=== PATIENT | female | born 1960 | race Caucasian/White ===

== ENCOUNTER → 2017-07-14 12:21 | Outpatient (CLI) | payer OTHER, SELFPAY ==
[2017-07-14 14:13] LABS: Hematocrit 39.2 % (37-47); Hemoglobin 12.7 g/dl (12.0-15.0); Mean Corp Hgb Conc 32.4 g/gl (32-36); Mean Corpuscular Hgb 32.1 pg (27.0-32.0); Platelet Count 202 K/mm3 (150-450); RBC Distribution Width CV 14.3 % (11.6-14.6); RBC Distribution Width SD 51.1 fl (35.1-43.9); Red Blood Count 3.96 M/mm3 (4.2-5.4); Scan Indicated on CBC? Y/N NO; White Blood Count 5.8 K/mm3 (4.4-11.0)
[2017-07-14 16:52] LABS: AST(SGOT) 7 U/L (15-37); Alanine Aminotransfer ALT/SGPT 15 U/L (13-56); Albumin, Serum 3.2 g/dL (3.2-5.0); Alkaline Phosphatase 36 U/L (45-117); Anion Gap 4 (5-15); BUN 20 mg/dL (7-18); BUN/Creat Ratio 19.8 RATIO (10-20); Calcium,Total 8.5 mg/dL (8.5-10.1); Chloride 104 mmol/L (98-107); Creatinine, Serum 1.01 mg/dL (0.55-1.02); EST Glomerular Filtration Rate 60 mL/min (>60); Est Glom Filt Rate - Afr Amer 73 mL/min (>60); Globulin 3.3 g/dL (2.2-4.2); Glucose 90 mg/dL (74-106); Potassium 3.9 mmol/L (3.5-5.1); Protein, Total 6.5 g/dL (6.4-8.2); Sodium Level 141 mmol/L (136-145)
[2017-07-14 16:59] LABS: Folates, (Folic Acid) > 100.00 ng/mL (3.1-55.4)
[2017-07-15 10:43] LABS: Vitamin B12 381 pg/mL (211-911)
== END ==
PROVIDERS: Family Provider Family Medicine; PCP Family Medicine
DX: Z79.899 Other long term (current) drug therapy (principal)
CPT/HCPCS: 36415; 80053; 82607; 82746; 85027

== ENCOUNTER → 2017-08-15 14:29 | Outpatient (CLI) | payer OTHER, SELFPAY ==
[2017-08-15 18:25] LABS: Absolute Lymphocyte Count 1.09 X10^3/ul (0.83-4.51); Absolute Neutrophil Count 5.9 X10^3/uL (2.0-7.7); Basophil# 0.01 X10^3/uL; Basophil% 0.1 % (0-1); Eosinophil# 0.03 X10^3/uL; Eosinophils% 0.4 % (0-5); Hematocrit 43.5 % (37-47); Hemoglobin 13.7 g/dl (12.0-15.0); Lymphocyte # 1.09 X10^3/ul (4.0); Mean Corp Hgb Conc 31.5 g/gl (32-36); Mean Corpuscular Hgb 30.7 pg (27.0-32.0); Mean Corpuscular Volume 97.5 fL (81-99); Mean Platelet Vol. 10.8 fl (6.2-12.0); Monocyte# 0.27 X10^3/uL; Monocyte% 3.7 % (0-10); Neutrophil # 5.85 X10^3/uL (2.7-7.7); Neutrophil % 80.7 % (47-70); Platelet Count 219 K/mm3 (150-450); RBC Distribution Width CV 14.1 % (11.6-14.6); RBC Distribution Width SD 50.7 fl (35.1-43.9); Red Blood Count 4.46 M/mm3 (4.2-5.4); White Blood Count 7.3 K/mm3 (4.4-11.0)
[2017-08-15 18:34] LABS: POSITIVE COUNT NO; POSITIVE DIFFERENTIAL NO; POSITIVE MORPHOLOGY NO
[2017-08-15 19:08] LABS: ALB/GLOB Ratio 1.1 RATIO (0.9-2.4); AST(SGOT) 8 U/L (15-37); Alanine Aminotransfer ALT/SGPT 17 U/L (13-56); Albumin, Serum 3.8 g/dL (3.2-5.0); Alkaline Phosphatase 37 U/L (45-117); Anion Gap 7 (5-15); BUN 26 mg/dL (7-18); BUN/Creat Ratio 21.3 RATIO (10-20); Calcium,Total 9.3 mg/dL (8.5-10.1); Chloride 105 mmol/L (98-107); Cholesterol 265 mg/dL (200); Creatinine, Serum 1.22 mg/dL (0.55-1.02); EST Glomerular Filtration Rate 48 mL/min (>60); Est Glom Filt Rate - Afr Amer 59 mL/min (>60); Free T3 3.1 pg/mL (2.18-3.98); Globulin 3.5 g/dL (2.2-4.2); Glucose 115 mg/dL (74-106); High Density Lipoprotein 70 mg/dL; Potassium 3.5 mmol/L (3.5-5.1); Protein, Total 7.3 g/dL (6.4-8.2); Sodium Level 140 mmol/L (136-145); T4 Free Direct 1.26 ng/dL (0.76-1.46); Thyroid Stim Hormone (TSH) 0.11 uIU/mL (0.358-3.74); Triglycerides 82 mg/dL; Very Low Density Lipoprotein 16 mg/dL (5-40)
[2017-08-15 19:54] LABS: Hemoglobin A1c 6.1 % (4.2-6.3)
== END ==
PROVIDERS: Family Provider Family Medicine; PCP Family Medicine; Visit Provider Internal Medicine Rheumatology
DX: M06.09 Rheumatoid arthritis without rheumatoid factor, multiple sites (principal); M79.7 Fibromyalgia; K76.0 Fatty (change of) liver, not elsewhere classified; I42.9 Cardiomyopathy, unspecified; M81.8 Other osteoporosis without current pathological fracture; E78.5 Hyperlipidemia, unspecified; E03.2 Hypothyroidism due to medicaments and other exogenous substances; N20.0 Calculus of kidney; E11.9 Type 2 diabetes mellitus without complications; Z79.899 Other long term (current) drug therapy
CPT/HCPCS: 36415; 80053; 80061; 83036; 84439; 84443; 84481; 85025

== ENCOUNTER → 2017-11-09 12:46 | Outpatient (CLI) | payer OTHER, SELFPAY ==
[2017-11-09 14:22] LABS: Absolute Lymphocyte Count 2.22 X10^3/ul (0.83-4.51); Absolute Neutrophil Count 2.6 X10^3/uL (2.0-7.7); Basophil# 0.03 X10^3/uL; Basophil% 0.6 % (0-1); Eosinophil# 0.12 X10^3/uL; Eosinophils% 2.3 % (0-5); Hematocrit 42.2 % (37-47); Hemoglobin 13.4 g/dl (12.0-15.0); Lymphocyte # 2.22 X10^3/ul (4.0); Lymphocyte % 41.7 % (19-41); Mean Corp Hgb Conc 31.8 g/gl (32-36); Mean Corpuscular Hgb 30.8 pg (27.0-32.0); Mean Platelet Vol. 9.9 fl (6.2-12.0); Monocyte# 0.38 X10^3/uL; Monocyte% 7.1 % (0-10); Neutrophil # 2.57 X10^3/uL (2.7-7.7); Neutrophil % 48.1 % (47-70); Platelet Count 216 K/mm3 (150-450); RBC Distribution Width CV 14.8 % (11.6-14.6); RBC Distribution Width SD 51.4 fl (35.1-43.9); Red Blood Count 4.35 M/mm3 (4.2-5.4); White Blood Count 5.3 K/mm3 (4.4-11.0)
[2017-11-09 14:30] LABS: POSITIVE COUNT NO; POSITIVE DIFFERENTIAL NO; POSITIVE MORPHOLOGY NO
[2017-11-09 14:35] LABS: ALB/GLOB Ratio 0.9 RATIO (0.9-2.4); AST(SGOT) 11 U/L (15-37); Alanine Aminotransfer ALT/SGPT 21 U/L (13-56); Albumin, Serum 3.3 g/dL (3.2-5.0); Alkaline Phosphatase 41 U/L (45-117); Anion Gap 7 (5-15); BUN 18 mg/dL (7-18); BUN/Creat Ratio 16.4 RATIO (10-20); Calcium,Total 9.1 mg/dL (8.5-10.1); Chloride 104 mmol/L (98-107); EST Glomerular Filtration Rate 55 mL/min (>60); Est Glom Filt Rate - Afr Amer 66 mL/min (>60); Globulin 3.5 g/dL (2.2-4.2); Glucose 167 mg/dL (74-106); Protein, Total 6.8 g/dL (6.4-8.2); Sodium Level 143 mmol/L (136-145)
== END ==
PROVIDERS: Family Provider Family Medicine; PCP Family Medicine; Visit Provider Internal Medicine Rheumatology
DX: M06.09 Rheumatoid arthritis without rheumatoid factor, multiple sites (principal); M79.7 Fibromyalgia; K76.0 Fatty (change of) liver, not elsewhere classified; I42.9 Cardiomyopathy, unspecified; M81.8 Other osteoporosis without current pathological fracture; E78.5 Hyperlipidemia, unspecified; E03.2 Hypothyroidism due to medicaments and other exogenous substances; N20.0 Calculus of kidney; Z79.899 Other long term (current) drug therapy
CPT/HCPCS: 36415; 80053; 85025

== ENCOUNTER 2018-02-09 05:06 | Observation (INO) | payer OTHER, SELFPAY ==
[2018-02-09] VITALS (10 sets, daily range): BP systolic 149–182; BP diastolic 94–111; PULSE 63–92; RESP 12–19; TEMP 36.6–37.1; O2SAT 94–98; BMI 29.5; BMI 28.5; BMI 28.6
--- NOTE | 2018-02-09 05:21 | EKG12_ITS ---
Test Reason : CP Blood Pressure : / mmHG Vent. Rate : 065 BPM Atrial Rate : 065 BPM P-R Int : 000 ms QRS Dur : 116 ms QT Int : 470 ms P-R-T Axes : 048 -66 058 degrees QTc Int : 488 ms Ventricular-paced rhythm Biventricular pacemaker detected Abnormal ECG Confirmed by BHUPINDER GAMBLE, ADDIE ([id number]), newspaper photo editor JEFF GUILLORY ([id number]) on 02/10/2018 1:33:32 PM Referred By: ANUJ Confirmed By:ADDIE ROE MD
--- NOTE | 2018-02-09 05:21 | RAD_ITS ---
STUDY: X-RAY CHEST REASON FOR EXAM: Female, 57 years old. Chest pain TECHNIQUE: Frontal view COMPARISON: 06/10/2015 FINDINGS: Pacemaker leads are in proper position. Lungs are expanded. There are fibrotic changes at the lung bases. There is NO acute infiltrate. There is no demonstrated pleural abnormality. Normal size heart. Normal mediastinum and francie. Normal visualized pulmonary arteries. Normal visualized aortic arch and descending thoracic aorta. Normal visualized thoracic spine. Normal visualized ribs, clavicles, and shoulders. There is no demonstrated abnormality of the visualized soft tissue structures of the upper abdomen. RAD/Chest 1 View (Portable) IMPRESSION: Pacemaker leads are in proper position. Lungs are expanded. There are fibrotic changes at the lung bases. There is NO acute infiltrate. There is no demonstrated pleural abnormality. Normal size heart. Electronically Signed: Tom Harley MD at 5:46 EDT , Service support ,
--- NOTE | 2018-02-09 05:27 | ED.VISSUMM ---
- ER Visit Summary Date of Service: 02/09/18 Chief Complaint: Chest pain History of Present Illness: The patient is a 57 F who complains of a gassy pressure sensation in her low chest upper abdomen all day yesterday. 2 hours prior to evaluation patient states she is getting pressure of the left side of her neck and down her left arm. She had some slight left arm numbness. She took 3 baby aspirin at home and one additional was given by squad. She is pain-free on arrival to the ED. Patient has noted increased shortness of breath with exertion over the past 3 months or so. She has recently seen pulmonology about this. Past history significant for CVA, NH x2, CHF, hypertension, reflux disease, hypothyroidism, rheumatoid arthritis, cardiomyopathy. She does have a pacemaker/ICD. She has seen Dr. Rosenberg in the past. Physical Examination: Blood pressure on arrival is 173/111, temperature 98.1, heart rate 70, respiratory rate 16, pulse ox 97% on room air. Patient sitting upright in bed no acute distress. Head neck examination is normal. Heart is regular rate and rhythm. Lung sounds are clear. There is no chest wall tenderness. Abdomen is soft and nontender. Active bowel sounds are noted throughout. Lower external examination was no calf tenderness or edema. She has strong distal pulses. Test Results: EKG is paced at 65 with no sign of acute ischemia. CBC and chemistry studies normal. Troponin is less than 0.015. Portable chest x-ray shows fibrotic changes of the lung bases. Pacer leads are in appropriate position. Emergency Department Course and Treatment: Patient received aspirin prior to arrival and was pain-free on arrival. She has remained pain-free throughout her ER stay. Patient does have history of 2 prior MIs, although cath in the past has showed no significant coronary disease. She has had decreased exercise tolerance and dyspnea on exertion over the past 1-3 months and now has pain into her neck and down her left arm. Patient will be admitted for cycling of cardiac enzymes and potential further stress test. Blood pressure at this time is remained elevated in the 170s systolic. She states her systolic blood pressures normally in the 120s and she is currently on low-dose Coreg twice a day for blood pressure control. She would be given 10 mg of labetalol. Patient states that she is very sensitive to blood pressure medications so we will give her a low dose at this time and can be redosed if needed. Treatment Plan: [] Disposition: Admit Impression: Chest pain This note was generated with [employer] dictation software. It may contain incorrect words, spelling, and punctuation that were not noted in review of the chart prior to signing ED Disposition - Plan for ED Patient: Chief Complaint: Chest Pain Referrals: Demond Hadley MD [Primary Care Provider] -
[2018-02-09 05:30] LABS: Absolute Lymphocyte Count 2.78 X10^3/ul (0.83-4.51); Absolute Neutrophil Count 4.2 X10^3/uL (2.0-7.7); Basophil# 0.02 X10^3/uL; Basophil% 0.3 % (0-1); Eosinophil# 0.12 X10^3/uL; Eosinophils% 1.5 % (0-5); Hematocrit 43.5 % (37-47); Hemoglobin 14.3 g/dl (12.0-15.0); Lymphocyte # 2.78 X10^3/ul (4.0); Lymphocyte % 35.1 % (19-41); Mean Corp Hgb Conc 32.9 g/gl (32-36); Mean Corpuscular Hgb 31.7 pg (27.0-32.0); Mean Corpuscular Volume 96.5 fL (81-99); Mean Platelet Vol. 9.6 fl (6.2-12.0); Monocyte# 0.75 X10^3/uL; Monocyte% 9.5 % (0-10); Neutrophil # 4.23 X10^3/uL (2.7-7.7); Neutrophil % 53.5 % (47-70); Platelet Count 201 K/mm3 (150-450); RBC Distribution Width CV 14.3 % (11.6-14.6); Red Blood Count 4.51 M/mm3 (4.2-5.4); White Blood Count 7.9 K/mm3 (4.4-11.0)
[2018-02-09] MEDS: 0.9% Normal Saline 1,000 ML 150 ML IV (05:30)
[2018-02-09 05:31] LABS: POSITIVE COUNT NO; POSITIVE DIFFERENTIAL NO; POSITIVE MORPHOLOGY NO
[2018-02-09 05:41] LABS: Anion Gap 7 (5-15); BUN 18 mg/dL (7-18); BUN/Creat Ratio 18.3 RATIO (10-20); Calcium,Total 8.6 mg/dL (8.5-10.1); Chloride 104 mmol/L (98-107); Creatinine, Serum 0.98 mg/dL (0.55-1.02); EST Glomerular Filtration Rate 62 mL/min (>60); Est Glom Filt Rate - Afr Amer 75 mL/min (>60); Estimated Creatinine Clearance 60.01 ml/min; Glucose 113 mg/dL (74-106); Potassium 3.8 mmol/L (3.5-5.1); Sodium Level 142 mmol/L (136-145)
--- NOTE | 2018-02-09 06:16 | PCM.HP.STD ---
History of Present Illness Date of Admission: 02/09/18 Chief Complaint: Chest Pain The patient is a 57 y/o F w/ PMHx: Cardiomyopathy, CAD s/p prior [place] x 2 without PCI, Systolic CHF, Hx CVA, Hypothyroidism, Hypertension, Hyperlipidemia, Rheumatoid arthritis, Transverse Myelitis, GERD, Anxiety, CKD stage II, MALU who presents to the [facility] ED on 02/09/18 with history of dyspnea, worse with exertion over the last month, mild upper abdominal discomfort/upset with increased gas during the day as well as mild nausea and now acute onset at ~ 12 pm L chest sharp pain underneath her breast rated 4-5/10, constant and ~ 3 am LUE, left shoulder and left neck discomfort described as similarly sharp, stabbing, rated 5/10. She called EMS and during transport was administered ASA 81 mg x 4. She noted resolution of her chest discomfort upon ED presentation. In the ED work-up included T 98.1, heart rate 70, BP initially 173/111, respiratory rate 16, 97% on room air, CBC with WBC 7.9, hemoglobin 14.3, platelet 201 without shift, BMP with glucose 113 otherwise unremarkable, trop < 0.015, EKG without acute evidence of ischemia, CXR with pacemaker leads in proper position, fibrotic changes lung bases with no acute cardiopulmonary findings otherwise. In the ED patient administered labetaolol 10 mg IV x 1. Past Medical History Past Medical History (Chronic Problems): Chronic Problems HTN (hypertension) (Chronic) GERD (gastroesophageal reflux disease) (Chronic) Hypothyroidism (Chronic) Depression (Chronic) CVA (cerebral infarction) (Chronic) Congestive heart failure (Chronic) Rheumatoid arthritis (Chronic) ICD (implantable cardioverter-defibrillator), biventricular, in situ (Chronic) ICD (implantable cardioverter-defibrillator) in place (Chronic) HLD (hyperlipidemia) (Chronic) Cardiomyopathy, noncoronary (Chronic) myocardial infarction (Chronic) Allergies ciprofloxacin [From Cipro] Allergy (Verified 02/09/18 05:12) Other ciprofloxacin HCl [From Cipro] Allergy (Verified 02/09/18 05:12) Other citric acid Allergy (Verified 02/09/18 05:12) Angioedema levofloxacin [From Levaquin] Allergy (Verified 02/09/18 05:12) Unknown lisinopril Allergy (Verified 02/09/18 05:12) Hives simvastatin [From Zocor] Allergy (Verified 02/09/18 05:12) MUSCLE WEAKNESS TILOX Allergy (Uncoded 06/12/15 12:57) HYPOTENSION Home Medications: Ambulatory Orders Medication Instructions Recorded ALPRAZolam [Xanax] 2 mg PO QHS 10/13/14 Aspirin [Aspirin, Baby] 81 mg PO DAILY@0800 10/13/14 Biotin 1 mg PO DAILY 10/13/14 Calcium Carbonate 600 mg PO BID 10/13/14 Esomeprazole Mag Trihydrate 40 mg PO DAILY 10/13/14 [Nexium] Levothyroxine Sodium [Levoxyl] 125 mcg PO DAILY 10/13/14 Potassium Chloride [Klor-Con 10] 20 meq PO DAILY 10/13/14 traMADol [Ultram] 50 mg PO 4X/DAY 10/13/14 Abatacept [Orencia] 125 mg SQ QWEEK 01/21/15 Cholecalciferol (VIT D3) [Vitamin 2,000 unit PO DAILY 05/23/15 D3] Carvedilol [Coreg (Beta Khris)] 6.25 mg PO BID 06/10/15 Estradiol [Estrace Vaginal Cream] 1 dose VAGINAL DAILY 06/12/15 Fluticasone 0.05% [Flonase Nasal 06/12/15 [place]] Docusate Sodium [Colace] 100 mg PO DAILY 02/09/18 Folic Acid 600 mg PO DAILY 02/09/18 L.acidoph,Paracasei, B.lactis 1 each PO DAILY 02/09/18 [Probiotic] Liothyronine Sodium [Cytomel] 5 mcg PO DAILY 02/09/18 Loratadine [Claritin] 10 mg PO DAILY 02/09/18 Ramelteon [Rozerem] 8 mg PO QHS 02/09/18 Tetrahydrozoline HCl/Zinc Sulf 1 dose EACH EYE DAILY 02/09/18 [[facility] Astringent Eye Drops] busPIRone [Buspar] 15 mg PO DAILY 02/09/18 predniSONE tablet 5 mg PO DAILY 02/09/18 Surgical History: - - 5 foot surgeries, 5 hand surgeries, hysterectomy, tubal ligation, ICD/pacer. Psychiatric History: Anxiety, Depression HATCH BOSS History: No pertinent HATCH BOSS history Lives: Spouse/ Significant Other Smoking Status: Never smoker Alcohol: None Drugs: None - *Family History Maternal History Items: Diabetes, Heart Disease, Hypertension Paternal History Items: Diabetes, Heart Disease, Hypertension, Stroke Review of Systems Constitutional: Reports: Fatigue. Denies: Chills, Fever, Weight Change HEENT: Denies: Head Aches, Sinus Congestion, Sinus Drainage Cardiovascular: Reports: Chest Pain. Denies: Light Headedness, Orthopnea, Palpitations, Syncope Respiratory: Reports: Shortness of breath upon exertion. Denies: Cough, Shortness of breath at rest, Sputum production Gastrointestinal: Reports: Abdominal Pain, Nausea. Denies: Vomiting Genitourinary: Denies: Dysuria Musculoskeletal: Reports: Back Pain, Joint Pain. Denies: Joint Tenderness Skin: Denies: Rash, Wounds Neurological: Denies: Numbness, Tingling, Focal weakness Psychiatric: Reports: Anxiety, Depression. Denies: Homicidal Ideations, Suicidal Ideations Hematologic/ Lymphatic: Denies: Easy Bruising, Easy Bleeding VTE Information - Inpt Only VTE Present on Admission: No VTE Mechan Device Prophylaxis: SCD's VTE Pharm Prophylaxis ordered?: Yes Subjective: Seated upright in the ED bed, notes chest pain improved, currently back hurting she notes. Objective: Physical Examination: General: awake, alert, oriented x 3 and cooperative, seated upright in the ED bed in no apparent distress, chest pain improved. Skin: normal color, turgor, no icterus, cyanosis. HEENT: AT/NC, EOMI, PERRLA, MMM, no carotid bruits or JVD noted. Lungs: CTA bilaterally, moderate effort, mild decrease BL bases, no rales, ronchi or wheezing. Heart: Regular rate and rhythm; no gallop, rub audible. Abdomen: soft, overweight, NTTP, ND, normal BS, no HSM. Extremities: no cyanosis, clubbing, or edema. Neurological: patient awake, alert, oriented x 3; cognitive function intact; pupils equally reactive to light and accomodation; cranial nerves II-XII grossly normal, moving all 4 extremities, no focal deficits, strength mildly globally decreased. Psychiatric: affect appears normal, no acute evidence of depressive or anxiety feelings. - Physical Exam Vital Signs Temp Pulse Resp BP Pulse Ox 98.1 F 72 16 173/111 H 96 02/09/18 05:08 02/09/18 05:12 02/09/18 05:12 02/09/18 05:12 02/09/18 05:12 Oxygen Flow Rate (L/min) 99 Oxygen Delivery Method Room Air Weight: 183 lb 3.266 oz Body Mass Index (BMI) 29.5 Finger Stick Blood Glucose 132 Laboratory Tests Past 24 Hrs 02/09/18 02/09/18 05:14 05:14 WBC 7.9 RBC 4.51 Hgb 14.3 Hct 43.5 MCV 96.5 MCH 31.7 MCHC 32.9 RDW 14.3 RDW Differential 49.0 H Plt Count 201 MPV 9.6 Immature Gran % (Auto) 0.100 Neut % (Auto) 53.5 Lymph % (Auto) 35.1 [place] % (Auto) 9.5 Eos % (Auto) 1.5 Baso % (Auto) 0.3 Absolute Neuts (auto) 4.2 Absolute Lymphs (auto) 2.78 Total Counted Not Reportable Sodium 142 Potassium 3.8 Chloride 104 Carbon Dioxide 31.0 Anion Gap 7 BUN 18 Creatinine 0.98 Estim Creat Clear Calc 60.01 Est GFR (MDRD) Af Amer 75 Est GFR (MDRD) Non-Af 62 BUN/Creatinine Ratio 18.3 Glucose 113 H Calcium 8.6 Troponin I < 0.015 Assessment/Plan All Active Problems Dehydration (Acute) Orthostatic hypotension (Acute) Near syncope (Acute) The patient is a 57 y/o F w/ PMHx: Cardiomyopathy, CAD s/p prior [place] x 2 without PCI, Systolic CHF, Hx CVA, Hypothyroidism, Hypertension, Hyperlipidemia, Rheumatoid arthritis, GERD, Anxiety, CKD stage II, MALU who presents to the [facility] ED on 02/09/18 with history of dyspnea, worse with exertion over the last month, mild upper abdominal discomfort/upset with increased gas the day prior to current presentation as well as now acute onset at ~ 3 am LUE, left shoulder and left neck discomfort. (1) Chest Pain: EKG in ED with no acute evidence of ischemia, CXR w/ no acute findings, initial trop normal x1. Will admit to PCU, place on a monitored bed to assure no acute myocardial infarction with serial cardiac enzymes and EKGs. Patient is unable to perform exercise thus will proceed with AM nuclear stress testing. ASA, NG, morphine. FLP in AM. Mag pending. (2) Systolic CHF/Cardiomyopathy Unclear Type: Continue home regimen asa, coreg, statin intolerance. Given current elevated blood pressures if appropriate may consider adding ACEI. 2014 ECHO w/ borderline to mildly enlarged LV, moderately segmental systolic dysfunction, EF 30%, mild diffuse MV thickening, trivial MVI, trivial TBI, trivial pulmonic valve insufficiency, ICD /Taser leads in place. Follows w/ CC. (3) Anxiety/Depression: Continued on home regimen xanax, buspar, rozerem q HS. (4) Hypothyroidism: Continue home synthroid regimen. (5) Rheumatoid arthritis: Continued on low dose prednisone. (6) Hx CVA: Continued on asa, noted statin allergy, not on BP regimen w/ appropriate BP. HgbA1c pending w/ noted DM diagnosis following last admission. (7) Diabetes mellitus type II: Not on regimen, noted in prior diagnoses, HgbA1c pending, NPO status currently, accu checks w/ ISS. (8) MALU: CPAP q HS (9) GERD: Famotidine. (10) DVT prophylaxis: SCDs, lovenox. Code Visit OBSV E&M: 80860 Initial observation care L3
[2018-02-09] MEDS: Labetalol 20 MG/4 ML Vial 10 MG IV (06:30)
--- NOTE | 2018-02-09 06:49 | EKG12_ITS ---
Test Reason : CP ADMISSION Blood Pressure : / mmHG Vent. Rate : 063 BPM Atrial Rate : 063 BPM P-R Int : 132 ms QRS Dur : 112 ms QT Int : 484 ms P-R-T Axes : 031 237 066 degrees QTc Int : 495 ms Atrial-sensed ventricular-paced rhythm Biventricular pacemaker detected Abnormal ECG When compared with ECG of 09-FEB-2018 05:12, MANUAL COMPARISON REQUIRED, DATA IS UNCONFIRMED Confirmed by KEVIN BECKER ([id number]), dictionary editor JEFF GUILLORY ([id number]) on 02/14/2018 11:23:14 AM Referred By: ASHLEIGH Confirmed By:KEVIN BECKER
[2018-02-09 07:08] LABS: Magnesium 2.1 mg/dL (1.6-2.6)
[2018-02-09 07:16] LABS: Bedside Glucose 78 mg/dL (70-110)
[2018-02-09 08:40] LABS: Hemoglobin A1c 6.2 % (4.2-6.3)
[2018-02-09] MEDS: predniSONE 10 MG Tablet 40 MG PO (09:14)
[2018-02-09] MEDS: Levothyroxine 125 MCG Tablet PO (09:15)
[2018-02-09] MEDS: busPIRone 15 MG TABLET PO (09:16)
[2018-02-09] MEDS: Aspirin 81 MG TAB.CHEW PO (09:16)
[2018-02-09] MEDS: traMADol 50 MG Tablet PO (09:16)
[2018-02-09] MEDS: Famotidine 20 MG Tablet PO (09:16)
[2018-02-09] MEDS: Carvedilol 6.25 MG Tablet PO (11:10)
--- NOTE | 2018-02-09 11:17 | PCM.DC ---
You will use the following diet at home:: Cardiac Discharge Activity: Return to Normal Activity Call your doctor if you observe: Shortness of breath, Dizziness, Fainting spells, Chest pain Allergies/Adverse Reactions: Allergies ciprofloxacin [From Cipro] Allergy (Verified 02/09/18 05:12) Other ciprofloxacin HCl [From Cipro] Allergy (Verified 02/09/18 05:12) Other citric acid Allergy (Verified 02/09/18 05:12) Angioedema ezetimibe [From Zetia] Allergy (Verified 02/09/18 08:01) Other levofloxacin [From Levaquin] Allergy (Verified 02/09/18 05:12) Unknown linagliptin [From Tradjenta] Allergy (Verified 02/09/18 08:01) Upset Stomach lisinopril Allergy (Verified 02/09/18 05:12) Hives oxcarbazepine [From Trileptal] Allergy (Verified 02/09/18 08:01) Other simvastatin [From Zocor] Allergy (Verified 02/09/18 05:12) MUSCLE WEAKNESS TILOX Allergy (Uncoded 06/12/15 12:57) HYPOTENSION Medications to take at Discharge ALPRAZolam [Xanax] 1 mg PO QHS 10/13/14 Aspirin [Aspirin, Baby] 81 mg PO DAILY@0800 10/13/14 Biotin 1,000 mg PO DAILY 10/13/14 Calcium Carbonate 600 mg PO BID 10/13/14 Esomeprazole Mag Trihydrate [Nexium] 40 mg PO DAILY 10/13/14 Levothyroxine Sodium [Levoxyl] 125 mcg PO DAILY 10/13/14 Potassium Chloride [Klor-Con 10] 20 meq PO DAILY 10/13/14 traMADol [Ultram] 50 mg PO TID 10/13/14 Abatacept [Orencia] 125 mg SQ QWEEK 01/21/15 Cholecalciferol (VIT D3) [Vitamin D3] 600 mg PO BID 05/23/15 Carvedilol [Coreg (Beta Khris)] 6.25 mg PO BID 06/10/15 Estradiol [Estrace Vaginal Cream] 0.1 mg VAGINAL DAILY 06/12/15 Fluticasone 0.05% [Flonase Nasal [place]] 1 spray NASAL DAILY 06/12/15 Colestipol Tablet [Colestid Tablet] 1 gm PO DAILY 02/09/18 Docusate Sodium [Colace] 100 mg PO DAILY 02/09/18 Duloxetine Hcl [Cymbalta] 30 mg PO BID 02/09/18 Folic Acid 600 mg PO DAILY 02/09/18 L.acidoph,Paracasei, B.lactis [Probiotic] 1 each PO DAILY 02/09/18 Liothyronine Sodium [Cytomel] 5 mcg PO DAILY 02/09/18 Loratadine [Claritin] 10 mg PO DAILY 02/09/18 Ramelteon [Rozerem] 8 mg PO QHS 02/09/18 Tetrahydrozoline HCl/Zinc Sulf [Cvs Astringent Eye Drops] 1 dose EACH EYE DAILY 02/09/18 busPIRone [Buspar] 15 mg PO TID 02/09/18 predniSONE tablet 5 mg PO DAILY 02/09/18 Primary Care Physician: Demond Hadley MD [Primary Care Provider] - Please follow up with your Primary Care Physician in: 1 Week Test Results: Test results from this visit will be discussed in further detail at your follow-up appointment, if applicable. Please Follow Up With: Primary Mat Cleaning Machine Operator When: 1 Week Proposed Discharge Date: 02/09/18
[2018-02-09 11:21] LABS: Bedside Glucose 153 mg/dL (70-110)
--- NOTE | 2018-02-09 12:21 | STRESSREP_ITS ---
Stress Test Report Date: 02/09/2018 Procedure: Pharmacologic stress nuclear imaging study Indications: Chest pain; CAD; cardiomyopathy; ICD Consent: Per the patient Procedure: The patient underwent pharmacologic (Regadenoson) evaluation with a peak heart rate of 117 beats per minute (71 predicted maximal heart rate) and a peak blood pressure of 160/96 mmHg. The baseline ECG demonstrated electronic ventricular paced rhythm. The peak pharmacologic ECG demonstrated an electronic ventricular paced rhythm. There was a rare PVC during recovery. There was no complaint of chest discomfort during pharmacologic infusion or recovery. The examination was discontinued secondary to completion of protocol. Impression: 1. Pharmacologic (Regadenoson) evaluation 2. Peak pharmacologic ECG with an electronic ventricular paced rhythm. 3. There was a rare PVC during recovery. 4. Nuclear images pending Myocardial perfusion imaging study: Technique: The patient was injected with 13.7 millicuries of technetium 99m Cardiolite and subsequently rest SPECT Cardiolite nuclear imaging was obtained in the horizontal long, vertical long, and short axis views. The patient underwent pharmacologic (Regadenoson) evaluation with a peak heart rate of 117 beats per minute (71 % percent predicted maximal heart rate) and a peak blood pressure of 160/96 mmHg. The patient was injected with 39.9 millicuries of technetium 99m Cardiolite and subsequently stress SPECT Cardiolite nuclear imaging was obtained in the horizontal long, vertical long, and short axis views. Interpretation: Rest and stress SPECT Cardiolite nuclear imaging status post realignment, normalization, and attenuation correction demonstrate relative uniform tracer uptake and myocardial perfusion appearing within normal limits. A gated Cardiolite study at peak stress was not obtained Impression: 1. Rest and stress SPECT Cardiolite nuclear imaging demonstrate relative uniform tracer uptake and myocardial perfusion appearing within normal limits. 2. The gated Cardiolite study at peak stress was not obtained. This note was generated with [employer] software. It may contain incorrect words, spelling, and punctuation that were not noted in checking the note before signing.
--- NOTE | 2018-02-09 12:41 | DS.PCM_ITS ---
<Danna Fishman - Last Filed: 02/09/18 12:49> Discharge Date and Diagnosis Date of Admission: 02/09/18 Date of Discharge: 02/09/18 - Primary Discharge Diagnosis 1. Atypical chest pain, ACS ruled out 2. Chronic systolic CHF/cardiomyopathy 3. Anxiety/depression 4. Hypothyroidism 5. Rheumatoid arthritis 6. History of CVA 7. Type 2 diabetes mellitus 8. MALU 9. GERD 10. CAD status post prior NV x2 without PCI 11. History of transverse myelitis 12. Hypertension 13. hyperlipidemia 14. Chronic kidney disease stage II - Secondary Discharge Diagnosis Chronic Problems HTN (hypertension) (Chronic) GERD (gastroesophageal reflux disease) (Chronic) Hypothyroidism (Chronic) Depression (Chronic) CVA (cerebral infarction) (Chronic) Congestive heart failure (Chronic) Rheumatoid arthritis (Chronic) ICD (implantable cardioverter-defibrillator), biventricular, in situ (Chronic) ICD (implantable cardioverter-defibrillator) in place (Chronic) HLD (hyperlipidemia) (Chronic) Cardiomyopathy, noncoronary (Chronic) myocardial infarction (Chronic) Hospital Course and Treatment Imaging Results: Diagnostic Data Chest X-Ray 02/09/18 05:21 IMPRESSION: Pacemaker leads are in proper position. Lungs are expanded. There are fibrotic changes at the lung bases. There is NO acute infiltrate. There is no demonstrated pleural abnormality. Normal size heart. Electronically Signed: Tom Harley MD at 5:46 EDT , Service support , Operations: None Procedures: Stress test Summary of Care Provided: The patient is a 57 year old F admitted 02/09/2018 due to chest pain. She has a past medical history of cardiomyopathy, CAD status post prior NV x2 without PCI, chronic systolic CHF, history of CVA, hypothyroidism, hypertension, hyperlipidemia, rheumatoid arthritis, transverse myelitis, GERD, anxiety, chronic kidney disease stage II, obstructive sleep apnea. EKG without ST-T changes. Troponin negative. Patient underwent nuclear stress test which was negative for ischemia. ACS ruled out. Suspect pain under the left breast musculoskeletal in nature. Patient on chronic pain medication regimen due to rheumatoid arthritis. Patient denies shortness of breath, dizziness, lightheadedness. Chest x-ray on admission without acute process. Other chronic medical conditions as noted above are stable at this time. Follow-up with primary care physician in 1 week. General: Awake, Alert, Oriented x 3 and cooperative, no apparent distress Skin: normal color, turgor, no icterus, cyanosis. HEENT: AT/NC, EOMI, PERRLA, MMM, no carotid bruits or JVD noted. Lungs: Clear to auscultation Heart: Regular rate and rhythm; no gallop, rub audible. Abdomen: soft, nontender, normal bowel sounds, nondistended Extremities: no cyanosis, clubbing, or edema. Neurological: cranial nerves II-XII grossly normal, neuro grossly intact. Psychiatric: Normal affect Patient seen exam prior to discharge. Physical assessment as noted above. Patient stable for discharge home with the follow-up recommendations as noted above. This patient was seen by SAMIR Calzada under the supervision of Dr. Ruelas. - Physical Exam Vital Signs Temp Pulse Resp BP Pulse Ox 98.4 F 83 16 149/97 H 97 02/09/18 11:10 02/09/18 11:10 02/09/18 11:10 02/09/18 11:10 02/09/18 11:10 Oxygen Flow Rate (L/min) 99 Oxygen Delivery Method Room Air Weight: 177 lb 4.026 oz Body Mass Index (BMI) 28.5 Finger Stick Blood Glucose 132 Intake and Output for Last 24 Hours 02/07/18 02/08/18 02/09/18 23:59 23:59 23:59 Intake Total 583 / 583 Balance 583 / 583 Laboratory Tests Past 24 Hrs 02/09/18 02/09/18 02/09/18 05:14 05:14 05:14 WBC 7.9 RBC 4.51 Hgb 14.3 Hct 43.5 MCV 96.5 MCH 31.7 MCHC 32.9 RDW 14.3 RDW Differential 49.0 H Plt Count 201 MPV 9.6 Immature Gran % (Auto) 0.100 Neut % (Auto) 53.5 Lymph % (Auto) 35.1 Pierce % (Auto) 9.5 Eos % (Auto) 1.5 Baso % (Auto) 0.3 Absolute Neuts (auto) 4.2 Absolute Lymphs (auto) 2.78 Total Counted Not Reportable Sodium 142 Potassium 3.8 Chloride 104 Carbon Dioxide 31.0 Anion Gap 7 BUN 18 Creatinine 0.98 Estim Creat Clear Calc 60.01 Est GFR (MDRD) Af Amer 75 Est GFR (MDRD) Non-Af 62 BUN/Creatinine Ratio 18.3 Glucose 113 H Hemoglobin A1c Calcium 8.6 Magnesium 2.1 Troponin I < 0.015 02/09/18 02/09/18 02/09/18 05:14 08:15 11:16 WBC RBC Hgb Hct MCV MCH MCHC RDW RDW Differential Plt Count MPV Immature Gran % (Auto) Neut % (Auto) Lymph % (Auto) Pierce % (Auto) Eos % (Auto) Baso % (Auto) Absolute Neuts (auto) Absolute Lymphs (auto) Total Counted Sodium Potassium Chloride Carbon Dioxide Anion Gap BUN Creatinine Estim Creat Clear Calc Est GFR (MDRD) Af Amer Est GFR (MDRD) Non-Af BUN/Creatinine Ratio Glucose Hemoglobin A1c 6.2 Calcium Magnesium Troponin I < 0.015 < 0.015 POC Glucose 02/09/18 02/09/18 11:12 06:58 POC Glucose 153 H 78 Discharge Diet: Low fat/ Low Cholesterol Discharge Activity: Return to Normal Activity Call your doctor if you observe: Shortness of breath, Dizziness, Fainting spells, Chest pain Home Medications: Medications to take at Discharge ALPRAZolam [Xanax] 1 mg PO QHS 10/13/14 Aspirin [Aspirin, Baby] 81 mg PO DAILY@0800 10/13/14 Biotin 1,000 mg PO DAILY 10/13/14 Calcium Carbonate 600 mg PO BID 10/13/14 Esomeprazole Mag Trihydrate [Nexium] 40 mg PO DAILY 10/13/14 Levothyroxine Sodium [Levoxyl] 125 mcg PO DAILY 10/13/14 Potassium Chloride [Klor-Con 10] 20 meq PO DAILY 10/13/14 traMADol [Ultram] 50 mg PO TID 10/13/14 Abatacept [Orencia] 125 mg SQ QWEEK 01/21/15 Cholecalciferol (VIT D3) [Vitamin D3] 600 mg PO BID 05/23/15 Carvedilol [Coreg (Beta Khris)] 6.25 mg PO BID 06/10/15 Estradiol [Estrace Vaginal Cream] 0.1 mg VAGINAL DAILY 06/12/15 Fluticasone 0.05% [Flonase Nasal [place]] 1 spray NASAL DAILY 06/12/15 Colestipol Tablet [Colestid Tablet] 1 gm PO DAILY 02/09/18 Docusate Sodium [Colace] 100 mg PO DAILY 02/09/18 Duloxetine Hcl [Cymbalta] 30 mg PO BID 02/09/18 Folic Acid 600 mg PO DAILY 02/09/18 L.acidoph,Paracasei, B.lactis [Probiotic] 1 each PO DAILY 02/09/18 Liothyronine Sodium [Cytomel] 5 mcg PO DAILY 02/09/18 Loratadine [Claritin] 10 mg PO DAILY 02/09/18 Ramelteon [Rozerem] 8 mg PO QHS 02/09/18 Tetrahydrozoline HCl/Zinc Sulf [Cvs Astringent Eye Drops] 1 dose EACH EYE DAILY 02/09/18 busPIRone [Buspar] 15 mg PO TID 02/09/18 predniSONE tablet 5 mg PO DAILY 02/09/18 Primary Care Physician: Demond Hadley MD [Primary Care Provider] - Please follow up with your Primary Care Physician in: 1 Week Please Follow Up With: Primary Washroom Cleaner When: 1 Week Disposition: Home Minutes spent on discharge:: 35 Patient Condition:: Stable Medical Necessity - Tobacco Use Smoking Status: Never smoker Meaningful Use Info Meaningful Use Diagnoses (Choose all that apply): None applicable <Cm Ruelas - Last Filed: 02/09/18 14:33> Discharge Date and Diagnosis - Secondary Discharge Diagnosis Chronic Problems HTN (hypertension) (Chronic) GERD (gastroesophageal reflux disease) (Chronic) Hypothyroidism (Chronic) Depression (Chronic) CVA (cerebral infarction) (Chronic) Congestive heart failure (Chronic) Rheumatoid arthritis (Chronic) ICD (implantable cardioverter-defibrillator), biventricular, in situ (Chronic) ICD (implantable cardioverter-defibrillator) in place (Chronic) HLD (hyperlipidemia) (Chronic) Cardiomyopathy, noncoronary (Chronic) myocardial infarction (Chronic) Hospital Course and Treatment Imaging Results: 02/09/18 05:55 Nuclear Stress Test - Chemical [NM] AM (NON MEDS) Summary of Care Provided: The patient is a 57 year old F [] - Physical Exam Vital Signs Temp Pulse Resp BP Pulse Ox 98.4 F 83 16 149/97 H 97 02/09/18 11:10 02/09/18 11:10 02/09/18 11:10 02/09/18 11:10 02/09/18 11:10 Oxygen Flow Rate (L/min) 99 Oxygen Delivery Method Room Air Weight: 177 lb 4.026 oz Body Mass Index (BMI) 28.5 Finger Stick Blood Glucose 132 Intake and Output for Last 24 Hours 02/07/18 02/08/18 02/09/18 23:59 23:59 23:59 Intake Total 583 / 583 Balance 583 / 583 Laboratory Tests Past 24 Hrs 02/09/18 02/09/18 02/09/18 05:14 05:14 05:14 WBC 7.9 RBC 4.51 Hgb 14.3 Hct 43.5 MCV 96.5 MCH 31.7 MCHC 32.9 RDW 14.3 RDW Differential 49.0 H Plt Count 201 MPV 9.6 Immature Gran % (Auto) 0.100 Neut % (Auto) 53.5 Lymph % (Auto) 35.1 Pierce % (Auto) 9.5 Eos % (Auto) 1.5 Baso % (Auto) 0.3 Absolute Neuts (auto) 4.2 Absolute Lymphs (auto) 2.78 Total Counted Not Reportable Sodium 142 Potassium 3.8 Chloride 104 Carbon Dioxide 31.0 Anion Gap 7 BUN 18 Creatinine 0.98 Estim Creat Clear Calc 60.01 Est GFR (MDRD) Af Amer 75 Est GFR (MDRD) Non-Af 62 BUN/Creatinine Ratio 18.3 Glucose 113 H Hemoglobin A1c Calcium 8.6 Magnesium 2.1 Troponin I < 0.015 02/09/18 02/09/18 02/09/18 05:14 08:15 11:16 WBC RBC Hgb Hct MCV MCH MCHC RDW RDW Differential Plt Count MPV Immature Gran % (Auto) Neut % (Auto) Lymph % (Auto) Pierce % (Auto) Eos % (Auto) Baso % (Auto) Absolute Neuts (auto) Absolute Lymphs (auto) Total Counted Sodium Potassium Chloride Carbon Dioxide Anion Gap BUN Creatinine Estim Creat Clear Calc Est GFR (MDRD) Af Amer Est GFR (MDRD) Non-Af BUN/Creatinine Ratio Glucose Hemoglobin A1c 6.2 Calcium Magnesium Troponin I < 0.015 < 0.015 POC Glucose 02/09/18 02/09/18 11:12 06:58 POC Glucose 153 H 78 Code Visit Addendum: Dr. Ruelas I personally examined the patient and reviewed the chart. I agree with the above. 57-year-old female with past medical history consistent with cardiomyopathy, coronary artery disease status post prior NV x2 without PCI, systolic CHF, history of CVA, hypothyroidism, hypertension, hyperlipidemia, rheumatoid arthritis, GERD, anxiety, CKD stage II, MALU who presents to the ER with dyspnea which is worse with exertion over the last month, will upper abdominal discomfort, as well as left upper extremity shoulder pain and neck discomfort. On exam she states that all symptoms have resolved. Her troponin is negative x2 her EKG was unremarkable and she had a cardiac stress this morning which was negative. She was discharged home with PCP and cardiology follow-up. OBSV E&M: [id number] Observ/hosp same date L3
== END 2018-02-09 11:18 | disposition home or self-care (01) ==
LOC: ED 05:50 → PCU 06:49
PROVIDERS: Admitting Provider Family Medicine; Emergency Provider Emergency Medicine; Family Provider Family Medicine; PCP Family Medicine; Visit Provider Family Medicine
DX: R07.89 Other chest pain (principal); R20.0 Anesthesia of skin; I25.2 Old myocardial infarction; K21.9 Gastro-esophageal reflux disease without esophagitis; M06.9 Rheumatoid arthritis, unspecified; R06.09 Other forms of dyspnea; Z79.899 Other long term (current) drug therapy; Z79.82 Long term (current) use of aspirin; Z79.52 Long term (current) use of systemic steroids; Z95.810 Presence of automatic (implantable) cardiac defibrillator; G37.3 Acute transverse myelitis in demyelinating disease of central nervous system; I13.0 Hypertensive heart and chronic kidney disease with heart failure and stage 1 through stage 4 chronic kidney disease, or unspecified chronic kidney disease; N18.2 Chronic kidney disease, stage 2 (mild); G47.33 Obstructive sleep apnea (adult) (pediatric); F41.9 Anxiety disorder, unspecified; I50.22 Chronic systolic (congestive) heart failure; E03.9 Hypothyroidism, unspecified; F32.9 Major depressive disorder, single episode, unspecified; Z86.73 Personal history of transient ischemic attack (TIA), and cerebral infarction without residual deficits
CPT/HCPCS: 36415; 71045; 78452; 80048; 82962; 83036; 83735; 84484; 85025; 93005; 93017; 96361; 96374; 99285; J7030; A4216; J2785

== ENCOUNTER → 2018-02-10 13:45 | Outpatient (CLI) | payer OTHER, SELFPAY ==
[2018-02-10 16:17] LABS: Absolute Lymphocyte Count 1.51 X10^3/ul (0.83-4.51); Absolute Neutrophil Count 5.1 X10^3/uL (2.0-7.7); Basophil# 0.02 X10^3/uL; Basophil% 0.3 % (0-1); Eosinophil# 0.07 X10^3/uL; Hematocrit 42.3 % (37-47); Hemoglobin 13.5 g/dl (12.0-15.0); Lymphocyte # 1.51 X10^3/ul (4.0); Lymphocyte % 21.2 % (19-41); Mean Corp Hgb Conc 31.9 g/gl (32-36); Mean Corpuscular Hgb 31.6 pg (27.0-32.0); Mean Corpuscular Volume 99.1 fL (81-99); Mean Platelet Vol. 10.2 fl (6.2-12.0); Monocyte# 0.45 X10^3/uL; Monocyte% 6.3 % (0-10); Neutrophil # 5.06 X10^3/uL (2.7-7.7); Neutrophil % 70.9 % (47-70); Platelet Count 224 K/mm3 (150-450); RBC Distribution Width CV 14.5 % (11.6-14.6); RBC Distribution Width SD 51.8 fl (35.1-43.9); Red Blood Count 4.27 M/mm3 (4.2-5.4); White Blood Count 7.1 K/mm3 (4.4-11.0)
[2018-02-10 16:20] LABS: POSITIVE COUNT NO; POSITIVE DIFFERENTIAL NO; POSITIVE MORPHOLOGY NO
[2018-02-10 16:47] LABS: Vitamin D,25 Hydroxy 68.9 ng/mL (29.95-100.01)
[2018-02-10 16:48] LABS: ALB/GLOB Ratio 0.8 RATIO (0.9-2.4); AST(SGOT) 7 U/L (15-37); Alanine Aminotransfer ALT/SGPT 16 U/L (13-56); Albumin, Serum 3.2 g/dL (3.2-5.0); Alkaline Phosphatase 51 U/L (45-117); Anion Gap 8 (5-15); BUN 18 mg/dL (7-18); BUN/Creat Ratio 17.8 RATIO (10-20); Calcium,Total 8.9 mg/dL (8.5-10.1); Chloride 103 mmol/L (98-107); Cholesterol 225 mg/dL (200); Creatinine, Serum 1.01 mg/dL (0.55-1.02); EST Glomerular Filtration Rate 60 mL/min (>60); Est Glom Filt Rate - Afr Amer 73 mL/min (>60); Globulin 3.8 g/dL (2.2-4.2); Glucose 132 mg/dL (74-106); High Density Lipoprotein 75 mg/dL; Potassium 3.8 mmol/L (3.5-5.1); Sodium Level 140 mmol/L (136-145); T4 Free Direct 1.22 ng/dL (0.76-1.46); Thyroid Stim Hormone (TSH) 0.36 uIU/mL (0.358-3.74); Triglycerides 62 mg/dL; Very Low Density Lipoprotein 12 mg/dL (5-40)
[2018-02-10 16:51] LABS: Hemoglobin A1c 6.2 % (4.2-6.3)
== END ==
PROVIDERS: Internal Medicine Endocrinology, Diabetes & Metabolism; Family Provider Family Medicine; PCP Family Medicine; Referring Provider Internal Medicine Rheumatology; Visit Provider Internal Medicine Rheumatology
DX: E55.9 Vitamin D deficiency, unspecified (principal); E78.00 Pure hypercholesterolemia, unspecified; E89.0 Postprocedural hypothyroidism; E11.9 Type 2 diabetes mellitus without complications; M06.09 Rheumatoid arthritis without rheumatoid factor, multiple sites; Z79.899 Other long term (current) drug therapy; M79.7 Fibromyalgia; K76.0 Fatty (change of) liver, not elsewhere classified; I42.9 Cardiomyopathy, unspecified; M81.8 Other osteoporosis without current pathological fracture; E78.5 Hyperlipidemia, unspecified; E03.2 Hypothyroidism due to medicaments and other exogenous substances; N20.0 Calculus of kidney
CPT/HCPCS: 36415; 80053; 80061; 82306; 83036; 84439; 84443; 84481; 85025

== ENCOUNTER → 2018-03-20 13:02 | Outpatient (CLI) | payer OTHER, SELFPAY ==
[2018-03-20 14:13] LABS: Erythrocyte Sedimentation Rate 8 mm/hr (0-30)
[2018-03-22 12:03] LABS: Angiotensin Convert Enzyme 32 U/L (14-82)
--- OUTSIDE RECORDS SUMMARY | 2018-05-13 20:36 | XMS RPT_ITS ---
:1960 Author Organization OHIP Support Name Relationship Address Phone WILLIAM MATOS Unavailable [phone] + [place] [address] UE Unavailable Unavailable Unavailable WILLIAM MATOS Unavailable [address] + [place] [address] UE Unavailable Unavailable Unavailable WILLIAM MATOS Unavailable [address] + [place] [address] UE Unavailable Unavailable Unavailable WILLIAM MATOS Unavailable [address] + [place] [address] UE Unavailable Unavailable Unavailable WILLIAM MATOS Unavailable [address] + [place] [address] UE Unavailable Unavailable Unavailable WILLIAM MATOS Unavailable [address] + [place] [address] UE Unavailable Unavailable Unavailable WILLIAM MATOS Unavailable [address] + [place] [address] UE Unavailable Unavailable Unavailable WILLIAM MATOS Unavailable [address] + [place] [address] UE Unavailable Unavailable Unavailable WILLIAM MATOS Unavailable [address] + [place] [address] UE Unavailable Unavailable Unavailable Care Team Providers Name Role Phone Jomar Rosenberg Attending Unavailable Cm Ruelas Referring Unavailable UYEN BUSH Attending Unavailable UYEN BUSH Referring Unavailable [facility] Primary [facility] Unavailable UYEN BUSH Attending Unavailable UYEN BUSH Referring Unavailable [facility] Unavailable Maki Jenkins Attending Unavailable Maki Jenkins Referring Unavailable [facility] Unavailable Margie Billings Consulting Unavailable Maki Jenkins Attending Unavailable Maki Jenkins Referring Unavailable [facility] Primary Care Unavailable Sidney, Demond Primary Care Unavailable White, Bernarda Admitting Unavailable Cm Ruelas Attending Unavailable White, Bernarda Admitting Unavailable White, Bernarda Attending Unavailable Sidney, Demond Primary Care Unavailable White, Bernarda Consulting Unavailable Maki Jenkins Attending Unavailable Maki Jenkins Referring Unavailable Rew, Demond Primary Care Unavailable Margie Billings Consulting Unavailable Nadine Thomas Attending Unavailable Kalyanilia Nadine Referring Unavailable Sidney, Demond Primary Care Unavailable AHMED, SHAMEEM MOHAMMED Admitting Unavailable AHMED, SHAMEEM MOHAMMED Attending Unavailable SIDNEY, DEMOND J Attending Unavailable SIDNEY, DEMOND J Referring Unavailable SIDNEY, DEMOND J Referring Unavailable SIDNEY, DEMOND J Referring Unavailable WINNIE MORENO Attending Unavailable SIDNEY, DEMOND J Referring Unavailable BURAK, WINNIE Referring Unavailable Leticia GARCIA (PA-C) Attending Unavailable Leticia GARCIA (PA-C) Referring Unavailable Leticia GARCIA (PA-C) Attending Unavailable Leticia GARCIA (PA-C) Referring Unavailable SIDNEY, DEMOND J Attending Unavailable SIDNEY, DEMOND J Referring Unavailable SIDNEY, DEMOND J Attending Unavailable ЕЛЕНА HAMILTON (POWER GENERATING PLANT OPERATOR) Attending Unavailable Leticia GARCIA (PA-C) Referring Unavailable DESTINEY TRIANA Referring Unavailable WINNIE MORENO Referring Unavailable DESTINEY TRIANA Attending Unavailable WINNIE MORENO Referring Unavailable AHMED, SHAMEEM MOHAMMED Attending Unavailable Leticia GARCIA (PA-C) Attending Unavailable Leticia GARCIA (PA-C) Referring Unavailable NADINE THOMAS Referring Unavailable JOMAR SANCHEZ Attending Unavailable JOMAR SANCHEZ Referring Unavailable DESTINY CORDOVA (POWER GENERATING PLANT OPERATOR) Attending Unavailable JOMAR SANCHEZ Referring Unavailable Leticia GARCIA (PA-C) Attending Unavailable AHMED, SHAMEEM M Admitting Unavailable AHMED, SHAMEEM M Attending Unavailable [facility] Unavailable PROBLEMS PROBLEMS DATE TYPE CONDITION / CODE ATTENDING STATUS SOURCE 04/03/2018 Active Unknown / NA Active [facility]K(Unknown[facility] Main [place] Repository 04/03/2018 Active Other specified Leticia GARCIA Active [facility] postprocedural states [facility] ([place]) Clinic Main / Z98.890(ICD-10) [place] Repository 04/03/2018 Active Other specified Leticia GARCIA Active [facility] personal risk [facility] (PA-C) Clinic Main factors, not [place] elsewhere classified Repository / Z91.89(ICD-10) 03/14/2018 Active Gastro-esophageal AHMED, SHAMEEM Active [facility] reflux disease [facility] Other without esophagitis / [place] K21.9(ICD-10) Repository 03/14/2018 Active Eructation / AHMED, SHAMEEM Active [facility] R14.2(ICD-10) [facility] Clinic Other [place] Repository 03/14/2018 Admitting Unknown / AHMED, SHAMEEM Active [facility] UNK(Unknown) [facility] Repository 07/28/2016 Active Chronic systolic NA Active [facility] (congestive) heart Clinic Main failure / [place] I50.22(ICD-10) Repository 11/27/2014 Active Other NA Active [facility] cardiomyopathies / Clinic Main I42.8(ICD-10) [place] Repository 12/13/2013 Active Left bundle-branch NA Active [facility] block, unspecified / Clinic Main I44.7(ICD-10) [place] Repository 08/20/2016 Active Essential (primary) NA Active [facility] hypertension / Clinic Main I10(ICD-10) [place] Repository 02/13/2018 Active Type 2 diabetes NA Active [facility] mellitus without Clinic Main complications / [place] E11.9(ICD-10) Repository 02/13/2018 Active Abdominal distension NA Active [facility] (gaseous) / Clinic Main R14.0(ICD-10) [place] Repository 02/10/2018 Unknown Z79.899 - Other long [place], Active [facility] term (current) drug [facility] therapy / Hospital Z79.899(ICD-10) Repository 02/10/2018 Unknown M06.09 - Rheumatoid [place], Active [facility] arthritis without [facility] rheumatoid factor, Hospital multiple sites / Repository M06.09(ICD-10) 02/10/2018 Unknown M79.7 - Fibromyalgia [place], Active [facility] / M79.7(ICD-10) [facility] Hospital Repository 02/10/2018 Unknown K76.0 - Fatty (change [place], Active [facility] of) liver, not [facility] elsewhere classified Hospital / K76.0(ICD-10) Repository 02/10/2018 Unknown I42.9 - [place], Active [facility] Cardiomyopathy, [facility] unspecified / Hospital I42.9(ICD-10) Repository 02/10/2018 Unknown M81.8 - Other [place], Active [facility] osteoporosis without [facility] current pathological Hospital fracture / Repository M81.8(ICD-10) 02/10/2018 Unknown E78.5 - [place], Active [facility] Hyperlipidemia, [facility] unspecified / Hospital E78.5(ICD-10) Repository 02/10/2018 Unknown E03.2 - [place], Active [facility] Hypothyroidism due to [facility] medicaments and other Hospital exogenous substances Repository / E03.2(ICD-10) 02/10/2018 Unknown E55.9 - Vitamin D [place], Active [facility] deficiency, [facility] unspecified / Hospital E55.9(ICD-10) Repository 02/10/2018 Unknown E78.00 - Pure [place], Active [facility] hypercholesterolemia, [facility] unspecified / Hospital E78.00(ICD-10) Repository 02/10/2018 Unknown E89.0 - [place], Active [facility] Postprocedural [facility] hypothyroidism / Hospital E89.0(ICD-10) Repository 04/10/2018 Unknown R07.9 - Chest pain, [place], Active [facility] unspecified / [facility] R07.9(ICD-10) Hospital Repository 09/30/2017 Active Pleurodynia / NA Active [facility] R07.81(ICD-10) Clinic Main [place] Repository 08/15/2017 Unknown N20.0 - Calculus of [place], Active [facility] kidney / [facility] N20.0(ICD-10) Hospital Repository 08/15/2017 Unknown E11.9 - Type 2 [place], Active [facility] diabetes mellitus [facility] without complications Hospital / E11.9(ICD-10) Repository 07/14/2017 Active Encounter for NA Active [facility] screening mammogram Clinic Main for malignant [place] neoplasm of breast / Repository Z12.31(ICD-10) 05/18/2017 Active Unspecified systolic NA Active [facility] (congestive) heart Clinic Main failure / [place] I50.20(ICD-10) Repository 09/01/2016 Active 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 Request/Comment: - Specimen received in preservative Culture Result - >=100,000 CFU/ml Escherichia coli --> ABNORMAL ALERT ORGANISM: Escherichia coli METHOD: Minimum inhibitory concentration(Vitek) Antibiotic Interp LETICIA Status Ampicillin RESISTANT >=32 F Gentamicin SUSCEPTIBLE <=1 F Trimeth sulfameth SUSCEPTIBLE <=20 F Cefazolin SUSCEPTIBLE 16 F CLSI breakpoints for therapy of uncomplicated UTI's due to E.coli, K.pneumoniae, and P.mirabilis were applied and may be used to predict the activity of oral agents(cefaclor, cefdinir, cefpodoxime, cefp rozil, cefuroxime, cephalexin, loracarbef). Ciprofloxacin SUSCEPTIBLE <=0.25 F Nitrofurantoin SUSCEPTIBLE <=16 F Cefepime SUSCEPTIBLE <=1 F Piperacillin/Tazobac SUSCEPTIBLE <=4 F Ampicillin Sulbact RESISTANT >=32 F Ceftriaxone SUSCEPTIBLE <=1 F Meropenem SUSCEPTIBLE <=0.25 F Ertapenem SUSCEPTIBLE <=0.5 F Performed By: #### URCUL #### [facility] [address] [place], [place] [address] PROGRESS Observed: 04/27/2018 Status: COMPLETED Source: [place] 3:55 PM [facility] HNO ID: [id number] Author: Leticia Mcghee ([place]) Jose Service: (none) Author Type: Physician Sales Representative Printing Paper Type: Progress Notes Filed: 04/27/2018 4:00 PM Note Text: 58 year old female with c/o low abdominal pressure, urinary urgency, urinary burning, frequency x 2-3 days. Had some diarrhea. No fever or vomiting. Hx prior UTI. No vaginal sx. Pushing fluids. 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 Disp: Rfl: pregabalin (LYRICA) 25 mg capsule Take 1 capsule by mouth three times daily for 90 days. Disp: 270 capsule Rfl: 0 carvedilol (COREG) 6.25 mg tablet TAKE 1 TABLET BY MOUTH TWICE DAILY WITH MEALS Disp: 180 tablet Rfl: [address] (PROTONIX) 40 mg tablet Take 1 tablet by mouth daily before breakfast. Take on empty stomach, 1/2 hr before meal. Disp: 90 tablet Rfl: 1 predniSONE (DELTASONE) 5 mg tablet Take 5 mg by mouth once daily. Disp: Rfl: VITAMIN D 50,000 unit capsule once each week. Disp: Rfl: DULoxetine (CYMBALTA) 30 mg capsule Disp: Rfl: potassium chloride ER (KLOR-CON M20) 20 mEq tablet Take 1 tablet by mouth once daily. Disp: 90 tablet Rfl: 3 liothyronine (CYTOMEL) 5 mcg tablet Take 5 mcg by mouth once daily. Disp: Rfl: COMPOUNDED PRESCRIPTION Probiotic Disp: Rfl: loratadine (CLARITIN) 10 mg tablet Take 1 tablet by mouth once daily. Disp: 90 tablet Rfl: 3 colestipol (COLESTID) 1 gram tablet Take 1 tablet by mouth twice daily. Disp: 60 tablet Rfl: 5 busPIRone (BUSPAR) 15 mg tablet Take 15 mg by mouth once daily. Disp: Rfl: FOLIC ACID ORAL Take 1,600 mg by mouth once daily. Disp: Rfl: fluticasone (FLONASE) 50 mcg/actuation nasal spray Use 1 [place] in each nostril twice daily. Disp: Rfl: levothyroxine (SYNTHROID) 125 mcg tablet Take 1 tablet by mouth once daily. Disp: Rfl: 0 ABATACEPT (ORENCIA SUBCUTANEOUS) Inject subcutaneously. Once a week Disp: Rfl: ALPRAZolam (XANAX) 1 mg tablet Take 1 mg by mouth daily at bedtime. Disp: Rfl: BIOTIN ORAL Take 1,000 mg by mouth once daily. Disp: Rfl: calcium carbonate/vitamin d3(CALCIUM 600 + D 600 MG-400 UNIT TAB) 2 daily Disp: Rfl: 0 ASPIRIN 81 MG TAB Take one(1) tablet daily. Disp: Rfl: 0 pregabalin (LYRICA) 25 mg capsule Take 1 capsule by mouth once daily as needed for up to 30 days. Disp: 30 capsule Rfl: 0 peg 3350-Electrolytes (GOLYTELY) 236-22.74-6.74 -5.86 gram suspension Refer to printed patient instructions that will be mailed to you. Disp: 2 Container Rfl: 0 polyethylene glycol 3350 (MIRALAX, GLYCOLAX) 17 gram/dose powder Take 17 g by mouth once daily. Disp: 1 Bottle Rfl: 1 esomeprazole (NEXIUM) 40 mg capsule TAKE 1 CAPSULE BY MOUTH ONCE DAILY Disp: 90 capsule Rfl: 3 TETRAHYDROZOLINE HCL/ZN SULF (EYE DROPS OPHTHALMIC) Use in eyes. [employer] 1 drop both eyes evening Disp: Rfl: No current facility-administered medications for this visit. EXAM: BP 122/78 Pulse 68 Temp 36.4 ?C (97.6 ?F) (Tympanic) Resp 18 LMP (LMP Unknown) Pleasant adult woman in no acute distress Chest CTA. HRRR without murmur or gallop. Abdomen: active bowel sounds throughout soft, nontender, no masses or organomegaly. Urine dip: large+ leuk, moderate+ blood, neg nitrite, neg protein Assessment: UTI Plan: macrobid, Pyridium per rx See orders and/or patient instructions. Patient ( or Guardian) expressed understanding of instructions on review. ROSCOE Ott Observed: 04/27/2018 Status: COMPLETED Source: [place] 3:20 PM [facility] DANA MATOS ([id number]) 1960 F Date Time Provider Department 04/27/18 3:20 PM Leticia GARCIA) [facility] During your visit today, we recorded the following information about you: Temperature Pulse Respiration Blood pressure 97.6 degrees 68/minute 18/minute 122/78 Jennifer Mclaughlin JACKIE 04/27/2018 3:39 PM Signed Urology: patient is concerned about urinary symptoms. Duration of symptoms: couple of days Dysuria: Yes. Urinary urgency: Yes. Urinary frequency: Yes. Suprapubic pain: Yes. Back pain: No. Fever: No. Nausea: No. Vomiting: No. Asking about taking Vitamin B6? Leticia Garcia PA-C 04/27/2018 4:00 PM Signed 58 year old female with c/o low abdominal pressure, urinary urgency, urinary burning, frequency x 2-3 days. Had some diarrhea. No fever or vomiting. Hx prior UTI. No vaginal sx. Pushing fluids. 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 Disp: Rfl: pregabalin (LYRICA) 25 mg capsule Take 1 capsule by mouth three times daily for 90 days. Disp: 270 capsule Rfl: 0 carvedilol (COREG) 6.25 mg tablet TAKE 1 TABLET BY MOUTH TWICE DAILY WITH MEALS Disp: 180 tablet Rfl: [address] (PROTONIX) 40 mg tablet Take 1 tablet by mouth daily before breakfast. Take on empty stomach, 1/2 hr before meal. Disp: 90 tablet Rfl: 1 predniSONE (DELTASONE) 5 mg tablet Take 5 mg by mouth once daily. Disp: Rfl: VITAMIN D 50,000 unit capsule once each week. Disp: Rfl: DULoxetine (CYMBALTA) 30 mg capsule Disp: Rfl: potassium chloride ER (KLOR-CON M20) 20 mEq tablet Take 1 tablet by mouth once daily. Disp: 90 tablet Rfl: 3 liothyronine (CYTOMEL) 5 mcg tablet Take 5 mcg by mouth once daily. Disp: Rfl: COMPOUNDED PRESCRIPTION Probiotic Disp: Rfl: loratadine (CLARITIN) 10 mg tablet Take 1 tablet by mouth once daily. Disp: 90 tablet Rfl: 3 colestipol (COLESTID) 1 gram tablet Take 1 tablet by mouth twice daily. Disp: 60 tablet Rfl: 5 busPIRone (BUSPAR) 15 mg tablet Take 15 mg by mouth once daily. Disp: Rfl: FOLIC ACID ORAL Take 1,600 mg by mouth once daily. Disp: Rfl: fluticasone (FLONASE) 50 mcg/actuation nasal spray Use 1 [place] in each nostril twice daily. Disp: Rfl: levothyroxine (SYNTHROID) 125 mcg tablet Take 1 tablet by mouth once daily. Disp: Rfl: 0 ABATACEPT (ORENCIA SUBCUTANEOUS) Inject subcutaneously. Once a week Disp: Rfl: ALPRAZolam (XANAX) 1 mg tablet Take 1 mg by mouth daily at bedtime. Disp: Rfl: BIOTIN ORAL Take 1,000 mg by mouth once daily. Disp: Rfl: calcium carbonate/vitamin d3(CALCIUM 600 + D 600 MG-400 UNIT TAB) 2 daily Disp: Rfl: 0 ASPIRIN 81 MG TAB Take one(1) tablet daily. Disp: Rfl: 0 pregabalin (LYRICA) 25 mg capsule Take 1 capsule by mouth once daily as needed for up to 30 days. Disp: 30 capsule Rfl: 0 peg 3350-Electrolytes (GOLYTELY) 236-22.74-6.74 -5.86 gram suspension Refer to printed patient instructions that will be mailed to you. Disp: 2 Container Rfl: 0 polyethylene glycol 3350 (MIRALAX, GLYCOLAX) 17 gram/dose powder Take 17 g by mouth once daily. Disp: 1 Bottle Rfl: 1 esomeprazole (NEXIUM) 40 mg capsule TAKE 1 CAPSULE BY MOUTH ONCE DAILY Disp: 90 capsule Rfl: 3 TETRAHYDROZOLINE HCL/ZN SULF (EYE DROPS OPHTHALMIC) Use in eyes. [employer] 1 drop both eyes evening Disp: Rfl: No current facility-administered medications for this visit. EXAM: BP 122/78 Pulse 68 Temp 36.4 ?C (97.6 ?F) (Tympanic) Resp 18 LMP (LMP Unknown) Pleasant adult woman in no acute distress Chest CTA. HRRR without murmur or gallop. Abdomen: active bowel sounds throughout soft, nontender, no masses or organomegaly. Urine dip: large+ leuk, moderate+ blood, neg nitrite, neg protein Assessment: UTI Plan: macrobid, Pyridium per rx See orders and/or patient instructions. Patient ( or Guardian) expressed understanding of instructions on review. ROSCOE Ott PA-C 04/27/2018 4:00 PM Signed Force fluids with water and juices (not caffeine) to 2000cc per day until symptoms improve. Any mechanical pressure in the area of the urethra (wear urine comes out) may cause bacteria to be pushed up inside the bladder. You should urinate to clear out bacterial contamination before and after sex, after tampon insertion, or after washing the vaginal area. It is important to wipe front to back after voiding. If you develop a fever, chills, unusual back pain, or vomiting, this may mean you have infection in the kidney which can be more serious. If this occurs, or you fail to improve on the antibiotics in 3 days, either call the office to be checked or go to the emergency department. Take macrobid as directed per prescription Pyridium is a urinary anesthetic which should decrease the discomfort over the next few days. It will turn the urine a bright orange or yellow color, and it will permanently stain clothing if you drip. If you should breakout in a rash, stop the medicine and call the office. Any antibiotic has the potential to cause diarrhea due to alteration in the normal bacterial jacqueline of the gut. This can be reduced by eating yogurt with active cultures daily while on the medication. If diarrhea becomes severe (watery, large volumes or more than 3-4/day) call the office. While on antibiotics women may experience yeast vaginitis due to alteration in the vaginal jacqueline. Symptoms include vaginal itching, irritation, and often a clumpy white discharge. If this occurs, there are several effective over the counter remedies available, including one-dose treatments. If these are unsuccessful, call the office. Antibiotics may interfere with control. If you are on oral contraceptives, use another form of protection (condoms, foams, jellies, diaphragm) throught the end of whatever pill pack you are on when you finish the antibiotic. Leticia Garcia PA-C 04/27/2018 4:02 PM Signed Addended by: Leticia GARCIA PA-C on: 04/27/2018 04:02 PM Modules accepted: Orders Referring Provider: SELF [[id number]] Allergies As of Date: 04/27/2018 Noted Allergy Reaction CIPROFLOXACIN 12/06/2013 14 - Other: See Comments Comments: Tendon Rupture. CITRIC ACID 03/18/2016 12 - Shortness of Breath Comments: Shortness of breath,swelling of throat LEVAQUIN (LEVOFLOXACIN) 07/02/2015 16 - Unknown LISINOPRIL 05/12/2006 4 - Hives TRADJENTA (LINAGLIPTIN) 07/26/2016 5 - Intolerance Comments: Nausea TRILEPTAL (OXCARBAZEPINE) 09/22/2016 1 - Mental Status Change TYLOX (OXYCODONE-ACETAMINOPHEN) 05/12/2006 Comments: low blood pressure ZETIA (EZETIMIBE) 02/04/2016 14 - Other: See Comments Comments: Muscle pain ZOCOR (SIMVASTATIN) 05/12/2006 7 - Swelling Comments: severe muscle cramping, liver enzyme abnormalities Date Reviewed: 04/27/2018 Reviewed by: Jennifer Mclaughlin LPN - Fully Assessed Reason for Visit: UTI [116] Primary Visit Diagnosis:Dysuria [R30.0] Order(s):UA DIP B/O [[id number]] Order #: [id number] UA DIP, URINE (POC) [[id number]] Order #: [id number] #:[id number] nitrofurantoin monohydrate and macrocrystal (MACROBID) 100 mg capsuleTake 1 capsule by mouth twice daily with meals for 7 days.Disp: 14 capsuleRfl: 0 URINE CULTURE [SQURCUL] Order #: [id number] phenazopyridine (PYRIDIUM, GERIDIUM) 200 mg tabletTake 1 tablet by mouth three times daily as needed for up to 2 days.Disp: 6 tabletRfl: 0 Prescriptions as of 04/27/2018 Sig: TRAZODONE 100 MG TABLET Take 100 mg by mouth daily at* PREGABALIN 25 MG CAPSULE Take 1 capsule by mouth three* CARVEDILOL 6.25 MG TABLET TAKE 1 TABLET BY MOUTH TWICE* PANTOPRAZOLE 40 MG TABLET,DEL* Take 1 tablet by mouth daily * PREDNISONE 5 MG TABLET Take 5 mg by mouth once daily. VITAMIN D2 50,000 UNIT CAPSULE once each week. DULOXETINE 30 MG CAPSULE,JERRY* POTASSIUM CHLORIDE ER 20 MEQ * Take 1 tablet by mouth once d* LIOTHYRONINE 5 MCG TABLET Take 5 mcg by mouth once andree* COMPOUNDED PRESCRIPTION Probiotic LORATADINE 10 MG TABLET Take 1 tablet by mouth once d* COLESTIPOL 1 GRAM TABLET Take 1 tablet by mouth twice * BUSPIRONE 15 MG TABLET Take 15 mg by mouth once andree* FOLIC ACID ORAL Take 1,600 mg by mouth once d* FLUTICASONE 50 MCG/ACTUATION * Use 1 Gridley in each nostril t* LEVOTHYROXINE 125 MCG TABLET Take 1 tablet by mouth once d* ORENCIA SUBCUTANEOUS Inject subcutaneously. Once * ALPRAZOLAM 1 MG TABLET Take 1 mg by mouth daily at b* * BIOTIN ORAL Take 1,000 mg by mouth once d* * CALCIUM 600 + D(3) 600 MG (1,* 2 daily * ASPIRIN 81 MG TABLET Take one(1) tablet daily. NITROFURANTOIN MONOHYDRATE AND * Take 1 capsule by mouth twice* PHENAZOPYRIDINE 200 MG TABLET Take 1 tablet by mouth three * PREGABALIN 25 MG CAPSULE Take 1 capsule by mouth once * PEG 3350-ELECTROLYTES 236 GRA* Refer to printed patient inst* POLYETHYLENE GLYCOL 3350 17 G* Take 17 g by mouth once daily. ESOMEPRAZOLE MAGNESIUM 40 MG * TAKE 1 CAPSULE BY MOUTH ONCE* EYE DROPS OPHTHALMIC Use in eyes. 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 LBBB (left bundle branch block) [I44.7] INVALID FOR* Biventricular ICD (implantable cardioverter-def*INVALID FOR* Postablative hypothyroidism [E89.0] INVALID FOR* More... 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 Hearing loss of both ears [H91.93] INVALID FOR* More... Nonischemic cardiomyopathy (HCC) [I42.8] INVALID FOR* Chronic systolic heart failure (HCC) [I50.22] INVALID FOR* More... Sensorineural hearing loss, bilateral [H90.3] INVALID FOR* Tinnitus [H93.19] INVALID FOR* Dizziness and giddiness [R42] INVALID FOR* More... More... 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 Diabetes mellitus, type II (HCC) [E11.9] Compression fracture of L1 lumbar vertebra (HCC*INVALID FOR* Wedge compression fracture of twelfth thoracic *INVALID FOR* Rheumatoid arthritis involving multiple sites (*INVALID FOR*09/01/2016 Heart attack (HCC) [I21.9] INVALID FOR*09/01/2016 More... Sjogren's syndrome (HCC) [M35.00] INVALID FOR* Obstructive sleep apnea syndrome [G47.33] INVALID FOR* More... Other and unspecified hyperlipidemia [E78.5] INVALID FOR* More... Lupus erythematosus [L93.0] INVALID FOR* More... CHF (congestive heart failure) (HCC) [I50.9] INVALID FOR* More... Essential hypertension [I10] Cervicalgia [M54.2] INVALID FOR* More... Type 2 diabetes mellitus without complication, *INVALID FOR* Transition of care performed with sharing of cl*INVALID FOR* More... Hx of colonoscopy [Z98.890] INVALID FOR* More... History of esophagogastroduodenoscopy (EGD) [Z9*INVALID FOR* More... Lung nodules [R91.8] INVALID FOR* More... Other instructions from your clinician: Force fluids with water and juices (not caffeine) to 2000cc per day until symptoms improve. Any mechanical pressure in the area of the urethra (wear urine comes out) may cause bacteria to be pushed up inside the bladder. You should urinate to clear out bacterial contamination before and after sex, after tampon insertion, or after washing the vaginal area. It is important to wipe front to back after voiding. If you develop a fever, chills, unusual back pain, or vomiting, this may mean you have infection in the kidney which can be more serious. If this occurs, or you fail to improve on the antibiotics in 3 days, either call the office to be checked or go to the emergency department. Take macrobid as directed per prescription Pyridium is a urinary anesthetic which should decrease the discomfort over the next few days. It will turn the urine a bright orange or yellow color, and it will permanently stain clothing if you drip. If you should breakout in a rash, stop the medicine and call the office. Any antibiotic has the potential to cause diarrhea due to alteration in the normal bacterial jacqueline of the gut. This can be reduced by eating yogurt with active cultures daily while on the medication. If diarrhea becomes severe (watery, large volumes or more than 3-4/day) call the office. While on antibiotics women may experience yeast vaginitis due to alteration in the vaginal jacqueline. Symptoms include vaginal itching, irritation, and often a clumpy white discharge. If this occurs, there are several effective over the counter remedies available, including one-dose treatments. If these are unsuccessful, call the office. Antibiotics may interfere with control. If you are on oral contraceptives, use another form of protection (condoms, foams, jellies, diaphragm) throught the end of whatever pill pack you are on when you finish the antibiotic. Visit Notes: >> Jennifer Mclaughlin LPN Ella Apr 27, 2018 3:31 PM Status: Signed Urology: patient is concerned about urinary symptoms. Duration of symptoms: couple of days Dysuria: Yes. Urinary urgency: Yes. Urinary frequency: Yes. Suprapubic pain: Yes. Back pain: No. Fever: No. Nausea: No. Vomiting: No. Asking about taking Vitamin B6? Prescriptions ordered this encounter Disp Refills Start End NITROFURANTOIN MONOHYDRATE AND MACROCR* 14 c* 0 04/27/2018 05/04/2018 Route: ORAL Sig: Take 1 capsule by mouth twice daily with meals for 7 days. PHENAZOPYRIDINE 200 MG TABLET 6 ta* 0 04/27/2018 04/29/2018 Route: ORAL Sig: Take 1 tablet by mouth three times daily as needed for up to 2 days. Encounter Status:Closed by Leticia GARCIA PA-C on 04/27/18 URINE DRUG SCREEN Collected: 04/26/2018 Status: F Source: KADY (ANI) 11:26 AM [facility] REPOSITORY Order Comment: RUN CONFIRMATION IF NEGATIVE FOR BENZO List of Drugs Taken or Suspected? BENZO TYPE CODE TESTS RESULT OUT OF RANGE REFERENCE UNITS LAB L505.0075 TO BE Normal CONFIRMED Result Comment: CONFIRMATORY TESTING FOR ALL POSITIVE URINE DRUG SCREEN RESULTS WILL ONLY BE SENT OUT UPON PHYSICIAN ORDER. VISTA Urine Drug Screen methods provide only preliminary analytical test results. A more specific alternate chemical method must be used in order to obtain a confirmed analytical result. Gas chromatography/mass spectrometery (GC/MS) is the preferred confirmatory method. Clinical consideration and professional judgement should be applied to any drug of abuse test result, particularly when preliminary positive results are used. URINE TCA TESTING MUST BE ORDERED SEPARATELY. USE TEST MNEMONIC: [facility] LAB L505.5005 VISTA UDS PH 5 Normal LAB L505.5015 <1000 ng/mL AMPHETAMINES Normal NEGATIVE LAB L505.5025 < 200 ng/mL BARBITIURATES Normal NEGATIVE LAB L505.5035 < 200 High ng/mL BENZODIAZIPINE POSITIVE LAB L505.5045 < 300 ng/mL COCAINE Normal NEGATIVE LAB L505.5055 < 500 High ng/mL ECSTACY POSITIVE LAB L505.5065 < 300 ng/mL METHADONE Normal NEGATIVE LAB L505.5075 < 300 ng/mL OPIATES Normal NEGATIVE LAB L505.5085 < 25 ng/mL PCP Normal NEGATIVE LAB L505.5095 < 50 ng/mL THC Normal NEGATIVE Performed By: #### L505.5000 #### [facility] [address] [place], [address] PROGRESS Observed: 04/25/2018 Status: COMPLETED Source: [place] 11:[address] [facility] REPOSITORY HNO ID: [id number] Author: Destiny Kelly (Perez Cordova Service: (none) Author Type: Nurse Practitioner Type: Progress Notes Filed: 04/25/2018 1:47 PM Note Text: SUBJECTIVE: Dana Matos [facility] for a followup appointment for back pain. Since the last visit, Dana Matos states the pain has been improved with medication. Current pain intensity is 0 on a scale of 0-10. Pain located in Back area and does not radiate. Pain described as aching The patient Denies back pain currently. Symptoms interfere with nothing at this time. Pain is exacerbated by nothing. Pain is mitigated by medications. The medications are effective. The patient states the last dose of Lyrica was taken last night. REVIEW OF SYSTEMS: Constitutional: (-) Fever (-) Night Sweats (-) Weight Gain (-) Weight Loss (-) Fatigue Cardiovascular: (-) Chest Pain (-) Palpitations (-) Lightheadedness (-) Swelling of Ankles (-) Hx Heart Surgery Respiratory: (-) Shortness of Breath (-) Cough (-) Wheezing (-) Snoring Gastrointestinal: (-) Incontinence (-) Abdominal Pain (-) Diarrhea (-) Constipation (-) Nausea/Vomiting (+) Heart Burn Endocrine: (+) Thyroid Disorder (+) Diabetes Hematologic: (-) Prolonged Bleeding (-) Easy Bruising Genitourinary: (-) Incontinence (-) Frequency (-) Urinary Urgency Skin: (-) Rashes (-) Itching (-) Other Lesions Neurologic: (-) Headache (-) Double Vision (-) Confusion (-) Paralysis Psychiatric: (+) Depression (+) Anxiety (-) Delusions (-) Hallucinations (-) Personal History of Alcohol or Substance Abuse (-) Family History of Alcohol or Substance Abuse OBJECTIVE: Pulse 78 Wt 185 lb (83.9kg) SpO2 95% PHYSICAL EXAMINATION: General appearance: Well appearing, in no acute distress, alert Skin: Skin color, texture, turgor normal, no rashes or lesions Neck: Tenderness to palpation over the cervical paraspinous muscles. neck flexion increases pain Cardiovascular: Regular rate Lungs: Normal respiratory rate and rhythm Abdomen: Abdomen soft and non-tender. Back: Intact range of motion with pain reproduction. Facet:positive facet loading Spine: Reports Tenderness on palpation: Lumbar/Pelvic paravertebrals Extremities: No deformities, edema, or skin discoloration. Good capillary refill. Musculoskeletal: Joint pain denies Neuro: No loss of sensation is noted. Station and Gait: Normal stance, normal gait. Motor: Exhibits full strength in all four extremities. Trigger points: none. ASSESSMENT: Assessment : Patient reports neck pain that does not radiate down the upper extremities Patient has lower back pain that radiates down the right posterior lower extremity to behind the knee She reports she has been on tramadol 50 mg for 14 years and she's been trying to wean herself off. She reports she is down to taking it twice a day and has been able to eliminate the bedtime dose Dr. Sanchez started Lyrica 25 mg at bedtime. She would like to further wean her tramadol. We discussed taking half of a tramadol 50 mg (25 mg) and introducing an additional dose of Lyrica 25 mg for her afternoon dose. And then she also takes 50 mg tramadol in the morning New plan will be tramadol 50 mg in the a.m., tramadol 25 mg and Lyrica 25 mg in the afternoon and Lyrica 25 mg at bedtime. Future plan would be to eliminate the afternoon dose of tramadol 25 mg, then reduce the morning dose of tramadol to 25 mg and adding a 25 mg of Lyrica Encounter Diagnosis ICD-10-CM 1. Degeneration of cervical intervertebral disc M50.30 pregabalin (LYRICA) 25 mg capsule pregabalin (LYRICA) 25 mg capsule 2. Closed wedge compression fracture of twelfth thoracic vertebra with delayed healing, subsequent encounter S22.080G pregabalin (LYRICA) 25 mg capsule pregabalin (LYRICA) 25 mg capsule PDMP website checked and validated. All prescriptions have been APPROPRIATELY filled. No suspicious activity was identified. 04/25/2018 by Karissa Travis MA Narcotic Agreement reviewed and signed?: N/A on April 25, 2018 The pain panel was N/A PLAN: Injection history was reviewed. Medication use and compliance were reviewed. 1. PCP is prescribing the tramadol 50 mg. Patient is in the process of weaning. Plan as discussed above 2. Increase Lyrica 25 mg 2 twice a day. Short prescription E prescription to 2 pharmacy and 90 day faxed to mail order Signed Prescriptions Disp Refills pregabalin (LYRICA) 25 mg capsule 270 capsule 0 Sig: Take 1 capsule by mouth three times daily for 90 days. PAM Class: C-V JC: No pregabalin (LYRICA) 25 mg capsule 30 capsule 0 Sig: Take 1 capsule by mouth once daily as needed for up to 30 days. PAM Class: C-V 3. Interventional procedure options discussed. none 4. Encouraged regular home exercise program. 5) F/U in 3 months This note was partially generated using [employer] voice recognition system. The above plan and management options were discussed at length with patient. Patient is in agreement with the above and verbalized understanding. Destiny Cordova APRN, CNP April 25, 2018 CNOV Observed: 04/25/2018 Status: COMPLETED Source: [place] 11:30 AM [facility] REPOSITORY Office Visit (PNMDNA) DANA MATOS ([id number]) 1960 F Date Time Provider Department 04/25/18 11:30 AM DESTINY CORDOVA (BARBARA) [facility] During your visit today, we recorded the following information about you: Pulse Weight 78/minute 83.9 kg Destiny Cordova APRN.BARBARA 04/25/2018 1:47 PM Signed SUBJECTIVE: Dana Matos presents to [facility] for a followup appointment for back pain. Since the last visit, Dana Matos states the pain has been improved with medication. Current pain intensity is 0 on a scale of 0-10. Pain located in Back area and does not radiate. Pain described as aching The patient Denies back pain currently. Symptoms interfere with nothing at this time. Pain is exacerbated by nothing. Pain is mitigated by medications. The medications are effective. The patient states the last dose of Lyrica was taken last night. REVIEW OF SYSTEMS: Constitutional: (-) Fever (-) Night Sweats (-) Weight Gain (-) Weight Loss (-) Fatigue Cardiovascular: (-) Chest Pain (-) Palpitations (-) Lightheadedness (-) Swelling of Ankles (-) Hx Heart Surgery Respiratory: (-) Shortness of Breath (-) Cough (-) Wheezing (-) Snoring Gastrointestinal: (-) Incontinence (-) Abdominal Pain (-) Diarrhea (-) Constipation (-) Nausea/Vomiting (+) Heart Burn Endocrine: (+) Thyroid Disorder (+) Diabetes Hematologic: (-) Prolonged Bleeding (-) Easy Bruising Genitourinary: (-) Incontinence (-) Frequency (-) Urinary Urgency Skin: (-) Rashes (-) Itching (-) Other Lesions Neurologic: (-) Headache (-) Double Vision (-) Confusion (-) Paralysis Psychiatric: (+) Depression (+) Anxiety (-) Delusions (-) Hallucinations (-) Personal History of Alcohol or Substance Abuse (-) Family History of Alcohol or Substance Abuse OBJECTIVE: Pulse 78 Wt 185 lb (83.9kg) SpO2 95% PHYSICAL EXAMINATION: General appearance: Well appearing, in no acute distress, alert Skin: Skin color, texture, turgor normal, no rashes or lesions Neck: Tenderness to palpation over the cervical paraspinous muscles. neck flexion increases pain Cardiovascular: Regular rate Lungs: Normal respiratory rate and rhythm Abdomen: Abdomen soft and non-tender. Back: Intact range of motion with pain reproduction. Facet:positive facet loading Spine: Reports Tenderness on palpation: Lumbar/Pelvic paravertebrals Extremities: No deformities, edema, or skin discoloration. Good capillary refill. Musculoskeletal: Joint pain denies Neuro: No loss of sensation is noted. Station and Gait: Normal stance, normal gait. Motor: Exhibits full strength in all four extremities. Trigger points: none. ASSESSMENT: Assessment : Patient reports neck pain that does not radiate down the upper extremities Patient has lower back pain that radiates down the right posterior lower extremity to behind the knee She reports she has been on tramadol 50 mg for 14 years and she's been trying to wean herself off. She reports she is down to taking it twice a day and has been able to eliminate the bedtime dose Dr. Sanchez started Lyrica 25 mg at bedtime. She would like to further wean her tramadol. We discussed taking half of a tramadol 50 mg (25 mg) and introducing an additional dose of Lyrica 25 mg for her afternoon dose. And then she also takes 50 mg tramadol in the morning New plan will be tramadol 50 mg in the a.m., tramadol 25 mg and Lyrica 25 mg in the afternoon and Lyrica 25 mg at bedtime. Future plan would be to eliminate the afternoon dose of tramadol 25 mg, then reduce the morning dose of tramadol to 25 mg and adding a 25 mg of Lyrica Encounter Diagnosis ICD-10-CM 1. Degeneration of cervical intervertebral disc M50.30 pregabalin (LYRICA) 25 mg capsule pregabalin (LYRICA) 25 mg capsule 2. Closed wedge compression fracture of twelfth thoracic vertebra with delayed healing, subsequent encounter S22.080G pregabalin (LYRICA) 25 mg capsule pregabalin (LYRICA) 25 mg capsule PDMP website checked and validated. All prescriptions have been APPROPRIATELY filled. No suspicious activity was identified. 04/25/2018 by Karissa Travis MA Narcotic Agreement reviewed and signed?: N/A on April 25, 2018 The pain panel was N/A PLAN: Injection history was reviewed. Medication use and compliance were reviewed. 1. PCP is prescribing the tramadol 50 mg. Patient is in the process of weaning. Plan as discussed above 2. Increase Lyrica 25 mg 2 twice a day. Short prescription E prescription to 2 pharmacy and 90 day faxed to mail order Signed Prescriptions Disp Refills pregabalin (LYRICA) 25 mg capsule 270 capsule 0 Sig: Take 1 capsule by mouth three times daily for 90 days. PAM Class: C-V JC: No pregabalin (LYRICA) 25 mg capsule 30 capsule 0 Sig: Take 1 capsule by mouth once daily as needed for up to 30 days. PAM Class: C-V 3. Interventional procedure options discussed. none 4. Encouraged regular home exercise program. 5) F/U in 3 months This note was partially generated using [employer] voice recognition system. The above plan and management options were discussed at length with patient. Patient is in agreement with the above and verbalized understanding. Destiny Cordova APRN, [employer] GENERATING [employer] OPERATOR April 25, 2018 Referring Provider: JOMAR SANCHEZ [[id number]] Allergies As of Date: 04/25/2018 Noted Allergy Reaction CIPROFLOXACIN 12/06/2013 14 - Other: See Comments Comments: Tendon Rupture. CITRIC ACID 03/18/2016 12 - Shortness of Breath Comments: Shortness of breath,swelling of throat LEVAQUIN (LEVOFLOXACIN) 07/02/2015 16 - Unknown LISINOPRIL 05/12/2006 4 - Hives TRADJENTA (LINAGLIPTIN) 07/26/2016 5 - Intolerance Comments: Nausea TRILEPTAL (OXCARBAZEPINE) 09/22/2016 1 - Mental Status Change TYLOX (OXYCODONE-ACETAMINOPHEN) 05/12/2006 Comments: low blood pressure ZETIA (EZETIMIBE) 02/04/2016 14 - Other: See Comments Comments: Muscle pain ZOCOR (SIMVASTATIN) 05/12/2006 7 - Swelling Comments: severe muscle cramping, liver enzyme abnormalities Date Reviewed: 04/25/2018 Reviewed by: Karissa Travis MA - Fully Assessed Reason for Visit: Established Patient [175] Back Pain [12] Visit Diagnoses:Degeneration of cervical intervertebral disc [M50.30] Closed wedge compression fracture of twelfth thoracic vertebra with delayed healing, subsequent encounter [S22.080G] Order(s):pregabalin (LYRICA) 25 mg capsuleTake 1 capsule by mouth three times daily for 90 days.Disp: 270 capsuleRfl: 0 pregabalin (LYRICA) 25 mg capsuleTake 1 capsule by mouth once daily as needed for up to 30 days.Disp: 30 capsuleRfl: 0 Prescriptions as of 04/25/2018 Sig: PREGABALIN 25 MG CAPSULE Take 1 capsule by mouth three* CARVEDILOL 6.25 MG TABLET TAKE 1 TABLET BY MOUTH TWICE* PANTOPRAZOLE 40 MG TABLET,DEL* Take 1 tablet by mouth daily * PREDNISONE 5 MG TABLET Take 5 mg by mouth once daily. PEG 3350-ELECTROLYTES 236 GRA* Refer to printed patient inst* VITAMIN D2 50,000 UNIT CAPSULE once each week. POLYETHYLENE GLYCOL 3350 17 G* Take 17 g by mouth once daily. DULOXETINE 30 MG CAPSULE,JERRY* POTASSIUM CHLORIDE ER 20 MEQ * Take 1 tablet by mouth once d* LIOTHYRONINE 5 MCG TABLET Take 5 mcg by mouth once andree* COMPOUNDED PRESCRIPTION Probiotic LORATADINE 10 MG TABLET Take 1 tablet by mouth once d* COLESTIPOL 1 GRAM TABLET Take 1 tablet by mouth twice * BUSPIRONE 15 MG TABLET Take 15 mg by mouth once andree* EYE DROPS OPHTHALMIC Use in eyes. [employer] * FOLIC ACID ORAL Take 1,600 mg by mouth once d* FLUTICASONE 50 MCG/ACTUATION * Use 1 [place] in each nostril t* LEVOTHYROXINE 125 MCG TABLET Take 1 tablet by mouth once d* ORENCIA SUBCUTANEOUS Inject subcutaneously. Once * ALPRAZOLAM 1 MG TABLET Take 1 mg by mouth daily at b* * BIOTIN ORAL Take 1,000 mg by mouth once d* * CALCIUM 600 + D(3) 600 MG (1,* 2 daily * ASPIRIN 81 MG TABLET Take one(1) tablet daily. PREGABALIN 25 MG CAPSULE Take 1 capsule by mouth once * ESOMEPRAZOLE MAGNESIUM 40 MG * TAKE 1 CAPSULE BY MOUTH ONCE* Medication notes this encounter ESOMEPRAZOLE MAGNESIUM 40 MG CAPSULE,DELAYED RELEASE >> Karissa Travis MA 04/25/2018 11:40 AM >> KARISSA TRAVIS MA Apr 25, 2018 11:40 AM Pt not taking TRAMADOL 50 MG TABLET >> Destiny Cordova, JAZZMINE.P[employer]ATING [employer] OPERATOR 04/25/2018 11:49 AM patient does not take 100mg at a time. 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 LBBB (left bundle branch block) [I44.7] INVALID FOR* Biventricular ICD (implantable cardioverter-def*INVALID FOR* Postablative hypothyroidism [E89.0] INVALID FOR* More... 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 Hearing loss of both ears [H91.93] INVALID FOR* More... Nonischemic cardiomyopathy (HCC) [I42.8] INVALID FOR* Chronic systolic heart failure (HCC) [I50.22] INVALID FOR* More... Sensorineural hearing loss, bilateral [H90.3] INVALID FOR* Tinnitus [H93.19] INVALID FOR* Dizziness and giddiness [R42] INVALID FOR* More... More... 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 Diabetes mellitus, type II (HCC) [E11.9] Compression fracture of L1 lumbar vertebra (HCC*INVALID FOR* Wedge compression fracture of twelfth thoracic *INVALID FOR* Rheumatoid arthritis involving multiple sites (*INVALID FOR*09/01/2016 Heart attack (HCC) [I21.9] INVALID FOR*09/01/2016 More... Sjogren's syndrome (HCC) [M35.00] INVALID FOR* Obstructive sleep apnea syndrome [G47.33] INVALID FOR* More... Other and unspecified hyperlipidemia [E78.5] INVALID FOR* More... Lupus erythematosus [L93.0] INVALID FOR* More... CHF (congestive heart failure) (HCC) [I50.9] INVALID FOR* More... Essential hypertension [I10] Cervicalgia [M54.2] INVALID FOR* More... Type 2 diabetes mellitus without complication, *INVALID FOR* Transition of care performed with sharing of cl*INVALID FOR* More... Hx of colonoscopy [Z98.890] INVALID FOR* More... History of esophagogastroduodenoscopy (EGD) [Z9*INVALID FOR* More... Prescriptions ordered this encounter Disp Refills Start End PREGABALIN 25 MG CAPSULE 270 * 0 04/25/2018 07/24/2018 Class: Print RX Route: ORAL Sig: Take 1 capsule by mouth three times daily for 90 days. PREGABALIN 25 MG CAPSULE 30 c* 0 04/25/2018 05/25/2018 Class: Print RX Cmt: Short rx of Lyrica while waiting for mail in order Route: ORAL Sig: Take 1 capsule by mouth once daily as needed for up to 30 days. Medications Discontinued During This Encounter traMADol (ULTRAM) 50 mg tablet 04/25/2018 Class: Historical Med Route: ORAL Sig: Take 100 mg by mouth once daily. Disc: Dosage adjustment pregabalin (LYRICA) 25 mg capsule 60 c* 0 04/07/2018 04/25/2018 Class: Print RX Route: ORAL Sig: Take 1 capsule by mouth twice daily for 30 days. Disc: Reason for discontinue is not on file. Encounter Status:Closed by DESTINY CORDOVA on 04/25/18 PROGRESS Observed: 04/07/2018 Status: COMPLETED Source: [place] 9:21 AM [facility] REPOSITORY HNO ID: [id number] Author: Jomar Sanchez Service: (none) Author Type: Physician Type: Progress Notes Filed: 04/07/2018 11:04 AM Note Text: [facility] NOTE DATE: April 07, 2018 Chief Complaint: chronic back pain SUBJECTIVE: Ms. Matos [facility] for a follow up appointment regarding chronic back pain. She states that since the last visit symptoms have been worsening. The pain is located in the Back and Left leg area and radiates down the posterior left leg. The pain is described as burning, radiating and sharp and is rated as 10 on a scale of 0-10. The patient Reports morning stiffness and leg pain. Symptoms interfere with reaching for shelves, lifting and activity involving neck bending. The pain is exacerbated by forward flexion and lifting. The pain is mitigated by sitting, medications, ice and heat. The patient is overall improved with the injections by 70%. She is not currently receiving medications through the [facility]. She n/a having difficulty with her [facility] medications. The medications are effective and partially effective. The patient states the last dose of Ultram/tramadol was taken at 04/07/18 in the morning. REVIEW OF SYSTEMS: Constitutional: (-) Fever (-) Night Sweats (-) Weight Gain (-) Weight Loss (-) Fatigue Cardiovascular: (-) Chest Pain (-) Palpitations (-) Lightheadedness (-) Swelling of Ankles (-) Hx Heart Surgery Respiratory: (-) Shortness of Breath (-) Cough (-) Wheezing (-) Snoring Gastrointestinal: (-) Incontinence (-) Abdominal Pain (-) Diarrhea (-) Constipation (-) Nausea/Vomiting (-) Heart Burn Endocrine: (-) Thyroid Disorder (-) Diabetes Hematologic: (-) Prolonged Bleeding (-) Easy Bruising Genitourinary: (-) Incontinence (-) Frequency (-) Urinary Urgency Skin: (-) Rashes (-) Itching (-) Other Lesions (+) Raynauds Neurologic: (-) Headache (-) Double Vision (+) Confusion (-) Paralysis Psychiatric: (+) Depression (+) Anxiety (-) Delusions (-) Hallucinations (-) Personal History of Alcohol or Substance Abuse (-) Family History of Alcohol or Substance Abuse PAST MEDICAL HISTORY Diagnosis Date - Adrenal insufficiency ([facility]) 1986 oral cortisone daily - Calculus of kidney - CHF (congestive heart failure) ([facility]) - Congenital anomalies of adrenal gland intermediate prednisone use - CVA (cerebral infarction) 1999 short term memory loss. - Diabetes mellitus, type II ([facility]) - Diabetes type 2, controlled ([facility]) chronic steroid therapy - Dual implantable cardioverter-defibrillator in situ 12/14/2013 Defibrillator Pacemaker Model [id number], serial # [id number] - Essential hypertension - H/O right heart catheterization 11/27/2013 coronaries clear - Heart attack (HCC) 09/28/2000 - Heart attack (HCC) 11/27/2013 first [place] 09/28/2000,second [place]. 20% EF, took 3L of fluid off - Hemiparesis affecting right side as late effect of stroke ([facility]) 02/06/2000 - Hyperthyroidism s/p radiation, currently on Synthroid, Seeing endo-Dr. Billings - Hypothyroidism (acquired) 1665 - Left bundle branch block - LUMBOSACRAL NEURITIS NOS 06/27/2007 - Lupus erythematosus 2005 Dr. Foreman - Other and unspecified hyperlipidemia - Other primary cardiomyopathies 09/28/2000 Cardiomyopathy-Seeing Dr. Rosenberg - Raynaud's syndrome 1999 - Rheumatoid arthritis(714.0) [address] Faulkner - Sjogren's syndrome (HCC) 1997 - Transverse myelitis (HCC) 05/31/2006 from flu shot.11/07/05 hospitalized with severe viral illness with diarrhea. Sudden pain in neck and paresthesia in LUE. PAST SURGICAL HISTORY Procedure Laterality Date - COLONOSCOPY 02/28/2008 - COLONOSCOPY 07/29/2016 - DEFIBRILLATOR SURGERY 2013 - EGD 11/25/2009 - EGD 04/01/2008 - EXCIS FINGER TENDON FLEXOR - HYSTERECTOMY HX 2011 - INCISION EXTEN FOOT/TOE TENDON - OTOPLASTY - PAST SURGICAL HISTORY OF five foot surgeries [id number], Jarred Donato - PAST SURGICAL HISTORY OF four hand surgeries [phone], Dr. Demond Tejeda - RHINOPLASTY 1989 nasal reconstruction after injury - TUBAL LIGATION HX 01/17/2010 removal of tumors, BTL ALLERGIES Allergen Reactions - Ciprofloxacin Other: See Comments Tendon Rupture. - Citric Acid Shortness of Breath Shortness of breath,swelling of throat - Levaquin [Levofloxa* Unknown - Lisinopril Hives - Tradjenta [Linaglip* Intolerance Nausea - Trileptal [Oxcarbaz* Mental Status Change - Tylox [Oxycodone-Ac* low blood pressure - Zetia [Ezetimibe] Other: See Comments Muscle pain - Zocor [Simvastatin] Swelling severe muscle cramping, liver enzyme abnormalities Current Outpatient Prescriptions: ABATACEPT (ORENCIA SUBCUTANEOUS) Inject subcutaneously. Once a week ALPRAZolam (XANAX) 1 mg tablet Take 1 mg by mouth daily at bedtime. amoxicillin-clavulanic acid (AUGMENTIN) 875-125 mg per tablet Take 1 tablet by mouth twice daily for 10 days. ASPIRIN 81 MG TAB Take one(1) tablet daily. BIOTIN ORAL Take 1,000 mg by mouth once daily. busPIRone (BUSPAR) 15 mg tablet Take 15 mg by mouth once daily. calcium carbonate/vitamin d3(CALCIUM 600 + D 600 MG-400 UNIT TAB) 2 daily carvedilol (COREG) 6.25 mg tablet TAKE 1 TABLET BY MOUTH TWICE DAILY WITH MEALS colestipol (COLESTID) 1 gram tablet Take 1 tablet by mouth twice daily. COMPOUNDED PRESCRIPTION Probiotic DULoxetine (CYMBALTA) 30 mg capsule esomeprazole (NEXIUM) 40 mg capsule TAKE 1 CAPSULE BY MOUTH ONCE DAILY fluticasone (FLONASE) 50 mcg/actuation nasal spray Use 1 Gridley in each nostril twice daily. FOLIC ACID ORAL Take 1,600 mg by mouth once daily. levothyroxine (SYNTHROID) 125 mcg tablet Take 1 tablet by mouth once daily. liothyronine (CYTOMEL) 5 mcg tablet Take 5 mcg by mouth once daily. loratadine (CLARITIN) 10 mg tablet Take 1 tablet by mouth once daily. pantoprazole DR (PROTONIX) 40 mg tablet Take 1 tablet by mouth daily before breakfast. Take on empty stomach, 1/2 hr before meal. peg 3350-Electrolytes (GOLYTELY) 236-22.74-6.74 -5.86 gram suspension Refer to printed patient instructions that will be mailed to you. polyethylene glycol 3350 (MIRALAX, GLYCOLAX) 17 gram/dose powder Take 17 g by mouth once daily. potassium chloride ER (KLOR-CON M20) 20 mEq tablet Take 1 tablet by mouth once daily. predniSONE (DELTASONE) 5 mg tablet Take 5 mg by mouth once daily. TETRAHYDROZOLINE HCL/ZN SULF (EYE DROPS OPHTHALMIC) Use in eyes. [employer] 1 drop both eyes evening traMADol (ULTRAM) 50 mg tablet Take 100 mg by mouth once daily. VITAMIN D 50,000 unit capsule once each week. pregabalin (LYRICA) 25 mg capsule Take 1 capsule by mouth twice daily for 30 days. No current facility-administered medications for this visit. I have reviewed the nurses notes and I am aware of the family/social history. Since the last evaluation the medical history has not changed. PHYSICAL EXAMINATION: Vitals: Pulse 69 Ht 5' 6 (1.68m) Wt 180 lb (81.6kg) SpO2 95% BMI 29.07 kg/(m2). Performed in conjunction with observation. The patient is alert and oriented x3. The patient is in no acute distress. Station and Gait: flexed posture and antalgic gait leaning forward Lungs: normal respiratory rate and rhythm. Cardiovascular: regular rate. Neck: Supple. The range of motion is intact. Back: Range of motion of the trunk was generally intact. Spine: L-S tenderness. Extremities: no reported edema or erythema. Motor: Exhibits full strength in all four extremities. ASSESSMENT: Encounter Diagnosis ICD-10-CM 1. Degeneration of cervical intervertebral disc M50.30 pregabalin (LYRICA) 25 mg capsule 2. Closed wedge compression fracture of twelfth thoracic vertebra with delayed healing, subsequent encounter S22.080G pregabalin (LYRICA) 25 mg capsule 3. Closed compression fracture of first lumbar vertebra, sequela S32.010S 4. Lupus erythematosus, unspecified form L93.0 [facility] and validated. All prescriptions have been APPROPRIATELY filled. No suspicious activity was identified. 04/07/2018 by Mary Sierra Narcotic Agreement reviewed and signed?: N/A on April 07, 2018 Urine Panel: No results found for: UQCANN, UQBNZL, NVK9YCU, UQAMPH, UQMAMP, UQBUPRE, UQNORBUP, UQMTHD, UQEDDP, UQTRAM, UQDTRM, UQFNTL, UQNFTL, UQCODE, UQMORP, UQDCDN, UQHCOD, UQOXYC, UQHMOR, UQOXYM, UQCREA, UQPH, UQSPGR, UQOXID, UQSPQ The pain panel was N/A PLAN: Prior available imaging studies were reviewed. Findings were discussed. Injection history was reviewed. Medication use and compliance were reviewed. 1. Overall stable but has had chronic diffuse pain symptoms. 2. Discussed weaning down on tramadol to BID. Add lyrica mainly once at evening. Signed Prescriptions Disp Refills pregabalin (LYRICA) 25 mg capsule 60 capsule 0 Sig: Take 1 capsule by mouth twice daily for 30 days. PAM Class: C-V 3. Interventional procedure options discussed. None at this time. 4. Encouraged regular home exercise program. 5) F/U in 3 months The treatment plan was discussed with the patient during the office visit and they verbalized an understanding of it. Jomar Sanchez MD cc: Dr. Leticia Garcia PA-C cc: Jomar Sanchez MD [address] [address]#[id number] [facility] [address] Results of consultation to be transmitted via electronic medical record for those providers who practice within [facility] or with access to [employer] via MD Ma, or via letter. RAFIQ Observed: 04/07/2018 Status: COMPLETED Source: [place] 9:00 AM [facility] REPOSITORY Office Visit (PNMDNA) DANA MATOS ([id number]) 1960 F Date Time Provider Department 04/07/18 9:00 AM JOMAR SANCHEZ During your visit today, we recorded the following information about you: Pulse Weight Height 69/minute 81.6 kg 1.676 m Jomar Sanchez MD 04/07/2018 11:04 AM Signed [facility] NOTE DATE: April 07, 2018 Chief Complaint: chronic back pain SUBJECTIVE: [facility]. [facility] for a follow up appointment regarding chronic back pain. She states that since the last visit symptoms have been worsening. The pain is located in the Back and Left leg area and radiates down the posterior left leg. The pain is described as burning, radiating and sharp and is rated as 10 on a scale of 0-10. The patient Reports morning stiffness and leg pain. Symptoms interfere with reaching for shelves, lifting and activity involving neck bending. The pain is exacerbated by forward flexion and lifting. The pain is mitigated by sitting, medications, ice and heat. The patient is overall improved with the injections by 70%. She is not currently receiving medications through the [facility]. She n/a having difficulty with her [facility] medications. The medications are effective and partially effective. The patient states the last dose of Ultram/tramadol was taken at 04/07/18 in the morning. REVIEW OF SYSTEMS: Constitutional: (-) Fever (-) Night Sweats (-) Weight Gain (-) Weight Loss (-) Fatigue Cardiovascular: (-) Chest Pain (-) Palpitations (-) Lightheadedness (-) Swelling of Ankles (-) Hx Heart Surgery Respiratory: (-) Shortness of Breath (-) Cough (-) Wheezing (-) Snoring Gastrointestinal: (-) Incontinence (-) Abdominal Pain (-) Diarrhea (-) Constipation (-) Nausea/Vomiting (-) Heart Burn Endocrine: (-) Thyroid Disorder (-) Diabetes Hematologic: (-) Prolonged Bleeding (-) Easy Bruising Genitourinary: (-) Incontinence (-) Frequency (-) Urinary Urgency Skin: (-) Rashes (-) Itching (-) Other Lesions (+) Raynauds Neurologic: (-) Headache (-) Double Vision (+) Confusion (-) Paralysis Psychiatric: (+) Depression (+) Anxiety (-) Delusions (-) Hallucinations (-) Personal History of Alcohol or Substance Abuse (-) Family History of Alcohol or Substance Abuse PAST MEDICAL HISTORY Diagnosis Date - Adrenal insufficiency (HCC) 1986 oral cortisone daily - Calculus of kidney - CHF (congestive heart failure) ([facility]) - Congenital anomalies of adrenal gland intermediate prednisone use - CVA (cerebral infarction) 1999 short term memory loss. - Diabetes mellitus, type II ([facility]) - Diabetes type 2, controlled ([facility]) chronic steroid therapy - Dual implantable cardioverter-defibrillator in situ 12/14/2013 Defibrillator Pacemaker Model [id number], serial # [id number] - Essential hypertension - H/O right heart catheterization 11/27/2013 coronaries clear - Heart attack (HCC) 09/28/2000 - Heart attack (HCC) 11/27/2013 first FL 09/28/2000,second [place]. 20% EF, took 3L of fluid off - Hemiparesis affecting right side as late effect of stroke ([facility]) 02/06/2000 - Hyperthyroidism s/p radiation, currently on Synthroid, Seeing endo-Dr. Billings - Hypothyroidism (acquired) 1665 - Left bundle branch block - LUMBOSACRAL NEURITIS NOS 06/27/2007 - Lupus erythematosus 2005 Dr. Foreman - Other and unspecified hyperlipidemia - Other primary cardiomyopathies 09/28/2000 Cardiomyopathy-Seeing Dr. Rosenberg - Raynaud's syndrome 1999 - Rheumatoid arthritis(714.0) [address] Faulkner - Sjogren's syndrome (HCC) 1997 - Transverse myelitis (HCC) 05/31/2006 from flu shot.11/07/05 hospitalized with severe viral illness with diarrhea. Sudden pain in neck and paresthesia in LUE. PAST SURGICAL HISTORY Procedure Laterality Date - COLONOSCOPY 02/28/2008 - COLONOSCOPY 07/29/2016 - DEFIBRILLATOR SURGERY 2013 - EGD 11/25/2009 - EGD 04/01/2008 - EXCIS FINGER TENDON FLEXOR - HYSTERECTOMY HX 2011 - INCISION EXTEN FOOT/TOE TENDON - OTOPLASTY - PAST SURGICAL HISTORY OF five foot surgeries [phone], Jarred Donato - PAST SURGICAL HISTORY OF four hand surgeries [phone], Dr. Demond Tejeda - RHINOPLASTY 1989 nasal reconstruction after injury - TUBAL LIGATION HX 01/17/2010 removal of tumors, BTL ALLERGIES Allergen Reactions - Ciprofloxacin Other: See Comments Tendon Rupture. - Citric Acid Shortness of Breath Shortness of breath,swelling of throat - Levaquin [Levofloxa* Unknown - Lisinopril Hives - Tradjenta [Linaglip* Intolerance Nausea - Trileptal [Oxcarbaz* Mental Status Change - Tylox [Oxycodone-Ac* low blood pressure - Zetia [Ezetimibe] Other: See Comments Muscle pain - Zocor [Simvastatin] Swelling severe muscle cramping, liver enzyme abnormalities Current Outpatient Prescriptions: ABATACEPT (ORENCIA SUBCUTANEOUS) Inject subcutaneously. Once a week ALPRAZolam (XANAX) 1 mg tablet Take 1 mg by mouth daily at bedtime. amoxicillin-clavulanic acid (AUGMENTIN) 875-125 mg per tablet Take 1 tablet by mouth twice daily for 10 days. ASPIRIN 81 MG TAB Take one(1) tablet daily. BIOTIN ORAL Take 1,000 mg by mouth once daily. busPIRone (BUSPAR) 15 mg tablet Take 15 mg by mouth once daily. calcium carbonate/vitamin d3(CALCIUM 600 + D 600 MG-400 UNIT TAB) 2 daily carvedilol (COREG) 6.25 mg tablet TAKE 1 TABLET BY MOUTH TWICE DAILY WITH MEALS colestipol (COLESTID) 1 gram tablet Take 1 tablet by mouth twice daily. COMPOUNDED PRESCRIPTION Probiotic DULoxetine (CYMBALTA) 30 mg capsule esomeprazole (NEXIUM) 40 mg capsule TAKE 1 CAPSULE BY MOUTH ONCE DAILY fluticasone (FLONASE) 50 mcg/actuation nasal spray Use 1 Gridley in each nostril twice daily. FOLIC ACID ORAL Take 1,600 mg by mouth once daily. levothyroxine (SYNTHROID) 125 mcg tablet Take 1 tablet by mouth once daily. liothyronine (CYTOMEL) 5 mcg tablet Take 5 mcg by mouth once daily. loratadine (CLARITIN) 10 mg tablet Take 1 tablet by mouth once daily. pantoprazole DR (PROTONIX) 40 mg tablet Take 1 tablet by mouth daily before breakfast. Take on empty stomach, 1/2 hr before meal. peg 3350-Electrolytes (GOLYTELY) 236-22.74-6.74 -5.86 gram suspension Refer to printed patient instructions that will be mailed to you. polyethylene glycol 3350 (MIRALAX, GLYCOLAX) 17 gram/dose powder Take 17 g by mouth once daily. potassium chloride ER (KLOR-CON M20) 20 mEq tablet Take 1 tablet by mouth once daily. predniSONE (DELTASONE) 5 mg tablet Take 5 mg by mouth once daily. TETRAHYDROZOLINE HCL/ZN SULF (EYE DROPS OPHTHALMIC) Use in eyes. Baush and Lomb 1 drop both eyes evening traMADol (ULTRAM) 50 mg tablet Take 100 mg by mouth once daily. VITAMIN D 50,000 unit capsule once each week. pregabalin (LYRICA) 25 mg capsule Take 1 capsule by mouth twice daily for 30 days. No current facility-administered medications for this visit. I have reviewed the nurses notes and I am aware of the family/social history. Since the last evaluation the medical history has not changed. PHYSICAL EXAMINATION: Vitals: Pulse 69 Ht 5' 6 (1.68m) Wt 180 lb (81.6kg) SpO2 95% BMI 29.07 kg/(m2). Performed in conjunction with observation. The patient is alert and oriented x3. The patient is in no acute distress. Station and Gait: flexed posture and antalgic gait leaning forward Lungs: normal respiratory rate and rhythm. Cardiovascular: regular rate. Neck: Supple. The range of motion is intact. Back: Range of motion of the trunk was generally intact. Spine: L-S tenderness. Extremities: no reported edema or erythema. Motor: Exhibits full strength in all four extremities. ASSESSMENT: Encounter Diagnosis ICD-10-CM 1. Degeneration of cervical intervertebral disc M50.30 pregabalin (LYRICA) 25 mg capsule 2. Closed wedge compression fracture of twelfth thoracic vertebra with delayed healing, subsequent encounter S22.080G pregabalin (LYRICA) 25 mg capsule 3. Closed compression fracture of first lumbar vertebra, sequela S32.010S 4. Lupus erythematosus, unspecified form L93.0 PDMP website checked and validated. All prescriptions have been APPROPRIATELY filled. No suspicious activity was identified. 04/07/2018 by Mary Sierra Narcotic Agreement reviewed and signed?: N/A on April 07, 2018 Urine Panel: No results found for: UQCANN, UQBNZL, IKV0GNU, UQAMPH, UQMAMP, UQBUPRE, UQNORBUP, UQMTHD, UQEDDP, UQTRAM, UQDTRM, UQFNTL, UQNFTL, UQCODE, UQMORP, UQDCDN, UQHCOD, UQOXYC, UQHMOR, UQOXYM, UQCREA, UQPH, UQSPGR, UQOXID, UQSPQ The pain panel was N/A PLAN: Prior available imaging studies were reviewed. Findings were discussed. Injection history was reviewed. Medication use and compliance were reviewed. 1. Overall stable but has had chronic diffuse pain symptoms. 2. Discussed weaning down on tramadol to BID. Add lyrica mainly once at evening. Signed Prescriptions Disp Refills pregabalin (LYRICA) 25 mg capsule 60 capsule 0 Sig: Take 1 capsule by mouth twice daily for 30 days. PAM Class: C-V 3. Interventional procedure options discussed. None at this time. 4. Encouraged regular home exercise program. 5) F/U in 3 months The treatment plan was discussed with the patient during the office visit and they verbalized an understanding of it. Jomar Sanchez MD cc: Dr. Leticia Garcia PAAniC cc: Jomar Sanchez MD [address] [place], [place] [id number] [facility] [address] Results of consultation to be transmitted via electronic medical record for those providers who practice within [facility] or with access to Beepl via MD Connect, or via letter. Referring Provider: JOMAR SANCHEZ [[id number]] Allergies As of Date: 04/07/2018 Noted Allergy Reaction CIPROFLOXACIN 12/06/2013 14 - Other: See Comments Comments: Tendon Rupture. CITRIC ACID 03/18/2016 12 - Shortness of Breath Comments: Shortness of breath,swelling of throat LEVAQUIN (LEVOFLOXACIN) 07/02/2015 16 - Unknown LISINOPRIL 05/12/2006 4 - Hives TRADJENTA (LINAGLIPTIN) 07/26/2016 5 - Intolerance Comments: Nausea TRILEPTAL (OXCARBAZEPINE) 09/22/2016 1 - Mental Status Change TYLOX (OXYCODONE-ACETAMINOPHEN) 05/12/2006 Comments: low blood pressure ZETIA (EZETIMIBE) 02/04/2016 14 - Other: See Comments Comments: Muscle pain ZOCOR (SIMVASTATIN) 05/12/2006 7 - Swelling Comments: severe muscle cramping, liver enzyme abnormalities Date Reviewed: 04/07/2018 Reviewed by: Mary Sierra - Fully Assessed Reason for Visit: Pain, Back [855] Primary Visit Diagnosis:Degeneration of cervical intervertebral disc [M50.30] Other Visit Diagnoses:Closed wedge compression fracture of twelfth thoracic vertebra with delayed healing, subsequent encounter [S22.080G] Closed compression fracture of first lumbar vertebra, sequela [S32.010S] Lupus erythematosus, unspecified form [L93.0] Order(s):pregabalin (LYRICA) 25 mg capsuleTake 1 capsule by mouth twice daily for 30 days.Disp: 60 capsuleRfl: 0 Prescriptions as of 04/07/2018 Sig: ORENCIA SUBCUTANEOUS Inject subcutaneously. Once * ALPRAZOLAM 1 MG TABLET Take 1 mg by mouth daily at b* AMOXICILLIN 875 MG-POTASSIUM * Take 1 tablet by mouth twice * * ASPIRIN 81 MG TABLET Take one(1) tablet daily. * BIOTIN ORAL Take 1,000 mg by mouth once d* BUSPIRONE 15 MG TABLET Take 15 mg by mouth once andree* * CALCIUM 600 + D(3) 600 MG (1,* 2 daily CARVEDILOL 6.25 MG TABLET TAKE 1 TABLET BY MOUTH TWICE* COLESTIPOL 1 GRAM TABLET Take 1 tablet by mouth twice * COMPOUNDED PRESCRIPTION Probiotic DULOXETINE 30 MG CAPSULE,JERRY* ESOMEPRAZOLE MAGNESIUM 40 MG * TAKE 1 CAPSULE BY MOUTH ONCE* FLUTICASONE 50 MCG/ACTUATION * Use 1 Gridley in each nostril t* FOLIC ACID ORAL Take 1,600 mg by mouth once d* LEVOTHYROXINE 125 MCG TABLET Take 1 tablet by mouth once d* LIOTHYRONINE 5 MCG TABLET Take 5 mcg by mouth once andree* LORATADINE 10 MG TABLET Take 1 tablet by mouth once d* PANTOPRAZOLE 40 MG TABLET,DEL* Take 1 tablet by mouth daily * PEG 3350-ELECTROLYTES 236 GRA* Refer to printed patient inst* POLYETHYLENE GLYCOL 3350 17 G* Take 17 g by mouth once daily. POTASSIUM CHLORIDE ER 20 MEQ * Take 1 tablet by mouth once d* PREDNISONE 5 MG TABLET Take 5 mg by mouth once daily. EYE DROPS OPHTHALMIC Use in eyes. Baush and Lomb * TRAMADOL 50 MG TABLET Take 100 mg by mouth once carlene* VITAMIN D2 50,000 UNIT CAPSULE once each week. 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 LBBB (left bundle branch block) [I44.7] INVALID FOR* Biventricular ICD (implantable cardioverter-def*INVALID FOR* Postablative hypothyroidism [E89.0] INVALID FOR* More... 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 Hearing loss of both ears [H91.93] INVALID FOR* More... Nonischemic cardiomyopathy (HCC) [I42.8] INVALID FOR* Chronic systolic heart failure (HCC) [I50.22] INVALID FOR* More... Sensorineural hearing loss, bilateral [H90.3] INVALID FOR* Tinnitus [H93.19] INVALID FOR* Dizziness and giddiness [R42] INVALID FOR* More... More... 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 Diabetes mellitus, type II (HCC) [E11.9] Compression fracture of L1 lumbar vertebra (HCC*INVALID FOR* Wedge compression fracture of twelfth thoracic *INVALID FOR* Rheumatoid arthritis involving multiple sites (*INVALID FOR*09/01/2016 Heart attack (HCC) [I21.9] INVALID FOR*09/01/2016 More... Sjogren's syndrome (HCC) [M35.00] INVALID FOR* Obstructive sleep apnea syndrome [G47.33] INVALID FOR* More... Other and unspecified hyperlipidemia [E78.5] INVALID FOR* More... Lupus erythematosus [L93.0] INVALID FOR* More... CHF (congestive heart failure) (HCC) [I50.9] INVALID FOR* More... Essential hypertension [I10] Cervicalgia [M54.2] INVALID FOR* More... Type 2 diabetes mellitus without complication, *INVALID FOR* Transition of care performed with sharing of cl*INVALID FOR* More... Hx of colonoscopy [Z98.890] INVALID FOR* More... History of esophagogastroduodenoscopy (EGD) [Z9*INVALID FOR* More... Prescriptions ordered this encounter Disp Refills Start End PREGABALIN 25 MG CAPSULE 60 c* 0 04/07/2018 05/07/2018 Class: Print RX Route: ORAL Sig: Take 1 capsule by mouth twice daily for 30 days. Encounter Status:Closed by JOMAR SANCHEZ MD on 04/07/18 PROGRESS Observed: 04/03/2018 Status: COMPLETED Source: [place] 4:12 PM [facility] REPOSITORY HNO ID: [id number] Author: Destiney Yanez Service: (none) Author Type: (none) Type: Progress Notes Filed: 04/03/2018 4:12 PM Note Text: Radiology Service Progress Note PATIENT NAME: Dana Matos DATE OF SERVICE: April 03, 2018 TIME: 4:12 PM PATIENT IDENTITY VERIFICATION COMPLETED USING TWO (2) METHODS: Patient confirmed name verbally and Date of . PATIENT GENDER DATA: Female. status: : No status: NO. PATIENT RELEVANT IMPLANT DATA REVIEWED: Not Applicable RADIOLOGY DEPARTMENT: CT; Exam(s) Completed: Chest PERIPHERAL IV DATA: Not applicable SIGNED BY: Destiney Yanez April 03, 2018 4:12 PM PROGRESS Observed: 04/03/2018 Status: COMPLETED Source: [place] 4:11 PM [facility] REPOSITORY HNO ID: [id number] Author: Destiney Reef Bhatti [address] Service: (none) Author Type: (none) Type: Progress Notes Filed: 04/03/2018 4:11 PM Note Text: Radiology Service Progress Note PATIENT NAME: Dana Matos DATE OF SERVICE: April 03, 2018 TIME: 4:11 PM PATIENT IDENTITY VERIFICATION COMPLETED USING TWO (2) METHODS: Patient confirmed name verbally and Date of . PATIENT GENDER DATA: Male PATIENT RELEVANT IMPLANT DATA REVIEWED: Not Applicable RADIOLOGY DEPARTMENT: CT; Exam(s) Completed: Brain PERIPHERAL IV DATA: Not applicable SIGNED BY: Destiney Gus Bhatti Ct April 03, 2018 4:[address] CHEST WO IVCON Observed: 04/03/2018 Status: F Source: [place] 4:02 PM [facility] REPOSITORY * * *Final Report* * * DATE OF EXAM: Apr 03 2018 4:02PM [facility] 0541 - CT CHEST WO IVCON / PROCEDURE REASON: dyspnea * * * * Physician Interpretation * * * * EXAMINATION: CHEST CT WITHOUT CONTRAST CLINICAL HISTORY: 57-year-old female with history of Sjogren's syndrome and shortness of breath, reportedly with decreased lung capacity per PFTs. Technique: Spiral CT acquisition of the chest from the thoracic inlet to the upper abdomen without contrast. Additional free breathing sequences performed. MQ: [id number]_4 CT Dose-Length Product: 325 mGy*cm CT Dose Reduction Employed: Automated exposure control(AEC) and iterative recon Comparison: No prior chest CT for comparison. Frontal and lateral chest radiographs of 09/01/2016. RESULT: Limitations: Mild respiratory motion through the lung bases. Streak artifact from patient's left-sided defibrillator limits evaluation through the thoracic inlet. Lines, tubes, and devices: Left anterior chest wall dual chamber AICD device is present with leads terminating in the right atrial appendage, right ventricular apex and a cardiac vein. Lung parenchyma and pleura: Trachea and central bronchi are patent, with no endobronchial lesion detected. Mild symmetric biapical pleural-parenchymal thickening/scarring. There is mild bibasilar subsegmental atelectasis. No convincing changes of fibrotic interstitial lung disease. There are a few scattered tiny indeterminate pulmonary nodules, for example a 3 mm nodule along the minor fissure (image 148) and a second 5 mm nodule along the anterior aspect of the minor fissure (image 174) most likely related to perifissural lymph nodes. Tiny calcified granuloma seen within the right upper lobe (image 68). Indeterminate 3 mm nodule seen within the superior segment of the left lower lobe (image 102). No pleural effusion or pneumothorax. Free breathing sequences are suboptimal, with minimal air trapping noted within the upper lobes; no significant air trapping or evidence of dynamic airway collapse. Thoracic inlet, heart, and mediastinum: The thyroid gland is not well visualized due to streak artifact from the patient's defibrillator; small calcification seen at the level of the left thyroid lobe (image 37) which is otherwise not visualized; the right lobe is without focal abnormality. No lymphadenopathy in the axillary regions. No obvious supraclavicular lymphadenopathy within the [id number]. No mediastinal or hilar lymphadenopathy. There is a common origin of the brachiocephalic trunk and left common carotid artery, normal variant. The ascending thoracic aorta is borderline ectatic, measuring 3.9 cm in the mid ascending segment. The remainder of the thoracic aorta is normal in course and caliber. The main pulmonary artery is normal in caliber. The cardiac chambers are normal in size. No distinct coronary artery atherosclerotic calcifications are noted, although the study is not optimized for coronary assessment. No pericardial effusion or thickening. Bones and soft tissues: No destructive bone lesion. The bones are diffusely osteopenic. Prior vertebroplasty changes seen within a vertebra at the thoracolumbar junction, probably L1. Mild compression deformity seen within the superior endplate of the adjacent T12 vertebral body. No acute rib fracture identified. Chest wall soft tissues are unremarkable. Upper abdomen: No acute abnormality in the imaged upper abdomen. Adrenal glands appear atrophic/smaller than expected in size. Scattered atherosclerotic calcification seen within the upper abdominal aorta and at the origins of the bilateral renal arteries. QB_Y IMPRESSION: 1. No convincing evidence of fibrotic interstitial lung disease in this patient with history of Sjogren's syndrome. 2. Scattered indeterminate pulmonary nodules, the largest measuring 5 mm along the minor fissure (most likely related to a perifissural lymph node). Incidental Finding: No follow-up imaging for this incidentally detected lung nodule is recommended. If there are risk factors for lung malignancy, a follow-up chest CT could be obtained in 12 months. 3. No thoracic lymphadenopathy. Gasateria Attendant: JUANI Transcribe Date/Time: Apr 03 2018 5:08P Dictated by : PAULA VARELA MD This examination was interpreted and the report reviewed and electronically signed by: PAULA VARELA MD on Apr 03 2018 5:47PM EST [id number] [id number] Observed: 04/03/2018 Status: COMPLETED Source: [place] 12:[address] [facility] [place] REPOSITORY HNO ID: [id number] Author: Leticia Mcghee ([place]) Jose Service: (none) Author Type: Physician Sales Representative Printing Paper Type: Progress Notes Filed: 04/03/2018 6:45 PM Note Text: 57 year old female with c/o 1. Chest pain 02/09/18 went to [facility] ED, admitted overnight. Stress negative. Treated with labetolol for HBP in ED. No sx since discharge. Also states thinks r/t drinking caffeinated pop. NO SOB, chest pain. Saw 2. Has had some GERD/heartburn after eating at [employer] with some diarrhea afterwards. Resolved in a few days and fine currently. Is scheduled for Colonoscopy in April. EGD 3. 02/10/18 hgba1c 6.2. Denies excess thirst, excessive urination. Balance is off. Blurry vision. Feeling light headed. Legs are weak. Took extra prednisone thinking it might be adrenal, recent diarrhea. Has been over last couple weeks. Started Trazedone 3 weeks ago. 4. Having SOB especially going up stairs. [employer] tested with lung capacity 60%. CT scheduled today. Worried about rib fractures because gets pain that pinched under right lateral ribs. Ongoing x 5 days. Hx fractured ribs in past from bending over. Worries about occult sinusitis. Has a cyst in sinus which collects fluid, often doesn't have drainage or fever but improves with ATB. No cough. No fever. No ST. HISTORIES FAMILY HISTORY Problem Relation Age of Onset - Arthritis Mother CREST syndrome - Diabetes Mother - Stroke Father - Heart Father - Emphysema Father - Stroke Paternal Grandmother - Stroke Paternal Grandfather - other (DM) Brother - other (CM) Brother possibly ETOH related. 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 - Diabetes mellitus, type II (HCC) - Diabetes type 2, controlled (HCC) chronic steroid therapy - Dual implantable cardioverter-defibrillator in situ 12/14/2013 Defibrillator Pacemaker Model [id number], serial # [id number] - Essential hypertension - H/O right heart catheterization 11/27/2013 coronaries clear - Heart attack (HCC) 09/28/2000 - Heart attack (HCC) 11/27/2013 first FL 09/28/2000,second [place]. 20% EF, took 3L of fluid off - Hemiparesis affecting right side as late effect of stroke (HCC) 02/06/2000 - Hyperthyroidism s/p radiation, currently on Synthroid, Seeing endo-Dr. Billings - Hypothyroidism (acquired) 1664 - Left bundle branch block - LUMBOSACRAL NEURITIS NOS 06/27/2007 - Lupus erythematosus 2005 Dr. Foreman - Other and unspecified hyperlipidemia - Other primary cardiomyopathies 09/28/2000 Cardiomyopathy-Seeing Dr. Rosenberg - Raynaud's syndrome 1999 - Rheumatoid arthritis(714.0) [address] Faulkner - Sjogren's syndrome (HCC) 1997 - Transverse myelitis (HCC) 05/31/2006 from flu shot PAST SURGICAL HISTORY Procedure Laterality Date - COLONOSCOPY 02/28/2008 - COLONOSCOPY 07/29/2016 - DEFIBRILLATOR SURGERY 2013 - EGD 11/25/2009 - EGD 04/01/2008 - EXCIS FINGER TENDON FLEXOR - HYSTERECTOMY HX 2011 - INCISION EXTEN FOOT/TOE TENDON - OTOPLASTY - PAST SURGICAL HISTORY OF five foot surgeries [id number], Jarred Donato - PAST SURGICAL HISTORY OF four hand surgeries [id number], Dr. Demond Tejeda - RHINOPLASTY 1989 nasal reconstruction after injury - TUBAL LIGATION HX 01/17/2010 removal of tumors, BTL Social History Marital status: Spouse name: Years of education: Number of children: Social History Main Topics Smoking status: Never Smoker Smokeless tobacco: Never Used Alcohol use: No Drug use: No Sexual activity: Yes Partners with: Male ACTIVE PROBLEM LIST Degeneration of Cervical Intervertebral Disc Rheumatoid Arthritis (Hcc) Cad (Coronary Artery Disease) Lbbb (Left Bundle Branch Block) Biventricular Icd (Implantable Cardioverter-Defibrillator) in Place Postablative Hypothyroidism Secondary Adrenal Insufficiency (Hcc) Hearing Loss of Both Ears Nonischemic Cardiomyopathy (Hcc) Chronic Systolic Heart Failure (Hcc) Sensorineural Hearing Loss, Bilateral Tinnitus Dizziness and Giddiness Transverse Myelitis (Hcc) Diabetes Mellitus, Type II (Hcc) Compression Fracture of L1 Lumbar Vertebra (Hcc) Wedge Compression Fracture of Twelfth Thoracic Vertebra With Delayed Healing Sjogren's Syndrome (Hcc) Obstructive Sleep Apnea Syndrome Other and Unspecified Hyperlipidemia Lupus Erythematosus Chf (Congestive Heart Failure) (Hcc) Essential Hypertension Cervicalgia Type 2 Diabetes Mellitus Without Complication, With Long-Term Current Use of Insulin (Hcc) Transition of Care Performed With Sharing of Clinical Summary Hx of Colonoscopy History of Esophagogastroduodenoscopy (Egd) Current Outpatient Prescriptions: ABATACEPT (ORENCIA SUBCUTANEOUS) Inject subcutaneously. Once a week Disp: Rfl: ALPRAZolam (XANAX) 1 mg tablet Take 1 mg by mouth daily at bedtime. Disp: Rfl: ASPIRIN 81 MG TAB Take one(1) tablet daily. Disp: Rfl: 0 BIOTIN ORAL Take 1,000 mg by mouth once daily. Disp: Rfl: busPIRone (BUSPAR) 15 mg tablet Take 15 mg by mouth once daily. Disp: Rfl: calcium carbonate/vitamin d3(CALCIUM 600 + D 600 MG-400 UNIT TAB) 2 daily Disp: Rfl: 0 carvedilol (COREG) 6.25 mg tablet TAKE 1 TABLET BY MOUTH TWICE DAILY WITH MEALS Disp: 180 tablet Rfl: 3 COL-RITE 100 MG CAP daily Disp: Rfl: 0 colestipol (COLESTID) 1 gram tablet Take 1 tablet by mouth twice daily. Disp: 60 tablet Rfl: 5 DULoxetine (CYMBALTA) 30 mg capsule Disp: Rfl: esomeprazole (NEXIUM) 40 mg capsule TAKE 1 CAPSULE BY MOUTH ONCE DAILY Disp: 90 capsule Rfl: 3 fluticasone (FLONASE) 50 mcg/actuation nasal spray Use 1 [place] in each nostril twice daily. Disp: Rfl: FOLIC ACID ORAL Take 1,600 mg by mouth once daily. Disp: Rfl: levothyroxine (SYNTHROID) 125 mcg tablet Take 1 tablet by mouth once daily. Disp: Rfl: 0 liothyronine (CYTOMEL) 5 mcg tablet Take 5 mcg by mouth once daily. Disp: Rfl: loratadine (CLARITIN) 10 mg tablet Take 1 tablet by mouth once daily. Disp: 90 tablet Rfl: [address] (PROTONIX) 40 mg tablet Take 1 tablet by mouth daily before breakfast. Take on empty stomach, 1/2 hr before meal. Disp: 90 tablet Rfl: 1 potassium chloride ER (KLOR-CON M20) 20 mEq tablet Take 1 tablet by mouth once daily. Disp: 90 tablet Rfl: 3 predniSONE (DELTASONE) 5 mg tablet Take 5 mg by mouth once daily. Disp: Rfl: TETRAHYDROZOLINE HCL/ZN SULF (EYE DROPS OPHTHALMIC) Use in eyes. [employer] 1 drop both eyes evening Disp: Rfl: traMADol (ULTRAM) 50 mg tablet Take 100 mg by mouth once daily. Disp: Rfl: VITAMIN D 50,000 unit capsule once each week. Disp: Rfl: COMPOUNDED PRESCRIPTION Probiotic Disp: Rfl: peg 3350-Electrolytes (GOLYTELY) 236-22.74-6.74 -5.86 gram suspension Refer to printed patient instructions that will be mailed to you. Disp: 2 Container Rfl: 0 polyethylene glycol 3350 (MIRALAX, GLYCOLAX) 17 gram/dose powder Take 17 g by mouth once daily. (Patient not taking: Reported on 02/17/2018 ) Disp: 1 Bottle Rfl: 1 No current facility-administered medications for this visit. DIABETIC FOOT EXAM due on 1971 ONE PNEUMOVAX PRIOR TO AGE 66 due on 1977 BP CONTROLLED (<130/80) due on 1979 DTAP,TDAP,TD(1 - Tdap) due on 1980 COLORECTAL CANCER SCREENING,SEE MODIFIER due on 11/16/2016 DILATED RETINAL EXAM due on 10/04/2017 URINE ALBUMIN:CREATININE RATIO due on 03/29/2018 EXAM: BP 116/74 Pulse 76 Temp 36.4 ?C (97.6 ?F) (Tympanic) Resp 16 Wt 82.6 kg (182 lb) LMP (LMP Unknown) BMI 29.39 kg/m? Pleasant overweight adult woman in no acute distress. Alert and oriented all spheres. Normal affect and cognition. Speech normal. No deficits to learning or comprehension. Skin warm, dry, pink to lips and nailbeds. Normal turgor. Respirations regular and unlabored. HEENT WNL. TM's clear. Nose and oropharynx free from injection or lesion. No cervical lymph nodes. No maxillary or frontal tenderness. Thyroid non-tender, no masses Chest CTA. HRRR without murmur or gallop.Abdomen: active bowel sounds throughout, soft, nontender, no masses or organomegaly. No CVAT. Extrem: no clubbing, cyanosis, edema. Extremities are warm and pink with prompt capillary refill. ASSESSMENT/PLAN: 1. Bacterial sinusitis - ICD9: 473.9, 041.9, ICD10: J32.9, B96.89 (primary diagnosis) - Supportive care with plenty of fluids, rest, and analgesia prn. - give 5-7 days: if worse start ATB. - AMOXICILLIN 875 MG-POTASSIUM CLAVULANATE 125 MG TABLET - Double prednisone to 10mg x 1 week. 2. Transition of care performed with sharing of clinical summary - ICD9: V15.89, ICD10: Z91.89 Chest pain with cardiac ruled out. Resolved. 3. Hx of colonoscopy - ICD9: V45.89, ICD10: Z98.890 Has f/u scheduled in April 4. History of esophagogastroduodenoscopy (EGD) - ICD9: V15.29, ICD10: Z98.890 Mild antral gastritis. Continue Nexium. F/u 3 months. Leticia Garcia PA-C CNOV Observed: 04/03/2018 Status: COMPLETED Source: [place] 11:40 AM [facility] REPOSITORY Office Visit (FAMPWS) DANA MATOS ([id number]) 1960 F Date Time Provider Department 04/03/18 11:40 AM Leticia GARCIA) FAMPWS During your visit today, we recorded the following information about you: Temperature Pulse Respiration Blood pressure 97.6 degrees 76/minute 16/minute 116/74 Weight 82.6 kg Leticia Garcia PA-C 04/03/2018 6:45 PM Signed 57 year old female with c/o 1. Chest pain 02/09/18 went to [facility] ED, admitted overnight. Stress negative. Treated with labetolol for HBP in ED. No sx since discharge. Also states thinks r/t drinking caffeinated pop. NO SOB, chest pain. Saw 2. Has had some GERD/heartburn after eating at [employer] with some diarrhea afterwards. Resolved in a few days and fine currently. Is scheduled for Colonoscopy in April. EGD 3. 02/10/18 hgba1c 6.2. Denies excess thirst, excessive urination. Balance is off. Blurry vision. Feeling light headed. Legs are weak. Took extra prednisone thinking it might be adrenal, recent diarrhea. Has been over last couple weeks. Started Trazedone 3 weeks ago. 4. Having SOB especially going up stairs. [employer] tested with lung capacity 60%. CT scheduled today. Worried about rib fractures because gets pain that pinched under right lateral ribs. Ongoing x 5 days. Hx fractured ribs in past from bending over. Worries about occult sinusitis. Has a cyst in sinus which collects fluid, often doesn't have drainage or fever but improves with ATB. No cough. No fever. No ST. HISTORIES FAMILY HISTORY Problem Relation Age of Onset - Arthritis Mother CREST syndrome - Diabetes Mother - Stroke Father - Heart Father - Emphysema Father - Stroke Paternal Grandmother - Stroke Paternal Grandfather - other (DM) Brother - other (CM) Brother possibly ETOH related. 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 - Diabetes mellitus, type II ([facility]) - Diabetes type 2, controlled ([facility]) chronic steroid therapy - Dual implantable cardioverter-defibrillator in situ 12/14/2013 Defibrillator Pacemaker Model [id number], serial # [id number] - Essential hypertension - H/O right heart catheterization 11/27/2013 coronaries clear - Heart attack (HCC) 09/28/2000 - Heart attack (HCC) 11/27/2013 first FL 09/28/2000,second [place]. 20% EF, took 3L of fluid off - Hemiparesis affecting right side as late effect of stroke (HCC) 02/06/2000 - Hyperthyroidism s/p radiation, currently on Synthroid, Seeing endo-Dr. Billings - Hypothyroidism (acquired) 1665 - Left bundle branch block - LUMBOSACRAL NEURITIS NOS 06/27/2007 - Lupus erythematosus 2006 Dr. Foreman - Other and unspecified hyperlipidemia - Other primary cardiomyopathies 09/28/2000 Cardiomyopathy-Seeing Dr. Rosenberg - Raynaud's syndrome 1999 - Rheumatoid arthritis(714.0) [address] Faulkner - Sjogren's syndrome (HCC) 1997 - Transverse myelitis (HCC) 05/31/2006 from flu shot PAST SURGICAL HISTORY Procedure Laterality Date - COLONOSCOPY 02/28/2008 - COLONOSCOPY 07/29/2016 - DEFIBRILLATOR SURGERY 2013 - EGD 11/25/2009 - EGD 04/01/2008 - EXCIS FINGER TENDON FLEXOR - HYSTERECTOMY HX 2011 - INCISION EXTEN FOOT/TOE TENDON - OTOPLASTY - PAST SURGICAL HISTORY OF five foot surgeries [id number], Jarred Donato - PAST SURGICAL HISTORY OF four hand surgeries [phone], Dr. Demond Tejeda - RHINOPLASTY 1989 nasal reconstruction after injury - TUBAL LIGATION HX 01/17/2010 removal of tumors, BTL Social History Marital status: Spouse name: Years of education: Number of children: Social History Main Topics Smoking status: Never Smoker Smokeless tobacco: Never Used Alcohol use: No Drug use: No Sexual activity: Yes Partners with: Male ACTIVE PROBLEM LIST Degeneration of Cervical Intervertebral Disc Rheumatoid Arthritis (Hcc) Cad (Coronary Artery Disease) Lbbb (Left Bundle Branch Block) Biventricular Icd (Implantable Cardioverter-Defibrillator) in Place Postablative Hypothyroidism Secondary Adrenal Insufficiency (Hcc) Hearing Loss of Both Ears Nonischemic Cardiomyopathy (Hcc) Chronic Systolic Heart Failure (Hcc) Sensorineural Hearing Loss, Bilateral Tinnitus Dizziness and Giddiness Transverse Myelitis (Hcc) Diabetes Mellitus, Type II (Hcc) Compression Fracture of L1 Lumbar Vertebra (Hcc) Wedge Compression Fracture of Twelfth Thoracic Vertebra With Delayed Healing Sjogren's Syndrome (Hcc) Obstructive Sleep Apnea Syndrome Other and Unspecified Hyperlipidemia Lupus Erythematosus Chf (Congestive Heart Failure) (Hcc) Essential Hypertension Cervicalgia Type 2 Diabetes Mellitus Without Complication, With Long-Term Current Use of Insulin (Hcc) Transition of Care Performed With Sharing of Clinical Summary Hx of Colonoscopy History of Esophagogastroduodenoscopy (Egd) Current Outpatient Prescriptions: ABATACEPT (ORENCIA SUBCUTANEOUS) Inject subcutaneously. Once a week Disp: Rfl: ALPRAZolam (XANAX) 1 mg tablet Take 1 mg by mouth daily at bedtime. Disp: Rfl: ASPIRIN 81 MG TAB Take one(1) tablet daily. Disp: Rfl: 0 BIOTIN ORAL Take 1,000 mg by mouth once daily. Disp: Rfl: busPIRone (BUSPAR) 15 mg tablet Take 15 mg by mouth once daily. Disp: Rfl: calcium carbonate/vitamin d3(CALCIUM 600 + D 600 MG-400 UNIT TAB) 2 daily Disp: Rfl: 0 carvedilol (COREG) 6.25 mg tablet TAKE 1 TABLET BY MOUTH TWICE DAILY WITH MEALS Disp: 180 tablet Rfl: 3 COL-RITE 100 MG CAP daily Disp: Rfl: 0 colestipol (COLESTID) 1 gram tablet Take 1 tablet by mouth twice daily. Disp: 60 tablet Rfl: 5 DULoxetine (CYMBALTA) 30 mg capsule Disp: Rfl: esomeprazole (NEXIUM) 40 mg capsule TAKE 1 CAPSULE BY MOUTH ONCE DAILY Disp: 90 capsule Rfl: 3 fluticasone (FLONASE) 50 mcg/actuation nasal spray Use 1 [place] in each nostril twice daily. Disp: Rfl: FOLIC ACID ORAL Take 1,600 mg by mouth once daily. Disp: Rfl: levothyroxine (SYNTHROID) 125 mcg tablet Take 1 tablet by mouth once daily. Disp: Rfl: 0 liothyronine (CYTOMEL) 5 mcg tablet Take 5 mcg by mouth once daily. Disp: Rfl: loratadine (CLARITIN) 10 mg tablet Take 1 tablet by mouth once daily. Disp: 90 tablet Rfl: [address] (PROTONIX) 40 mg tablet Take 1 tablet by mouth daily before breakfast. Take on empty stomach, 1/2 hr before meal. Disp: 90 tablet Rfl: 1 potassium chloride ER (KLOR-CON M20) 20 mEq tablet Take 1 tablet by mouth once daily. Disp: 90 tablet Rfl: 3 predniSONE (DELTASONE) 5 mg tablet Take 5 mg by mouth once daily. Disp: Rfl: TETRAHYDROZOLINE HCL/ZN SULF (EYE DROPS OPHTHALMIC) Use in eyes. [employer] 1 drop both eyes evening Disp: Rfl: traMADol (ULTRAM) 50 mg tablet Take 100 mg by mouth once daily. Disp: Rfl: VITAMIN D 50,000 unit capsule once each week. Disp: Rfl: COMPOUNDED PRESCRIPTION Probiotic Disp: Rfl: peg 3350-Electrolytes (GOLYTELY) 236-22.74-6.74 -5.86 gram suspension Refer to printed patient instructions that will be mailed to you. Disp: 2 Container Rfl: 0 polyethylene glycol 3350 (MIRALAX, GLYCOLAX) 17 gram/dose powder Take 17 g by mouth once daily. (Patient not taking: Reported on 02/17/2018 ) Disp: 1 Bottle Rfl: 1 No current facility-administered medications for this visit. DIABETIC FOOT EXAM due on 1971 ONE PNEUMOVAX PRIOR TO AGE 66 due on 1977 BP CONTROLLED (<130/80) due on 1979 DTAP,TDAP,TD(1 - Tdap) due on 1980 COLORECTAL CANCER SCREENING,SEE MODIFIER due on 11/16/2016 DILATED RETINAL EXAM due on 10/04/2017 URINE ALBUMIN:CREATININE RATIO due on 03/29/2018 EXAM: BP 116/74 Pulse 76 Temp 36.4 ?C (97.6 ?F) (Tympanic) Resp 16 Wt 82.6 kg (182 lb) LMP (LMP Unknown) BMI 29.39 kg/m? Pleasant overweight adult woman in no acute distress. Alert and oriented all spheres. Normal affect and cognition. Speech normal. No deficits to learning or comprehension. Skin warm, dry, pink to lips and nailbeds. Normal turgor. Respirations regular and unlabored. HEENT WNL. TM's clear. Nose and oropharynx free from injection or lesion. No cervical lymph nodes. No maxillary or frontal tenderness. Thyroid non-tender, no masses Chest CTA. HRRR without murmur or gallop.Abdomen: active bowel sounds throughout, soft, nontender, no masses or organomegaly. No CVAT. Extrem: no clubbing, cyanosis, edema. Extremities are warm and pink with prompt capillary refill. ASSESSMENT/PLAN: 1. Bacterial sinusitis - ICD9: 473.9, 041.9, ICD10: J32.9, B96.89 (primary diagnosis) - Supportive care with plenty of fluids, rest, and analgesia prn. - give 5-7 days: if worse start ATB. - AMOXICILLIN 875 MG-POTASSIUM CLAVULANATE 125 MG TABLET - Double prednisone to 10mg x 1 week. 2. Transition of care performed with sharing of clinical summary - ICD9: V15.89, ICD10: Z91.89 Chest pain with cardiac ruled out. Resolved. 3. Hx of colonoscopy - ICD9: V45.89, ICD10: Z98.890 Has f/u scheduled in April 4. History of esophagogastroduodenoscopy (EGD) - ICD9: V15.29, ICD10: Z98.890 Mild antral gastritis. Continue Nexium. F/u 3 months. ROSCOE Acosta LPN 04/03/2018 3:07 PM Signed Augmentin called to [place]. Pharmacy called looking for order for patient. Referring Provider: Leticia GARCIA (ROSCOE) [[id number]] Allergies As of Date: 04/03/2018 Noted Allergy Reaction CIPROFLOXACIN 12/06/2013 14 - Other: See Comments Comments: Tendon Rupture. CITRIC ACID 03/18/2016 12 - Shortness of Breath Comments: Shortness of breath,swelling of throat LEVAQUIN (LEVOFLOXACIN) 07/02/2015 16 - Unknown LISINOPRIL 05/12/2006 4 - Hives TRADJENTA (LINAGLIPTIN) 07/26/2016 5 - Intolerance Comments: Nausea TRILEPTAL (OXCARBAZEPINE) 09/22/2016 1 - Mental Status Change TYLOX (OXYCODONE-ACETAMINOPHEN) 05/12/2006 Comments: low blood pressure ZETIA (EZETIMIBE) 02/04/2016 14 - Other: See Comments Comments: Muscle pain ZOCOR (SIMVASTATIN) 05/12/2006 7 - Swelling Comments: severe muscle cramping, liver enzyme abnormalities Date Reviewed: 04/03/2018 Reviewed by: Corine Rae LPN - Fully Assessed Reason for Visit: F/U 6 Month [444] Dizziness [36] Cmt: off and on x 2 weeks Noticed it when standing up Blurry Vision Both Eyes [2822] Trauma [112] Cmt: to right ribs. States was bending over while sitting in a chair and felt her abdomen push against her ribs. Then noted the pain Reason For Visit History Recorded Primary Visit Diagnosis:Bacterial sinusitis [J32.9, B96.89] Other Visit Diagnoses:Transition of care performed with sharing of clinical summary [Z91.89] Hx of colonoscopy [Z98.890] History of esophagogastroduodenoscopy (EGD) [Z98.890] 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] Order(s):amoxicillin-clavulanic acid (AUGMENTIN) 875-125 mg per tabletTake 1 tablet by mouth twice daily for 10 days.Disp: 20 tabletRfl: 0 Prescriptions as of 04/03/2018 Sig: ORENCIA SUBCUTANEOUS Inject subcutaneously. Once * ALPRAZOLAM 1 MG TABLET Take 1 mg by mouth daily at b* * ASPIRIN 81 MG TABLET Take one(1) tablet daily. * BIOTIN ORAL Take 1,000 mg by mouth once d* BUSPIRONE 15 MG TABLET Take 15 mg by mouth once andree* * CALCIUM 600 + D(3) 600 MG (1,* 2 daily CARVEDILOL 6.25 MG TABLET TAKE 1 TABLET BY MOUTH TWICE* COLESTIPOL 1 GRAM TABLET Take 1 tablet by mouth twice * DULOXETINE 30 MG CAPSULE,JERRY* ESOMEPRAZOLE MAGNESIUM 40 MG * TAKE 1 CAPSULE BY MOUTH ONCE* FLUTICASONE 50 MCG/ACTUATION * Use 1 Gridley in each nostril t* FOLIC ACID ORAL Take 1,600 mg by mouth once d* LEVOTHYROXINE 125 MCG TABLET Take 1 tablet by mouth once d* LIOTHYRONINE 5 MCG TABLET Take 5 mcg by mouth once andree* LORATADINE 10 MG TABLET Take 1 tablet by mouth once d* PANTOPRAZOLE 40 MG TABLET,DEL* Take 1 tablet by mouth daily * POTASSIUM CHLORIDE ER 20 MEQ * Take 1 tablet by mouth once d* PREDNISONE 5 MG TABLET Take 5 mg by mouth once daily. EYE DROPS OPHTHALMIC Use in eyes. [employer] * TRAMADOL 50 MG TABLET Take 100 mg by mouth once carlene* VITAMIN D2 50,000 UNIT CAPSULE once each week. AMOXICILLIN 875 MG-POTASSIUM * Take 1 tablet by mouth twice * COMPOUNDED PRESCRIPTION Probiotic PEG 3350-ELECTROLYTES 236 GRA* Refer to printed patient inst* POLYETHYLENE GLYCOL 3350 17 G* Take 17 g by mouth once daily. 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 LBBB (left bundle branch block) [I44.7] INVALID FOR* Biventricular ICD (implantable cardioverter-def*INVALID FOR* Postablative hypothyroidism [E89.0] INVALID FOR* More... 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 Hearing loss of both ears [H91.93] INVALID FOR* More... Nonischemic cardiomyopathy (HCC) [I42.8] INVALID FOR* Chronic systolic heart failure (HCC) [I50.22] INVALID FOR* More... Sensorineural hearing loss, bilateral [H90.3] INVALID FOR* Tinnitus [H93.19] INVALID FOR* Dizziness and giddiness [R42] INVALID FOR* More... More... 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 Diabetes mellitus, type II (HCC) [E11.9] Compression fracture of L1 lumbar vertebra (HCC*INVALID FOR* Wedge compression fracture of twelfth thoracic *INVALID FOR* Rheumatoid arthritis involving multiple sites (*INVALID FOR*09/01/2016 Heart attack (HCC) [I21.9] INVALID FOR*09/01/2016 More... Sjogren's syndrome (HCC) [M35.00] INVALID FOR* Obstructive sleep apnea syndrome [G47.33] INVALID FOR* More... Other and unspecified hyperlipidemia [E78.5] INVALID FOR* More... Lupus erythematosus [L93.0] INVALID FOR* More... CHF (congestive heart failure) (HCC) [I50.9] INVALID FOR* More... Essential hypertension [I10] Cervicalgia [M54.2] INVALID FOR* More... Type 2 diabetes mellitus without complication, *INVALID FOR* Transition of care performed with sharing of cl*INVALID FOR* More... Hx of colonoscopy [Z98.890] INVALID FOR* More... History of esophagogastroduodenoscopy (EGD) [Z9*INVALID FOR* More... Visit Notes: >> Jennifer Mclaughlin LPN Mon Apr 03, 2018 3:07 PM Status: Signed Augmentin called to [facility]. Pharmacy called looking for order for patient. Prescriptions ordered this encounter Disp Refills Start End AMOXICILLIN 875 MG-POTASSIUM CLAVULA* 20 t* 0 04/03/2018 2018 Class: Med Update Route: ORAL Sig: Take 1 tablet by mouth twice daily for 10 days. Medications Discontinued During This Encounter estradiol (ESTRACE) 0.01 % (0.1 mg/g* 04/03/2018 Class: Historical Med Route: VAGINAL Sig: Use 0.1 g vaginally once each week. Disc: Reason for discontinue is not on file. ondansetron (ZOFRAN) 4 mg tablet 12 t* 1 02/17/2018 04/03/2018 Route: ORAL Sig: Take 1 tablet by mouth every 8 hours as needed for Nausea/Vomiting. Patient not taking: Reported on 03/14/2018 Disc: Reason for discontinue is not on file. ramelteon (ROZEREM) 8 mg tablet 04/03/2018 Class: Historical Med Route: ORAL Sig: Take 8 mg by mouth daily at bedtime. Disc: Reason for discontinue is not on file. COL-RITE 100 MG CAP 0 05/12/2006 04/03/2018 Class: Med Update Route: ORAL Sig: daily Disc: Reason for discontinue is not on file. Disposition: Return in about 3 months (around 07/02/2018). Follow-up and Disposition History Recorded Encounter Status:Closed by Leticia GARCIA PA-C on 04/03/18 CNCO Observed: 03/22/2018 Status: COMPLETED Source: [place] 12:[address] [facility] REPOSITORY Letter Text COLONOSCOPY-GOLYTELY NO SOLID FOOD THE DAY BEFORE THIS EXAM Appointment Date: at 10:00 aM Facility: [place] [address] Arrive At: 8:30 AM Special Instructions: You must have a responsible adult to drive you home and assist you at home while you finish recovering from your sedation. Please bring only one person with you. 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 Arrive 1 1/2 Hours before your procedure time. Purchase at the Pharmacy: Fill prescription for Golytely and 4 Dulcolax tablets. THE DAY BEFORE YOUR EXAM: 1. FOLLOW A CLEAR LIQUID DIET ALL DAY. 2. At 1:00PM, take 4 Dulcolax tablets. 3. At 5:00PM, start drinking solution. Drink a total of eight 8 oz glasses, one every 15-20 minutes. Please put the rest of the solution in the refrigerator for tomorrow morning. THE DAY OF YOUR EXAM 1. At 6:00 AM (four hours before your procedure) : drink one 8 oz glass every 15-20 minutes. Drink a total of four 8 oz glasses. Discard the remainder of the solution. 2. DO NOT DRINK ANYTHING ELSE AFTER THIS STEP IS COMPLETED. Nothing by mouth including clear liquids, food, gum and hard candy. 5 DAYS BEFORE EXAM STOP TAKING ASPIRIN OR ASPIRIN CONTAINING PRODUCTS, VITAMIN E AND IRON, BLOOD THINNERS SUCH COUMADIN, PLAVIX, AGGRENOX. DIABETICS ONLY Take only 1/2 of your daily dose of insulin or tablets the day before your exam. Do not take any more of your diabetic medications until the procedure is over and you have resumed eating again. Drink regular liquids, not diabetic and monitor your sugar throughout the day you are on clear liquids. If your sugar gets too low, drink some apple juice. It is very important that you drink all of the solution that we tell you to drink, if you do not complete the prep, your procedure may be cancelled. Any questions, please call our office at [phone] Ext [phone] or [phone]. CNPTOUTREACH Observed: 03/21/2018 Status: COMPLETED Source: [place] 12:00 AM [facility] REPOSITORY Patient Outreach ([facility]) DANA MATOS ([id number]) 1960 F Date Time Provider Department 03/21/18 Leticia GARCIA) [facility] During your visit today, we recorded the following information about you: Allergies As of Date: 03/21/2018 Noted Allergy Reaction CIPROFLOXACIN 12/06/2013 14 - Other: See Comments Comments: Tendon Rupture. CITRIC ACID 03/18/2016 12 - Shortness of Breath Comments: Shortness of breath,swelling of throat LEVAQUIN (LEVOFLOXACIN) 07/02/2015 16 - Unknown LISINOPRIL 05/12/2006 4 - Hives TRADJENTA (LINAGLIPTIN) 07/26/2016 5 - Intolerance Comments: Nausea TRILEPTAL (OXCARBAZEPINE) 09/22/2016 1 - Mental Status Change TYLOX (OXYCODONE-ACETAMINOPHEN) 05/12/2006 Comments: low blood pressure ZETIA (EZETIMIBE) 02/04/2016 14 - Other: See Comments Comments: Muscle pain ZOCOR (SIMVASTATIN) 05/12/2006 7 - Swelling Comments: severe muscle cramping, liver enzyme abnormalities Date Reviewed: 03/14/2018 Reviewed by: Vasu (Rn) STEVE Fink - Fully Assessed Visit Diagnosis:Medication management [Z79.899] Order(s):ALBUMIN/CREAT RATIO RND UR [SQUACR] Order #: [id number] FUTURE Prescriptions as of 03/21/2018 Sig: ORENCIA SUBCUTANEOUS Inject subcutaneously. Once * ALPRAZOLAM 1 MG TABLET Take 1 mg by mouth daily at b* * ASPIRIN 81 MG TABLET Take one(1) tablet daily. * BIOTIN ORAL Take 1,000 mg by mouth once d* BUSPIRONE 15 MG TABLET Take 15 mg by mouth once andree* * CALCIUM 600 + D(3) 600 MG (1,* 2 daily COLESTIPOL 1 GRAM TABLET Take 1 tablet by mouth twice * COMPOUNDED PRESCRIPTION Probiotic DULOXETINE 30 MG CAPSULE,JERRY* ESOMEPRAZOLE MAGNESIUM 40 MG * TAKE 1 CAPSULE BY MOUTH ONCE* FLUTICASONE 50 MCG/ACTUATION * Use 1 Gridley in each nostril t* FOLIC ACID ORAL Take 1,600 mg by mouth once d* LEVOTHYROXINE 125 MCG TABLET Take 1 tablet by mouth once d* LIOTHYRONINE 5 MCG TABLET Take 5 mcg by mouth once andree* LORATADINE 10 MG TABLET Take 1 tablet by mouth once d* PANTOPRAZOLE 40 MG TABLET,DEL* Take 1 tablet by mouth daily * PEG 3350-ELECTROLYTES 236 GRA* Refer to printed patient inst* POLYETHYLENE GLYCOL 3350 17 G* Take 17 g by mouth once daily. POTASSIUM CHLORIDE ER 20 MEQ * Take 1 tablet by mouth once d* PREDNISONE 5 MG TABLET Take 5 mg by mouth once daily. EYE DROPS OPHTHALMIC Use in eyes. [employer] * TRAMADOL 50 MG TABLET Take 100 mg by mouth once carlene* VITAMIN D2 50,000 UNIT CAPSULE once each week. 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 LBBB (left bundle branch block) [I44.7] INVALID FOR* Biventricular ICD (implantable cardioverter-def*INVALID FOR* Postablative hypothyroidism [E89.0] INVALID FOR* More... 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 Hearing loss of both ears [H91.93] INVALID FOR* More... Nonischemic cardiomyopathy (HCC) [I42.8] INVALID FOR* Chronic systolic heart failure (HCC) [I50.22] INVALID FOR* More... Sensorineural hearing loss, bilateral [H90.3] INVALID FOR* Tinnitus [H93.19] INVALID FOR* Dizziness and giddiness [R42] INVALID FOR* More... More... 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 Diabetes mellitus, type II (HCC) [E11.9] Compression fracture of L1 lumbar vertebra (HCC*INVALID FOR* Wedge compression fracture of twelfth thoracic *INVALID FOR* Rheumatoid arthritis involving multiple sites (*INVALID FOR*09/01/2016 Heart attack (HCC) [I21.9] INVALID FOR*09/01/2016 More... Sjogren's syndrome (HCC) [M35.00] INVALID FOR* Obstructive sleep apnea syndrome [G47.33] INVALID FOR* More... Other and unspecified hyperlipidemia [E78.5] INVALID FOR* More... Lupus erythematosus [L93.0] INVALID FOR* More... CHF (congestive heart failure) (HCC) [I50.9] INVALID FOR* More... Essential hypertension [I10] Cervicalgia [M54.2] INVALID FOR* More... Type 2 diabetes mellitus without complication, *INVALID FOR* Transition of care performed with sharing of cl*INVALID FOR* More... Encounter Status:Closed by EPIC, PRODUSER on 04/13/18 ERYTHROCYTE SED RATE Collected: 03/20/2018 Status: F Source: [place] 1:05 PM [facility] REPOSITORY TYPE CODE TESTS RESULT OUT OF RANGE REFERENCE UNITS LAB L102.0000 0-30 mm/hr Normal SED RATE 8 Performed By: #### L101.9900 #### [facility] [address] [place], [place], [address] ANGIOTENSIN CONVERT Collected: 03/20/2018 Status: F Source: [place] ENZYME 1:05 PM [facility] REPOSITORY TYPE CODE TESTS RESULT OUT OF RANGE REFERENCE UNITS LAB L3100.6900 14-82 U/L Normal [place] [id number] 32 Result Comment: Performed at: [facility] [place] [address] Housekeeping Laundry Worker: Collins Oconnor PhD, Phone: [phone] Performed By: #### L3100.6900 #### [facility] (refer to report for specific site) refer to report for address and phone number ANES POST Observed: 03/14/2018 Status: COMPLETED Source: [place] 11:29 AM [facility] REPOSITORY O ID: [id number] Author: Manny Guillory Service: Anesthesiology Author Type: Physician Type: Anesthesia PostOp Filed: 03/14/2018 11:29 AM Note Text: POST ANESTHESIA EVALUATION NOTE SERVICE DATE: 03/14/2018 SERVICE TIME: 11:29 AM : 1960 Vitals: 03/14/18 0858 Temp: 36.6 ?C (97.8 ?F) 03/14/18 0858 03/14/18 0911 03/14/18 1055 03/14/18 1114 BP: 131/79 127/83 137/92 133/92 03/14/18 0858 03/14/18 0911 03/14/18 1055 03/14/18 1114 Pulse: 64 65 70 64 03/14/18 0858 03/14/18 0911 03/14/18 1055 03/14/18 1114 Resp: 20 20 18 18 03/14/18 0858 03/14/18 0911 03/14/18 1055 03/14/18 1114 SpO2: 95% 94% 95% 94% Validated Vital Signs: Yes POST ANES STATUS: No apparent anesthetic complications. The patient is appropriately hydrated with stable respiratory and cardiovascular status. Patient has safe and adequate airway control. The patient has appropriate pain relief and no significant post operative nausea or vomiting. The patient has achieved baseline mental status. Intra-Operative Events: No Significant Anesthesia Events Further assessment by Anesthesia Service: None Other Remarks: SIGNATURE: Manny Guillory DO PATIENT NAME: Dana Matos DATE: March 14, 2018 TIME: 11:29 AM PAGER/CONTACT #: [phone] PT ED Observed: 03/14/2018 Status: COMPLETED Source: [place] 11:15 AM [facility] REPOSITORY HNO ID: [id number] Author: Aida DanielsRnPhan Anne RN Service: Nursing Author Type: Registered Nurse Type: Patient Education Filed: 03/14/2018 11:16 AM Note Text: POST OP LEARNING RESPONSE INSTRUCTION PROVIDED TO: Patient and Family member METHOD OF INSTRUCTION: Individual instruction Verbal instruction PATIENT / FAMILY RESPONSE: Verbalizes understanding of: POST-PROCEDURE INSTRUCTIONS-Correct actions to take to reduce post procedure complications FOLLOW-UP PLAN: Recommend - Recommend continued instruction and follow up as directed SUPPLEMENTAL MATERIAL: None REFERRAL (RECOMMENDATION): None Electronically Signed By: Aida Anne RN In Department: [facility] ENDO OPERATIVE NO Observed: 03/14/2018 Status: COMPLETED Source: [place] 10:36 AM [facility] REPOSITORY HNO ID: [id number] Author: Octavio Brannon Service: Gastroenterology Author Type: Physician Type: Operative Report Filed: 03/14/2018 11:00 AM Note Text: OPERATIVE/PROCEDURE REPORT LOG ID: [id number] Surgery/Procedure Date: 03/14/2018 Incision/Procedure Start Time: 10:43 AM Incision Close/Procedure End Time: 10:50 AM Surgeon(s)/Proceduralist(s) and Sales Representative Printing Paper(s): Surgeon(s) and Role: * Octavio Brannon - Primary No Additional Staff Procedure(s): Esophagogastroduodenoscopy (EGD) with biopsy Anesthesia: Monitored Anesthesia Care Brief History: poorly controlled GERD and eructations Procedure Details: The patient was placed in the left lateral decubitus position. A bite block was placed and medications administered as above. The Olympus gastroscope was used to intubate the oropharynx and esophagus with ease. We proceeded down to the second part of the duodenum. The duodenal mucosa and bulb appeared normal. We then withdrew into the stomach and visualized antrum mild broad streaks of erythema. Biopsies were taken to rule out H. Pylori. Body of the stomach shown few benign fundic gland polyps. Retroflexion was performed and this showed a normal fundus andmpatulous GE junction with small hiatal hernia. At GE junction the squamocolumnar junction was patulous withsmall hiatal hernia, irregular Z line and non obstructive Schatzki's ring.. The rest of esophagus appeared normal. The scope was then withdrawn and the patient tolerated the procedure well. Pre-Op/Pre-Procedure Diagnosis: GERD and eructations Post-Op/Post-Procedure Diagnosis: Small hiatal hernia Patulous GE junction Irregular Z line Schatzki's ring Mild gastritis Biopsies taken to rule out H. Pylori and celiac disease. Specimens: See above EBL: None Complications: None Recommendations:continue PPI, may benefit from prokinetic agent I performed the entire procedure. Octavio Brannon MD SIGNATURE: Octavio Brannon MD PATIENT NAME: Dana Matos DATE: March 14, 2018 TIME: 10:52 AM PAGER/CONTACT #: [phone] ANES PREOP Observed: 03/14/2018 Status: COMPLETED Source: [place] 10:[address] [facility] REPOSITORY O ID: [id number] Author: Manny Guillory Service: Anesthesiology Author Type: Physician Type: Anesthesia PreOp Filed: 03/14/2018 10:08 AM Note Text: ANESTHESIOLOGY DAY OF SURGERY NOTE SERVICE DATE: 03/14/2018 SERVICE TIME: 10:05 AM : 1960 Procedure(s) (LRB): EGD (Left) Surgeon(s): Octavio Brannon Estimated body mass index is 29.39 kg/m? as calculated from the following: Height as of this encounter: 167.6 cm (5' 5.98). Weight as of this encounter: 82.6 kg (182 lb). Most recent hematocrit and potassium results: Hematocrit 40.5 02/13/2018 Potassium 3.8 02/13/2018 ANES DOS/PREOP NOTE: Vitals: 03/14/18 0858 03/14/18 0911 BP: 131/79 127/83 Pulse: 64 65 Resp: 20 20 Temp: 36.6 ?C (97.8 ?F) SpO2: 95% 94% Weight: 82.6 kg (182 lb) Height: 167.6 cm (5' 5.98) ACTIVE PROBLEM LIST Degeneration of Cervical Intervertebral Disc Rheumatoid Arthritis ([facility]) Cad (Coronary Artery Disease) Lbbb (Left Bundle Branch Block) Biventricular Icd (Implantable Cardioverter-Defibrillator) in Place Postablative Hypothyroidism Secondary Adrenal Insufficiency ([facility]) Hearing Loss of Both Ears Nonischemic Cardiomyopathy ([facility]) Chronic Systolic Heart Failure ([facility]) Sensorineural Hearing Loss, Bilateral Tinnitus Dizziness and Giddiness Transverse Myelitis ([facility]) Diabetes Mellitus, Type II ([facility]) Compression Fracture of L1 Lumbar Vertebra ([facility]) Wedge Compression Fracture of Twelfth Thoracic Vertebra With Delayed Healing Sjogren's Syndrome ([facility]) Obstructive Sleep Apnea Syndrome Other and Unspecified Hyperlipidemia Lupus Erythematosus Chf (Congestive Heart Failure) ([facility]) Essential Hypertension Cervicalgia Type 2 Diabetes Mellitus Without Complication, With Long-Term Current Use of Insulin ([facility]) Transition of Care Performed With Sharing of Clinical Summary PAST MEDICAL HISTORY Diagnosis Date - Adrenal insufficiency ([facility]) 1986 oral cortisone daily - Calculus of kidney - CHF (congestive heart failure) ([facility]) - 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 - Diabetes mellitus, type II ([facility]) - Diabetes type 2, controlled ([facility]) chronic steroid therapy - Dual implantable cardioverter-defibrillator in situ 12/14/2013 Defibrillator Pacemaker Model [id number], serial # [id number] - Essential hypertension - H/O right heart catheterization 11/27/2013 coronaries clear - Heart attack (HCC) 09/28/2000 - Heart attack ([facility]) 11/27/2013 first FL 09/28/2000,second [place]. 20% EF, took 3L of fluid off - Hemiparesis affecting right side as late effect of stroke ([facility]) 02/06/2000 - Hyperthyroidism s/p radiation, currently on Synthroid, Seeing endo-Dr. Billings - Hypothyroidism (acquired) 1664 - Left bundle branch block - LUMBOSACRAL NEURITIS NOS 06/27/2007 - Lupus erythematosus 2005 Dr. Foreman - Other and unspecified hyperlipidemia - Other primary cardiomyopathies 09/28/2000 Cardiomyopathy-Seeing Dr. Rosenberg - Raynaud's syndrome 1999 - Rheumatoid arthritis(714.0) [address] 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 Demond Tejeda - RHINOPLASTY 1989 nasal reconstruction after injury - TUBAL LIGATION HX 01/17/2010 removal of tumors, BTL FAMILY HISTORY Problem Relation Age of Onset - Arthritis Mother CREST syndrome - Diabetes Mother - Stroke Father - Heart Father - Emphysema Father - Stroke Paternal Grandmother - Stroke Paternal Grandfather - other (DM) Brother - other (CM) Brother possibly ETOH related. Social History: Social History Substance Use Topics - Smoking status: Never Smoker - Smokeless tobacco: Never Used - Alcohol use No No current facility-administered medications on file prior to encounter. Current Outpatient Prescriptions on File Prior to Encounter: predniSONE (DELTASONE) 5 mg tablet Take 5 mg by mouth once daily. esomeprazole (NEXIUM) 40 mg capsule TAKE 1 CAPSULE BY MOUTH ONCE DAILY DULoxetine (CYMBALTA) 30 mg capsule carvedilol (COREG) 6.25 mg tablet Take 1 tablet by mouth twice daily with meals. potassium chloride ER (KLOR-CON M20) 20 mEq tablet Take 1 tablet by mouth once daily. liothyronine (CYTOMEL) 5 mcg tablet Take 5 mcg by mouth once daily. COMPOUNDED PRESCRIPTION Probiotic ramelteon (ROZEREM) 8 mg tablet Take 8 mg by mouth daily at bedtime. loratadine (CLARITIN) 10 mg tablet Take 1 tablet by mouth once daily. colestipol (COLESTID) 1 gram tablet Take 1 tablet by mouth twice daily. busPIRone (BUSPAR) 15 mg tablet Take 15 mg by mouth once daily. TETRAHYDROZOLINE HCL/ZN SULF (EYE DROPS OPHTHALMIC) Use in eyes. [employer] 1 drop both eyes evening traMADol (ULTRAM) 50 mg tablet Take 50 mg by mouth every 8 hours as needed. FOLIC ACID ORAL Take 1,600 mg by mouth once daily. estradiol (ESTRACE) 0.01 % (0.1 mg/gram) vaginal cream Use 0.1 g vaginally once each week. fluticasone (FLONASE) 50 mcg/actuation nasal spray Use 1 Gridley in each nostril twice daily. levothyroxine (SYNTHROID) 125 mcg tablet Take 1 tablet by mouth once daily. ALPRAZolam (XANAX) 1 mg tablet Take 1 mg by mouth daily at bedtime. BIOTIN ORAL Take 1,000 mg by mouth once daily. calcium carbonate/vitamin d3(CALCIUM 600 + D 600 MG-400 UNIT TAB) 2 daily ASPIRIN 81 MG TAB Take one(1) tablet daily. COL-RITE 100 MG CAP daily peg 3350-Electrolytes (GOLYTELY) 236-22.74-6.74 -5.86 gram suspension Refer to printed patient instructions that will be mailed to you. ondansetron (ZOFRAN) 4 mg tablet Take 1 tablet by mouth every 8 hours as needed for Nausea/Vomiting. (Patient not taking: Reported on 03/14/2018 ) VITAMIN D 50,000 unit capsule once each week. polyethylene glycol 3350 (MIRALAX, GLYCOLAX) 17 gram/dose powder Take 17 g by mouth once daily. (Patient not taking: Reported on 02/17/2018 ) ABATACEPT (ORENCIA SUBCUTANEOUS) Inject subcutaneously. Once a week Current Facility-Administered Medications: lactated ringers infusion 30 mL/hr INTRAVENOUS CONTINUOUS Liss E (Hat Checker) Bucur Last Rate: 30 mL/hr at 03/14/18926 30 mL/hr at 03/14/18926 Allergies: ALLERGIES Allergen Reactions - Ciprofloxacin Other: See Comments Tendon Rupture. - Citric Acid Shortness of Breath Shortness of breath,swelling of throat - Levaquin [Levofloxa* Unknown - Lisinopril Hives - Tradjenta [Linaglip* Intolerance Nausea - Trileptal [Oxcarbaz* Mental Status Change - Tylox [Oxycodone-Ac* low blood pressure - Zetia [Ezetimibe] Other: See Comments Muscle pain - Zocor [Simvastatin] Swelling severe muscle cramping, liver enzyme abnormalities DOS EXAM: Adequate NPO status: Yes Anesthetic risks, benefits, alternatives, personnel and consent discussed: Yes Patient agrees to proceed: Yes Previous Anesthesia: No history of adverse event. Airway Assessment: MP 2; Neck ROM: Limited Extension; Airway Evaluation: Short Neck, Thick neck and Small Mouth Opening Symptoms of Sleep Apnea: + MALU Dentition: Teeth intact Additional Physical Exam: Lungs: Patient health status unchanged since recent history and physical. See history and physical for exam findings. Cardiac: Patient health status unchanged since recent history and physical. See history and physical for exam findings. Additional Pertinent Findings: N/A Blood Products: Not anticipated for this procedure. Anesthetic Plan: MAC with Sedation and Standard ASA Monitors Pain Management Plan: Parenteral or Oral ASA Class: 4 Other Medical Problems: Bi-V paced (does have underlying sinus rhythm per recent interrogation). ICD for non-ischemic CMP. EF recovered to 50%s. Chronic Beta Khris medication administered within 24 hours: Yes I have interviewed and examined the patient. I have reviewed the medical record and/or the pre-anesthesia evaluation, pertinent labs, and test results. Significant changes in the patient's condition since the History and Physical, not otherwise documented in primary service progress notes: No This contains updated information obtained within 48 hours of Surgery/Procedure. SIGNATURE: Manny Guillory DO PATIENT NAME: Dana Matos DATE: March 14, 2018 TIME: 10:05 AM CSN: [id number] PT ED Observed: 03/14/2018 Status: COMPLETED Source: [place] 9:07 AM CLINIC OTHER CAMPUS REPOSITORY O ID: [id number] Author: Crys (Steve) STEVE Guevara Service: Nursing Author Type: Registered Nurse Type: Patient Education Filed: 03/14/2018 9:08 AM Note Text: PRE OP LEARNING ASSESSMENT PROCEDURE/SURGERY: GI PROCEDURES: EGD READINESS TO LEARN COGNITIVE ABILITY: Alert and oriented MOTIVATION TO LEARN: Interested FAMILY SUPPORT: High - Very involved in pt care PATIENT LEARNS BEST BY: Individual Instruction FACTORS AFFECTING LEARNING: None PHYSICAL LIMITATIONS AFFECTING LEARNING: None Electronically Signed By: Crys Ismael, RN In Department: [place] END[facility] PROGRESS Observed: 03/14/2018 Status: COMPLETED Source: [place] 7:[address] [facility] OTHER [place] REPOSITORY HNO ID: [id number] Author: Liss Rahman Service: General Surgery Author Type: Nurse Practitioner Type: Progress Notes Filed: 03/14/2018 7:01 AM Note Text: HANDP completed By Dr. Brannon on 02/17/2018. Orders for fluid and IV in EPIC. SURGICAL TISSUE EXAM Observed: 03/14/2018 Status: F Source: [facility] 12:00 AM HEALTH SYSTEM REPOSITORY Test performed at [place] [address] NAME: DANA MATOS REQUESTING: OCTAVIO BRANNON M.D. FINAL DIAGNOSIS: STOMACH, ANTRUM, BIOPSY - MINIMAL CHRONIC GASTRITIS. OPERATIVE PROCEDURE: EGD CLINICAL INFORMATION: GERD W/O esophagus ulceration, small hiatal hernia, Schatzki's ring at 36 cm GROSS DESCRIPTION: Antral bx Received in formalin labeled antral biopsy are multiple segments of barahona-brown soft tissue aggregating to 1.5 x 0.2 x 0.1 cm. The specimen is totally submitted in one cassette. Levels x 2. ARH:corby SAMPSON M.D., PATHOLOGIST (Electronic signature on file) Signed out: 03/15/2018 13:24 PRINTED: 03/15/2018 Page 1 of 1 Performed By: #### SURG #### [place] [address] HOSP Observed: 02/20/2018 Status: COMPLETED Source: [place] 12:[address] [facility] OTHER CAMPUS REPOSITORY Patient:Dana Matos MRN: <[id number]> Height:5' 5.984(1.676 m) Weight:182 lb (82.555 kg) Outpatient Medications as of 03/14/18: predniSONE (DELTASONE) 5 mg tablet peg 3350-Electrolytes (GOLYTELY) 236-22.74-6.74 -5.86 gram suspension ondansetron (ZOFRAN) 4 mg tablet VITAMIN D 50,000 unit capsule polyethylene glycol 3350 (MIRALAX, GLYCOLAX) 17 gram/dose powder esomeprazole (NEXIUM) 40 mg capsule DULoxetine (CYMBALTA) 30 mg capsule carvedilol (COREG) 6.25 mg tablet potassium chloride ER (KLOR-CON M20) 20 mEq tablet liothyronine (CYTOMEL) 5 mcg tablet COMPOUNDED PRESCRIPTION ramelteon (ROZEREM) 8 mg tablet loratadine (CLARITIN) 10 mg tablet colestipol (COLESTID) 1 gram tablet busPIRone (BUSPAR) 15 mg tablet TETRAHYDROZOLINE HCL/ZN SULF (EYE DROPS OPHTHALMIC) traMADol (ULTRAM) 50 mg tablet FOLIC ACID ORAL estradiol (ESTRACE) 0.01 % (0.1 mg/gram) vaginal cream fluticasone (FLONASE) 50 mcg/actuation nasal spray levothyroxine (SYNTHROID) 125 mcg tablet ABATACEPT (ORENCIA SUBCUTANEOUS) ALPRAZolam (XANAX) 1 mg tablet BIOTIN ORAL calcium carbonate/vitamin d3(CALCIUM 600 + D 600 MG-400 UNIT TAB) ASPIRIN 81 MG TAB COL-RITE 100 MG CAP Admission/Clinic Administered Medications as of 03/14/18: lactated ringers infusion Problem List: Degeneration of cervical intervertebral disc [M50.30] Rheumatoid arthritis (HCC) [M06.9] CAD (coronary artery disease) [I25.10] LBBB (left bundle branch block) [I44.7] Biventricular ICD (implantable cardioverter-defibrillator) in place [Z95.810] Postablative hypothyroidism [E89.0] Secondary adrenal insufficiency (HCC) [E27.49] Hearing loss of both ears [H91.93] Nonischemic cardiomyopathy (HCC) [I42.8] Chronic systolic heart failure (HCC) [I50.22] Sensorineural hearing loss, bilateral [H90.3] Tinnitus [H93.19] Dizziness and giddiness [R42] 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] Diabetes mellitus, type II ([facility]) [E11.9] Compression fracture of L1 lumbar vertebra ([facility]) [S32.010A] Wedge compression fracture of twelfth thoracic vertebra with delayed healing [S22.080G] Sjogren's syndrome ([facility]) [M35.00] Obstructive sleep apnea syndrome [G47.33] Other and unspecified hyperlipidemia [E78.5] Lupus erythematosus [L93.0] CHF (congestive heart failure) (HCC) [I50.9] Essential hypertension [I10] Cervicalgia [M54.2] Type 2 diabetes mellitus without complication, with long-term current use of insulin (HCC) [E11.9, Z79.4] Transition of care performed with sharing of clinical summary [Z91.89] Allergies: Ciprofloxacin Citric Acid Levaquin [Levofloxacin] Lisinopril Tradjenta [Linagliptin] Trileptal [Oxcarbazepine] Tylox [Oxycodone-Acetaminophen] Zetia [Ezetimibe] Zocor [Simvastatin] Date Verified: 03/14/18 Lab Values Lab Value Units Date High Low POTA* 3.8 mmol/L 02/13/2018 5.1 3.7 RONI* 40.5 % 02/13/2018 46.0 36.0 Progress Notes (): Liss Rahman APRN.[employer]ATOR 03/14/2018 7:01 AM Signed HANDP completed By Dr. Brannon on 02/17/2018. Orders for fluid and IV in EPIC. Crys Guevara RN, RN 03/14/2018 9:08 AM Signed PRE OP LEARNING ASSESSMENT PROCEDURE/SURGERY: GI PROCEDURES: EGD READINESS TO LEARN COGNITIVE ABILITY: Alert and oriented MOTIVATION TO LEARN: Interested FAMILY SUPPORT: High - Very involved in pt care PATIENT LEARNS BEST BY: Individual Instruction FACTORS AFFECTING LEARNING: None PHYSICAL LIMITATIONS AFFECTING LEARNING: None Electronically Signed By: Crys Guevara RN In Department: ISRAEL Guillory DO 03/14/2018 10:08 AM Signed ANESTHESIOLOGY DAY OF SURGERY NOTE SERVICE DATE: 03/14/2018 SERVICE TIME: 10:05 AM : 1960 Procedure(s) (LRB): EGD (Left) Surgeon(s): Octavio Brannon Estimated body mass index is 29.39 kg/m? as calculated from the following: Height as of this encounter: 167.6 cm (5' 5.98). Weight as of this encounter: 82.6 kg (182 lb). Most recent hematocrit and potassium results: Hematocrit 40.5 02/13/2018 Potassium 3.8 02/13/2018 ANES DOS/PREOP NOTE: Vitals: 03/14/18 0858 03/14/18 0911 BP: 131/79 127/83 Pulse: 64 65 Resp: 20 20 Temp: 36.6 ?C (97.8 ?F) SpO2: 95% 94% Weight: 82.6 kg (182 lb) Height: 167.6 cm (5' 5.98) ACTIVE PROBLEM LIST Degeneration of Cervical Intervertebral Disc Rheumatoid Arthritis ([facility]) Cad (Coronary Artery Disease) Lbbb (Left Bundle Branch Block) Biventricular Icd (Implantable Cardioverter-Defibrillator) in Place Postablative Hypothyroidism Secondary Adrenal Insufficiency ([facility]) Hearing Loss of Both Ears Nonischemic Cardiomyopathy ([facility]) Chronic Systolic Heart Failure ([facility]) Sensorineural Hearing Loss, Bilateral Tinnitus Dizziness and Giddiness Transverse Myelitis ([facility]) Diabetes Mellitus, Type II ([facility]) Compression Fracture of L1 Lumbar Vertebra ([facility]) Wedge Compression Fracture of Twelfth Thoracic Vertebra With Delayed Healing Sjogren's Syndrome ([facility]) Obstructive Sleep Apnea Syndrome Other and Unspecified Hyperlipidemia Lupus Erythematosus Chf (Congestive Heart Failure) ([facility]) Essential Hypertension Cervicalgia Type 2 Diabetes Mellitus Without Complication, With Long-Term Current Use of Insulin ([facility]) Transition of Care Performed With Sharing of Clinical Summary PAST MEDICAL HISTORY Diagnosis Date - Adrenal insufficiency ([facility]) 1986 oral cortisone daily - Calculus of kidney - CHF (congestive heart failure) ([facility]) - 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 - Diabetes mellitus, type II ([facility]) - Diabetes type 2, controlled ([facility]) chronic steroid therapy - Dual implantable cardioverter-defibrillator in situ 12/14/2013 Defibrillator Pacemaker Model [id number], serial # [id number] - Essential hypertension - H/O right heart catheterization 11/27/2013 coronaries clear - Heart attack ([facility]) 09/28/2000 - Heart attack ([facility]) 11/27/2013 first [place] 09/28/2000,second [place]. 20% EF, took 3L of fluid off - Hemiparesis affecting right side as late effect of stroke ([facility]) 02/06/2000 - Hyperthyroidism s/p radiation, currently on Synthroid, Seeing endo-Dr. Billings - Hypothyroidism (acquired) 1665 - Left bundle branch block - LUMBOSACRAL NEURITIS NOS 06/27/2007 - Lupus erythematosus 2005 Dr. Foreman - Other and unspecified hyperlipidemia - Other primary cardiomyopathies 09/28/2000 Cardiomyopathy-Seeing Dr. Rosenberg - Raynaud's syndrome 1999 - Rheumatoid arthritis(714.0) [address] Faulkner - Sjogren's syndrome (HCC) 1997 - Transverse myelitis (HCC) 05/31/2006 from flu shot PAST SURGICAL HISTORY Procedure Laterality Date - COLONOSCOPY 02/28/2008 - COLONOSCOPY 07/29/2016 - DEFIBRILLATOR SURGERY 2013 - EGD 11/25/2009 - EGD 04/01/2008 - EXCIS FINGER TENDON FLEXOR - HYSTERECTOMY HX 2011 - INCISION EXTEN FOOT/TOE TENDON - OTOPLASTY - PAST SURGICAL HISTORY OF five foot surgeries [id number], Jarred Donato - PAST SURGICAL HISTORY OF four hand surgeries [id number], Dr. Demond Tejeda - RHINOPLASTY 1989 nasal reconstruction after injury - TUBAL LIGATION HX 01/17/2010 removal of tumors, BTL FAMILY HISTORY Problem Relation Age of Onset - Arthritis Mother CREST syndrome - Diabetes Mother - Stroke Father - Heart Father - Emphysema Father - Stroke Paternal Grandmother - Stroke Paternal Grandfather - other (DM) Brother - other (CM) Brother possibly ETOH related. Social History: Social History Substance Use Topics - Smoking status: Never Smoker - Smokeless tobacco: Never Used - Alcohol use No No current facility-administered medications on file prior to encounter. Current Outpatient Prescriptions on File Prior to Encounter: predniSONE (DELTASONE) 5 mg tablet Take 5 mg by mouth once daily. esomeprazole (NEXIUM) 40 mg capsule TAKE 1 CAPSULE BY MOUTH ONCE DAILY DULoxetine (CYMBALTA) 30 mg capsule carvedilol (COREG) 6.25 mg tablet Take 1 tablet by mouth twice daily with meals. potassium chloride ER (KLOR-CON M20) 20 mEq tablet Take 1 tablet by mouth once daily. liothyronine (CYTOMEL) 5 mcg tablet Take 5 mcg by mouth once daily. COMPOUNDED PRESCRIPTION Probiotic ramelteon (ROZEREM) 8 mg tablet Take 8 mg by mouth daily at bedtime. loratadine (CLARITIN) 10 mg tablet Take 1 tablet by mouth once daily. colestipol (COLESTID) 1 gram tablet Take 1 tablet by mouth twice daily. busPIRone (BUSPAR) 15 mg tablet Take 15 mg by mouth once daily. TETRAHYDROZOLINE HCL/ZN SULF (EYE DROPS OPHTHALMIC) Use in eyes. [employer] 1 drop both eyes evening traMADol (ULTRAM) 50 mg tablet Take 50 mg by mouth every 8 hours as needed. FOLIC ACID ORAL Take 1,600 mg by mouth once daily. estradiol (ESTRACE) 0.01 % (0.1 mg/gram) vaginal cream Use 0.1 g vaginally once each week. fluticasone (FLONASE) 50 mcg/actuation nasal spray Use 1 [place] in each nostril twice daily. levothyroxine (SYNTHROID) 125 mcg tablet Take 1 tablet by mouth once daily. ALPRAZolam (XANAX) 1 mg tablet Take 1 mg by mouth daily at bedtime. BIOTIN ORAL Take 1,000 mg by mouth once daily. calcium carbonate/vitamin d3(CALCIUM 600 + D 600 MG-400 UNIT TAB) 2 daily ASPIRIN 81 MG TAB Take one(1) tablet daily. COL-RITE 100 MG CAP daily peg 3350-Electrolytes (GOLYTELY) 236-22.74-6.74 -5.86 gram suspension Refer to printed patient instructions that will be mailed to you. ondansetron (ZOFRAN) 4 mg tablet Take 1 tablet by mouth every 8 hours as needed for Nausea/Vomiting. (Patient not taking: Reported on 03/14/2018 ) VITAMIN D 50,000 unit capsule once each week. polyethylene glycol 3350 (MIRALAX, GLYCOLAX) 17 gram/dose powder Take 17 g by mouth once daily. (Patient not taking: Reported on 02/17/2018 ) ABATACEPT (ORENCIA SUBCUTANEOUS) Inject subcutaneously. Once a week Current Facility-Administered Medications: lactated ringers infusion 30 mL/hr INTRAVENOUS CONTINUOUS Liss E (Hat Checker) Bucur Last Rate: 30 mL/hr at 03/14/18926 30 mL/hr at 03/14/18926 Allergies: ALLERGIES Allergen Reactions - Ciprofloxacin Other: See Comments Tendon Rupture. - Citric Acid Shortness of Breath Shortness of breath,swelling of throat - Levaquin [Levofloxa* Unknown - Lisinopril Hives - Tradjenta [Linaglip* Intolerance Nausea - Trileptal [Oxcarbaz* Mental Status Change - Tylox [Oxycodone-Ac* low blood pressure - Zetia [Ezetimibe] Other: See Comments Muscle pain - Zocor [Simvastatin] Swelling severe muscle cramping, liver enzyme abnormalities DOS EXAM: Adequate NPO status: Yes Anesthetic risks, benefits, alternatives, personnel and consent discussed: Yes Patient agrees to proceed: Yes Previous Anesthesia: No history of adverse event. Airway Assessment: MP 2; Neck ROM: Limited Extension; Airway Evaluation: Short Neck, Thick neck and Small Mouth Opening Symptoms of Sleep Apnea: + MALU Dentition: Teeth intact Additional Physical Exam: Lungs: Patient health status unchanged since recent history and physical. See history and physical for exam findings. Cardiac: Patient health status unchanged since recent history and physical. See history and physical for exam findings. Additional Pertinent Findings: N/A Blood Products: Not anticipated for this procedure. Anesthetic Plan: MAC with Sedation and Standard ASA Monitors Pain Management Plan: Parenteral or Oral ASA Class: 4 Other Medical Problems: Bi-V paced (does have underlying sinus rhythm per recent interrogation). ICD for non-ischemic CMP. EF recovered to 50%s. Chronic Beta Khris medication administered within 24 hours: Yes I have interviewed and examined the patient. I have reviewed the medical record and/or the pre-anesthesia evaluation, pertinent labs, and test results. Significant changes in the patient's condition since the History and Physical, not otherwise documented in primary service progress notes: No This contains updated information obtained within 48 hours of Surgery/Procedure. SIGNATURE: Manny Guillory DO PATIENT NAME: Dana Matos DATE: March 14, 2018 TIME: 10:05 AM CSN: [id number] Progress Notes ([facility]): Octavio Brannon MD 02/17/2018 12:16 PM Signed HPI Dana Matos is a 57 year old female here today for Abdominal Distension. Patient was seen in ER for LUQ pain, constant lasting about 4 hours, resolved on its own, nausea at the time of pain, no vomiting, now a days increased burping, reclining reflux, constipation was given miralax prescription by PMD, patient has constipation with excessive flaulence. Previous screening colonoscopy was incomplete secondary to poor prep Record Review: [facility] records reviewed Current Outpatient Prescriptions: predniSONE (DELTASONE) 5 mg tablet Take 5 mg by mouth once daily. VITAMIN D 50,000 unit capsule once each week. esomeprazole (NEXIUM) 40 mg capsule TAKE 1 CAPSULE BY MOUTH ONCE DAILY DULoxetine (CYMBALTA) 30 mg capsule carvedilol (COREG) 6.25 mg tablet Take 1 tablet by mouth twice daily with meals. potassium chloride ER (KLOR-CON M20) 20 mEq tablet Take 1 tablet by mouth once daily. liothyronine (CYTOMEL) 5 mcg tablet Take 5 mcg by mouth once daily. COMPOUNDED PRESCRIPTION Probiotic ramelteon (ROZEREM) 8 mg tablet Take 8 mg by mouth daily at bedtime. loratadine (CLARITIN) 10 mg tablet Take 1 tablet by mouth once daily. colestipol (COLESTID) 1 gram tablet Take 1 tablet by mouth twice daily. busPIRone (BUSPAR) 15 mg tablet Take 15 mg by mouth once daily. TETRAHYDROZOLINE HCL/ZN SULF (EYE DROPS OPHTHALMIC) Use in eyes. [employer] 1 drop both eyes evening traMADol (ULTRAM) 50 mg tablet Take 50 mg by mouth every 8 hours as needed. FOLIC ACID ORAL Take 1,600 mg by mouth once daily. estradiol (ESTRACE) 0.01 % (0.1 mg/gram) vaginal cream Use 0.1 g vaginally once each week. fluticasone (FLONASE) 50 mcg/actuation nasal spray Use 1 [place] in each nostril twice daily. levothyroxine (SYNTHROID) 125 mcg tablet Take 1 tablet by mouth once daily. ABATACEPT (ORENCIA SUBCUTANEOUS) Inject subcutaneously. Once a week ALPRAZolam (XANAX) 1 mg tablet Take 1 mg by mouth daily at bedtime. BIOTIN ORAL Take 1,000 mg by mouth once daily. calcium carbonate/vitamin d3(CALCIUM 600 + D 600 MG-400 UNIT TAB) 2 daily ASPIRIN 81 MG TAB Take one(1) tablet daily. COL-RITE 100 MG CAP daily peg 3350-Electrolytes (GOLYTELY) 236-22.74-6.74 -5.86 gram suspension Refer to printed patient instructions that will be mailed to you. polyethylene glycol 3350 (MIRALAX, GLYCOLAX) 17 gram/dose powder Take 17 g by mouth once daily. (Patient not taking: Reported on 02/17/2018 ) No current facility-administered medications for this visit. ALLERGIES Allergen Reactions - Ciprofloxacin Other: See Comments Tendon Rupture. - Citric Acid Shortness of Breath Shortness of breath,swelling of throat - Levaquin [Levofloxa* Unknown - Lisinopril Hives - Tradjenta [Linaglip* Intolerance Nausea - Trileptal [Oxcarbaz* Mental Status Change - Tylox [Oxycodone-Ac* low blood pressure - Zetia [Ezetimibe] Other: See Comments Muscle pain - Zocor [Simvastatin] Swelling severe muscle cramping, liver enzyme abnormalities Social History Substance Use Topics - Smoking status: Never Smoker - Smokeless tobacco: Never Used - Alcohol use No PAST MEDICAL HISTORY Diagnosis Date - Adrenal insufficiency (HCC) 1986 oral cortisone daily - Calculus of kidney - CHF (congestive heart failure) ([facility]) - 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 - Diabetes mellitus, type II ([facility]) - Diabetes type 2, controlled ([facility]) chronic steroid therapy - Dual implantable cardioverter-defibrillator in situ 12/14/2013 Defibrillator Pacemaker Model [id number], serial # [id number] - Essential hypertension - H/O right heart catheterization 11/27/2013 coronaries clear - Heart attack (HCC) 09/28/2000 - Heart attack ([facility]) 11/27/2013 first [place] 09/28/[place],second [place]. 20% EF, took 3L of fluid off - Hemiparesis affecting right side as late effect of stroke ([facility]) 02/06/2000 - Hyperthyroidism s/p radiation, currently on Synthroid, Seeing endo-Dr. Billings - Hypothyroidism (acquired) 1664 - Left bundle branch block - LUMBOSACRAL NEURITIS NOS 06/27/2007 - Lupus erythematosus 2005 Dr. Foreman - Other and unspecified hyperlipidemia - Other primary cardiomyopathies 09/28/2000 Cardiomyopathy-Seeing Dr. Rosenberg - Raynaud's syndrome 1999 - Rheumatoid arthritis(714.0) [address] Faulkner - Sjogren's syndrome (HCC) 1997 - Transverse myelitis (HCC) 05/31/2006 from flu shot PAST SURGICAL HISTORY Procedure Laterality Date - COLONOSCOPY 02/28/2008 - COLONOSCOPY 07/29/2016 - DEFIBRILLATOR SURGERY 2013 - EGD 11/25/2009 - EGD 04/01/2008 - EXCIS FINGER TENDON FLEXOR - HYSTERECTOMY HX 2011 - INCISION EXTEN FOOT/TOE TENDON - OTOPLASTY - PAST SURGICAL HISTORY OF five foot surgeries [id number], Jarred Donato - PAST SURGICAL HISTORY OF four hand surgeries [id number], Dr. Demond Tejeda - RHINOPLASTY 1989 nasal reconstruction after injury - TUBAL LIGATION HX 01/17/2010 removal of tumors, BTL FAMILY HISTORY Problem Relation Age of Onset - Arthritis Mother CREST syndrome - Diabetes Mother - Stroke Father - Heart Father - Emphysema Father - Stroke Paternal Grandmother - Stroke Paternal Grandfather - other (DM) Brother - other (CM) Brother possibly ETOH related. REVIEW OF SYSTEMS Review of Systems HENT: Positive for hearing loss. Gastrointestinal: Positive for abdominal distention. Gas All other systems reviewed and are negative. PHYSICAL EXAM BP 157/85 Pulse 60 Ht 167.6 cm (5' 6) Wt 82.6 kg (182 lb) LMP (LMP Unknown) SpO2 97% BMI 29.38 kg/m? BMI 29.38 kg/(m2) Physical Exam Constitutional: She is oriented to person, place, and time and well-developed, well-nourished, and in no distress. HENT: Head: Normocephalic and atraumatic. Eyes: Conjunctivae are normal. No scleral icterus. Neck: Neck supple. Cardiovascular: Normal rate, regular rhythm and normal heart sounds. Pulmonary/Chest: Effort normal and breath sounds normal. Abdominal: Soft. Bowel sounds are normal. Musculoskeletal: She exhibits no edema. Neurological: She is alert and oriented to person, place, and time. Gait normal. Skin: Skin is warm and dry. Psychiatric: Mood, memory, affect and judgment normal. Assessment/Plan: Dana was seen today for abdominal distention. Diagnoses and all orders for this visit: Sjogren's syndrome, with unspecified organ involvement (HCC) Status post implantation of automatic cardioverter/defibrillator (AICD) Gastroesophageal reflux disease, esophagitis presence not specified - EGD GEN ANES; Future Eructation - EGD GEN ANES; Future Other constipation Flatulence At average risk for colon cancer - COLONOSCOPY SCRN NOT HIGH RISK; Future, last colonoscopy poor prep secondary poor prep will order two day prep Other orders - peg 3350-Electrolytes (GOLYTELY) 236-22.74-6.74 -5.86 gram suspension; Refer to printed patient instructions that will be mailed to you. I have confirmed and edited as necessary, the PFSH and ROS obtained by others. Octavio Brannon MD DATE: 02/17/18 TIME: 11:32 AM Previous Version PROGRESS Observed: 02/17/2018 Status: COMPLETED Source: [place] 11:32 [facility] REPOSITORY HNO ID: [id number] Author: Octavio Brannon Service: (none) Author Type: Physician Type: Progress Notes Filed: 02/17/2018 12:16 PM Note Text: ASA Dana Matos is a 57 year old female here today for Abdominal Distension. Patient was seen in ER for LUQ pain, constant lasting about 4 hours, resolved on its own, nausea at the time of pain, no vomiting, now a days increased burping, reclining reflux, constipation was given miralax prescription by PMD, patient has constipation with excessive flaulence. Previous screening colonoscopy was incomplete secondary to poor prep Record Review: [facility] records reviewed Current Outpatient Prescriptions: predniSONE (DELTASONE) 5 mg tablet Take 5 mg by mouth once daily. VITAMIN D 50,000 unit capsule once each week. esomeprazole (NEXIUM) 40 mg capsule TAKE 1 CAPSULE BY MOUTH ONCE DAILY DULoxetine (CYMBALTA) 30 mg capsule carvedilol (COREG) 6.25 mg tablet Take 1 tablet by mouth twice daily with meals. potassium chloride ER (KLOR-CON M20) 20 mEq tablet Take 1 tablet by mouth once daily. liothyronine (CYTOMEL) 5 mcg tablet Take 5 mcg by mouth once daily. COMPOUNDED PRESCRIPTION Probiotic ramelteon (ROZEREM) 8 mg tablet Take 8 mg by mouth daily at bedtime. loratadine (CLARITIN) 10 mg tablet Take 1 tablet by mouth once daily. colestipol (COLESTID) 1 gram tablet Take 1 tablet by mouth twice daily. busPIRone (BUSPAR) 15 mg tablet Take 15 mg by mouth once daily. TETRAHYDROZOLINE HCL/ZN SULF (EYE DROPS OPHTHALMIC) Use in eyes. [employer] 1 drop both eyes evening traMADol (ULTRAM) 50 mg tablet Take 50 mg by mouth every 8 hours as needed. FOLIC ACID ORAL Take 1,600 mg by mouth once daily. estradiol (ESTRACE) 0.01 % (0.1 mg/gram) vaginal cream Use 0.1 g vaginally once each week. fluticasone (FLONASE) 50 mcg/actuation nasal spray Use 1 [place] in each nostril twice daily. levothyroxine (SYNTHROID) 125 mcg tablet Take 1 tablet by mouth once daily. ABATACEPT (ORENCIA SUBCUTANEOUS) Inject subcutaneously. Once a week ALPRAZolam (XANAX) 1 mg tablet Take 1 mg by mouth daily at bedtime. BIOTIN ORAL Take 1,000 mg by mouth once daily. calcium carbonate/vitamin d3(CALCIUM 600 + D 600 MG-400 UNIT TAB) 2 daily ASPIRIN 81 MG TAB Take one(1) tablet daily. COL-RITE 100 MG CAP daily peg 3350-Electrolytes (GOLYTELY) 236-22.74-6.74 -5.86 gram suspension Refer to printed patient instructions that will be mailed to you. polyethylene glycol 3350 (MIRALAX, GLYCOLAX) 17 gram/dose powder Take 17 g by mouth once daily. (Patient not taking: Reported on 02/17/2018 ) No current facility-administered medications for this visit. ALLERGIES Allergen Reactions - Ciprofloxacin Other: See Comments Tendon Rupture. - Citric Acid Shortness of Breath Shortness of breath,swelling of throat - Levaquin [Levofloxa* Unknown - Lisinopril Hives - Tradjenta [Linaglip* Intolerance Nausea - Trileptal [Oxcarbaz* Mental Status Change - Tylox [Oxycodone-Ac* low blood pressure - Zetia [Ezetimibe] Other: See Comments Muscle pain - Zocor [Simvastatin] Swelling severe muscle cramping, liver enzyme abnormalities Social History Substance Use Topics - Smoking status: Never Smoker - Smokeless tobacco: Never Used - Alcohol use No PAST MEDICAL HISTORY Diagnosis Date - Adrenal insufficiency (HCC) 1986 oral cortisone daily - Calculus of kidney - CHF (congestive heart failure) ([facility]) - Congenital anomalies of adrenal gland intermediate prednisone use - CVA (cerebral infarction) 1999 short term memory loss. - Diabetes mellitus, type II ([facility]) - Diabetes type 2, controlled ([facility]) chronic steroid therapy - Dual implantable cardioverter-defibrillator in situ 12/14/2013 Defibrillator Pacemaker Model [id number], serial # [id number] - Essential hypertension - H/O right heart catheterization 11/27/2013 coronaries clear - Heart attack (HCC) 09/28/2000 - Heart attack (HCC) 11/27/2013 first [place] 09/28/2000,second [place]. 20% EF, took 3L of fluid off - Hemiparesis affecting right side as late effect of stroke ([facility]) 02/06/2000 - Hyperthyroidism s/p radiation, currently on Synthroid, Seeing endo-Dr. Billings - Hypothyroidism (acquired) 1664 - Left bundle branch block - LUMBOSACRAL NEURITIS NOS 06/27/2007 - Lupus erythematosus 2005 Dr. Foreman - Other and unspecified hyperlipidemia - Other primary cardiomyopathies 09/28/2000 Cardiomyopathy-Seeing Dr. Rosenberg - Raynaud's syndrome 1999 - Rheumatoid arthritis(714.0) [address] Fualkner - Sjogren's syndrome (HCC) 1997 - Transverse myelitis (HCC) 05/31/2006 from flu shot PAST SURGICAL HISTORY Procedure Laterality Date - COLONOSCOPY 02/28/2008 - COLONOSCOPY 07/29/2016 - DEFIBRILLATOR SURGERY 2013 - EGD 11/25/2009 - EGD 04/01/2008 - EXCIS FINGER TENDON FLEXOR - HYSTERECTOMY HX 2011 - INCISION EXTEN FOOT/TOE TENDON - OTOPLASTY - PAST SURGICAL HISTORY OF five foot surgeries [id number], Jarred Donato - PAST SURGICAL HISTORY OF four hand surgeries [id number], Dr. Demond Tejeda - RHINOPLASTY 1989 nasal reconstruction after injury - TUBAL LIGATION HX 01/17/2010 removal of tumors, BTL FAMILY HISTORY Problem Relation Age of Onset - Arthritis Mother CREST syndrome - Diabetes Mother - Stroke Father - Heart Father - Emphysema Father - Stroke Paternal Grandmother - Stroke Paternal Grandfather - other (DM) Brother - other (CM) Brother possibly ETOH related. REVIEW OF SYSTEMS Review of Systems HENT: Positive for hearing loss. Gastrointestinal: Positive for abdominal distention. Gas All other systems reviewed and are negative. PHYSICAL EXAM BP 157/85 Pulse 60 Ht 167.6 cm (5' 6) Wt 82.6 kg (182 lb) LMP (LMP Unknown) SpO2 97% BMI 29.38 kg/m? BMI 29.38 kg/(m2) Physical Exam Constitutional: She is oriented to person, place, and time and well-developed, well-nourished, and in no distress. HENT: Head: Normocephalic and atraumatic. Eyes: Conjunctivae are normal. No scleral icterus. Neck: Neck supple. Cardiovascular: Normal rate, regular rhythm and normal heart sounds. Pulmonary/Chest: Effort normal and breath sounds normal. Abdominal: Soft. Bowel sounds are normal. Musculoskeletal: She exhibits no edema. Neurological: She is alert and oriented to person, place, and time. Gait normal. Skin: Skin is warm and dry. Psychiatric: Mood, memory, affect and judgment normal. Assessment/Plan: Dana was seen today for abdominal distention. Diagnoses and all orders for this visit: Sjogren's syndrome, with unspecified organ involvement (HCC) Status post implantation of automatic cardioverter/defibrillator (AICD) Gastroesophageal reflux disease, esophagitis presence not specified - EGD GEN ANES; Future Eructation - EGD GEN ANES; Future Other constipation Flatulence At average risk for colon cancer - COLONOSCOPY SCRN NOT HIGH RISK; Future, last colonoscopy poor prep secondary poor prep will order two day prep Other orders - peg 3350-Electrolytes (GOLYTELY) 236-22.74-6.74 -5.86 gram suspension; Refer to printed patient instructions that will be mailed to you. I have confirmed and edited as necessary, the PFSH and ROS obtained by others. Octavio Brannon MD DATE: 02/17/18 TIME: 11:32 AM CNOV Observed: 02/17/2018 Status: COMPLETED Source: [place] 10:45 AM [facility] REPOSITORY Office Visit ([facility]) DANA MATOS ([id number]) 1960 F Date Time Provider Department 02/17/18 10:45 AM [facility] During your visit today, we recorded the following information about you: Pulse Blood pressure Weight Height 60/minute 157/85 82.6 kg 1.676 m Octavio Brannon MD 02/17/2018 12:16 PM Signed HPI Dana Damari Matos is a 57 year old female here today for Abdominal Distension. Patient was seen in ER for LUQ pain, constant lasting about 4 hours, resolved on its own, nausea at the time of pain, no vomiting, now a days increased burping, reclining reflux, constipation was given miralax prescription by PMD, patient has constipation with excessive flaulence. Previous screening colonoscopy was incomplete secondary to poor prep Record Review: [facility] records reviewed Current Outpatient Prescriptions: predniSONE (DELTASONE) 5 mg tablet Take 5 mg by mouth once daily. VITAMIN D 50,000 unit capsule once each week. esomeprazole (NEXIUM) 40 mg capsule TAKE 1 CAPSULE BY MOUTH ONCE DAILY DULoxetine (CYMBALTA) 30 mg capsule carvedilol (COREG) 6.25 mg tablet Take 1 tablet by mouth twice daily with meals. potassium chloride ER (KLOR-CON M20) 20 mEq tablet Take 1 tablet by mouth once daily. liothyronine (CYTOMEL) 5 mcg tablet Take 5 mcg by mouth once daily. COMPOUNDED PRESCRIPTION Probiotic ramelteon (ROZEREM) 8 mg tablet Take 8 mg by mouth daily at bedtime. loratadine (CLARITIN) 10 mg tablet Take 1 tablet by mouth once daily. colestipol (COLESTID) 1 gram tablet Take 1 tablet by mouth twice daily. busPIRone (BUSPAR) 15 mg tablet Take 15 mg by mouth once daily. TETRAHYDROZOLINE HCL/ZN SULF (EYE DROPS OPHTHALMIC) Use in eyes. [employer] 1 drop both eyes evening traMADol (ULTRAM) 50 mg tablet Take 50 mg by mouth every 8 hours as needed. FOLIC ACID ORAL Take 1,600 mg by mouth once daily. estradiol (ESTRACE) 0.01 % (0.1 mg/gram) vaginal cream Use 0.1 g vaginally once each week. fluticasone (FLONASE) 50 mcg/actuation nasal spray Use 1 [place] in each nostril twice daily. levothyroxine (SYNTHROID) 125 mcg tablet Take 1 tablet by mouth once daily. ABATACEPT (ORENCIA SUBCUTANEOUS) Inject subcutaneously. Once a week ALPRAZolam (XANAX) 1 mg tablet Take 1 mg by mouth daily at bedtime. BIOTIN ORAL Take 1,000 mg by mouth once daily. calcium carbonate/vitamin d3(CALCIUM 600 + D 600 MG-400 UNIT TAB) 2 daily ASPIRIN 81 MG TAB Take one(1) tablet daily. COL-RITE 100 MG CAP daily peg 3350-Electrolytes (GOLYTELY) 236-22.74-6.74 -5.86 gram suspension Refer to printed patient instructions that will be mailed to you. polyethylene glycol 3350 (MIRALAX, GLYCOLAX) 17 gram/dose powder Take 17 g by mouth once daily. (Patient not taking: Reported on 02/17/2018 ) No current facility-administered medications for this visit. ALLERGIES Allergen Reactions - Ciprofloxacin Other: See Comments Tendon Rupture. - Citric Acid Shortness of Breath Shortness of breath,swelling of throat - Levaquin [Levofloxa* Unknown - Lisinopril Hives - Tradjenta [Linaglip* Intolerance Nausea - Trileptal [Oxcarbaz* Mental Status Change - Tylox [Oxycodone-Ac* low blood pressure - Zetia [Ezetimibe] Other: See Comments Muscle pain - Zocor [Simvastatin] Swelling severe muscle cramping, liver enzyme abnormalities Social History Substance Use Topics - Smoking status: Never Smoker - Smokeless tobacco: Never Used - Alcohol use No PAST MEDICAL HISTORY Diagnosis Date - Adrenal insufficiency ([facility]) 1986 oral cortisone daily - Calculus of kidney - CHF (congestive heart failure) ([facility]) - 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 - Diabetes mellitus, type II ([facility]) - Diabetes type 2, controlled ([facility]) chronic steroid therapy - Dual implantable cardioverter-defibrillator in situ 12/14/2013 Defibrillator Pacemaker Model [id number], serial # [id number] - Essential hypertension - H/O right heart catheterization 11/27/2013 coronaries clear - Heart attack (HCC) 09/28/2000 - Heart attack (HCC) 11/27/2013 first [place] 09/[place],second [place]. 20% EF, took 3L of fluid off - Hemiparesis affecting right side as late effect of stroke ([facility]) 02/06/2000 - Hyperthyroidism s/p radiation, currently on Synthroid, Seeing endo-Dr. Billings - Hypothyroidism (acquired) 1664 - Left bundle branch block - LUMBOSACRAL NEURITIS NOS 06/27/2007 - Lupus erythematosus 2005 Dr. Foreman - Other and unspecified hyperlipidemia - Other primary cardiomyopathies 09/28/2000 Cardiomyopathy-Seeing Dr. Rosenberg - Raynaud's syndrome 1999 - Rheumatoid arthritis(714.0) [address] Faulkner - Sjogren's syndrome (HCC) 1997 - Transverse myelitis (HCC) 05/31/2006 from flu shot PAST SURGICAL HISTORY Procedure Laterality Date - COLONOSCOPY 02/28/2008 - COLONOSCOPY 07/29/2016 - DEFIBRILLATOR SURGERY 2013 - EGD 11/25/2009 - EGD 04/01/2008 - EXCIS FINGER TENDON FLEXOR - HYSTERECTOMY HX 2012 - INCISION EXTEN FOOT/TOE TENDON - OTOPLASTY - PAST SURGICAL HISTORY OF five foot surgeries [id number], Jarred Donato - PAST SURGICAL HISTORY OF four hand surgeries [phone], Dr. Demond Tejeda - RHINOPLASTY 1989 nasal reconstruction after injury - TUBAL LIGATION HX 01/17/2010 removal of tumors, BTL FAMILY HISTORY Problem Relation Age of Onset - Arthritis Mother CREST syndrome - Diabetes Mother - Stroke Father - Heart Father - Emphysema Father - Stroke Paternal Grandmother - Stroke Paternal Grandfather - other (DM) Brother - other (CM) Brother possibly ETOH related. REVIEW OF SYSTEMS Review of Systems HENT: Positive for hearing loss. Gastrointestinal: Positive for abdominal distention. Gas All other systems reviewed and are negative. PHYSICAL EXAM BP 157/85 Pulse 60 Ht 167.6 cm (5' 6) Wt 82.6 kg (182 lb) LMP (LMP Unknown) SpO2 97% BMI 29.38 kg/m? BMI 29.38 kg/(m2) Physical Exam Constitutional: She is oriented to person, place, and time and well-developed, well-nourished, and in no distress. HENT: Head: Normocephalic and atraumatic. Eyes: Conjunctivae are normal. No scleral icterus. Neck: Neck supple. Cardiovascular: Normal rate, regular rhythm and normal heart sounds. Pulmonary/Chest: Effort normal and breath sounds normal. Abdominal: Soft. Bowel sounds are normal. Musculoskeletal: She exhibits no edema. Neurological: She is alert and oriented to person, place, and time. Gait normal. Skin: Skin is warm and dry. Psychiatric: Mood, memory, affect and judgment normal. Assessment/Plan: Dana was seen today for abdominal distention. Diagnoses and all orders for this visit: Sjogren's syndrome, with unspecified organ involvement (HCC) Status post implantation of automatic cardioverter/defibrillator (AICD) Gastroesophageal reflux disease, esophagitis presence not specified - EGD GEN ANES; Future Eructation - EGD GEN ANES; Future Other constipation Flatulence At average risk for colon cancer - COLONOSCOPY SCRN NOT HIGH RISK; Future, last colonoscopy poor prep secondary poor prep will order two day prep Other orders - peg 3350-Electrolytes (GOLYTELY) 236-22.74-6.74 -5.86 gram suspension; Refer to printed patient instructions that will be mailed to you. I have confirmed and edited as necessary, the PFSH and ROS obtained by others. Octavio Brannon MD DATE: 02/17/18 TIME: 11:32 AM Referring Provider: SELF [[id number]] Allergies As of Date: 02/17/2018 Noted Allergy Reaction CIPROFLOXACIN 12/06/2013 14 - Other: See Comments Comments: Tendon Rupture. CITRIC ACID 03/18/2016 12 - Shortness of Breath Comments: Shortness of breath,swelling of throat LEVAQUIN (LEVOFLOXACIN) 07/02/2015 16 - Unknown LISINOPRIL 05/12/2006 4 - Hives TRADJENTA (LINAGLIPTIN) 07/26/2016 5 - Intolerance Comments: Nausea TRILEPTAL (OXCARBAZEPINE) 09/22/2016 1 - Mental Status Change TYLOX (OXYCODONE-ACETAMINOPHEN) 05/12/2006 Comments: low blood pressure ZETIA (EZETIMIBE) 02/04/2016 14 - Other: See Comments Comments: Muscle pain ZOCOR (SIMVASTATIN) 05/12/2006 7 - Swelling Comments: severe muscle cramping, liver enzyme abnormalities Date Reviewed: 02/17/2018 Reviewed by: Octavio Brannon - Fully Assessed Reason for Visit: Abdominal Distention [Other] Reason For Visit History Recorded Primary Visit Diagnosis:Sjogren's syndrome, with unspecified organ involvement (HCC) [M35.00] Other Visit Diagnoses:Status post implantation of automatic cardioverter/defibrillator (AICD) [Z95.810] Gastroesophageal reflux disease, esophagitis presence not specified [K21.9] Eructation [R14.2] Other constipation [K59.09] Flatulence [R14.3] At average risk for colon cancer [Z78.9] Order(s):EGD GEN ANES [[id number]] Order #: [id number] FUTURE COLONOSCOPY SCRN NOT HIGH RISK [[id number]] Order #: [id number] FUTURE peg 3350-Electrolytes (GOLYTELY) 236-22.74-6.74 - 5.86 gram suspensionRefer to printed patient instructions that will be mailed to you.Disp: 2 ContainerRfl: 0 ondansetron (ZOFRAN) 4 mg tabletTake 1 tablet by mouth every 8 hours as needed for Nausea/Vomiting.Disp: 12 tabletRfl: 1 Prescriptions as of 02/17/2018 Sig: PREDNISONE 5 MG TABLET Take 5 mg by mouth once daily. VITAMIN D2 50,000 UNIT CAPSULE once each week. ESOMEPRAZOLE MAGNESIUM 40 MG * TAKE 1 CAPSULE BY MOUTH ONCE* DULOXETINE 30 MG CAPSULE,JERRY* CARVEDILOL 6.25 MG TABLET Take 1 tablet by mouth twice * POTASSIUM CHLORIDE ER 20 MEQ * Take 1 tablet by mouth once d* LIOTHYRONINE 5 MCG TABLET Take 5 mcg by mouth once andree* COMPOUNDED PRESCRIPTION Probiotic RAMELTEON 8 MG TABLET Take 8 mg by mouth daily at b* LORATADINE 10 MG TABLET Take 1 tablet by mouth once d* COLESTIPOL 1 GRAM TABLET Take 1 tablet by mouth twice * BUSPIRONE 15 MG TABLET Take 15 mg by mouth once andree* EYE DROPS OPHTHALMIC Use in eyes. [employer] * TRAMADOL 50 MG TABLET Take 50 mg by mouth every 8 h* FOLIC ACID ORAL Take 1,600 mg by mouth once d* ESTRADIOL 0.01% (0.1 MG/GRAM)* Use 0.1 g vaginally once each* FLUTICASONE 50 MCG/ACTUATION * Use 1 [place]ley in each nostril t* LEVOTHYROXINE 125 MCG TABLET Take 1 tablet by mouth once d* ORENCIA SUBCUTANEOUS Inject subcutaneously. Once * ALPRAZOLAM 1 MG TABLET Take 1 mg by mouth daily at b* * BIOTIN ORAL Take 1,000 mg by mouth once d* * CALCIUM 600 + D(3) 600 MG (1,* 2 daily * ASPIRIN 81 MG TABLET Take one(1) tablet daily. * COL-RITE 100 MG CAPSULE daily PEG 3350-ELECTROLYTES 236 GRA* Refer to printed patient inst* ONDANSETRON HCL 4 MG TABLET Take 1 tablet by mouth every * POLYETHYLENE GLYCOL 3350 17 G* Take 17 g by mouth once daily. Patient not taking: Reported on 02/17/2018 Problem List As Of Date 02/17/2018 Noted Resolved BRACHIAL NEURITIS NOS [M54.12] INVALID FOR*11/06/2014 CERVICAL DISC DEGEN [M50.30] INVALID FOR* Rheumatoid arthritis (HCC) [M06.9] INVALID FOR* CAD (coronary artery disease) [I25.10] INVALID FOR* More... LBBB (left bundle branch block) [I44.7] INVALID FOR* Biventricular ICD (implantable cardioverter-def*INVALID FOR* Postablative hypothyroidism [E89.0] INVALID FOR* More... 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 Hearing loss of both ears [H91.93] INVALID FOR* More... Nonischemic cardiomyopathy (HCC) [I42.8] INVALID FOR* Chronic systolic heart failure (HCC) [I50.22] INVALID FOR* More... Sensorineural hearing loss, bilateral [H90.3] INVALID FOR* Tinnitus [H93.19] INVALID FOR* Dizziness and giddiness [R42] INVALID FOR* More... More... 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] Diabetes mellitus, type II (HCC) [E11.9] Compression fracture of L1 lumbar vertebra (HCC*INVALID FOR* Wedge compression fracture of twelfth thoracic *INVALID FOR* Rheumatoid arthritis involving multiple sites (*INVALID FOR*09/01/2016 Heart attack (HCC) [I21.9] INVALID FOR*09/01/2016 More... Sjogren's syndrome (HCC) [M35.00] INVALID FOR* Obstructive sleep apnea syndrome [G47.33] INVALID FOR* More... Other and unspecified hyperlipidemia [E78.5] INVALID FOR* More... Lupus erythematosus [L93.0] INVALID FOR* More... CHF (congestive heart failure) (HCC) [I50.9] INVALID FOR* More... Essential hypertension [I10] Cervicalgia [M54.2] INVALID FOR* More... Type 2 diabetes mellitus without complication, *INVALID FOR* Transition of care performed with sharing of cl*INVALID FOR* More... Prescriptions ordered this encounter Disp Refills Start End PEG 3350-ELECTROLYTES 236 GRAM-22.74* 2 Co* 0 02/17/2018 Sig: Refer to printed patient instructions that will be mailed to you. ONDANSETRON HCL 4 MG TABLET 12 t* 1 02/17/2018 Route: ORAL Sig: Take 1 tablet by mouth every 8 hours as needed for Nausea/Vomiting. Encounter Status:Closed by OCTAVIO BRANNON MD on 02/17/18 PROGRESS Observed: 02/15/2018 Status: COMPLETED Source: [place] 3:21 PM [facility] HNO ID: [id number] Author: Destiney Ramirez Service: (none) Author Type: Physician Type: Progress Notes Filed: 02/15/2018 4:28 PM Note Text: [facility] [place] [facility] SECTION OF HEART FAILURE and CARDIAC TRANSPLANT MEDICINE OUTPATIENT VISIT DATE February 15, 2018 OUTPATIENT VISIT TYPE Established Patient PRIMARY CARE PHYSICIAN: Leticia Garcia PA-C [address] [place] [address] CHIEF COMPLAINT: Follow-up, echo and device check. NURSING INTAKE (Patient?s concerns and/or recent hospitalizations/ER visits): Ms. Matos was last seen on 05/18/2017 HPI: Interim Hospitalizations and/or ER visits:Yes - 02/09/18 with chest pain. Cardiac workup was negative including a SPECT which showed: Rest and stress SPECT Cardiolite nuclear imaging demonstrate relative uniform tracer uptake and myocardial perfusion appearing within normal limits. She was referred for a GI evaluation. Chest Pain: No except for the above. Skipping or irregular heartbeats: No Shortness of breath at rest: no Shortness of breath with activity: yes - stairs or walking up hills, saw a [employer] rep who told her she was 64%. Plans to follow- up with them. Cough: No Waking up in the middle of the night gasping for air: No Lightheadedness or dizziness: Yes Feeling like you are going to pass out: no Actually passing out: no Poor energy level: no Unintentional weight gain: no Unintentional weight loss: no Swelling in your legs,feet, abdomen: no Filling up quickly when you eat: no PAST MEDICAL HISTORY Diagnosis Date - Adrenal insufficiency (HCC) 1986 oral cortisone daily - Calculus of kidney - CHF (congestive heart failure) ([facility]) - Congenital anomalies of adrenal gland intermediate prednisone use - CVA (cerebral infarction) 1999 short term memory loss. - Diabetes mellitus, type II ([facility]) - Diabetes type 2, controlled ([facility]) chronic steroid therapy - Dual implantable cardioverter-defibrillator in situ 12/14/2013 Defibrillator Pacemaker Model [id number], serial # [id number] - Essential hypertension - H/O right heart catheterization 11/27/2013 coronaries clear - Heart attack (HCC) 09/28/2000 - Heart attack (HCC) 11/27/2013 first [place] 09/28/2000,second [place]. 20% EF, took 3L of fluid off - Hemiparesis affecting right side as late effect of stroke (HCC) 02/06/2000 - Hyperthyroidism s/p radiation, currently on Synthroid, Seeing endo-Dr. Billings - Hypothyroidism (acquired) 1665 - Left bundle branch block - LUMBOSACRAL NEURITIS NOS 06/27/2007 - Lupus erythematosus 2005 Dr. Foreman - Other and unspecified hyperlipidemia - Other primary cardiomyopathies 09/28/2000 Cardiomyopathy-Seeing Dr. Rosenberg - Raynaud's syndrome 1999 - Rheumatoid arthritis(714.0) [address] Faulkner - Sjogren's syndrome (HCC) 1997 - Transverse myelitis (HCC) 05/31/2006 from flu shot PAST SURGICAL HISTORY Procedure Laterality Date - DEFIBRILLATOR SURGERY 2013 - EXCIS FINGER TENDON FLEXOR - HYSTERECTOMY HX 2011 - INCISION EXTEN FOOT/TOE TENDON - OTOPLASTY - PAST SURGICAL HISTORY OF five foot surgeries [id number], Jarred Donato - PAST SURGICAL HISTORY OF four hand surgeries [id number], Dr. Demond Tejeda - RHINOPLASTY 1989 nasal reconstruction after injury - TUBAL LIGATION HX 01/17/2010 removal of tumors, BTL SOCIAL HISTORY Social History Substance Use Topics - Smoking status: Never Smoker - Smokeless tobacco: Never Used - Alcohol use No FAMILY HISTORY Problem Relation Age of Onset - Arthritis Mother CREST syndrome - Diabetes Mother - Stroke Father - Heart Father - Emphysema Father - Stroke Paternal Grandmother - Stroke Paternal Grandfather - other (DM) Brother - other (CM) Brother possibly ETOH related. ALLERGIES: ALLERGIES Allergen Reactions - Ciprofloxacin Other: See Comments Tendon Rupture. - Citric Acid Shortness of Breath Shortness of breath,swelling of throat - Levaquin [Levofloxa* Unknown - Lisinopril Hives - Tradjenta [Linaglip* Intolerance Nausea - Trileptal [Oxcarbaz* Mental Status Change - Tylox [Oxycodone-Ac* low blood pressure - Zetia [Ezetimibe] Other: See Comments Muscle pain - Zocor [Simvastatin] Swelling severe muscle cramping, liver enzyme abnormalities CURRENT MEDICATIONS: VITAMIN D 50,000 unit capsule once each week. polyethylene glycol 3350 (MIRALAX, GLYCOLAX) 17 gram/dose powder Take 17 g by mouth once daily. esomeprazole (NEXIUM) 40 mg capsule TAKE 1 CAPSULE BY MOUTH ONCE DAILY DULoxetine (CYMBALTA) 30 mg capsule carvedilol (COREG) 6.25 mg tablet Take 1 tablet by mouth twice daily with meals. potassium chloride ER (KLOR-CON M20) 20 mEq tablet Take 1 tablet by mouth once daily. liothyronine (CYTOMEL) 5 mcg tablet Take 5 mcg by mouth once daily. COMPOUNDED PRESCRIPTION Probiotic ramelteon (ROZEREM) 8 mg tablet Take 8 mg by mouth daily at bedtime. loratadine (CLARITIN) 10 mg tablet Take 1 tablet by mouth once daily. colestipol (COLESTID) 1 gram tablet Take 1 tablet by mouth twice daily. busPIRone (BUSPAR) 10 mg tablet Take 1 tablet by mouth once daily. TETRAHYDROZOLINE HCL/ZN SULF (EYE DROPS OPHTHALMIC) Use in eyes. [employer] 1 drop both eyes evening traMADol (ULTRAM) 50 mg tablet Take 50 mg by mouth every 8 hours as needed. FOLIC ACID ORAL Take 1,600 mg by mouth once daily. estradiol (ESTRACE) 0.01 % (0.1 mg/gram) vaginal cream Use 0.1 g vaginally once each week. fluticasone (FLONASE) 50 mcg/actuation nasal spray Use 1 [place] in each nostril twice daily. levothyroxine (SYNTHROID) 125 mcg tablet Take 1 tablet by mouth once daily. ABATACEPT (ORENCIA SUBCUTANEOUS) Inject subcutaneously. Once a week ALPRAZolam (XANAX) 1 mg tablet Take 1 mg by mouth daily at bedtime. BIOTIN ORAL Take 1,000 mg by mouth once daily. calcium carbonate/vitamin d3(CALCIUM 600 + D 600 MG-400 UNIT TAB) 2 daily ASPIRIN 81 MG TAB Take one(1) tablet daily. COL-RITE 100 MG CAP daily REVIEW OF SYSTEMS: See HPI. PHYSICAL EXAMINATION: BP 116/75 Pulse 72 Ht 167.6 cm (5' 6) Wt 83.3 kg (183 lb 9.6 oz) LMP (LMP Unknown) SpO2 95% BMI 29.63 kg/m? General appearance: no acute distress, conversant Psych: Appropriate affect and insight; alert and oriented to person, place and time HENT: Normal appearing ears and nose; normal hearing Neck: No JVD at sitting;no carotid bruits;Trachea midline; FROM Lungs: Normal respiratory effort; CTAB CV: RRR, no MRGs Abdomen: Soft, non-tender; no HSM Extremities: No lower extremity edema; Normal pulses, no clubbing or cyanosis Skin: No rash or ulcers; Normal temperature, turgor and texture Musculoskeletal: Normal gait CARDIOVASCULAR MEDICINE TESTING: I have personally reviewed the Echocardiogram and Device Check. ECHO: CONCLUSIONS: - Exam indication: Routine surveillance (>1yr) of known cardiomyopathy without a change in clinical status ? - The abnormal regional wall motion pattern in conjunction with the regional wall thickness is consistent with a LBBB abnormal conduction delay. - The left ventricle is small. Left ventricular systolic function is normal. EF = 56 ? 5% (2D biplane) Grade I left ventricular diastolic dysfunction. - The right ventricle is normal in size. Right ventricular systolic function is normal. - There are no significant valvular abnormalities. - Exam was compared with the prior echocardiographic exam performed on 05/18/2017 There is no significant change. DEVICE CHECK: ICD Interpretation BIV ICD EVALUATION ? ? PRESENTS FOR: Patient was at [facility] 02-08-18 with c/o chest pain radiating to neck, had stress test, sent for GI testing. ? Presenting: /BIV PACED. ? UNDERLYING RHYTHM: Sinus Rhythm 65 bpm ? BATTERY STATUS: Normal and shows no significant depletion, EL 3.3 years. ? COUNTERS SINCE 11-22-2017: ? ATRIAL ARRHYTHMIAS: There have been no triggered episodes of atrial high rates. Total time 0%. Anticoagulants listed: ASA 81mg, ? VENTRICULAR ARRHYTHMIAS: There have been no ventricular detections since the last evaluation. ? LEAD MEASUREMENTS: Capture and sensing are appropriate. The pacing outputs maintain safety margin. Review of the lead impedance trends are normal. ? IMPLANT SITE/ SYMPTOMS: The incision and pocket are pain-free (0/10), well healed and without signs of erosion or infection. No arm swelling, syncope, pre-syncope or device related pocket stimulation. ? OTHER DIAGNOSTICS: BIV pacing 98%. RA pacing <1%. ? PROGRAMMING CHANGES MADE TODAY: None. ? FOLLOW UP: : [place] remotes every 3 months and yearly in clinic visits. IMPRESSION: NICM - undertermined etiology (note RA + SS background, history of heart attacks, ? some inflammatory DCM or arteritis related injury from the connective tissue disease) Chronic systolic and diastolic HF HFrecoveredEF - EF 43%/LVIDd 5.6cm 11/2014 ->?50%/LVIDd 4.5cm 01/2016 -> EF 61%/LVIDd 4.6cm 09/2016 S/p ANIMAL BEHAVIORIST-D (underlying LBBB) CVA 1999 Hypothyroidism Sjogrens syndrome, RA GERD Dyslipiedemia ?? NYHA Functional Class: I-II Stage: B/C heart failure Euvolemic on exam with good BP ECHO findings stable with EF 56%, stage 1 diastolic dysfunction 98% BivP on device check today No VA therapies No AF Anxiety/bipolar disorder much better since started on currnet multi-drug regimen above PLAN AND RECOMMENDATIONS: 1. She was instructed to continue the current medical program. 2. May need 2 days of Go-Lytely prep for c-scope. If so, agree with her PCP to admit to [facility] for close monitoring of electrolytes, volume status. 3. RTC in 6 months for a follow-up visit. I personally interviewed, confirmed and edited the above information as obtained by others The majority of the visit was spent counseling and/or coordinating care for the patient. Ywlj-pr-kvql time was 30 minutes. We discussed natural history of disease, current treatment options, and future potential treatment options. We discussed diet, exercise, other non-medical management as above. Destiney Ramirez MD [facility] Section Of Heart Failure and Cardiac Transplant Medicine Heart [facility] Desk J3-[address] [place] [address] CNOV Observed: 02/15/2018 Status: COMPLETED Source: [place] 3:15 PM [facility] REPOSITORY Office Visit (PILI CHF CORTES) DANA MATOS ([id number]) 1960 F Date Time Provider Department 02/15/18 3:15 PM DESTINEY RAMIREZ CHF CORTES During your visit today, we recorded the following information about you: Pulse Blood pressure Weight Height 72/minute 116/75 83.3 kg 1.676 m Destiney Ramirez MD 02/15/2018 4:28 PM Signed [facility] SECTION OF HEART FAILURE and CARDIAC TRANSPLANT MEDICINE OUTPATIENT VISIT DATE February 15, 2018 OUTPATIENT VISIT TYPE Established Patient PRIMARY CARE PHYSICIAN: Leticia Garcia PA-C [address] [place] [address] CHIEF COMPLAINT: Follow-up, echo and device check. NURSING INTAKE (Patient?s concerns and/or recent hospitalizations/ER visits): Ms. Matos was last seen on 05/18/2017 HPI: Interim Hospitalizations and/or ER visits:Yes - 02/09/18 with chest pain. Cardiac workup was negative including a SPECT which showed: Rest and stress SPECT Cardiolite nuclear imaging demonstrate relative uniform tracer uptake and myocardial perfusion appearing within normal limits. She was referred for a GI evaluation. Chest Pain: No except for the above. Skipping or irregular heartbeats: No Shortness of breath at rest: no Shortness of breath with activity: yes - stairs or walking up hills, saw a new a r collections rep who told her she was 64%. Plans to follow- up with them. Cough: No Waking up in the middle of the night gasping for air: No Lightheadedness or dizziness: Yes Feeling like you are going to pass out: no Actually passing out: no Poor energy level: no Unintentional weight gain: no Unintentional weight loss: no Swelling in your legs,feet, abdomen: no Filling up quickly when you eat: no PAST MEDICAL HISTORY Diagnosis Date - Adrenal insufficiency (HCC) 1986 oral cortisone daily - Calculus of kidney - CHF (congestive heart failure) ([facility]) - Congenital anomalies of adrenal gland intermediate prednisone use - CVA (cerebral infarction) 1999 short term memory loss. - Diabetes mellitus, type II ([facility]) - Diabetes type 2, controlled ([facility]) chronic steroid therapy - Dual implantable cardioverter-defibrillator in situ 12/14/2013 Defibrillator Pacemaker Model [id number], serial # [id number] - Essential hypertension - H/O right heart catheterization 11/27/2013 coronaries clear - Heart attack (HCC) 09/28/2000 - Heart attack (HCC) 11/27/2013 first [place] 09/28/2000,second [place]. 20% EF, took 3L of fluid off - Hemiparesis affecting right side as late effect of stroke ([facility]) 02/06/2000 - Hyperthyroidism s/p radiation, currently on Synthroid, Seeing endo-Dr. Billings - Hypothyroidism (acquired) 1665 - Left bundle branch block - LUMBOSACRAL NEURITIS NOS 06/27/2007 - Lupus erythematosus 2005 Dr. Foreman - Other and unspecified hyperlipidemia - Other primary cardiomyopathies 09/28/2000 Cardiomyopathy-Seeing Dr. Rosenberg - Raynaud's syndrome 1999 - Rheumatoid arthritis(714.0) [address] Faulkner - Sjogren's syndrome ([facility]) 1997 - Transverse myelitis ([facility]) 05/31/2006 from flu shot PAST SURGICAL HISTORY Procedure Laterality Date - DEFIBRILLATOR SURGERY 2013 - EXCIS FINGER TENDON FLEXOR - HYSTERECTOMY HX 2011 - INCISION EXTEN FOOT/TOE TENDON - OTOPLASTY - PAST SURGICAL HISTORY OF five foot surgeries [id number], Jarred Donato - PAST SURGICAL HISTORY OF four hand surgeries [id number], Dr. Demond Tejeda - RHINOPLASTY 1989 nasal reconstruction after injury - TUBAL LIGATION HX 01/17/2010 removal of tumors, BTL SOCIAL HISTORY Social History Substance Use Topics - Smoking status: Never Smoker - Smokeless tobacco: Never Used - Alcohol use No FAMILY HISTORY Problem Relation Age of Onset - Arthritis Mother CREST syndrome - Diabetes Mother - Stroke Father - Heart Father - Emphysema Father - Stroke Paternal Grandmother - Stroke Paternal Grandfather - other (DM) Brother - other (CM) Brother possibly ETOH related. ALLERGIES: ALLERGIES Allergen Reactions - Ciprofloxacin Other: See Comments Tendon Rupture. - Citric Acid Shortness of Breath Shortness of breath,swelling of throat - Levaquin [Levofloxa* Unknown - Lisinopril Hives - Tradjenta [Linaglip* Intolerance Nausea - Trileptal [Oxcarbaz* Mental Status Change - Tylox [Oxycodone-Ac* low blood pressure - Zetia [Ezetimibe] Other: See Comments Muscle pain - Zocor [Simvastatin] Swelling severe muscle cramping, liver enzyme abnormalities CURRENT MEDICATIONS: VITAMIN D 50,000 unit capsule once each week. polyethylene glycol 3350 (MIRALAX, GLYCOLAX) 17 gram/dose powder Take 17 g by mouth once daily. esomeprazole (NEXIUM) 40 mg capsule TAKE 1 CAPSULE BY MOUTH ONCE DAILY DULoxetine (CYMBALTA) 30 mg capsule carvedilol (COREG) 6.25 mg tablet Take 1 tablet by mouth twice daily with meals. potassium chloride ER (KLOR-CON M20) 20 mEq tablet Take 1 tablet by mouth once daily. liothyronine (CYTOMEL) 5 mcg tablet Take 5 mcg by mouth once daily. COMPOUNDED PRESCRIPTION Probiotic ramelteon (ROZEREM) 8 mg tablet Take 8 mg by mouth daily at bedtime. loratadine (CLARITIN) 10 mg tablet Take 1 tablet by mouth once daily. colestipol (COLESTID) 1 gram tablet Take 1 tablet by mouth twice daily. busPIRone (BUSPAR) 10 mg tablet Take 1 tablet by mouth once daily. TETRAHYDROZOLINE HCL/ZN SULF (EYE DROPS OPHTHALMIC) Use in eyes. Baush and Lomb 1 drop both eyes evening traMADol (ULTRAM) 50 mg tablet Take 50 mg by mouth every 8 hours as needed. FOLIC ACID ORAL Take 1,600 mg by mouth once daily. estradiol (ESTRACE) 0.01 % (0.1 mg/gram) vaginal cream Use 0.1 g vaginally once each week. fluticasone (FLONASE) 50 mcg/actuation nasal spray Use 1 [place] in each nostril twice daily. levothyroxine (SYNTHROID) 125 mcg tablet Take 1 tablet by mouth once daily. ABATACEPT (ORENCIA SUBCUTANEOUS) Inject subcutaneously. Once a week ALPRAZolam (XANAX) 1 mg tablet Take 1 mg by mouth daily at bedtime. BIOTIN ORAL Take 1,000 mg by mouth once daily. calcium carbonate/vitamin d3(CALCIUM 600 + D 600 MG-400 UNIT TAB) 2 daily ASPIRIN 81 MG TAB Take one(1) tablet daily. COL-RITE 100 MG CAP daily REVIEW OF SYSTEMS: See HPI. PHYSICAL EXAMINATION: BP 116/75 Pulse 72 Ht 167.6 cm (5' 6) Wt 83.3 kg (183 lb 9.6 oz) LMP (LMP Unknown) SpO2 95% BMI 29.63 kg/m? General appearance: no acute distress, conversant Psych: Appropriate affect and insight; alert and oriented to person, place and time HENT: Normal appearing ears and nose; normal hearing Neck: No JVD at sitting;no carotid bruits;Trachea midline; FROM Lungs: Normal respiratory effort; CTAB CV: RRR, no MRGs Abdomen: Soft, non-tender; no HSM Extremities: No lower extremity edema; Normal pulses, no clubbing or cyanosis Skin: No rash or ulcers; Normal temperature, turgor and texture Musculoskeletal: Normal gait CARDIOVASCULAR MEDICINE TESTING: I have personally reviewed the Echocardiogram and Device Check. ECHO: CONCLUSIONS: - Exam indication: Routine surveillance (>1yr) of known cardiomyopathy without a change in clinical status ? - The abnormal regional wall motion pattern in conjunction with the regional wall thickness is consistent with a LBBB abnormal conduction delay. - The left ventricle is small. Left ventricular systolic function is normal. EF = 56 ? 5% (2D biplane) Grade I left ventricular diastolic dysfunction. - The right ventricle is normal in size. Right ventricular systolic function is normal. - There are no significant valvular abnormalities. - Exam was compared with the prior echocardiographic exam performed on 05/18/2017 There is no significant change. DEVICE CHECK: ICD Interpretation BIV ICD EVALUATION ? ? PRESENTS FOR: Patient was at [facility] 02-08-18 with c/o chest pain radiating to neck, had stress test, sent for GI testing. ? Presenting: /BIV PACED. ? UNDERLYING RHYTHM: Sinus Rhythm 65 bpm ? BATTERY STATUS: Normal and shows no significant depletion, EL 3.3 years. ? COUNTERS SINCE 11-22-2017: ? ATRIAL ARRHYTHMIAS: There have been no triggered episodes of atrial high rates. Total time 0%. Anticoagulants listed: ASA 81mg, ? VENTRICULAR ARRHYTHMIAS: There have been no ventricular detections since the last evaluation. ? LEAD MEASUREMENTS: Capture and sensing are appropriate. The pacing outputs maintain safety margin. Review of the lead impedance trends are normal. ? IMPLANT SITE/ SYMPTOMS: The incision and pocket are pain-free (0/10), well healed and without signs of erosion or infection. No arm swelling, syncope, pre-syncope or device related pocket stimulation. ? OTHER DIAGNOSTICS: BIV pacing 98%. RA pacing <1%. ? PROGRAMMING CHANGES MADE TODAY: None. ? FOLLOW UP: : [place] remotes every 3 months and yearly in clinic visits. IMPRESSION: NICM - undertermined etiology (note RA + SS background, history of heart attacks, ? some inflammatory DCM or arteritis related injury from the connective tissue disease) Chronic systolic and diastolic HF HFrecoveredEF - EF 43%/LVIDd 5.6cm 11/2014 ->?50%/LVIDd 4.5cm 01/2016 -> EF 61%/LVIDd 4.6cm 09/2016 S/p ANIMAL BEHAVIORIST-D (underlying LBBB) CVA 1999 Hypothyroidism Sjogrens syndrome, RA GERD Dyslipiedemia ?? NYHA Functional Class: I-II Stage: B/C heart failure Euvolemic on exam with good BP ECHO findings stable with EF 56%, stage 1 diastolic dysfunction 98% BivP on device check today No VA therapies No AF Anxiety/bipolar disorder much better since started on currnet multi-drug regimen above PLAN AND RECOMMENDATIONS: 1. She was instructed to continue the current medical program. 2. May need 2 days of Go-Lytely prep for c-scope. If so, agree with her PCP to admit to [facility] for close monitoring of electrolytes, volume status. 3. RTC in 6 months for a follow-up visit. I personally interviewed, confirmed and edited the above information as obtained by others The majority of the visit was spent counseling and/or coordinating care for the patient. Uahy-bh-qgoy time was 30 minutes. We discussed natural history of disease, current treatment options, and future potential treatment options. We discussed diet, exercise, other non-medical management as above. Destiney Ramirez MD [facility] Section Of Heart Failure and Cardiac Transplant Medicine Heart and [facility] Desk J3-[address] [place] [address] Referring Provider: WINNIE MORENO [[id number]] Allergies As of Date: 02/15/2018 Noted Allergy Reaction CIPROFLOXACIN 12/06/2013 14 - Other: See Comments Comments: Tendon Rupture. CITRIC ACID 03/18/2016 12 - Shortness of Breath Comments: Shortness of breath,swelling of throat LEVAQUIN (LEVOFLOXACIN) 07/02/2015 16 - Unknown LISINOPRIL 05/12/2006 4 - Hives TRADJENTA (LINAGLIPTIN) 07/26/2016 5 - Intolerance Comments: Nausea TRILEPTAL (OXCARBAZEPINE) 09/22/2016 1 - Mental Status Change TYLOX (OXYCODONE-ACETAMINOPHEN) 05/12/2006 Comments: low blood pressure ZETIA (EZETIMIBE) 02/04/2016 14 - Other: See Comments Comments: Muscle pain ZOCOR (SIMVASTATIN) 05/12/2006 7 - Swelling Comments: severe muscle cramping, liver enzyme abnormalities Date Reviewed: 02/15/2018 Reviewed by: Micaela Titus - Fully Assessed Reason for Visit: Follow Up [171] Primary Visit Diagnosis:Biventricular ICD (implantable cardioverter-defibrillator) in place [Z95.810] Other Visit Diagnoses:Chronic combined systolic (congestive) and diastolic (congestive) heart failure (HCC) [I50.42] Nonischemic cardiomyopathy (HCC) [I42.8] Prescriptions as of 02/15/2018 Sig: VITAMIN D2 50,000 UNIT CAPSULE once each week. POLYETHYLENE GLYCOL 3350 17 G* Take 17 g by mouth once daily. ESOMEPRAZOLE MAGNESIUM 40 MG * TAKE 1 CAPSULE BY MOUTH ONCE* DULOXETINE 30 MG CAPSULE,JERRY* CARVEDILOL 6.25 MG TABLET Take 1 tablet by mouth twice * POTASSIUM CHLORIDE ER 20 MEQ * Take 1 tablet by mouth once d* LIOTHYRONINE 5 MCG TABLET Take 5 mcg by mouth once andree* COMPOUNDED PRESCRIPTION Probiotic RAMELTEON 8 MG TABLET Take 8 mg by mouth daily at b* LORATADINE 10 MG TABLET Take 1 tablet by mouth once d* COLESTIPOL 1 GRAM TABLET Take 1 tablet by mouth twice * BUSPIRONE 10 MG TABLET Take 1 tablet by mouth once d* EYE DROPS OPHTHALMIC Use in eyes. Baush and Lomb * TRAMADOL 50 MG TABLET Take 50 mg by mouth every 8 h* FOLIC ACID ORAL Take 1,600 mg by mouth once d* ESTRADIOL 0.01% (0.1 MG/GRAM)* Use 0.1 g vaginally once each* FLUTICASONE 50 MCG/ACTUATION * Use 1 Gridley in each nostril t* LEVOTHYROXINE 125 MCG TABLET Take 1 tablet by mouth once d* ORENCIA SUBCUTANEOUS Inject subcutaneously. Once * ALPRAZOLAM 1 MG TABLET Take 1 mg by mouth daily at b* * BIOTIN ORAL Take 1,000 mg by mouth once d* * CALCIUM 600 + D(3) 600 MG (1,* 2 daily * ASPIRIN 81 MG TABLET Take one(1) tablet daily. 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 LBBB (left bundle branch block) [I44.7] INVALID FOR* Biventricular ICD (implantable cardioverter-def*INVALID FOR* Postablative hypothyroidism [E89.0] INVALID FOR* More... 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 Hearing loss of both ears [H91.93] INVALID FOR* More... Nonischemic cardiomyopathy (HCC) [I42.8] INVALID FOR* Chronic systolic heart failure (HCC) [I50.22] INVALID FOR* More... Sensorineural hearing loss, bilateral [H90.3] INVALID FOR* Tinnitus [H93.19] INVALID FOR* Dizziness and giddiness [R42] INVALID FOR* More... More... 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] Diabetes mellitus, type II (HCC) [E11.9] Compression fracture of L1 lumbar vertebra (HCC*INVALID FOR* Wedge compression fracture of twelfth thoracic *INVALID FOR* Rheumatoid arthritis involving multiple sites (*INVALID FOR*09/01/2016 Heart attack (HCC) [I21.9] INVALID FOR*09/01/2016 More... Sjogren's syndrome (HCC) [M35.00] INVALID FOR* Obstructive sleep apnea syndrome [G47.33] INVALID FOR* More... Other and unspecified hyperlipidemia [E78.5] INVALID FOR* More... Lupus erythematosus [L93.0] INVALID FOR* More... CHF (congestive heart failure) (HCC) [I50.9] INVALID FOR* More... Essential hypertension [I10] Cervicalgia [M54.2] INVALID FOR* More... Type 2 diabetes mellitus without complication, *INVALID FOR* Transition of care performed with sharing of cl*INVALID FOR* More... Medications Discontinued During This Encounter VITAMIN D 50,000 unit capsule 02/07/2018 02/15/2018 Class: Historical Med Si Units once each week. Disc: Adjust Sig - Block E-Cancel Cholecalciferol, Vitamin D3, 2,000 u* 02/15/2018 Class: Historical Med Route: ORAL Sig: Take by mouth. Disc: Discontinued by Patient citalopram hydrobromide (CELEXA) 10 * 0 12/14/2016 02/15/2018 Class: Med Update Route: ORAL Sig: Take 1 tablet by mouth once daily. Disc: Discontinued by another Health Care Provider Cosign accepted by Leticia GARCIA PA-C[[id number]] on 12/14/2016 5:58 PM Disposition: Return in 6 months (on 08/15/2018) for est with [facility]. Follow-up and Disposition History Recorded Encounter Status:Closed by DESTINEY TRIANA MD on 02/15/18 12 LEAD ELECTROCARDIOGRAM Observed: 02/14/2018 Status: F Source: [place] 11:23 AM [facility] REPOSITORY [facility] Cardiovascular Services [address] [place], [place] [address] [address] 12 Lead EKG 02/09/18 0734 MR#: [id number] Acct: [id number] Name: DANA MATOS Rep #: [id number] : 1960 57 From: Santana Becker MD Attending Dr: Cm Ruelas MD Status: DIS ZI Ordering Dr: Bernarda Anutnez Date: 02/09/18 Location: [facility] Sex: F C Admitted: 02/09/18 Test Reason : CP ADMISSION Blood Pressure : / mmHG Vent. Rate : 063 BPM Atrial Rate : 063 BPM P-R Int : 132 ms QRS Dur : 112 ms QT Int : 484 ms P-R-T Axes : 031 237 066 degrees QTc Int : 495 ms Atrial-sensed ventricular-paced rhythm Biventricular pacemaker detected Abnormal ECG When compared with ECG of 09-FEB-2018 05:12, MANUAL COMPARISON REQUIRED, DATA IS UNCONFIRMED Confirmed by SANTANA BECKER ([id number]), food expeditor JEFF GUILLORY ([id number]) on 02/14/2018 11:23:14 AM Referred By: ASHLEIGH Confirmed By:SANTANA EBCKER 02/14/18 1123 Date Santana Becker MD CC: Bernarda Antunez; Cm Ruelas MD; Demond Little MD Signed COMP METABOLIC PANEL Collected: 02/13/2018 Status: F Source: [place] 9:55 AM [facility] TYPE CODE TESTS RESULT OUT OF REFERENCE UNITS RANGE LAB TP 6.3-8.0 g/dL Protein, Total 6.5 LAB ALB 3.9-4.9 g/dL Low Albumin 3.8 LAB CA 8.5-10.2 mg/dL Calcium, Total 9.1 LAB TBIL 0.2-1.3 mg/dL Bilirubin, Total 0.2 LAB ALKP 34-123 U/L Alkaline Phosphatase 43 LAB AST 13-35 U/L AST 13 LAB GLU 74-99 mg/dL Glucose High 190 Result Comment: The [place] Diabetes Association (ADA) provides guidance for cutoff values for fasting glucose and random glucose. The ADA defines fasting as no caloric intake for at least 8 hours. Fas ting plasma glucose results between 100 to 125 mg/dL indicate increased risk for diabetes (prediabetes). Fasting plasma glucose results greater than or equal to 126 mg/dL meet the criteria for diagnosis of diabetes. In the absence of unequivocal hyperglycemia, results should be confirmed by repeat testing. In a patient with classic symptoms of hyperglycemia or hyperglycemic crisis, random plasma glucose results greater than or equal to 200 mg/dL meet the criteria for diagnosis of diabetes. Reference: Standards of Medical Care in Diabetes 2016, [place] [employer] Association. Diabetes Care. 2016.39(Suppl 1). LAB BUN 7-21 mg/dL BUN 17 LAB CRET 0.58-0.96 mg/dL Creatinine High 1.06 LAB NA 136-144 mmol/L Sodium 141 LAB K 3.7-5.1 mmol/L Potassium 3.8 LAB CL 97-105 mmol/L Chloride 100 LAB CO2 22-30 mmol/L CO2 28 LAB AGAP 9-18 mmol/L Anion Gap 13 LAB ALT 7-38 U/L ALT 11 LAB GFRAA eGFR- Amer. >60 LAB GFRNAA . eGFR-All Other Races 54 Result Comment: eGFR (Estimated GFR) Units of measure: mL/min/1.73 meters squared eGFR is derived from the reexpressed MDRD Study equation using the following parameters: serum creatinine, age, gender and race. The creatinine assay has been calibrated to be traceable to IDMS. An eGFR <60 mL/min/1.73m2 for >3 months is consistent with chronic kidney disease. Refer to KDOQI guidelines for clinical interpretation. In patients with unstable renal function, e.g. those with acute kidney injury, the eGFR may not accurately reflect actual GFR. Performed By: #### CMP, CBCDIF, HPYLRI #### [facility] [address], [place] [address] CBC AND DIFFERENTIAL Collected: 02/13/2018 Status: F Source: [place] 9:[address] [facility] [place] REPOSITORY TYPE CODE TESTS RESULT OUT OF REFERENCE UNITS RANGE LAB WBC 3.70-11.00 k/uL WBC 6.68 LAB RBC 3.90-5.20 m/uL RBC 4.01 LAB HGB 11.5-15.5 g/dL Hemoglobin 12.8 LAB HCT 36.0-46.0 % Hematocrit 40.5 LAB MCV 80.0-100.0 fL MCV High 101.0 LAB MCH 26.0-34.0 pG MCH 31.9 LAB MCHC 30.5-36.0 g/dL MCHC 31.6 LAB RDWCV 11.5-15.0 % RDW-CV 13.9 LAB PLTCT 150-400 k/uL Platelet Count 229 LAB MPV 9.0-12.7 fL MPV 10.0 LAB ANEUT % Neut% 56.8 LAB AANEUT 1.45-7.50 k/uL Abs Neut 3.79 LAB ALYMP % Lymph% 33.7 LAB AALYMP 1.00-4.00 k/uL Abs Lymph 2.25 LAB AMONO % Hale% 7.6 LAB AAMONO <0.87 k/uL Abs Hale 0.51 LAB AEOS % Eosin% 1.3 LAB AAEOS <0.46 k/uL Abs Eosin 0.09 LAB ABASO % Baso% 0.6 LAB AABASO <0.11 k/uL Abs Baso 0.04 LAB AUNRBC 0 /100 WBC NRBCs 0.0 LAB ABNRBC <0.01 k/uL Absolute nRBC <0.01 LAB DTYP DTYPE Auto Diff Performed By: #### CMP, CBCDIF, HPYLRI #### [facility] [address] [place], [place] [address] HELICO PYLORI AB Collected: 02/13/2018 Status: F Source: [place] 9:55 AM [facility] REPOSITORY TYPE CODE TESTS RESULT OUT OF REFERENCE UNITS RANGE LAB HPYLRL Negative H. pylori Negative IgG, Qual Result Comment: H. pylori IgG antibodies were not detected in the sample. Negative results by this test do not preclude recent primary infection. LAB HPYLR U/mL H pylori Ab, IgG <0.4 Result Comment: U/mL are interpreted as follows: Negative specimens <0.9 Indeterminate specimens >=0.9 to <1.1 Positive specimens >=1.1 Results were obtained with the IMMULITE 2000 H.pylori IgG EIA. Results obtained from other manufacturers' assay methods may not be used interchangeably. Performed By: #### CMP, CBCDIF, HPYLRI #### [facility] [address] [place], [place] [address] PROGRESS Observed: 02/13/2018 Status: COMPLETED Source: [place] 9:12 AM [facility] REPOSITORY HNO ID: [id number] Author: Елена (Barbara) Joy Service: (none) Author Type: Nurse Practitioner Type: Progress Notes Filed: 02/13/2018 12:21 PM Note Text: 02/13/2018 Patient presents with: Hospital F/U: chest pain left breast neck pain SUBJECTIVE: This is a 57 year old that is here today for ER follow up. She was seen 02/09 for CP on the left side that radiated up her neck and down the left arm. She states that the pain was starting in the RUQ just below the rib cage. She described it as a gassy pressure. BP was elevated upon arrival at 173/111. EKG was paced at 65 with no signs of acute ischemia. Normal labs, negative troponin. CXR showed fibrotic changes in the lungs, normal heart size and pacer leads appropriately placed. She had taken tylenol before calling the squad because she was worried about having another FL. She was treated with labetalol for her elevated BP. No concerns found during stress test except a rare PVC. She states that since leaving the ER, the pain is gone, but she continues with a bloating sensation and increased flatulence. She has been taking her stool softener and probiotic. She denies any reflux. She is taking nexium. She denies blood in her stools. She has a BM about every other day and it is soft and formed. This is her baseline. She is worried about never having a complete colonoscopy because of inadequate prep. She states that she is due to have one. She is worried about taking the prep because of her heart concerns and the way that it makes her feel. She is at her baseline for breathing. She denies lightheadedness, dizziness, headaches. She feels that she is eating at baseline. Denies NVD. No urinary concerns. No RUQ pain. 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 - Diabetes mellitus, type II ([facility]) - Diabetes type 2, controlled ([facility]) chronic steroid therapy - Dual implantable cardioverter-defibrillator in situ 12/14/2013 Defibrillator Pacemaker Model [id number], serial # [id number] - Essential hypertension - H/O right heart catheterization 11/27/2013 coronaries clear - Heart attack ([facility]) 09/28/2000 - Heart attack ([facility]) 11/27/2013 first FL 09/28/2000,second FL. 20% EF, took 3L of fluid off - Hemiparesis affecting right side as late effect of stroke ([facility]) 02/06/2000 - Hyperthyroidism s/p radiation, currently on Synthroid, Seeing endo-Dr. Billings - Hypothyroidism (acquired) 1665 - Left bundle branch block - LUMBOSACRAL NEURITIS NOS 06/27/2007 - Lupus erythematosus 2005 Dr. Foreman - Other and unspecified hyperlipidemia - Other primary cardiomyopathies 09/28/2000 Cardiomyopathy-Seeing Dr. Rosenberg - Raynaud's syndrome 1999 - Rheumatoid arthritis(714.0) [address] Faulkner - Sjogren's syndrome ([facility]) 1997 - Transverse myelitis ([facility]) 05/31/2006 from flu shot ALLERGIES Ciprofloxacin; Citric Acid; Levaquin [Levofloxacin]; Lisinopril; Tradjenta [Linagliptin]; Trileptal [Oxcarbazepine]; Tylox [Oxycodone-Acetaminophen]; Zetia [Ezetimibe]; Zocor [Simvastatin] MEDICATIONS Current Outpatient Prescriptions: esomeprazole (NEXIUM) 40 mg capsule TAKE 1 CAPSULE BY MOUTH ONCE DAILY DULoxetine (CYMBALTA) 30 mg capsule nitrofurantoin (MACRODANTIN) 100 mg capsule Take 1 capsule by mouth four times daily. carvedilol (COREG) 6.25 mg tablet Take 1 tablet by mouth twice daily with meals. potassium chloride ER (KLOR-CON M20) 20 mEq tablet Take 1 tablet by mouth once daily. liothyronine (CYTOMEL) 5 mcg tablet Take 5 mcg by mouth once daily. Cholecalciferol, Vitamin D3, 2,000 unit cap Take by mouth. COMPOUNDED PRESCRIPTION Probiotic ramelteon (ROZEREM) 8 mg tablet Take 8 mg by mouth daily at bedtime. loratadine (CLARITIN) 10 mg tablet Take 1 tablet by mouth once daily. colestipol (COLESTID) 1 gram tablet Take 1 tablet by mouth twice daily. citalopram hydrobromide (CELEXA) 10 mg tablet Take 1 tablet by mouth once daily. busPIRone (BUSPAR) 10 mg tablet Take 1 tablet by mouth once daily. TETRAHYDROZOLINE HCL/ZN SULF (EYE DROPS OPHTHALMIC) Use in eyes. Baush and Lomb 1 drop both eyes evening traMADol (ULTRAM) 50 mg tablet Take 50 mg by mouth every 8 hours as needed. FOLIC ACID ORAL Take 1,600 mg by mouth once daily. estradiol (ESTRACE) 0.01 % (0.1 mg/gram) vaginal cream Use 0.1 g vaginally once each week. fluticasone (FLONASE) 50 mcg/actuation nasal spray Use 1 [place] in each nostril twice daily. levothyroxine (SYNTHROID) 125 mcg tablet Take 1 tablet by mouth once daily. ABATACEPT (ORENCIA SUBCUTANEOUS) Inject subcutaneously. Once a week ALPRAZolam (XANAX) 1 mg tablet Take 1 mg by mouth daily at bedtime. BIOTIN ORAL Take 1,000 mg by mouth once daily. calcium carbonate/vitamin d3(CALCIUM 600 + D 600 MG-400 UNIT TAB) 2 daily ASPIRIN 81 MG TAB Take one(1) tablet daily. COL-RITE 100 MG CAP daily No current facility-administered medications for this visit. Medications and allergies reviewed by this provider. SOCIAL HISTORY Social History Marital status: Spouse name: Years of education: Number of children: Social History Main Topics Smoking status: Never Smoker Smokeless tobacco: Never Used Alcohol use: No Drug use: No Sexual activity: Yes Partners with: Male REVIEW OF SYSTEMS see HPI OBJECTIVE: BP 118/74 Pulse 69 Resp 20 Wt 82.6 kg (182 lb) LMP (LMP Unknown) SpO2 96% BMI 29.38 kg/m? . Vital signs reviewed by this provider. PHYSICAL EXAMINATION: General appearance: Well appearing, alert, in no acute distress, well-hydrated, well nourished. Skin: Skin color, texture, turgor normal, no suspicious rashes or lesions Lungs: Lungs clear to auscultation. No wheezing, rhonchi, rales Heart: RRR without murmur, gallop, or rubs. No ectopy Abdomen: Normal abdominal exam, Abdomen soft, non-tender. Bowel sounds normal. No masses, organomegaly Extremities: No deformities, edema, skin discoloration, clubbing or cyanosis. Good capillary refill. , Pulses: 2+ ASSESSMENT/PLAN: 1. Bloating - ICD9: 787.3, ICD10: R14.0 (primary diagnosis) - will test for h. Pylori and encouraged daily miralax to see if there is any improvement. Encouraged to watch for food triggers and avoid if able. May need to trial a no dairy diet to see if that is the cause. - POLYETHYLENE GLYCOL 3350 17 GRAM/DOSE ORAL POWDER - H PYLORI IGG AB - CONSULT TO GENERAL SURGERY 2. Flatulence/gas pain/belching - ICD9: 787.3, ICD10: R14.0 - see above - POLYETHYLENE GLYCOL 3350 17 GRAM/DOSE ORAL POWDER - H PYLORI IGG AB - CONSULT TO GENERAL SURGERY 3. Follow up - ICD9: V67.9, ICD10: Z09 - stable 4. Chest pain, unspecified type - ICD9: 786.50, ICD10: R07.9 - resolved - discussed red flags and when to return to the ER 5. Essential hypertension - ICD9: 401.9, ICD10: I10 - good control - Continue current medication(s) - Encouraged dietary sodium restriction/DASH diet - Recommended regular aerobic exercise. - Recommend home blood pressure monitoring, to bring results in on next visit - Reviewed risks of HTN and principles of treatment - Goal of BP <130/80 - Recommended no refined sugar, low refined starch, healthy oil intake (olive oil), healthy protein (fish) along the lines of the Mediterranean diet. 6. Screening for colon cancer - ICD9: V76.51, ICD10: Z12.11 - CONSULT TO GENERAL SURGERY 7. Gastroesophageal reflux disease, esophagitis presence not specified - ICD9: 530.81, ICD10: K21.9 - controlled - CONSULT TO GENERAL SURGERY Елена Hamilton APRN.CNP CNOV Observed: 02/13/2018 Status: COMPLETED Source: [place] 9:00 AM [facility] REPOSITORY Office Visit (FAMPWS) DANA MATOS ([id number]) 1960 F Date Time Provider Department 02/13/18 9:00 AM ЕЛЕНА HAMIL[facility] During your visit today, we recorded the following information about you: Pulse Respiration Blood pressure Weight 69/minute 20/minute 118/74 82.6 kg Елена Hamilton APRN.CNP 02/13/2018 12:21 PM Signed 02/13/2018 Patient presents with: Hospital F/U: chest pain left breast neck pain SUBJECTIVE: This is a 57 year old that is here today for ER follow up. She was seen 02/09 for CP on the left side that radiated up her neck and down the left arm. She states that the pain was starting in the RUQ just below the rib cage. She described it as a gassy pressure. BP was elevated upon arrival at 173/111. EKG was paced at 65 with no signs of acute ischemia. Normal labs, negative troponin. CXR showed fibrotic changes in the lungs, normal heart size and pacer leads appropriately placed. She had taken tylenol before calling the squad because she was worried about having another FL. She was treated with labetalol for her elevated BP. No concerns found during stress test except a rare PVC. She states that since leaving the ER, the pain is gone, but she continues with a bloating sensation and increased flatulence. She has been taking her stool softener and probiotic. She denies any reflux. She is taking nexium. She denies blood in her stools. She has a BM about every other day and it is soft and formed. This is her baseline. She is worried about never having a complete colonoscopy because of inadequate prep. She states that she is due to have one. She is worried about taking the prep because of her heart concerns and the way that it makes her feel. She is at her baseline for breathing. She denies lightheadedness, dizziness, headaches. She feels that she is eating at baseline. Denies NVD. No urinary concerns. No RUQ pain. 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 - Diabetes mellitus, type II ([facility]) - Diabetes type 2, controlled ([facility]) chronic steroid therapy - Dual implantable cardioverter-defibrillator in situ 12/14/2013 Defibrillator Pacemaker Model [id number], serial # [id number] - Essential hypertension - H/O right heart catheterization 11/27/2013 coronaries clear - Heart attack ([facility]) 09/28/2000 - Heart attack ([facility]) 11/27/2013 first FL 09/28/2000,second FL. 20% EF, took 3L of fluid off - Hemiparesis affecting right side as late effect of stroke ([facility]) 02/06/2000 - Hyperthyroidism s/p radiation, currently on Synthroid, Seeing endo-Dr. Billings - Hypothyroidism (acquired) 1665 - Left bundle branch block - LUMBOSACRAL NEURITIS NOS 06/27/2007 - Lupus erythematosus 2005 Dr. Foreman - Other and unspecified hyperlipidemia - Other primary cardiomyopathies 09/28/2000 Cardiomyopathy-Seeing Dr. Rosenberg - Raynaud's syndrome 1999 - Rheumatoid arthritis(714.0) [address] Faulkner - Sjogren's syndrome ([facility]) 1997 - Transverse myelitis ([facility]) 05/31/2006 from flu shot ALLERGIES Ciprofloxacin; Citric Acid; Levaquin [Levofloxacin]; Lisinopril; Tradjenta [Linagliptin]; Trileptal [Oxcarbazepine]; Tylox [Oxycodone-Acetaminophen]; Zetia [Ezetimibe]; Zocor [Simvastatin] MEDICATIONS Current Outpatient Prescriptions: esomeprazole (NEXIUM) 40 mg capsule TAKE 1 CAPSULE BY MOUTH ONCE DAILY DULoxetine (CYMBALTA) 30 mg capsule nitrofurantoin (MACRODANTIN) 100 mg capsule Take 1 capsule by mouth four times daily. carvedilol (COREG) 6.25 mg tablet Take 1 tablet by mouth twice daily with meals. potassium chloride ER (KLOR-CON M20) 20 mEq tablet Take 1 tablet by mouth once daily. liothyronine (CYTOMEL) 5 mcg tablet Take 5 mcg by mouth once daily. Cholecalciferol, Vitamin D3, 2,000 unit cap Take by mouth. COMPOUNDED PRESCRIPTION Probiotic ramelteon (ROZEREM) 8 mg tablet Take 8 mg by mouth daily at bedtime. loratadine (CLARITIN) 10 mg tablet Take 1 tablet by mouth once daily. colestipol (COLESTID) 1 gram tablet Take 1 tablet by mouth twice daily. citalopram hydrobromide (CELEXA) 10 mg tablet Take 1 tablet by mouth once daily. busPIRone (BUSPAR) 10 mg tablet Take 1 tablet by mouth once daily. TETRAHYDROZOLINE HCL/ZN SULF (EYE DROPS OPHTHALMIC) Use in eyes. Baush and Lomb 1 drop both eyes evening traMADol (ULTRAM) 50 mg tablet Take 50 mg by mouth every 8 hours as needed. FOLIC ACID ORAL Take 1,600 mg by mouth once daily. estradiol (ESTRACE) 0.01 % (0.1 mg/gram) vaginal cream Use 0.1 g vaginally once each week. fluticasone (FLONASE) 50 mcg/actuation nasal spray Use 1 [place] in each nostril twice daily. levothyroxine (SYNTHROID) 125 mcg tablet Take 1 tablet by mouth once daily. ABATACEPT (ORENCIA SUBCUTANEOUS) Inject subcutaneously. Once a week ALPRAZolam (XANAX) 1 mg tablet Take 1 mg by mouth daily at bedtime. BIOTIN ORAL Take 1,000 mg by mouth once daily. calcium carbonate/vitamin d3(CALCIUM 600 + D 600 MG-400 UNIT TAB) 2 daily ASPIRIN 81 MG TAB Take one(1) tablet daily. COL-RITE 100 MG CAP daily No current facility-administered medications for this visit. Medications and allergies reviewed by this provider. SOCIAL HISTORY Social History Marital status: Spouse name: Years of education: Number of children: Social History Main Topics Smoking status: Never Smoker Smokeless tobacco: Never Used Alcohol use: No Drug use: No Sexual activity: Yes Partners with: Male REVIEW OF SYSTEMS see HPI OBJECTIVE: BP 118/74 Pulse 69 Resp 20 Wt 82.6 kg (182 lb) LMP (LMP Unknown) SpO2 96% BMI 29.38 kg/m? . Vital signs reviewed by this provider. PHYSICAL EXAMINATION: General appearance: Well appearing, alert, in no acute distress, well-hydrated, well nourished. Skin: Skin color, texture, turgor normal, no suspicious rashes or lesions Lungs: Lungs clear to auscultation. No wheezing, rhonchi, rales Heart: RRR without murmur, gallop, or rubs. No ectopy Abdomen: Normal abdominal exam, Abdomen soft, non-tender. Bowel sounds normal. No masses, organomegaly Extremities: No deformities, edema, skin discoloration, clubbing or cyanosis. Good capillary refill. , Pulses: 2+ ASSESSMENT/PLAN: 1. Bloating - ICD9: 787.3, ICD10: R14.0 (primary diagnosis) - will test for h. Pylori and encouraged daily miralax to see if there is any improvement. Encouraged to watch for food triggers and avoid if able. May need to trial a no dairy diet to see if that is the cause. - POLYETHYLENE GLYCOL 3350 17 GRAM/DOSE ORAL POWDER - H PYLORI IGG AB - CONSULT TO GENERAL SURGERY 2. Flatulence/gas pain/belching - ICD9: 787.3, ICD10: R14.0 - see above - POLYETHYLENE GLYCOL 3350 17 GRAM/DOSE ORAL POWDER - H PYLORI IGG AB - CONSULT TO GENERAL SURGERY 3. Follow up - ICD9: V67.9, ICD10: Z09 - stable 4. Chest pain, unspecified type - ICD9: 786.50, ICD10: R07.9 - resolved - discussed red flags and when to return to the ER 5. Essential hypertension - ICD9: 401.9, ICD10: I10 - good control - Continue current medication(s) - Encouraged dietary sodium restriction/DASH diet - Recommended regular aerobic exercise. - Recommend home blood pressure monitoring, to bring results in on next visit - Reviewed risks of HTN and principles of treatment - Goal of BP <130/80 - Recommended no refined sugar, low refined starch, healthy oil intake (olive oil), healthy protein (fish) along the lines of the Mediterranean diet. 6. Screening for colon cancer - ICD9: V76.51, ICD10: Z12.11 - CONSULT TO GENERAL SURGERY 7. Gastroesophageal reflux disease, esophagitis presence not specified - ICD9: 530.81, ICD10: K21.9 - controlled - CONSULT TO GENERAL SURGERY Елена Hamilton APRN.[employer]ATOR Referring Provider: SELF [[id number]] Allergies As of Date: 02/13/2018 Noted Allergy Reaction CIPROFLOXACIN 12/06/2013 14 - Other: See Comments Comments: Tendon Rupture. CITRIC ACID 03/18/2016 12 - Shortness of Breath Comments: Shortness of breath,swelling of throat LEVAQUIN (LEVOFLOXACIN) 07/02/2015 16 - Unknown LISINOPRIL 05/12/2006 4 - Hives TRADJENTA (LINAGLIPTIN) 07/26/2016 5 - Intolerance Comments: Nausea TRILEPTAL (OXCARBAZEPINE) 09/22/2016 1 - Mental Status Change TYLOX (OXYCODONE-ACETAMINOPHEN) 05/12/2006 Comments: low blood pressure ZETIA (EZETIMIBE) 02/04/2016 14 - Other: See Comments Comments: Muscle pain ZOCOR (SIMVASTATIN) 05/12/2006 7 - Swelling Comments: severe muscle cramping, liver enzyme abnormalities Date Reviewed: 02/13/2018 Reviewed by: Angella Deluna MA - Fully Assessed Reason for Visit: Hospital F/U [57] Cmt: chest pain left breast neck pain Primary Visit Diagnosis:Bloating [R14.0] Other Visit Diagnoses:Flatulence/gas pain/belching [R14.0] Follow up [Z09] Chest pain, unspecified type [R07.9] Essential hypertension [I10] Screening for colon cancer [Z12.11] Gastroesophageal reflux disease, esophagitis presence not specified [K21.9] Order(s):polyethylene glycol 3350 (MIRALAX, GLYCOLAX) 17 gram/dose powderTake 17 g by mouth once daily.Disp: 1 BottleRfl: 1 H PYLORI IGG AB [SQHPYLRI] Order #: [id number] FUTURE CONSULT TO GENERAL SURGERY [9011] Order #: [id number]: 1 Prescriptions as of 02/13/2018 Sig: ESOMEPRAZOLE MAGNESIUM 40 MG * TAKE 1 CAPSULE BY MOUTH ONCE* DULOXETINE 30 MG CAPSULE,JERRY* CARVEDILOL 6.25 MG TABLET Take 1 tablet by mouth twice * POTASSIUM CHLORIDE ER 20 MEQ * Take 1 tablet by mouth once d* LIOTHYRONINE 5 MCG TABLET Take 5 mcg by mouth once andree* CHOLECALCIFEROL (VITAMIN D3) * Take by mouth. COMPOUNDED PRESCRIPTION Probiotic RAMELTEON 8 MG TABLET Take 8 mg by mouth daily at b* LORATADINE 10 MG TABLET Take 1 tablet by mouth once d* COLESTIPOL 1 GRAM TABLET Take 1 tablet by mouth twice * CITALOPRAM 10 MG TABLET Take 1 tablet by mouth once d* BUSPIRONE 10 MG TABLET Take 1 tablet by mouth once d* EYE DROPS OPHTHALMIC Use in eyes. Baush and Lomb * TRAMADOL 50 MG TABLET Take 50 mg by mouth every 8 h* FOLIC ACID ORAL Take 1,600 mg by mouth once d* ESTRADIOL 0.01% (0.1 MG/GRAM)* Use 0.1 g vaginally once each* FLUTICASONE 50 MCG/ACTUATION * Use 1 Gridley in each nostril t* LEVOTHYROXINE 125 MCG TABLET Take 1 tablet by mouth once d* ORENCIA SUBCUTANEOUS Inject subcutaneously. Once * ALPRAZOLAM 1 MG TABLET Take 1 mg by mouth daily at b* * BIOTIN ORAL Take 1,000 mg by mouth once d* * CALCIUM 600 + D(3) 600 MG (1,* 2 daily * ASPIRIN 81 MG TABLET Take one(1) tablet daily. * COL-RITE 100 MG CAPSULE daily POLYETHYLENE GLYCOL 3350 17 G* Take 17 g by mouth once daily. Problem List As Of Date 02/13/2018 Noted Resolved BRACHIAL NEURITIS NOS [M54.12] INVALID FOR*11/06/2014 CERVICAL DISC DEGEN [M50.30] INVALID FOR* Rheumatoid arthritis (HCC) [M06.9] INVALID FOR* CAD (coronary artery disease) [I25.10] INVALID FOR* More... LBBB (left bundle branch block) [I44.7] INVALID FOR* Biventricular ICD (implantable cardioverter-def*INVALID FOR* Postablative hypothyroidism [E89.0] INVALID FOR* More... 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 Hearing loss of both ears [H91.93] INVALID FOR* More... Nonischemic cardiomyopathy (HCC) [I42.8] INVALID FOR* Chronic systolic heart failure (HCC) [I50.22] INVALID FOR* More... Sensorineural hearing loss, bilateral [H90.3] INVALID FOR* Tinnitus [H93.19] INVALID FOR* Dizziness and giddiness [R42] INVALID FOR* More... More... 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] Diabetes mellitus, type II (HCC) [E11.9] Compression fracture of L1 lumbar vertebra (HCC*INVALID FOR* Wedge compression fracture of twelfth thoracic *INVALID FOR* Rheumatoid arthritis involving multiple sites (*INVALID FOR*09/01/2016 Heart attack (HCC) [I21.9] INVALID FOR*09/01/2016 More... Sjogren's syndrome (HCC) [M35.00] INVALID FOR* Obstructive sleep apnea syndrome [G47.33] INVALID FOR* More... Other and unspecified hyperlipidemia [E78.5] INVALID FOR* More... Lupus erythematosus [L93.0] INVALID FOR* More... CHF (congestive heart failure) (HCC) [I50.9] INVALID FOR* More... Essential hypertension [I10] Cervicalgia [M54.2] INVALID FOR* More... Type 2 diabetes mellitus without complication, *INVALID FOR* Transition of care performed with sharing of cl*INVALID FOR* More... Prescriptions ordered this encounter Disp Refills Start End POLYETHYLENE GLYCOL 3350 17 GRAM/DOS* 1 Javier* 1 02/13/2018 Route: ORAL Sig: Take 17 g by mouth once daily. Medications Discontinued During This Encounter nitrofurantoin (MACRODANTIN) 100 mg * 14 c* 0 12/16/2017 02/13/2018 Route: ORAL Sig: Take 1 capsule by mouth four times daily. Disc: Reason for discontinue is not on file. Disposition: Return if symptoms worsen or fail to improve. Follow-up and Disposition History Recorded Encounter Status:Closed by ЕЛЕНА HAMILTON on 02/13/18 CBC W/DIFF, AUTOMATED Collected: 02/10/2018 Status: F Source: [place] 1:52 PM [facility] REPOSITORY Order Comment: DR. JENKINS ORDERED CMP CBCD TYPE CODE TESTS RESULT OUT OF RANGE REFERENCE UNITS LAB L100.1000 4.4-11.0 K/mm3 Normal WBC 7.1 LAB L100.1200 4.2-5.4 M/mm3 Normal RBC 4.27 LAB L100.1300 12.0-15.0 g/dl Normal HGB 13.5 LAB L100.1400 37-47 % Normal HCT 42.3 LAB L100.1500 81-99 fL High MCV 99.1 LAB L100.1600 27.0-32.0 pg Normal MCH 31.6 LAB L100.1700 32-36 g/gl Low MCHC 31.9 LAB L100.1810 11.6-14.6 % Normal RDW CV 14.5 LAB L100.1820 35.1-43.9 fl High RDW SD 51.8 LAB L100.1900 150-450 K/mm3 Normal PLT 224 LAB L100.2000 6.2-12.0 fl Normal MPV 10.2 LAB L100.2100 47-70 % High NEUT% 70.9 LAB L100.2200 19-41 % Normal LY% 21.2 LAB L100.2300 0-10 % Normal MONO% 6.3 LAB L100.2400 0-5 % Normal EO% 1.0 LAB L100.2500 0-1 % Normal BASO% 0.3 LAB L100.2550 0.0-0.9 % Normal IM GRAN % 0.300 Result Comment: IG% - Immature Granulocytes (promyelocytes, myelocytes and metamyelocytes) > 1% indicates that a LEFT SHIFT is Present. LAB L100.2620 2.0-7.7 X10 3/uL Normal Absolute Neut 5.1 LAB L100.2720 0.83-4.51 X10 3/ul Normal Absolute Lymph 1.51 Performed By: #### L100.0100 #### [facility] [address] [place], [place], [address] VITAMIN D,25 HYDROXY Collected: 02/10/2018 Status: F Source: [place] 1:50 PM [facility] REPOSITORY Order Comment: DR. JENKINS ORDERED CMP CBCD TYPE CODE TESTS RESULT OUT OF RANGE REFERENCE UNITS LAB L506.1000 29.95-100.01 ng/mL Normal Vitamin D 68.9 25-OH Result Comment: Vitamin D 25(OH) Status Range Deficiency <20 ng/mL (50nmol/L) Insuffciency 20 - 30 ng/mL (50 - 75 nmol/L) Sufficiency 30 - 100 ng/mL (75 - 250 nmol/L) Toxicity >100 ng/mL (>250 nmol/L) Performed By: #### L506.1000 #### [facility] [address] [place], [address] COMPREHENSIVE METABOLIC Collected: 02/10/2018 Status: F Source: [place] [facility] 1:50 PM [facility] REPOSITORY Order Comment: DR. JENKINS ORDERED CMP CBCD TYPE CODE TESTS RESULT OUT OF RANGE REFERENCE UNITS LAB L501.0100 74-106 mg/dL High GLU 132 Result Comment: Fasting Glucose result greater than or equal to 126 mg/dL suggests DIABETES MELLITUS per A.D.A. criteria. Please note revised GLUCOSE reference range effective 2017. LAB L501.1000 7-18 mg/dL Normal BUN 18 LAB L501.1100 0.55-1.02 mg/dL Normal CREAT,SERUM 1.01 Result Comment: The validity of the calculated GFR AND GFRAA in patients over 70 years has not been determined. Clinical correlation is essential. LAB L501.1110 >60 mL/min Normal EST GFR 60 Result Comment: Non- GFR Calc LAB L501.1115 >60 mL/min Normal EST GFR - AA 73 Result Comment: GFR Calc LAB L501.1300 10-20 RATIO Normal BUN/CRE 17.8 LAB L501.1500 6.4-8.2 g/dL T Normal PROT 7.0 LAB L501.1800 3.2-5.0 g/dL Normal ALB 3.2 LAB L501.1950 2.2-4.2 g/dL Normal GLOB 3.8 LAB L501.2000 0.9-2.4 RATIO Low A/G 0.8 LAB L501.2200 8.5-10.1 mg/dL CA Normal 8.9 LAB L501.4100 15-37 U/L Low AST 7 LAB L501.4305 45-117 U/L Normal ALK P 51 LAB L501.4405 13-56 U/L Normal ALT 16 LAB L501.4600 0.20-1.00 mg/dL T Normal BILI 0.50 LAB L501.5300 136-145 mmol/L NA Normal 140 LAB L501.5600 3.5-5.1 mmol/L K Normal 3.8 LAB L501.5900 98-107 mmol/L CL Normal 103 LAB L501.6100 21.0-32.0 mmol/L Normal CO2 29.0 LAB L501.6200 5-15 Normal GAP 8 Performed By: #### L500.4050, L500.4100, L501.01631, L501.9520, L506.0400 #### [facility] [address] [place], [place], [id number] LIPID PROFILE Collected: 02/10/2018 Status: F Source: [place] 1:50 PM [facility] REPOSITORY Order Comment: DR. JENKINS ORDERED CMP CBCD TYPE CODE TESTS RESULT OUT OF RANGE REFERENCE UNITS LAB L501.4900 200 mg/dL High CHOL 225 Result Comment: <200 mg/dL Desirable 200-240 mg/dL Borderline >240 mg/dL High Risk LAB L501.5000 mg/dL Normal TRIG 62 Result Comment: The drugs N-Acetylcysteine and Metamizole may falsely depress this assay. Serum Triglycerides Reference Interval Normal <150 mg/dL Borderline high 150 - 199 mg/dL High 200 - 499 mg/dL Very High > or = 500 mg/dL LAB L501.6400 mg/dL Normal HDL 75 Result Comment: The drugs N-Acetylcysteine and Metamizole may falsely depress this assay. Reference Range HDL <40 mg/dL Low HDL Cholesterol HDL >or= 60 mg/dL High HDL Cholesterol LAB L501.6500 0-130 mg/dL High LDL 138 LAB L501.6600 5-40 mg/dL Normal VLDL 12 Performed By: #### L500.4050, L500.4100, L501.54471, L501.9520, L506.0400 #### [facility] [address] [place], [place], [address] FREE T3 Collected: 02/10/2018 Status: F Source: [place] 1:50 PM [facility] REPOSITORY Order Comment: DR. JENKINS ORDERED CMP CBCD TYPE CODE TESTS RESULT OUT OF RANGE REFERENCE UNITS LAB L501.30910 2.18-3.98 pg/mL Normal FREE T3 3.0 Performed By: #### L500.4050, L500.4100, L501.21386, L501.9520, L506.0400 #### [facility] [address] [place], [address] THYROID STIM HORMONE Collected: 02/10/2018 Status: F Source: [place] ([place]) 1:50 PM [facility] REPOSITORY Order Comment: DR. JENKINS ORDERED [facility] CBCD TYPE CODE TESTS RESULT OUT OF RANGE REFERENCE UNITS LAB L501.9520 0.358-3.74 uIU/mL Normal TSH 0.36 Performed By: #### L500.4050, L500.4100, L501.27821, L501.9520, L506.0400 #### [facility] [address] [place], [address] T4 FREE DIRECT Collected: 02/10/2018 Status: F Source: [place] 1:50 PM [facility] REPOSITORY Order Comment: DR. JENKINS ORDERED [facility] CBCD TYPE CODE TESTS RESULT OUT OF RANGE REFERENCE UNITS LAB L506.0400 0.76-1.46 ng/dL Normal T4 FREE 1.22 DIRECT Performed By: #### L500.4050, L500.4100, L501.28625, L501.9520, L506.0400 #### [facility] [address] [place], [address] HEMOGLOBIN A1C Collected: 02/10/2018 Status: F Source: [place] 1:50 PM [facility] REPOSITORY TYPE CODE TESTS RESULT OUT OF RANGE REFERENCE UNITS LAB L501.9985 4.2-6.3 % Normal HGB A1C 6.2 Performed By: #### L501.9985 #### [facility] Laboratory [address] [place], [address] 12 LEAD ELECTROCARDIOGRAM Observed: 02/10/2018 Status: F Source: [place] 1:34 PM [facility] Cardiovascular Services [address] [place] [address] 12 Lead EKG 02/09/18 0512 MR#: [id number] Acct: [id number] Name: DANA MATOS Rep #: [id number] : 1960 57 From: Jomar Rosenberg MD Attending Dr: Cm Ruelas MD Status: DIS ZI Ordering Dr: Myriam Moreira MD Date: 02/09/18 Location: [facility] Sex: F C Admitted: 02/09/18 Test Reason : CP Blood Pressure : / mmHG Vent. Rate : 065 BPM Atrial Rate : 065 BPM P-R Int : 000 ms QRS Dur : 116 ms QT Int : 470 ms P-R-T Axes : 048 -66 058 degrees QTc Int : 488 ms Ventricular-paced rhythm Biventricular pacemaker detected Abnormal ECG Confirmed by BHUPINDER GAMBLE, JOMAR ([id number]), food expeditor JEFF GUILLORY ([id number]) on 02/10/2018 1:33:32 PM Referred By: ANUJ Confirmed By:JOMAR ROSENBERG MD 02/10/18 1333 Date Jomar Rosenberg MD CC: Myriam Moreira MD; Cm Ruelas MD; Demond Little MD Signed DISCHARGE SUMMARY Observed: 02/09/2018 Status: F Source: [place] 2:34 PM [facility] REPOSITORY [facility] Medical Records Department [address] [place] [address] Discharge Summary 02/09/18 1237 MR#: [id number] Acct: [id number] Name: DANA MATOS Rep #: [id number] : 1960 57 From: Danna Fishman SPORTS TRAINER-C PCP: Demond Little MD Status: DIS ZI Y Location: [place] [address] <Danna Fishman - Last Filed: 02/09/18 12:49> Discharge Date and Diagnosis Date of Admission: 02/09/18 Date of Discharge: 02/09/18 - Primary Discharge Diagnosis 1. Atypical chest pain, ACS ruled out 2. Chronic systolic CHF/cardiomyopathy 3. Anxiety/depression 4. Hypothyroidism 5. Rheumatoid arthritis 6. History of CVA 7. Type 2 diabetes mellitus 8. MALU 9. GERD 10. CAD status post prior [place] x2 without PCI 11. History of transverse myelitis 12. Hypertension 13. hyperlipidemia 14. Chronic kidney disease stage II - Secondary Discharge Diagnosis Chronic Problems HTN (hypertension) (Chronic) GERD (gastroesophageal reflux disease) (Chronic) Hypothyroidism (Chronic) Depression (Chronic) CVA (cerebral infarction) (Chronic) Congestive heart failure (Chronic) Rheumatoid arthritis (Chronic) ICD (implantable cardioverter-defibrillator), biventricular, in situ (Chronic) ICD (implantable cardioverter-defibrillator) in place (Chronic) HLD (hyperlipidemia) (Chronic) Cardiomyopathy, noncoronary (Chronic) myocardial infarction (Chronic) Hospital Course and Treatment Imaging Results: Diagnostic Data Chest X-Ray 02/09/18 05:21 IMPRESSION: Pacemaker leads are in proper position. Lungs are expanded. There are fibrotic changes at the lung bases. There is NO acute infiltrate. There is no demonstrated pleural abnormality. Normal size heart. Electronically Signed: Tom Harley MD at 5:46 EDT , Service support , Operations: None Procedures: Stress test Summary of Care Provided: The patient is a 57 year old F admitted 02/09/2018 due to chest pain. She has a past medical history of cardiomyopathy, CAD status post prior [place] x2 without PCI, chronic systolic CHF, history of CVA, hypothyroidism, hypertension, hyperlipidemia, rheumatoid arthritis, transverse myelitis, GERD, anxiety, chronic kidney disease stage II, obstructive sleep apnea. EKG without ST-T changes. Troponin negative. Patient underwent nuclear stress test which was negative for ischemia. ACS ruled out. Suspect pain under the left breast musculoskeletal in nature. Patient on chronic pain medication regimen due to rheumatoid arthritis. Patient denies shortness of breath, dizziness, lightheadedness. Chest x- ray on admission without acute process. Other chronic medical conditions as noted above are stable at this time. Follow-up with primary care physician in 1 week. General: Awake, Alert, Oriented x 3 and cooperative, no apparent distress Skin: normal color, turgor, no icterus, cyanosis. HEENT: AT/NC, EOMI, PERRLA, MMM, no carotid bruits or JVD noted. Lungs: Clear to auscultation Heart: Regular rate and rhythm; no gallop, rub audible. Abdomen: soft, nontender, normal bowel sounds, nondistended Extremities: no cyanosis, clubbing, or edema. Neurological: cranial nerves II-XII grossly normal, neuro grossly intact. Psychiatric: Normal affect Patient seen exam prior to discharge. Physical assessment as noted above. Patient stable for discharge home with the follow-up recommendations as noted above. This patient was seen by SAMIR Calzada under the supervision of Dr. Ruelas. - Physical Exam Vital Signs Temp Pulse Resp BP Pulse Ox 98.4 F 83 16 149/97 H 97 02/09/18 11:10 02/09/18 11:10 02/09/18 11:10 02/09/18 11:10 02/09/18 11:10 Oxygen Flow Rate (L/min) 99 Oxygen Delivery Method Room Air Weight: 177 lb 4.026 oz Body Mass Index (BMI) 28.5 Finger Stick Blood Glucose 132 Intake and Output for Last 24 Hours Intake Total 583 / 583 Balance 583 / 583 Laboratory Tests Past 24 Hrs WBC RBC Hgb POC Glucose POC Glucose 153 H 78 Discharge Diet: Low fat/ Low Cholesterol Discharge Activity: Return to Normal Activity Call your doctor if you observe: Shortness of breath, Dizziness, Fainting spells, Chest pain Home Medications: Medications to take at Discharge ALPRAZolam [Xanax] 1 mg PO QHS 10/13/14 Aspirin [Aspirin, Baby] 81 mg PO DAILY@0800 10/13/14 Biotin 1,000 mg PO DAILY 10/13/14 Calcium Carbonate 600 mg PO BID 10/13/14 Esomeprazole Mag Trihydrate [Nexium] 40 mg PO DAILY 10/13/14 Levothyroxine Sodium [Levoxyl] 125 mcg PO DAILY 10/13/14 Potassium Chloride [Klor-Con 10] 20 meq PO DAILY 10/13/14 traMADol [Ultram] 50 mg PO TID 10/13/14 Abatacept [Orencia] 125 mg SQ QWEEK 01/21/15 Cholecalciferol (VIT D3) [Vitamin D3] 600 mg PO BID 05/23/15 Carvedilol [Coreg (Beta Khris)] 6.25 mg PO BID 06/10/15 Estradiol [Estrace Vaginal Cream] 0.1 mg VAGINAL DAILY 06/12/15 Fluticasone 0.05% [Flonase Nasal Gridley] 1 spray NASAL DAILY 06/12/15 Colestipol Tablet [Colestid Tablet] 1 gm PO DAILY 02/09/18 Docusate Sodium [Colace] 100 mg PO DAILY 02/09/18 Duloxetine Hcl [Cymbalta] 30 mg PO BID 02/09/18 Folic Acid 600 mg PO DAILY 02/09/18 L.acidoph,Paracasei, B.lactis [Probiotic] 1 each PO DAILY 02/09/18 Liothyronine Sodium [Cytomel] 5 mcg PO DAILY 02/09/18 Loratadine [Claritin] 10 mg PO DAILY 02/09/18 Ramelteon [Rozerem] 8 mg PO QHS 02/09/18 Tetrahydrozoline HCl/Zinc Sulf [Cvs Astringent Eye Drops] 1 dose EACH EYE DAILY 02/09/18 busPIRone [Buspar] 15 mg PO TID 02/09/18 predniSONE tablet 5 mg PO DAILY 02/09/18 Primary Care Physician: Demond Little MD [Primary Care Provider] - Please follow up with your Primary Care Physician in: 1 Week Please Follow Up With: Primary Scarf Gluer When: 1 Week Disposition: Home Minutes spent on discharge:: 35 Patient Condition:: Stable Medical Necessity - Tobacco Use Smoking Status: Never smoker Meaningful Use Info Meaningful Use Diagnoses (Choose all that apply): None applicable <Cm Ruelas - Last Filed: 02/09/18 14:33> Discharge Date and Diagnosis - Secondary Discharge Diagnosis Chronic Problems HTN (hypertension) (Chronic) GERD (gastroesophageal reflux disease) (Chronic) Hypothyroidism (Chronic) Depression (Chronic) CVA (cerebral infarction) (Chronic) Congestive heart failure (Chronic) Rheumatoid arthritis (Chronic) ICD (implantable cardioverter-defibrillator), biventricular, in situ (Chronic) ICD (implantable cardioverter-defibrillator) in place (Chronic) HLD (hyperlipidemia) (Chronic) Cardiomyopathy, noncoronary (Chronic) myocardial infarction (Chronic) Hospital Course and Treatment Imaging Results: 02/09/18 05:55 Nuclear Stress Test - Chemical [NM] AM (NON MEDS) Summary of Care Provided: The patient is a 57 year old F [] - Physical Exam Vital Signs Temp Pulse Resp BP Pulse Ox 98.4 F 83 16 149/97 H 97 02/09/18 11:10 02/09/18 11:10 02/09/18 11:10 02/09/18 11:10 02/09/18 11:10 Oxygen Flow Rate (L/min) 99 Oxygen Delivery Method Room Air Weight: 177 lb 4.026 oz Body Mass Index (BMI) 28.5 Finger Stick Blood Glucose 132 Intake and Output for Last 24 Hours Intake Total 583 / 583 Balance 583 / 583 Laboratory Tests Past 24 Hrs WBC RBC Hgb POC Glucose POC Glucose 153 H 78 Code Visit Addendum: Dr. Ruelas I personally examined the patient and reviewed the chart. I agree with the above. 57-year-old female with past medical history consistent with cardiomyopathy, coronary artery disease status post prior [place] x2 without PCI, systolic CHF, history of CVA, hypothyroidism, hypertension, hyperlipidemia, rheumatoid arthritis, GERD, anxiety, CKD stage II, MALU who presents to the ER with dyspnea which is worse with exertion over the last month, will upper abdominal discomfort, as well as left upper extremity shoulder pain and neck discomfort. On exam she states that all symptoms have resolved. Her troponin is negative x2 her EKG was unremarkable and she had a cardiac stress this morning which was negative. She was discharged home with PCP and cardiology follow-up. OBSV E AND M: [id number] Observ/hosp same date L3 02/09/18 1249 <Electronically signed by Danna CALDERONC> Date Danna CALDERONC 02/09/18 1434<Electronically signed by Cm Ruelas MD> Cosigner Signature (if applicable): Date Cm Ruelas MD CC: SPORTS TRAINERKae Fishman; Cm Ruelas MD; Demond Little MD Signed STRESS REPORT Observed: 02/09/2018 Status: F Source: [place] 12:30 PM [facility] REPOSITORY [facility] Cardiovascular Services [address] [place] [address] MR#: [id number] Acct: [id number] Name: DANA MATOS Rep #: [id number] : 1960 57 From: Jomar Rosenberg MD Primary Care: Demond Little MD Status: ADM ZI Ordering Dr: Sex: Jimi Scott Stress Test Report Date: 02/09/2018 Procedure: Pharmacologic stress nuclear imaging study Indications: Chest pain; CAD; cardiomyopathy; ICD Consent: Per the patient Procedure: The patient underwent pharmacologic (Regadenoson) evaluation with a peak heart rate of 117 beats per minute (71 predicted maximal heart rate) and a peak blood pressure of 160/96 mmHg. The baseline ECG demonstrated electronic ventricular paced rhythm. The peak pharmacologic ECG demonstrated an electronic ventricular paced rhythm. There was a rare PVC during recovery. There was no complaint of chest discomfort during pharmacologic infusion or recovery. The examination was discontinued secondary to completion of protocol. Impression: 1. Pharmacologic (Regadenoson) evaluation 2. Peak pharmacologic ECG with an electronic ventricular paced rhythm. 3. There was a rare PVC during recovery. 4. Nuclear images pending Myocardial perfusion imaging study: Technique: The patient was injected with 13.7 millicuries of technetium 99m Cardiolite and subsequently rest SPECT Cardiolite nuclear imaging was obtained in the horizontal long, vertical long, and short axis views. The patient underwent pharmacologic (Regadenoson) evaluation with a peak heart rate of 117 beats per minute (71 % percent predicted maximal heart rate) and a peak blood pressure of 160/96 mmHg. The patient was injected with 39.9 millicuries of technetium 99m Cardiolite and subsequently stress SPECT Cardiolite nuclear imaging was obtained in the horizontal long, vertical long, and short axis views. Interpretation: Rest and stress SPECT Cardiolite nuclear imaging status post realignment, normalization, and attenuation correction demonstrate relative uniform tracer uptake and myocardial perfusion appearing within normal limits. A gated Cardiolite study at peak stress was not obtained Impression: 1. Rest and stress SPECT Cardiolite nuclear imaging demonstrate relative uniform tracer uptake and myocardial perfusion appearing within normal limits. 2. The gated Cardiolite study at peak stress was not obtained. This note was generated with Traffioation software. It may contain incorrect words, spelling, and punctuation that were not noted in checking the note before signing. 02/09/18 1230 <Electronically signed by Jomar Rosenberg MD> Date Jomar Rosenberg MD CC: Cm Ruelas MD; Demond Little MD Date Dictated: 02/09/181203 Date Transcribed: 02/09/181203 Gasateria Attendant: PM Signed DISCHARGE INSTRUCTION Observed: 02/09/2018 Status: F Source: [place] 11:19 AM [facility] REPOSITORY [facility] Medical Records Department [address] [place] [address] Instructions for Home/Discharge Instructions 02/09/18 1117 MR#: [id number] Acct: [id number] Name: DANA MATOS Rep #: [id number] : 1960 57 From: Danna DAWSON PCP: Demond Little MD Status: ADM ZI You will use the following diet at home:: Cardiac Discharge Activity: Return to Normal Activity Call your doctor if you observe: Shortness of breath, Dizziness, Fainting spells, Chest pain Allergies/Adverse Reactions: Allergies ciprofloxacin [From Cipro] Allergy (Verified 02/09/18 05:12) Other ciprofloxacin HCl [From Cipro] Allergy (Verified 02/09/18 05:12) Other citric acid Allergy (Verified 02/09/18 05:12) Angioedema ezetimibe [From Zetia] Allergy (Verified 02/09/18 08:01) Other levofloxacin [From Levaquin] Allergy (Verified 02/09/18 05:12) Unknown linagliptin [From Tradjenta] Allergy (Verified 02/09/18 08:01) Upset Stomach lisinopril Allergy (Verified 02/09/18 05:12) Hives oxcarbazepine [From Trileptal] Allergy (Verified 02/09/18 08:01) Other simvastatin [From Zocor] Allergy (Verified 02/09/18 05:12) MUSCLE WEAKNESS TILOX Allergy (Uncoded 06/12/15 12:57) HYPOTENSION Medications to take at Discharge ALPRAZolam [Xanax] 1 mg PO QHS 10/13/14 Aspirin [Aspirin, Baby] 81 mg PO DAILY@0800 10/13/14 Biotin 1,000 mg PO DAILY 10/13/14 Calcium Carbonate 600 mg PO BID 10/13/14 Esomeprazole Mag Trihydrate [Nexium] 40 mg PO DAILY 10/13/14 Levothyroxine Sodium [Levoxyl] 125 mcg PO DAILY 10/13/14 Potassium Chloride [Klor-Con 10] 20 meq PO DAILY 10/13/14 traMADol [Ultram] 50 mg PO TID 10/13/14 Abatacept [Orencia] 125 mg SQ QWEEK 01/21/15 Cholecalciferol (VIT D3) [Vitamin D3] 600 mg PO BID 05/23/15 Carvedilol [Coreg (Beta Khris)] 6.25 mg PO BID 06/10/15 Estradiol [Estrace Vaginal Cream] 0.1 mg VAGINAL DAILY 06/12/15 Fluticasone 0.05% [Flonase Nasal [place]] 1 spray NASAL DAILY 06/12/15 Colestipol Tablet [Colestid Tablet] 1 gm PO DAILY 02/09/18 Docusate Sodium [Colace] 100 mg PO DAILY 02/09/18 Duloxetine Hcl [Cymbalta] 30 mg PO BID 02/09/18 Folic Acid 600 mg PO DAILY 02/09/18 L.acidoph,Paracasei, B.lactis [Probiotic] 1 each PO DAILY 02/09/18 Liothyronine Sodium [Cytomel] 5 mcg PO DAILY 02/09/18 Loratadine [Claritin] 10 mg PO DAILY 02/09/18 Ramelteon [Rozerem] 8 mg PO QHS 02/09/18 Tetrahydrozoline HCl/Zinc Sulf [Cvs Astringent Eye Drops] 1 dose EACH EYE DAILY 02/09/18 busPIRone [Buspar] 15 mg PO TID 02/09/18 predniSONE tablet 5 mg PO DAILY 02/09/18 Primary Care Physician: Demond Little MD [Primary Care Provider] - Please follow up with your Primary Care Physician in: 1 Week Test Results: Test results from this visit will be discussed in further detail at your follow-up appointment, if applicable. Please Follow Up With: Primary Scarf Gluer When: 1 Week Proposed Discharge Date: 02/09/18 02/09/18 1119 <Electronically signed by Danna DAWSON> Date Danna DAWSON CC: Demond Little MD TROPONIN-I Collected: 02/09/2018 Status: F Source: [place] 11:16 AM [facility] REPOSITORY Order Comment: 'TROP' Serial specimen #1, #2 or #3: 3 TYPE CODE TESTS RESULT OUT OF RANGE REFERENCE UNITS LAB L501.4010 <0.045 ng/mL Normal < 0.015 TROPONIN-I Result Comment: TROPONIN-I EXPECTED VALUES <0.045 Negative 0.045 - 0.590 Consistent with Cardiac Damage > OR = 0.600 Critical Value Not every elevated troponin is indicative of FL. These values should be used with clinical judgement in examining the patient's clinical picture for diagnosis. To establish a diagnosis of FL versus myocardial injury, there must be a demonstrated rise and/or fall in the troponin values, in addition to ischemic symptoms, EKG changes, new regional wall motion abnormality, and/or angiographical evidence. PLEASE NOTE: REFERENCE RANGES EDITED 17 Performed By: #### L501.4010 #### [facility] Laboratory [address] [place], [place], [address] BEDSIDE GLUCOSE Collected: 02/09/2018 Status: F Source: [place] 11:12 AM [facility] REPOSITORY TYPE CODE TESTS RESULT OUT OF REFERENCE UNITS RANGE LAB L501.080 70-110 mg/dL High BEDSIDE GLU 153 Result Comment: MANAGEMENT OF PATIENT CARE PER NURSING PROTOCOL Performed By: #### L501.080 #### [facility] Laboratory Point of Care [address] [place] [address] TROPONIN-I Collected: 02/09/2018 Status: F Source: [place] 8:15 AM [facility] REPOSITORY Order Comment: 'TROP' Serial specimen #1, #2 or #3: 2 TYPE CODE TESTS RESULT OUT OF RANGE REFERENCE UNITS LAB L501.4010 <0.045 ng/mL Normal < 0.015 TROPONIN-I Result Comment: TROPONIN-I EXPECTED VALUES <0.045 Negative 0.045 - 0.590 Consistent with Cardiac Damage > OR = 0.600 Critical Value Not every elevated troponin is indicative of FL. These values should be used with clinical judgement in examining the patient's clinical picture for diagnosis. To establish a diagnosis of FL versus myocardial injury, there must be a demonstrated rise and/or fall in the troponin values, in addition to ischemic symptoms, EKG changes, new regional wall motion abnormality, and/or angiographical evidence. PLEASE NOTE: REFERENCE RANGES EDITED 17 Performed By: #### L501.4010 #### [facility] Laboratory [address] [place], [address] BEDSIDE GLUCOSE Collected: 02/09/2018 Status: F Source: [place] 6:58 AM [facility] TYPE CODE TESTS RESULT OUT OF RANGE REFERENCE UNITS LAB L501.080 70-110 mg/dL Normal BEDSIDE GLU 78 Result Comment: MANAGEMENT OF PATIENT CARE PER NURSING PROTOCOL Performed By: #### L501.080 #### [facility] Laboratory Point of Care [address] [place] [address] EMERGENCY DEPARTMENT Observed: 02/09/2018 Status: F Source: [place] SUMMARY 6:55 AM [facility] Medical Records Department [address] [facility] [place] [address] Emergency Department Summary 02/09/18 0527 MR#: [id number] Acct: [id number] Name: DANA MATOS Rep #: [id number] : 1960 57 From: Myriam Moreira MD PCP: Demond Little MD Status: ADM ZI - ER Visit Summary Date of Service: 02/09/18 Chief Complaint: Chest pain History of Present Illness: The patient is a 57 F who complains of a gassy pressure sensation in her low chest upper abdomen all day yesterday. 2 hours prior to evaluation patient states she is getting pressure of the left side of her neck and down her left arm. She had some slight left arm numbness. She took 3 baby aspirin at home and one additional was given by squad. She is pain-free on arrival to the ED. Patient has noted increased shortness of breath with exertion over the past 3 months or so. She has recently seen pulmonology about this. Past history significant for CVA, FL x2, CHF, hypertension, reflux disease, hypothyroidism, rheumatoid arthritis, cardiomyopathy. She does have a pacemaker/ICD. She has seen Dr. Rosenberg in the past. Physical Examination: Blood pressure on arrival is 173/111, temperature 98.1, heart rate 70, respiratory rate 16, pulse ox 97% on room air. Patient sitting upright in bed no acute distress. Head neck examination is normal. Heart is regular rate and rhythm. Lung sounds are clear. There is no chest wall tenderness. Abdomen is soft and nontender. Active bowel sounds are noted throughout. Lower external examination was no calf tenderness or edema. She has strong distal pulses. Test Results: EKG is paced at 65 with no sign of acute ischemia. CBC and chemistry studies normal. Troponin is less than 0.015. Portable chest x-ray shows fibrotic changes of the lung bases. Pacer leads are in appropriate position. Emergency Department Course and Treatment: Patient received aspirin prior to arrival and was pain-free on arrival. She has remained pain-free throughout her ER stay. Patient does have history of 2 prior MIs, although cath in the past has showed no significant coronary disease. She has had decreased exercise tolerance and dyspnea on exertion over the past 1-3 months and now has pain into her neck and down her left arm. Patient will be admitted for cycling of cardiac enzymes and potential further stress test. Blood pressure at this time is remained elevated in the 170s systolic. She states her systolic blood pressures normally in the 120s and she is currently on low-dose Coreg twice a day for blood pressure control. She would be given 10 mg of labetalol. Patient states that she is very sensitive to blood pressure medications so we will give her a low dose at this time and can be redosed if needed. Treatment Plan: [] Disposition: Admit Impression: Chest pain This note was generated with [employer] dictation software. It may contain incorrect words, spelling, and punctuation that were not noted in review of the chart prior to signing ED Disposition - Plan for ED Patient: Chief Complaint: Chest Pain Referrals: Demond Little MD [Primary Care Provider] - What to do if you have Problems For any increased pain, shortness of breath, bleeding, nausea or vomiting, chest pain, or any unexpected problems, contact your Primary Care Provider. Call [facility] ([phone]) or report to the closest Emergency Room. Call 911 if necessary. 02/09/18 0655 <Electronically signed by Myriam Moreira MD> Date Myriam Moreira MD Cosigner Signature (If Indicated): Date CC: Demond Little MD HISTORY AND PHYSICAL Observed: 02/09/2018 Status: F Source: [place] EXAM 6:49 AM [facility] Medical Records Department [address] [place] [id number] History and Physical 02/09/18 0616 MR#: [id number] Acct: [id number] Name: DANA MATOS Rep #: [id number] : 1960 57 From: Bernarda Antunez PCP: Demond Little MD Status: ADM ZI Y Location: [place] [address] History of Present Illness Date of Admission: 02/09/18 Chief Complaint: Chest Pain The patient is a 57 y/o F w/ PMHx: Cardiomyopathy, CAD s/p prior FL x 2 without PCI, Systolic CHF, Hx CVA, Hypothyroidism, Hypertension, Hyperlipidemia, Rheumatoid arthritis, Transverse Myelitis, GERD, Anxiety, CKD stage II, MALU who presents to the [facility] ED on 02/09/18 with history of dyspnea, worse with exertion over the last month, mild upper abdominal discomfort/upset with increased gas during the day as well as mild nausea and now acute onset at 12 pm L chest sharp pain underneath her breast rated 4-5/10, constant and 3 am LUE, left shoulder and left neck discomfort described as similarly sharp, stabbing, rated 5/10. She called EMS and during transport was administered ASA 81 mg x 4. She noted resolution of her chest discomfort upon ED presentation. In the ED work-up included T 98.1, heart rate 70, BP initially 173/111, respiratory rate 16, 97% on room air, CBC with WBC 7.9, hemoglobin 14.3, platelet 201 without shift, BMP with glucose 113 otherwise unremarkable, trop < 0.015, EKG without acute evidence of ischemia, CXR with pacemaker leads in proper position, fibrotic changes lung bases with no acute cardiopulmonary findings otherwise. In the ED patient administered labetaolol 10 mg IV x 1. Past Medical History Past Medical History (Chronic Problems): Chronic Problems HTN (hypertension) (Chronic) GERD (gastroesophageal reflux disease) (Chronic) Hypothyroidism (Chronic) Depression (Chronic) CVA (cerebral infarction) (Chronic) Congestive heart failure (Chronic) Rheumatoid arthritis (Chronic) ICD (implantable cardioverter-defibrillator), biventricular, in situ (Chronic) ICD (implantable cardioverter-defibrillator) in place (Chronic) HLD (hyperlipidemia) (Chronic) Cardiomyopathy, noncoronary (Chronic) myocardial infarction (Chronic) Allergies ciprofloxacin [From Cipro] Allergy (Verified 02/09/18 05:12) Other ciprofloxacin HCl [From Cipro] Allergy (Verified 02/09/18 05:12) Other citric acid Allergy (Verified 02/09/18 05:12) Angioedema levofloxacin [From Levaquin] Allergy (Verified 02/09/18 05:12) Unknown lisinopril Allergy (Verified 02/09/18 05:12) Hives simvastatin [From Zocor] Allergy (Verified 02/09/18 05:12) MUSCLE WEAKNESS TILOX Allergy (Uncoded 06/12/15 12:57) HYPOTENSION Home Medications: Ambulatory Orders Medication Instructions Recorded Surgical History: - - 5 foot surgeries, 5 hand surgeries, hysterectomy, tubal ligation, ICD/pacer. 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 Denies: Chills, Fever, Weight Change HEENT: Denies: Head Aches, Sinus Congestion, Sinus Drainage Cardiovascular: Reports: Chest Pain. Denies: Light Headedness, Orthopnea, Palpitations, Syncope Respiratory: Reports: Shortness of breath upon exertion. Denies: Cough, Shortness of breath at rest, Sputum production Gastrointestinal: Reports: Abdominal Pain, Nausea. Denies: Vomiting Genitourinary: Denies: Dysuria Musculoskeletal: Reports: Back Pain, Joint Pain. Denies: Joint Tenderness Skin: Denies: Rash, Wounds Neurological: Denies: Numbness, Tingling, Focal weakness Psychiatric: Reports: Anxiety, Depression. Denies: Homicidal Ideations, Suicidal Ideations Hematologic/ Lymphatic: Denies: Easy Bruising, Easy Bleeding VTE Information - Inpt Only VTE Present on Admission: No VTE Mechan Device Prophylaxis: SCD's VTE Pharm Prophylaxis ordered?: Yes Subjective: Seated upright in the ED bed, notes chest pain improved, currently back hurting she notes. Objective: Physical Examination: General: awake, alert, oriented x 3 and cooperative, seated upright in the ED bed in no apparent distress, chest pain improved. Skin: normal color, turgor, no icterus, cyanosis. HEENT: AT/NC, EOMI, PERRLA, MMM, no carotid bruits or JVD noted. Lungs: CTA bilaterally, moderate effort, mild decrease BL bases, no rales, ronchi or wheezing. Heart: Regular rate and rhythm; no gallop, rub audible. Abdomen: soft, overweight, NTTP, ND, normal BS, no HSM. Extremities: no cyanosis, clubbing, or edema. Neurological: patient awake, alert, oriented x 3; cognitive function intact; pupils equally reactive to light and accomodation; cranial nerves II-XII grossly normal, moving all 4 extremities, no focal deficits, strength mildly globally decreased. Psychiatric: affect appears normal, no acute evidence of depressive or anxiety feelings. - Physical Exam Vital Signs Temp Pulse Resp BP Pulse Ox 98.1 F 72 16 173/111 H 96 02/09/18 05:08 02/09/18 05:12 02/09/18 05:12 02/09/18 05:12 02/09/18 05:12 Oxygen Flow Rate (L/min) 99 Oxygen Delivery Method Room Air Weight: 183 lb 3.266 oz Body Mass Index (BMI) 29.5 Finger Stick Blood Glucose 132 Laboratory Tests Past 24 Hrs WBC 7.9 RBC 4.51 Hgb 14.3 Hct 43.5 MCV 96.5 MCH 31.7 MCHC 32.9 RDW 14.3 Assessment/Plan All Active Problems Dehydration (Acute) Orthostatic hypotension (Acute) Near syncope (Acute) The patient is a 57 y/o F w/ PMHx: Cardiomyopathy, CAD s/p prior FL x 2 without PCI, Systolic CHF, Hx CVA, Hypothyroidism, Hypertension, Hyperlipidemia, Rheumatoid arthritis, GERD, Anxiety, CKD stage II, MALU who presents to the [facility] ED on 02/09/18 with history of dyspnea, worse with exertion over the last month, mild upper abdominal discomfort/upset with increased gas the day prior to current presentation as well as now acute onset at 3 am LUE, left shoulder and left neck discomfort. (1) Chest Pain: EKG in ED with no acute evidence of ischemia, CXR w/ no acute findings, initial trop normal x1. Will admit to PCU, place on a monitored bed to assure no acute myocardial infarction with serial cardiac enzymes and EKGs. Patient is unable to perform exercise thus will proceed with AM nuclear stress testing. ASA, NG, morphine. FLP in AM. Mag pending. (2) Systolic CHF/Cardiomyopathy Unclear Type: Continue home regimen asa, coreg, statin intolerance. Given current elevated blood pressures if appropriate may consider adding ACEI. 2014 ECHO w/ borderline to mildly enlarged LV, moderately segmental systolic dysfunction, EF 30%, mild diffuse MV thickening, trivial MVI, trivial TBI, trivial pulmonic valve insufficiency, ICD /Taser leads in place. Follows w/ CC. (3) Anxiety/Depression: Continued on home regimen xanax, buspar, rozerem q HS. (4) Hypothyroidism: Continue home synthroid regimen. (5) Rheumatoid arthritis: Continued on low dose prednisone. (6) Hx CVA: Continued on asa, noted statin allergy, not on BP regimen w/ appropriate BP. HgbA1c pending w/ noted DM diagnosis following last admission. (7) Diabetes mellitus type II: Not on regimen, noted in prior diagnoses, HgbA1c pending, NPO status currently, accu checks w/ ISS. (8) MALU: CPAP q HS (9) GERD: Famotidine. (10) DVT prophylaxis: SCDs, lovenox. Code Visit OBSV E AND M: [id number] Initial observation care L3 02/09/18 0649 <Electronically signed by Bernarda Antunez > Date Bernarda Antunez Cosigner Signature: Date (if applicable) CC: Bernarda Antunez; Demond Little MD Signed CHEST 1 VIEW Observed: 02/09/2018 Status: F Source: [place] (PORTABLE) 5:22 AM [facility] REPOSITORY [facility] Imaging Services [address] [place] [address] Chest 1 View (Portable) MR#: [id number] Acct: [id number] Name: DANA MATOS Rep #: [id number] : 1960 F 57 From: Tom Harley PCP: Demond Little MD Status: PRE ER Study: Chest 1 View (Portable) Date of Exam: 02/09/18 Exam# [id number] Ordering Dr: Myriam Moreira MD STUDY: X-RAY CHEST REASON FOR EXAM: Female, 57 years old. Chest pain TECHNIQUE: Frontal view COMPARISON: 06/10/2015 FINDINGS: Pacemaker leads are in proper position. Lungs are expanded. There are fibrotic changes at the lung bases. There is NO acute infiltrate. There is no demonstrated pleural abnormality. Normal size heart. Normal mediastinum and francie. Normal visualized pulmonary arteries. Normal visualized aortic arch and descending thoracic aorta. Normal visualized thoracic spine. Normal visualized ribs, clavicles, and shoulders. There is no demonstrated abnormality of the visualized soft tissue structures of the upper abdomen. RAD/Chest 1 View (Portable) IMPRESSION: Pacemaker leads are in proper position. Lungs are expanded. There are fibrotic changes at the lung bases. There is NO acute infiltrate. There is no demonstrated pleural abnormality. Normal size heart. Electronically Signed: Tom Harley MD at 5:46 EDT , Service support , CC: Myriam Moreira MD; Demond Little MD Gasateria Attendant: Signed CBC W/DIFF, AUTOMATED Collected: 02/09/2018 Status: F Source: [place] 5:14 AM [facility] REPOSITORY TYPE CODE TESTS RESULT OUT OF RANGE REFERENCE UNITS LAB L100.1000 4.4-11.0 K/mm3 Normal WBC 7.9 LAB L100.1200 4.2-5.4 M/mm3 Normal RBC 4.51 LAB L100.1300 12.0-15.0 g/dl Normal HGB 14.3 LAB L100.1400 37-47 % Normal HCT 43.5 LAB L100.1500 81-99 fL Normal MCV 96.5 LAB L100.1600 27.0-32.0 pg Normal MCH 31.7 LAB L100.1700 32-36 g/gl Normal MCHC 32.9 LAB L100.1810 11.6-14.6 % Normal RDW CV 14.3 LAB L100.1820 35.1-43.9 fl High RDW SD 49.0 LAB L100.1900 150-450 K/mm3 Normal PLT 201 LAB L100.2000 6.2-12.0 fl Normal MPV 9.6 LAB L100.2100 47-70 % Normal NEUT% 53.5 LAB L100.2200 19-41 % Normal LY% 35.1 LAB L100.2300 0-10 % Normal MONO% 9.5 LAB L100.2400 0-5 % Normal EO% 1.5 LAB L100.2500 0-1 % Normal BASO% 0.3 LAB L100.2550 0.0-0.9 % Normal IM GRAN % 0.100 Result Comment: IG% - Immature Granulocytes (promyelocytes, myelocytes and metamyelocytes) > 1% indicates that a LEFT SHIFT is Present. LAB L100.2620 2.0-7.7 X10 3/uL Normal Absolute Neut 4.2 LAB L100.2720 0.83-4.51 X10 3/ul Normal Absolute Lymph 2.78 Performed By: #### L100.0100 #### [facility] [address] [place], [place], [address] BASIC METABOLIC Collected: 02/09/2018 Status: F Source: [place] PROFILE (BMP) 5:14 AM [facility] REPOSITORY TYPE CODE TESTS RESULT OUT OF RANGE REFERENCE UNITS LAB L501.0100 74-106 mg/dL High GLU 113 Result Comment: Fasting Glucose result from 100 to 125 mg/dL suggests IMPAIRED HOMEOSTASIS per A.D.A. criteria. Please note revised GLUCOSE reference range effective 2017. LAB L501.1000 7-18 mg/dL Normal BUN 18 LAB L501.1100 0.55-1.02 mg/dL Normal CREAT,SERUM 0.98 Result Comment: The validity of the calculated GFR AND GFRAA in patients over 70 years has not been determined. Clinical correlation is essential. LAB L501.1110 >60 mL/min Normal EST GFR 62 Result Comment: Non- GFR Calc LAB L501.1115 >60 mL/min Normal EST GFR - AA 75 Result Comment: GFR Calc LAB L501.1255 ml/min Normal Estimated CRCL 60.01 LAB L501.1300 10-20 RATIO Normal BUN/CRE 18.3 LAB L501.2200 8.5-10 mg/dL Normal .1 CA 8.6 LAB L501.5300 136-14 mmol/L Normal 5 NA 142 LAB L501.5600 3.5-5. mmol/L Normal 1 K 3.8 LAB L501.5900 98-107 mmol/L Normal CL 104 LAB L501.6100 21.0-3 mmol/L Normal 2.0 CO2 31.0 LAB L501.6200 5-15 Normal GAP 7 Performed By: #### L500.2500, L501.4010 #### [facility] [address] [place], [place], [address] TROPONIN-I Collected: 02/09/2018 Status: F Source: [place] 5:14 AM [facility] REPOSITORY TYPE CODE TESTS RESULT OUT OF RANGE REFERENCE UNITS LAB L501.4010 <0.045 ng/mL Normal < 0.015 TROPONIN-I Result Comment: TROPONIN-I EXPECTED VALUES <0.045 Negative 0.045 - 0.590 Consistent with Cardiac Damage > OR = 0.600 Critical Value Not every elevated troponin is indicative of FL. These values should be used with clinical judgement in examining the patient's clinical picture for diagnosis. To establish a diagnosis of FL versus myocardial injury, there must be a demonstrated rise and/or fall in the troponin values, in addition to ischemic symptoms, EKG changes, new regional wall motion abnormality, and/or angiographical evidence. PLEASE NOTE: REFERENCE RANGES EDITED 17 Performed By: #### L500.2500, L501.4010 #### [facility] [address] [place], [address] MAGNESIUM Collected: 02/09/2018 Status: F Source: [place] 5:14 AM [facility] REPOSITORY TYPE CODE TESTS RESULT OUT OF RANGE REFERENCE UNITS LAB L501.5200 1.6-2.6 mg/dL Normal MG 2.1 Performed By: #### L501.5200 #### [facility] [address] [place], [address] HEMOGLOBIN A1C Collected: 02/09/2018 Status: F Source: [place] 5:14 AM [facility] REPOSITORY Order Comment: DELAY IN TESTING DUE TO INSTRUMENT BEING DOWN. TYPE CODE TESTS RESULT OUT OF RANGE REFERENCE UNITS LAB L501.9985 4.2-6.3 % Normal HGB A1C 6.2 Performed By: #### L501.9985 #### [facility] [address] [place], [address] Observed: 12/17/2017 Status: F Source: [place] URINE CULTURE 5:16 PM [facility] REPOSITORY Sp. Request/Comment: - Specimen received in preservative Culture Result - >=100,000 CFU/ml Escherichia coli --> ABNORMAL ALERT ORGANISM: Escherichia coli METHOD: Minimum inhibitory concentration(Vitek) Antibiotic Interp LETICIA Status Ampicillin RESISTANT >=32 F Gentamicin SUSCEPTIBLE <=1 F Trimeth sulfameth SUSCEPTIBLE <=20 F Cefazolin SUSCEPTIBLE <=4 F CLSI breakpoints for therapy of uncomplicated UTI's due to E.coli, K.pneumoniae, and P.mirabilis were applied and may be used to predict the activity of oral agents(cefaclor, cefdinir, cefpodoxime, cefp rozil, cefuroxime, cephalexin, loracarbef). Ciprofloxacin SUSCEPTIBLE <=0.25 F Nitrofurantoin SUSCEPTIBLE <=16 F Cefepime SUSCEPTIBLE <=1 F Piperacillin/Tazobac SUSCEPTIBLE <=4 F Ampicillin Sulbact INTERMEDIATE 16 F Ceftriaxone SUSCEPTIBLE <=1 F Meropenem SUSCEPTIBLE <=0.25 F Ertapenem SUSCEPTIBLE <=0.5 F Performed By: #### URCUL #### [facility] [address] [place], [place] [address] PROGRESS Observed: 12/16/2017 Status: COMPLETED Source: [place] 5:[address] [facility] REPOSITORY HNO ID: [id number] Author: Demond Little Service: (none) Author Type: Physician Type: Progress Notes Filed: 12/16/2017 5:17 PM Note Text: Patient presents with: UTI: frequent urination x 2 days HPI: Patient presents today for office visit for follow up. Urology: patient is concerned about urinary symptoms. Duration of symptoms: two days Dysuria: Yes. Urinary urgency: Yes. Urinary frequency: Yes. Suprapubic pain: No. Back pain: No. Fever: No. Nausea: No. Vomiting: No. MEDICATIONS: Current Outpatient Prescriptions: DULoxetine (CYMBALTA) 30 mg capsule carvedilol (COREG) 6.25 mg tablet Take 1 tablet by mouth twice daily with meals. potassium chloride ER (KLOR-CON M20) 20 mEq tablet Take 1 tablet by mouth once daily. esomeprazole (NEXIUM) 40 mg capsule Take 1 capsule by mouth once daily. liothyronine (CYTOMEL) 5 mcg tablet Take 5 mcg by mouth once daily. Cholecalciferol, Vitamin D3, 2,000 unit cap Take by mouth. COMPOUNDED PRESCRIPTION Probiotic ramelteon (ROZEREM) 8 mg tablet Take 8 mg by mouth daily at bedtime. loratadine (CLARITIN) 10 mg tablet Take 1 tablet by mouth once daily. colestipol (COLESTID) 1 gram tablet Take 1 tablet by mouth twice daily. busPIRone (BUSPAR) 10 mg tablet Take 1 tablet by mouth once daily. TETRAHYDROZOLINE HCL/ZN SULF (EYE DROPS OPHTHALMIC) Use in eyes. [employer]aus[employer] 1 drop both eyes evening traMADol (ULTRAM) 50 mg tablet Take 50 mg by mouth every 8 hours as needed. FOLIC ACID ORAL Take 1,600 mg by mouth once daily. estradiol (ESTRACE) 0.01 % (0.1 mg/gram) vaginal cream Use 0.1 g vaginally once each week. fluticasone (FLONASE) 50 mcg/actuation nasal spray Use 1 [place] in each nostril twice daily. levothyroxine (SYNTHROID) 125 mcg tablet Take 1 tablet by mouth once daily. ABATACEPT (ORENCIA SUBCUTANEOUS) Inject subcutaneously. Once a week ALPRAZolam (XANAX) 1 mg tablet Take 1 mg by mouth daily at bedtime. BIOTIN ORAL Take 1,000 mg by mouth once daily. calcium carbonate/vitamin d3(CALCIUM 600 + D 600 MG-400 UNIT TAB) 2 daily ASPIRIN 81 MG TAB Take one(1) tablet daily. COL-RITE 100 MG CAP daily citalopram hydrobromide (CELEXA) 10 mg tablet Take 1 tablet by mouth once daily. (Patient not taking: Reported on 12/16/2017 ) No current facility-administered medications for this visit. ALLERGIES: ALLERGIES Allergen Reactions - Ciprofloxacin Other: See Comments Tendon Rupture. - Citric Acid Shortness of Breath Shortness of breath,swelling of throat - Levaquin [Levofloxa* Unknown - Lisinopril Hives - Tradjenta [Linaglip* Intolerance Nausea - Trileptal [Oxcarbaz* Mental Status Change - Tylox [Oxycodone-Ac* low blood pressure - Zetia [Ezetimibe] Other: See Comments Muscle pain - Zocor [Simvastatin] Swelling severe muscle cramping, liver enzyme abnormalities PAST MEDICAL HISTORY Diagnosis Date - Adrenal insufficiency (HCC) 1986 oral cortisone daily - Calculus of kidney - CHF (congestive heart failure) ([facility]) - Congenital anomalies of adrenal gland intermediate prednisone use - CVA (cerebral infarction) 1999 short term memory loss. - Diabetes mellitus, type II ([facility]) - Diabetes type 2, controlled ([facility]) chronic steroid therapy - Dual implantable cardioverter-defibrillator in situ 12/14/2013 Defibrillator Pacemaker Model [id number], serial # [id number] - Essential hypertension - H/O right heart catheterization 11/27/2013 coronaries clear - Heart attack (HCC) 09/28/2000 - Heart attack (HCC) 11/27/2013 first FL 09/28/2000,second FL. 20% EF, took 3L of fluid off - Hemiparesis affecting right side as late effect of stroke (HCC) 02/06/2000 - Hyperthyroidism s/p radiation, currently on Synthroid, Seeing endo-Dr. Billings - Hypothyroidism (acquired) 166 - Left bundle branch block - LUMBOSACRAL NEURITIS NOS 06/27/2007 - Lupus erythematosus 2005 Dr. Foreman - Other and unspecified hyperlipidemia - Other primary cardiomyopathies 09/28/2000 Cardiomyopathy-Seeing Dr. Rosenberg - Raynaud's syndrome 1999 - Rheumatoid arthritis(714.0) [address] 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 Demond Tejeda - RHINOPLASTY 1989 nasal reconstruction after injury - TUBAL LIGATION HX 01/17/2010 removal of tumors, BTL FAMILY HISTORY Problem Relation Age of Onset - Arthritis Mother CREST syndrome - Diabetes Mother - Stroke Father - Heart Father - Emphysema Father - Stroke Paternal Grandmother - Stroke Paternal Grandfather - other (DM) Brother - other (CM) Brother possibly ETOH related. Social History Marital status: Spouse name: Years of education: Number of children: Social History Main Topics Smoking status: Never Smoker Smokeless tobacco: Never Used Alcohol use: No Drug use: No Sexual activity: Yes Partners with: Male Reviewed current medications, allergies, past medical history, surgical history, family history and social history today. REVIEW OF SYSTEMS All other reviewed and negative other than HPI. VITALS: Temp 36.6 ?C (97.9 ?F) (Tympanic) LMP (LMP Unknown) Last 4 Encounter Wt Readings: Date: Wt: 09/26/2017 83 kg (183 lb) 06/14/2017 79.4 kg (175 lb) 06/04/2017 82.6 kg (182 lb) 05/18/2017 80.7 kg (178 lb) PHYSICAL EXAMINATION: General appearance: Well appearing, alert, in no acute distress, well-hydrated, well nourished. Skin: Skin color, texture, turgor normal, no suspicious rashes or lesions Head: Normocephalic, no masses, lesions, tenderness or abnormalities Back: no cva tenderness. Lungs: Lungs clear to auscultation. No wheezing, rhonchi, rales Heart: RRR without murmur, gallop, or rubs. No ectopy Abdomen: Normal abdominal exam, Abdomen soft, non-tender. Bowel sounds normal. No masses, organomegaly ASSESSMENT/PLAN: 1. Frequent urination - ICD9: 788.41, ICD10: R35.0 (primary diagnosis) acute - Send urine for culture - Begin treatment with Macrobid 100 mg BID for 7 days - Patient education for prevention given - UA DIP B/O - URINE CULTURE 2. Acute cystitis with hematuria - ICD9: 595.0, ICD10: N30.01 - NITROFURANTOIN MACROCRYSTAL 100 MG CAPSULE Demond Little MD CNOV Observed: 12/16/2017 Status: COMPLETED Source: [place] 3:40 PM [facility] REPOSITORY Office Visit (FAMPWS) DANA MATOS ([id number]) 1960 F Date Time Provider Department 12/16/17 3:40 PM DEMOND LITTLEWS During your visit today, we recorded the following information about you: Temperature Pulse Respiration Blood pressure 97.9 degrees 76/minute 16/minute 120/78 Weight 81.2 kg Demond Little MD 12/16/2017 5:17 PM Signed Patient presents with: UTI: frequent urination x 2 days HPI: Patient presents today for office visit for follow up. Urology: patient is concerned about urinary symptoms. Duration of symptoms: two days Dysuria: Yes. Urinary urgency: Yes. Urinary frequency: Yes. Suprapubic pain: No. Back pain: No. Fever: No. Nausea: No. Vomiting: No. MEDICATIONS: Current Outpatient Prescriptions: DULoxetine (CYMBALTA) 30 mg capsule carvedilol (COREG) 6.25 mg tablet Take 1 tablet by mouth twice daily with meals. potassium chloride ER (KLOR-CON M20) 20 mEq tablet Take 1 tablet by mouth once daily. esomeprazole (NEXIUM) 40 mg capsule Take 1 capsule by mouth once daily. liothyronine (CYTOMEL) 5 mcg tablet Take 5 mcg by mouth once daily. Cholecalciferol, Vitamin D3, 2,000 unit cap Take by mouth. COMPOUNDED PRESCRIPTION Probiotic ramelteon (ROZEREM) 8 mg tablet Take 8 mg by mouth daily at bedtime. loratadine (CLARITIN) 10 mg tablet Take 1 tablet by mouth once daily. colestipol (COLESTID) 1 gram tablet Take 1 tablet by mouth twice daily. busPIRone (BUSPAR) 10 mg tablet Take 1 tablet by mouth once daily. TETRAHYDROZOLINE HCL/ZN SULF (EYE DROPS OPHTHALMIC) Use in eyes. [employer] 1 drop both eyes evening traMADol (ULTRAM) 50 mg tablet Take 50 mg by mouth every 8 hours as needed. FOLIC ACID ORAL Take 1,600 mg by mouth once daily. estradiol (ESTRACE) 0.01 % (0.1 mg/gram) vaginal cream Use 0.1 g vaginally once each week. fluticasone (FLONASE) 50 mcg/actuation nasal spray Use 1 [place] in each nostril twice daily. levothyroxine (SYNTHROID) 125 mcg tablet Take 1 tablet by mouth once daily. ABATACEPT (ORENCIA SUBCUTANEOUS) Inject subcutaneously. Once a week ALPRAZolam (XANAX) 1 mg tablet Take 1 mg by mouth daily at bedtime. BIOTIN ORAL Take 1,000 mg by mouth once daily. calcium carbonate/vitamin d3(CALCIUM 600 + D 600 MG-400 UNIT TAB) 2 daily ASPIRIN 81 MG TAB Take one(1) tablet daily. COL-RITE 100 MG CAP daily citalopram hydrobromide (CELEXA) 10 mg tablet Take 1 tablet by mouth once daily. (Patient not taking: Reported on 12/16/2017 ) No current facility-administered medications for this visit. ALLERGIES: ALLERGIES Allergen Reactions - Ciprofloxacin Other: See Comments Tendon Rupture. - Citric Acid Shortness of Breath Shortness of breath,swelling of throat - Levaquin [Levofloxa* Unknown - Lisinopril Hives - Tradjenta [Linaglip* Intolerance Nausea - Trileptal [Oxcarbaz* Mental Status Change - Tylox [Oxycodone-Ac* low blood pressure - Zetia [Ezetimibe] Other: See Comments Muscle pain - Zocor [Simvastatin] Swelling severe muscle cramping, liver enzyme abnormalities PAST MEDICAL HISTORY Diagnosis Date - Adrenal insufficiency ([facility]) 1986 oral cortisone daily - Calculus of kidney - CHF (congestive heart failure) ([facility]) - 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 - Diabetes mellitus, type II ([facility]) - Diabetes type 2, controlled ([facility]) chronic steroid therapy - Dual implantable cardioverter-defibrillator in situ 12/14/2013 Defibrillator Pacemaker Model [id number], serial # [id number] - Essential hypertension - H/O right heart catheterization 11/27/2013 coronaries clear - Heart attack ([facility]) 09/28/2000 - Heart attack ([facility]) 11/27/2013 first [place] 09/28/2000,second [place]. 20% EF, took 3L of fluid off - Hemiparesis affecting right side as late effect of stroke ([facility]) 02/06/2000 - Hyperthyroidism s/p radiation, currently on Synthroid, Seeing endo-Dr. Billings - Hypothyroidism (acquired) 1665 - Left bundle branch block - LUMBOSACRAL NEURITIS NOS 06/27/2007 - Lupus erythematosus 2005 Dr. Foreman - Other and unspecified hyperlipidemia - Other primary cardiomyopathies 09/28/2000 Cardiomyopathy-Seeing Dr. Rosenberg - Raynaud's syndrome 1999 - Rheumatoid arthritis(714.0) [address] 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 Demond Tejeda - RHINOPLASTY 1989 nasal reconstruction after injury - TUBAL LIGATION HX 01/17/2010 removal of tumors, BTL FAMILY HISTORY Problem Relation Age of Onset - Arthritis Mother CREST syndrome - Diabetes Mother - Stroke Father - Heart Father - Emphysema Father - Stroke Paternal Grandmother - Stroke Paternal Grandfather - other (DM) Brother - other (CM) Brother possibly ETOH related. Social History Marital status: Spouse name: Years of education: Number of children: Social History Main Topics Smoking status: Never Smoker Smokeless tobacco: Never Used Alcohol use: No Drug use: No Sexual activity: Yes Partners with: Male Reviewed current medications, allergies, past medical history, surgical history, family history and social history today. REVIEW OF SYSTEMS All other reviewed and negative other than HPI. VITALS: Temp 36.6 ?C (97.9 ?F) (Tympanic) LMP (LMP Unknown) Last 4 Encounter Wt Readings: Date: Wt: 09/26/2017 83 kg (183 lb) 06/14/2017 79.4 kg (175 lb) 06/04/2017 82.6 kg (182 lb) 05/18/2017 80.7 kg (178 lb) PHYSICAL EXAMINATION: General appearance: Well appearing, alert, in no acute distress, well-hydrated, well nourished. Skin: Skin color, texture, turgor normal, no suspicious rashes or lesions Head: Normocephalic, no masses, lesions, tenderness or abnormalities Back: no cva tenderness. Lungs: Lungs clear to auscultation. No wheezing, rhonchi, rales Heart: RRR without murmur, gallop, or rubs. No ectopy Abdomen: Normal abdominal exam, Abdomen soft, non-tender. Bowel sounds normal. No masses, organomegaly ASSESSMENT/PLAN: 1. Frequent urination - ICD9: 788.41, ICD10: R35.0 (primary diagnosis) acute - Send urine for culture - Begin treatment with Macrobid 100 mg BID for 7 days - Patient education for prevention given - UA DIP B/O - URINE CULTURE 2. Acute cystitis with hematuria - ICD9: 595.0, ICD10: N30.01 - NITROFURANTOIN MACROCRYSTAL 100 MG CAPSULE Demond Little MD Referring Provider: SELF [200] Allergies As of Date: 12/16/2017 Noted Allergy Reaction CIPROFLOXACIN 12/06/2013 14 - Other: See Comments Comments: Tendon Rupture. CITRIC ACID 03/18/2016 12 - Shortness of Breath Comments: Shortness of breath,swelling of throat LEVAQUIN (LEVOFLOXACIN) 07/02/2015 16 - Unknown LISINOPRIL 05/12/2006 4 - Hives TRADJENTA (LINAGLIPTIN) 07/26/2016 5 - Intolerance Comments: Nausea TRILEPTAL (OXCARBAZEPINE) 09/22/2016 1 - Mental Status Change TYLOX (OXYCODONE-ACETAMINOPHEN) 05/12/2006 Comments: low blood pressure ZETIA (EZETIMIBE) 02/04/2016 14 - Other: See Comments Comments: Muscle pain ZOCOR (SIMVASTATIN) 05/12/2006 7 - Swelling Comments: severe muscle cramping, liver enzyme abnormalities Date Reviewed: 12/16/2017 Reviewed by: Anabela Anderson Food Safety Scientist - Fully Assessed Reason for Visit: UTI [116] Cmt: frequent urination x 2 days Reason For Visit History Recorded Primary Visit Diagnosis:Frequent urination [R35.0] Other Visit Diagnosis:Acute cystitis with hematuria [N30.01] Order(s):UA DIP B/O [9029583] Order #: [id number] URINE CULTURE [SQURCUL] Order #: [id number] nitrofurantoin (MACRODANTIN) 100 mg capsuleTake 1 capsule by mouth four times daily.Disp: 14 capsuleRfl: 0 Prescriptions as of 12/16/2017 Sig: DULOXETINE 30 MG CAPSULE,JERRY* CARVEDILOL 6.25 MG TABLET Take 1 tablet by mouth twice * POTASSIUM CHLORIDE ER 20 MEQ * Take 1 tablet by mouth once d* ESOMEPRAZOLE MAGNESIUM 40 MG * Take 1 capsule by mouth once * LIOTHYRONINE 5 MCG TABLET Take 5 mcg by mouth once andree* CHOLECALCIFEROL (VITAMIN D3) * Take by mouth. COMPOUNDED PRESCRIPTION Probiotic RAMELTEON 8 MG TABLET Take 8 mg by mouth daily at b* LORATADINE 10 MG TABLET Take 1 tablet by mouth once d* COLESTIPOL 1 GRAM TABLET Take 1 tablet by mouth twice * BUSPIRONE 10 MG TABLET Take 1 tablet by mouth once d* EYE DROPS OPHTHALMIC Use in eyes. [employer] * TRAMADOL 50 MG TABLET Take 50 mg by mouth every 8 h* FOLIC ACID ORAL Take 1,600 mg by mouth once d* ESTRADIOL 0.01% (0.1 MG/GRAM)* Use 0.1 g vaginally once each* FLUTICASONE 50 MCG/ACTUATION * Use 1 Gridley in each nostril t* LEVOTHYROXINE 125 MCG TABLET Take 1 tablet by mouth once d* ORENCIA SUBCUTANEOUS Inject subcutaneously. Once * ALPRAZOLAM 1 MG TABLET Take 1 mg by mouth daily at b* * BIOTIN ORAL Take 1,000 mg by mouth once d* * CALCIUM 600 + D(3) 600 MG (1,* 2 daily * ASPIRIN 81 MG TABLET Take one(1) tablet daily. 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 LBBB (left bundle branch block) [I44.7] INVALID FOR* Biventricular ICD (implantable cardioverter-def*INVALID FOR* Postablative hypothyroidism [E89.0] INVALID FOR* More... 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 Hearing loss of both ears [H91.93] INVALID FOR* More... Nonischemic cardiomyopathy (HCC) [I42.8] INVALID FOR* Chronic systolic heart failure (HCC) [I50.22] INVALID FOR* More... Sensorineural hearing loss, bilateral [H90.3] INVALID FOR* Tinnitus [H93.19] INVALID FOR* Dizziness and giddiness [R42] INVALID FOR* More... More... 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] Diabetes mellitus, type II (HCC) [E11.9] Compression fracture of L1 lumbar vertebra (HCC*INVALID FOR* Wedge compression fracture of twelfth thoracic *INVALID FOR* Rheumatoid arthritis involving multiple sites (*INVALID FOR*09/01/2016 Heart attack (HCC) [I21.9] INVALID FOR*09/01/2016 More... Sjogren's syndrome (HCC) [M35.00] INVALID FOR* Obstructive sleep apnea syndrome [G47.33] INVALID FOR* More... Other and unspecified hyperlipidemia [E78.5] INVALID FOR* More... Lupus erythematosus [L93.0] INVALID FOR* More... CHF (congestive heart failure) (HCC) [I50.9] INVALID FOR* More... Essential hypertension [I10] Cervicalgia [M54.2] INVALID FOR* More... Type 2 diabetes mellitus without complication, *INVALID FOR* Transition of care performed with sharing of cl*INVALID FOR* More... Prescriptions ordered this encounter Disp Refills Start End NITROFURANTOIN MACROCRYSTAL 100 MG C* 14 c* 0 12/16/2017 Route: ORAL Sig: Take 1 capsule by mouth four times daily. Encounter Status:Closed by DEMOND LITTLE MD on 12/16/17 CBC W/DIFF, AUTOMATED Collected: 11/09/2017 Status: F Source: [place] 12:52 PM [facility] REPOSITORY TYPE CODE TESTS RESULT OUT OF RANGE REFERENCE UNITS LAB L100.1000 4.4-11.0 K/mm3 Normal WBC 5.3 LAB L100.1200 4.2-5.4 M/mm3 Normal RBC 4.35 LAB L100.1300 12.0-15.0 g/dl Normal HGB 13.4 LAB L100.1400 37-47 % Normal HCT 42.2 LAB L100.1500 81-99 fL Normal MCV 97.0 LAB L100.1600 27.0-32.0 pg Normal MCH 30.8 LAB L100.1700 32-36 g/gl Low MCHC 31.8 LAB L100.1810 11.6-14.6 % High RDW CV 14.8 LAB L100.1820 35.1-43.9 fl High RDW SD 51.4 LAB L100.1900 150-450 K/mm3 Normal PLT 216 LAB L100.2000 6.2-12.0 fl Normal MPV 9.9 LAB L100.2100 47-70 % Normal NEUT% 48.1 LAB L100.2200 19-41 % High LY% 41.7 LAB L100.2300 0-10 % Normal MONO% 7.1 LAB L100.2400 0-5 % Normal EO% 2.3 LAB L100.2500 0-1 % Normal BASO% 0.6 LAB L100.2550 0.0-0.9 % Normal IM GRAN % 0.200 Result Comment: IG% - Immature Granulocytes (promyelocytes, myelocytes and metamyelocytes) > 1% indicates that a LEFT SHIFT is Present. LAB L100.2620 2.0-7.7 X10 3/uL Normal Absolute Neut 2.6 LAB L100.2720 0.83-4.51 X10 3/ul Normal Absolute Lymph 2.22 Performed By: #### L100.0100 #### [facility] [address] [place], [address] COMPREHENSIVE METABOLIC Collected: 11/09/2017 Status: F Source: [facility] 12:52 PM [facility] REPOSITORY TYPE CODE TESTS RESULT OUT OF RANGE REFERENCE UNITS LAB L501.0100 74-106 mg/dL High GLU 167 Result Comment: Fasting Glucose result greater than or equal to 126 mg/dL suggests DIABETES MELLITUS per A.D.A. criteria. Please note revised GLUCOSE reference range effective 2017. LAB L501.1000 7-18 mg/dL Normal BUN 18 LAB L501.1100 0.55-1.02 mg/dL High CREAT,SERUM 1.10 Result Comment: The validity of the calculated GFR AND GFRAA in patients over 70 years has not been determined. Clinical correlation is essential. LAB L501.1110 >60 mL/min Low EST GFR 55 Result Comment: Non- GFR Calc LAB L501.1115 >60 mL/min Normal EST GFR - AA 66 Result Comment: GFR Calc LAB L501.1300 10-20 RATIO Normal BUN/CRE 16.4 LAB L501.1500 6.4-8.2 g/dL T Normal PROT 6.8 LAB L501.1800 3.2-5.0 g/dL Normal ALB 3.3 LAB L501.1950 2.2-4.2 g/dL Normal GLOB 3.5 LAB L501.2000 0.9-2.4 RATIO Normal A/G 0.9 LAB L501.2200 8.5-10.1 mg/dL CA Normal 9.1 LAB L501.4100 15-37 U/L Low AST 11 LAB L501.4305 45-117 U/L Low ALK P 41 LAB L501.4405 13-56 U/L Normal ALT 21 LAB L501.4600 0.20-1.00 mg/dL T Normal BILI 0.30 LAB L501.5300 136-145 mmol/L NA Normal 143 LAB L501.5600 3.5-5.1 mmol/L K Normal 4.0 LAB L501.5900 98-107 mmol/L CL Normal 104 LAB L501.6100 21.0-32.0 mmol/L Normal CO2 32.0 LAB L501.6200 5-15 Normal GAP 7 Performed By: #### L500.4050 #### [facility] [place], [address] XR RIB/CHST 3V AP Observed: 09/30/2017 Status: F Source: [place] RIB/OBL/CHST R 4:13 PM [facility] REPOSITORY * * *Final Report* * * DATE OF EXAM: Sep 30 2017 4:13PM [id number] [id number] - XR RIB/CHST 3V AP RIB/OBL/CHST R / PROCEDURE REASON: Pleurodynia * * * * Physician Interpretation * * * * PROCEDURE: Chest and right RIBS INDICATION: Pleurodynia . TECHNIQUE: XR RIB/CHST 3V AP RIB/OBL/CHST R COMPARISON: Chest 05/13/2017 FINDINGS: Stable multichamber cardiac conduction devices. Cardiac size is normal. Stable biapical pleural thickening. No focal consolidation, pleural effusion or pneumothorax. The right ribs are intact without fracture, sclerotic or lytic lesion. IMPRESSION: No acute abnormality Gasateria Attendant: PSCB Transcribe Date/Time: Oct 01 2017 3:48P Dictated by : JOHAN LOPEZ MD This examination was interpreted and the report reviewed and electronically signed by: JOHAN LOPEZ MD on Oct 01 2017 3:49PM EST [id number] Observed: 09/30/2017 Status: COMPLETED Source: [place] 4:01 PM [facility] REPOSITORY HNO ID: [id number] Author: Kae (Rt) Mera Guillory Service: (none) Author Type: Property Assistant Type: Progress Notes Filed: 09/30/2017 4:12 PM Note Text: Radiology Service Progress Note PATIENT NAME: Dana Matos DATE OF SERVICE: September 30, 2017 TIME: 4:01 PM PATIENT IDENTITY VERIFICATION COMPLETED USING TWO (2) METHODS: Patient confirmed name verbally and Date of . PATIENT GENDER DATA: Female. status: : No status: NO. PATIENT RELEVANT IMPLANT DATA REVIEWED: Not Applicable RADIOLOGY DEPARTMENT: General X-ray: Exam(s) Completed: Rib X-Ray: Right PERIPHERAL IV DATA: Not applicable SIGNED BY: RT Denilson September 30, 2017 4:01 PM PROGRESS Observed: 09/30/2017 Status: COMPLETED Source: [place] 3:[address] [facility] REPOSITORY O ID: [id number] Author: Demond Little Service: (none) Author Type: Physician Type: Progress Notes Filed: 09/30/2017 3:23 PM Note Text: Patient presents with: rib fracture ? HPI: Patient presents today for office visit for follow up. Nursing Notes: Jennifer Mclaughlin LPN 09/30/2017 3:00 PM Signed Rolled over in sleep about 3 days ago and thinks may have broken a rib. Right side of chest from armpit around to front across breast. Hasn't used any ice. Denies any shortness of breath. No trauma. No cough. No bruising. No swelling. Pain is moderate. Worse with bending. Worse with twist. On ultram. Worse with laugh. Not worse with deep breath. MEDICATIONS: Current Outpatient Prescriptions: esomeprazole (NEXIUM) 40 mg capsule Take 1 capsule by mouth once daily. liothyronine (CYTOMEL) 5 mcg tablet Take 5 mcg by mouth once daily. Cholecalciferol, Vitamin D3, 2,000 unit cap Take by mouth. COMPOUNDED PRESCRIPTION Probiotic ramelteon (ROZEREM) 8 mg tablet Take 8 mg by mouth daily at bedtime. loratadine (CLARITIN) 10 mg tablet Take 1 tablet by mouth once daily. colestipol (COLESTID) 1 gram tablet Take 1 tablet by mouth twice daily. citalopram hydrobromide (CELEXA) 10 mg tablet Take 1 tablet by mouth once daily. busPIRone (BUSPAR) 10 mg tablet Take 1 tablet by mouth once daily. potassium chloride ER (KLOR-CON M20) 20 mEq tablet Take 1 tablet by mouth once daily. carvedilol (COREG) 6.25 mg tablet Take 1 tablet by mouth twice daily with meals. TETRAHYDROZOLINE HCL/ZN SULF (EYE DROPS OPHTHALMIC) Use in eyes. [employer] 1 drop both eyes evening traMADol (ULTRAM) 50 mg tablet Take 50 mg by mouth every 8 hours as needed. FOLIC ACID ORAL Take 1,600 mg by mouth once daily. estradiol (ESTRACE) 0.01 % (0.1 mg/gram) vaginal cream Use 0.1 g vaginally once each week. fluticasone (FLONASE) 50 mcg/actuation nasal spray Use 1 Gridley in each nostril twice daily. levothyroxine (SYNTHROID) 125 mcg tablet Take 1 tablet by mouth once daily. ABATACEPT (ORENCIA SUBCUTANEOUS) Inject subcutaneously. Once a week ALPRAZolam (XANAX) 1 mg tablet Take 1 mg by mouth daily at bedtime. BIOTIN ORAL Take 1,000 mg by mouth once daily. calcium carbonate/vitamin d3(CALCIUM 600 + D 600 MG-400 UNIT TAB) 2 daily ASPIRIN 81 MG TAB Take one(1) tablet daily. COL-RITE 100 MG CAP daily No current facility-administered medications for this visit. ALLERGIES: ALLERGIES Allergen Reactions - Ciprofloxacin Other: See Comments Tendon Rupture. - Citric Acid Shortness of Breath Shortness of breath,swelling of throat - Levaquin [Levofloxa* Unknown - Lisinopril Hives - Tradjenta [Linaglip* Intolerance Nausea - Trileptal [Oxcarbaz* Mental Status Change - Tylox [Oxycodone-Ac* low blood pressure - Zetia [Ezetimibe] Other: See Comments Muscle pain - Zocor [Simvastatin] Swelling severe muscle cramping, liver enzyme abnormalities PAST MEDICAL HISTORY Diagnosis Date - Adrenal insufficiency (HCC) 1986 oral cortisone daily - Calculus of kidney - CHF (congestive heart failure) ([facility]) - 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 - Diabetes mellitus, type II ([facility]) - Diabetes type 2, controlled ([facility]) chronic steroid therapy - Dual implantable cardioverter-defibrillator in situ 12/14/2013 Defibrillator Pacemaker Model [id number], serial # [id number] - Essential hypertension - H/O right heart catheterization 11/27/2013 coronaries clear - Heart attack (HCC) 09/28/2000 - Heart attack (HCC) 11/27/2013 first [place] 09/28/2000,second [place]. 20% EF, took 3L of fluid off - Hemiparesis affecting right side as late effect of stroke (HCC) 02/06/2000 - Hyperthyroidism s/p radiation, currently on Synthroid, Seeing endo-Dr. Billings - Hypothyroidism (acquired) 166 - Left bundle branch block - LUMBOSACRAL NEURITIS NOS 06/27/2007 - Lupus erythematosus 2005 Dr. Foreman - Other and unspecified hyperlipidemia - Other primary cardiomyopathies 09/28/2000 Cardiomyopathy-Seeing Dr. Rosenberg - Raynaud's syndrome 1999 - Rheumatoid arthritis(714.0) [address] Faulkner - Sjogren's syndrome ([facility]) 1997 - Transverse myelitis ([facility]) 05/31/2006 from flu shot PAST SURGICAL HISTORY Procedure Laterality Date - DEFIBRILLATOR SURGERY 2013 - EXCIS FINGER TENDON FLEXOR - HYSTERECTOMY HX 2011 - INCISION EXTEN FOOT/TOE TENDON - OTOPLASTY - PAST SURGICAL HISTORY OF five foot surgeries [id number], Jarred Donato - PAST SURGICAL HISTORY OF four hand surgeries [id number], Dr. Demond Tejeda - RHINOPLASTY 1989 nasal reconstruction after injury - TUBAL LIGATION HX 01/17/2010 removal of tumors, BTL FAMILY HISTORY Problem Relation Age of Onset - Arthritis Mother CREST syndrome - Diabetes Mother - Stroke Father - Heart Father - Emphysema Father - Stroke Paternal Grandmother - Stroke Paternal Grandfather - DM [OTHER] Brother - CM [OTHER] Brother possibly ETOH related. Social History Marital status: Spouse name: Years of education: Number of children: Social History Main Topics Smoking status: Never Smoker Smokeless tobacco: Never Used Alcohol use: No Drug use: No Sexual activity: Yes Partners with: Male Reviewed current medications, allergies, past medical history, surgical history, family history and social history today. REVIEW OF SYSTEMS All other reviewed and negative other than HPI. HEALTH MAINTENANCE: Reviewed health maintenance issues today and recommended the following in detail. VITALS: BP 122/62 Pulse 76 Resp 14 LMP (LMP Unknown) Last 4 Encounter Wt Readings: Date: Wt: 09/26/2017 83 kg (183 lb) 06/14/2017 79.4 kg (175 lb) 06/04/2017 82.6 kg (182 lb) 05/18/2017 80.7 kg (178 lb) PHYSICAL EXAMINATION: General appearance: Well appearing, alert, in no acute distress, well-hydrated, well nourished. Skin: Skin color, texture, turgor normal, no suspicious rashes or lesions Head: Normocephalic, no masses, lesions, tenderness or abnormalities Lungs: Lungs clear to auscultation. No wheezing, rhonchi, rales Heart: RRR without murmur, gallop, or rubs. No ectopy Abdomen: Normal abdominal exam, Abdomen soft, non-tender. Bowel sounds normal. No masses, organomegaly Chest wall: no deformity or step off. No deformity.tenderness if under the right axilla ASSESSMENT/PLAN: 1. Rib pain on right side - ICD9: 786.50, ICD10: R07.81 - may be muscular. Agrees to xray. Red flags for re-assessment reviewed with patient in detail. - Call if symptoms worsen at all or if not better in one to two weeks - XR RIBS/CHEST 3V AP RIB/OBLS/CXR RT Demond Little MD CNOV Observed: 09/30/2017 Status: COMPLETED Source: [place] 3:00 PM [facility] REPOSITORY Office Visit (FAMPWS) DANA MATOS ([id number]) 1960 F Date Time Provider Department 09/30/17 3:00 PM DEMOND LITTLE FAMPWS During your visit today, we recorded the following information about you: Pulse Respiration Blood pressure 76/minute 14/minute 122/62 Jennifer Mclaughlin LPN 09/30/2017 3:00 PM Signed Rolled over in sleep about 3 days ago and thinks may have broken a rib. Right side of chest from armpit around to front across breast. Hasn't used any ice. Denies any shortness of breath. Demond Little MD 09/30/2017 3:23 PM Signed Patient presents with: rib fracture ? HPI: Patient presents today for office visit for follow up. Nursing Notes: Jennifer Mclaughlin JACKIE 09/30/2017 3:00 PM Signed Rolled over in sleep about 3 days ago and thinks may have broken a rib. Right side of chest from armpit around to front across breast. Hasn't used any ice. Denies any shortness of breath. No trauma. No cough. No bruising. No swelling. Pain is moderate. Worse with bending. Worse with twist. On ultram. Worse with laugh. Not worse with deep breath. MEDICATIONS: Current Outpatient Prescriptions: esomeprazole (NEXIUM) 40 mg capsule Take 1 capsule by mouth once daily. liothyronine (CYTOMEL) 5 mcg tablet Take 5 mcg by mouth once daily. Cholecalciferol, Vitamin D3, 2,000 unit cap Take by mouth. COMPOUNDED PRESCRIPTION Probiotic ramelteon (ROZEREM) 8 mg tablet Take 8 mg by mouth daily at bedtime. loratadine (CLARITIN) 10 mg tablet Take 1 tablet by mouth once daily. colestipol (COLESTID) 1 gram tablet Take 1 tablet by mouth twice daily. citalopram hydrobromide (CELEXA) 10 mg tablet Take 1 tablet by mouth once daily. busPIRone (BUSPAR) 10 mg tablet Take 1 tablet by mouth once daily. potassium chloride ER (KLOR-CON M20) 20 mEq tablet Take 1 tablet by mouth once daily. carvedilol (COREG) 6.25 mg tablet Take 1 tablet by mouth twice daily with meals. TETRAHYDROZOLINE HCL/ZN SULF (EYE DROPS OPHTHALMIC) Use in eyes. [employer] 1 drop both eyes evening traMADol (ULTRAM) 50 mg tablet Take 50 mg by mouth every 8 hours as needed. FOLIC ACID ORAL Take 1,600 mg by mouth once daily. estradiol (ESTRACE) 0.01 % (0.1 mg/gram) vaginal cream Use 0.1 g vaginally once each week. fluticasone (FLONASE) 50 mcg/actuation nasal spray Use 1 [place]ley in each nostril twice daily. levothyroxine (SYNTHROID) 125 mcg tablet Take 1 tablet by mouth once daily. ABATACEPT (ORENCIA SUBCUTANEOUS) Inject subcutaneously. Once a week ALPRAZolam (XANAX) 1 mg tablet Take 1 mg by mouth daily at bedtime. BIOTIN ORAL Take 1,000 mg by mouth once daily. calcium carbonate/vitamin d3(CALCIUM 600 + D 600 MG-400 UNIT TAB) 2 daily ASPIRIN 81 MG TAB Take one(1) tablet daily. COL-RITE 100 MG CAP daily No current facility-administered medications for this visit. ALLERGIES: ALLERGIES Allergen Reactions - Ciprofloxacin Other: See Comments Tendon Rupture. - Citric Acid Shortness of Breath Shortness of breath,swelling of throat - Levaquin [Levofloxa* Unknown - Lisinopril Hives - Tradjenta [Linaglip* Intolerance Nausea - Trileptal [Oxcarbaz* Mental Status Change - Tylox [Oxycodone-Ac* low blood pressure - Zetia [Ezetimibe] Other: See Comments Muscle pain - Zocor [Simvastatin] Swelling severe muscle cramping, liver enzyme abnormalities PAST MEDICAL HISTORY Diagnosis Date - Adrenal insufficiency ([facility]) 1986 oral cortisone daily - Calculus of kidney - CHF (congestive heart failure) ([facility]) - Congenital anomalies of adrenal gland intermediate prednisone use - CVA (cerebral infarction) 1999 short term memory loss. - Diabetes mellitus, type II ([facility]) - Diabetes type 2, controlled ([facility]) chronic steroid therapy - Dual implantable cardioverter-defibrillator in situ 12/14/2013 Defibrillator Pacemaker Model [id number], serial # [id number] - Essential hypertension - H/O right heart catheterization 11/27/2013 coronaries clear - Heart attack ([facility]) 09/28/2000 - Heart attack ([facility]) 11/27/2013 first [place] 09/28/2000,second [place]. 20% EF, took 3L of fluid off - Hemiparesis affecting right side as late effect of stroke ([facility]) 02/06/2000 - Hyperthyroidism s/p radiation, currently on Synthroid, Seeing endo-Dr. Billings - Hypothyroidism (acquired) 1665 - Left bundle branch block - LUMBOSACRAL NEURITIS NOS 06/27/2007 - Lupus erythematosus 2005 Dr. Foreman - Other and unspecified hyperlipidemia - Other primary cardiomyopathies 09/28/2000 Cardiomyopathy-Seeing Dr. Rosenberg - Raynaud's syndrome 1999 - Rheumatoid arthritis(714.0) [address] Faulkner - Sjogren's syndrome ([facility]) 1997 - Transverse myelitis ([facility]) 05/31/2006 from flu shot PAST SURGICAL HISTORY Procedure Laterality Date - DEFIBRILLATOR SURGERY 2013 - EXCIS FINGER TENDON FLEXOR - HYSTERECTOMY HX 2011 - INCISION EXTEN FOOT/TOE TENDON - OTOPLASTY - PAST SURGICAL HISTORY OF five foot surgeries [id number], Jarred Donato - PAST SURGICAL HISTORY OF four hand surgeries [id number], Dr. Demond Tejeda - RHINOPLASTY 1989 nasal reconstruction after injury - TUBAL LIGATION HX 01/17/2010 removal of tumors, BTL FAMILY HISTORY Problem Relation Age of Onset - Arthritis Mother CREST syndrome - Diabetes Mother - Stroke Father - Heart Father - Emphysema Father - Stroke Paternal Grandmother - Stroke Paternal Grandfather - DM [OTHER] Brother - CM [OTHER] Brother possibly ETOH related. Social History Marital status: Spouse name: Years of education: Number of children: Social History Main Topics Smoking status: Never Smoker Smokeless tobacco: Never Used Alcohol use: No Drug use: No Sexual activity: Yes Partners with: Male Reviewed current medications, allergies, past medical history, surgical history, family history and social history today. REVIEW OF SYSTEMS All other reviewed and negative other than HPI. HEALTH MAINTENANCE: Reviewed health maintenance issues today and recommended the following in detail. VITALS: BP 122/62 Pulse 76 Resp 14 LMP (LMP Unknown) Last 4 Encounter Wt Readings: Date: Wt: 09/26/2017 83 kg (183 lb) 06/14/2017 79.4 kg (175 lb) 06/04/2017 82.6 kg (182 lb) 05/18/2017 80.7 kg (178 lb) PHYSICAL EXAMINATION: General appearance: Well appearing, alert, in no acute distress, well-hydrated, well nourished. Skin: Skin color, texture, turgor normal, no suspicious rashes or lesions Head: Normocephalic, no masses, lesions, tenderness or abnormalities Lungs: Lungs clear to auscultation. No wheezing, rhonchi, rales Heart: RRR without murmur, gallop, or rubs. No ectopy Abdomen: Normal abdominal exam, Abdomen soft, non-tender. Bowel sounds normal. No masses, organomegaly Chest wall: no deformity or step off. No deformity.tenderness if under the right axilla ASSESSMENT/PLAN: 1. Rib pain on right side - ICD9: 786.50, ICD10: R07.81 - may be muscular. Agrees to xray. Red flags for re-assessment reviewed with patient in detail. - Call if symptoms worsen at all or if not better in one to two weeks - XR RIBS/CHEST 3V AP RIB/OBLS/CXR RT Demond Little MD Referring Provider: SELF [[id number]] Allergies As of Date: 09/30/2017 Noted Allergy Reaction CIPROFLOXACIN 12/06/2013 14 - Other: See Comments Comments: Tendon Rupture. CITRIC ACID 03/18/2016 12 - Shortness of Breath Comments: Shortness of breath,swelling of throat LEVAQUIN (LEVOFLOXACIN) 07/02/2015 16 - Unknown LISINOPRIL 05/12/2006 4 - Hives TRADJENTA (LINAGLIPTIN) 07/26/2016 5 - Intolerance Comments: Nausea TRILEPTAL (OXCARBAZEPINE) 09/22/2016 1 - Mental Status Change TYLOX (OXYCODONE-ACETAMINOPHEN) 05/12/2006 Comments: low blood pressure ZETIA (EZETIMIBE) 02/04/2016 14 - Other: See Comments Comments: Muscle pain ZOCOR (SIMVASTATIN) 05/12/2006 7 - Swelling Comments: severe muscle cramping, liver enzyme abnormalities Date Reviewed: 09/30/2017 Reviewed by: Jennifer Mclaughlin LPN - Fully Assessed Reason for Visit: rib fracture ? [Other] Primary Visit Diagnosis:Rib pain on right side [R07.81] Order(s):XR RIBS/CHEST 3V AP RIB/OBLS/CXR RT [[id number]] Order #: [id number] FUTURE Prescriptions as of 09/30/2017 Sig: ESOMEPRAZOLE MAGNESIUM 40 MG * Take 1 capsule by mouth once * LIOTHYRONINE 5 MCG TABLET Take 5 mcg by mouth once andree* CHOLECALCIFEROL (VITAMIN D3) * Take by mouth. COMPOUNDED PRESCRIPTION Probiotic RAMELTEON 8 MG TABLET Take 8 mg by mouth daily at b* LORATADINE 10 MG TABLET Take 1 tablet by mouth once d* COLESTIPOL 1 GRAM TABLET Take 1 tablet by mouth twice * CITALOPRAM 10 MG TABLET Take 1 tablet by mouth once d* BUSPIRONE 10 MG TABLET Take 1 tablet by mouth once d* POTASSIUM CHLORIDE ER 20 MEQ * Take 1 tablet by mouth once d* CARVEDILOL 6.25 MG TABLET Take 1 tablet by mouth twice * EYE DROPS OPHTHALMIC Use in eyes. [employer] * TRAMADOL 50 MG TABLET Take 50 mg by mouth every 8 h* FOLIC ACID ORAL Take 1,600 mg by mouth once d* ESTRADIOL 0.01% (0.1 MG/GRAM)* Use 0.1 g vaginally once each* FLUTICASONE 50 MCG/ACTUATION * Use 1 Gridley in each nostril t* LEVOTHYROXINE 125 MCG TABLET Take 1 tablet by mouth once d* ORENCIA SUBCUTANEOUS Inject subcutaneously. Once * ALPRAZOLAM 1 MG TABLET Take 1 mg by mouth daily at b* * BIOTIN ORAL Take 1,000 mg by mouth once d* * CALCIUM 600 + D(3) 600 MG (1,* 2 daily * ASPIRIN 81 MG TABLET Take one(1) tablet daily. 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 LBBB (left bundle branch block) [I44.7] INVALID FOR* Biventricular ICD (implantable cardioverter-def*INVALID FOR* Postablative hypothyroidism [E89.0] INVALID FOR* More... 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 Hearing loss of both ears [H91.93] INVALID FOR* More... Nonischemic cardiomyopathy (HCC) [I42.8] INVALID FOR* Chronic systolic heart failure (HCC) [I50.22] INVALID FOR* More... Sensorineural hearing loss, bilateral [H90.3] INVALID FOR* Tinnitus [H93.19] INVALID FOR* Dizziness and giddiness [R42] INVALID FOR* More... More... 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] Diabetes mellitus, type II (HCC) [E11.9] Compression fracture of L1 lumbar vertebra (HCC*INVALID FOR* Wedge compression fracture of twelfth thoracic *INVALID FOR* Rheumatoid arthritis involving multiple sites (*INVALID FOR*09/01/2016 Heart attack (HCC) [I21.9] INVALID FOR*09/01/2016 More... Sjogren's syndrome (HCC) [M35.00] INVALID FOR* Obstructive sleep apnea syndrome [G47.33] INVALID FOR* More... Other and unspecified hyperlipidemia [E78.5] INVALID FOR* More... Lupus erythematosus [L93.0] INVALID FOR* More... CHF (congestive heart failure) (HCC) [I50.9] INVALID FOR* More... Essential hypertension [I10] Cervicalgia [M54.2] INVALID FOR* More... Type 2 diabetes mellitus without complication, *INVALID FOR* Transition of care performed with sharing of cl*INVALID FOR* More... Visit Notes: >> Jennifer Mclaughlin JACKIE TueSep 30, 2017 2:53 PM Status: Signed Rolled over in sleep about 3 days ago and thinks may have broken a rib. Right side of chest from armpit around to front across breast. Hasn't used any ice. Denies any shortness of breath. Encounter Status:Closed by DEMOND LITTLE MD on 09/30/17 PROGRESS Observed: 09/26/2017 Status: COMPLETED Source: [place] 2:49 PM [facility] REPOSITORY O ID: [id number] Author: Leticia Mcghee (Pa-C) Jose Service: (none) Author Type: Physician Sales Representative Printing Paper Type: Progress Notes Filed: 09/26/2017 7:28 PM Note Text: 57 year old female with c/o 1. Pain issues have improved with discontinuation of Latuda. She is much better. Feels mood is stable. No big highs or lows. Follows with Ros Crum. Had dizziness going off Latuda but has improved. 2. RA: doing well on Orencia. Notes aches increase just prior to injection. 3. Cardiac: doing well. EF 62% on echo in April. Pacemaker interrogated 08/19/17. 4. DM2: a1c 08/16/17 6.1%. Diet controlled. No unusual weight loss, polyuria, new paresthesia. 5. HTN: controlled. Taking med as directed. HISTORIES FAMILY HISTORY Problem Relation Age of Onset - Arthritis Mother CREST syndrome - Diabetes Mother - Stroke Father - Heart Father - Emphysema Father - Stroke Paternal Grandmother - Stroke Paternal Grandfather - DM [OTHER] Brother - CM [OTHER] Brother possibly ETOH related. 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 - Diabetes mellitus, type II ([facility]) - Diabetes type 2, controlled ([facility]) chronic steroid therapy - Dual implantable cardioverter-defibrillator in situ 12/14/2013 Defibrillator Pacemaker Model [id number], serial # [id number] - Essential hypertension - H/O right heart catheterization 11/27/2013 coronaries clear - Heart attack (HCC) 09/28/2000 - Heart attack (HCC) 11/27/2013 first [place] 09/28/2000,second [place]. 20% EF, took 3L of fluid off - Hemiparesis affecting right side as late effect of stroke ([facility]) 02/06/2000 - Hyperthyroidism s/p radiation, currently on Synthroid, Seeing endo-Dr. Billings - Hypothyroidism (acquired) 1665 - Left bundle branch block - LUMBOSACRAL NEURITIS NOS 06/27/2007 - Lupus erythematosus 2005 Dr. Foreman - Other and unspecified hyperlipidemia - Other primary cardiomyopathies 09/28/2000 Cardiomyopathy-Seeing Dr. Rosenberg - Raynaud's syndrome 1999 - Rheumatoid arthritis(714.0) [address] 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 Demond Tejeda - RHINOPLASTY 1989 nasal reconstruction after injury - TUBAL LIGATION HX 01/17/2010 removal of tumors, BTL Social History Marital status: Spouse name: Years of education: Number of children: Social History Main Topics Smoking status: Never Smoker Smokeless tobacco: Never Used Alcohol use: No Drug use: No Sexual activity: Yes Partners with: Male ACTIVE PROBLEM LIST Degeneration of Cervical Intervertebral Disc Rheumatoid Arthritis (Hcc) Cad (Coronary Artery Disease) Lbbb (Left Bundle Branch Block) Biventricular Icd (Implantable Cardioverter-Defibrillator) in Place Postablative Hypothyroidism Secondary Adrenal Insufficiency (Hcc) Hearing Loss of Both Ears Nonischemic Cardiomyopathy (Hcc) Chronic Systolic Heart Failure (Hcc) Sensorineural Hearing Loss, Bilateral Tinnitus Dizziness and Giddiness Transverse Myelitis (Hcc) Diabetes Mellitus, Type II (Hcc) Compression Fracture of L1 Lumbar Vertebra (Hcc) Wedge Compression Fracture of Twelfth Thoracic Vertebra With Delayed Healing Sjogren's Syndrome (Hcc) Obstructive Sleep Apnea Syndrome Other and Unspecified Hyperlipidemia Lupus Erythematosus Chf (Congestive Heart Failure) (Hcc) Essential Hypertension Cervicalgia Type 2 Diabetes Mellitus Without Complication, With Long-Term Current Use of Insulin ([facility]) Transition of Care Performed With Sharing of Clinical Summary Current Outpatient Prescriptions: esomeprazole (NEXIUM) 40 mg capsule Take 1 capsule by mouth once daily. Disp: 90 capsule Rfl: 1 liothyronine (CYTOMEL) 5 mcg tablet Take 5 mcg by mouth once daily. Disp: Rfl: Cholecalciferol, Vitamin D3, 2,000 unit cap Take by mouth. Disp: Rfl: COMPOUNDED PRESCRIPTION Probiotic Disp: Rfl: ramelteon (ROZEREM) 8 mg tablet Take 8 mg by mouth daily at bedtime. Disp: Rfl: loratadine (CLARITIN) 10 mg tablet Take 1 tablet by mouth once daily. Disp: 90 tablet Rfl: 3 colestipol (COLESTID) 1 gram tablet Take 1 tablet by mouth twice daily. Disp: 60 tablet Rfl: 5 citalopram hydrobromide (CELEXA) 10 mg tablet Take 1 tablet by mouth once daily. Disp: Rfl: 0 busPIRone (BUSPAR) 10 mg tablet Take 1 tablet by mouth once daily. Disp: Rfl: potassium chloride ER (KLOR-CON M20) 20 mEq tablet Take 1 tablet by mouth once daily. Disp: 90 tablet Rfl: 3 carvedilol (COREG) 6.25 mg tablet Take 1 tablet by mouth twice daily with meals. Disp: 180 tablet Rfl: 3 predniSONE (DELTASONE) 5 mg tablet Take 5 mg by mouth once daily. Disp: Rfl: TETRAHYDROZOLINE HCL/ZN SULF (EYE DROPS OPHTHALMIC) Use in eyes. [employer] 1 drop both eyes evening Disp: Rfl: traMADol (ULTRAM) 50 mg tablet Take 50 mg by mouth every 8 hours as needed. Disp: Rfl: FOLIC ACID ORAL Take 1,600 mg by mouth once daily. Disp: Rfl: estradiol (ESTRACE) 0.01 % (0.1 mg/gram) vaginal cream Use 0.1 g vaginally once each week. Disp: Rfl: fluticasone (FLONASE) 50 mcg/actuation nasal spray Use 1 [place] in each nostril twice daily. Disp: Rfl: levothyroxine (SYNTHROID) 125 mcg tablet Take 1 tablet by mouth once daily. Disp: Rfl: 0 ABATACEPT (ORENCIA SUBCUTANEOUS) Inject subcutaneously. Once a week Disp: Rfl: ALPRAZolam (XANAX) 1 mg tablet Take 1 mg by mouth daily at bedtime. Disp: Rfl: BIOTIN ORAL Take 1,000 mg by mouth once daily. Disp: Rfl: calcium carbonate/vitamin d3(CALCIUM 600 + D 600 MG-400 UNIT TAB) 2 daily Disp: Rfl: 0 ASPIRIN 81 MG TAB Take one(1) tablet daily. Disp: Rfl: 0 COL-RITE 100 MG CAP daily Disp: Rfl: 0 predniSONE (DELTASONE) 5 mg tablet Take 5 mg by mouth. Disp: Rfl: lurasidone (LATUDA) 60 mg tab tablet Take 1 tablet by mouth daily with dinner. (Patient not taking: Reported on 09/26/2017 ) Disp: Rfl: 0 No current facility-administered medications for this visit. DIABETIC FOOT EXAM due on 1977 ONE PNEUMOVAX PRIOR TO AGE 66 due on 1977 DTAP,TDAP,TD(1 - Tdap) due on 1980 COLORECTAL CANCER SCREENING,SEE MODIFIER due on 11/16/2016 DILATED RETINAL EXAM due on 10/04/2017 EXAM: BP 128/62 Pulse 72 Resp 16 Wt 83 kg (183 lb) LMP (LMP Unknown) BMI 29.54 kg/m? Pleasant pleasant overweight adult woman in no acute distress. Alert and oriented all spheres. Normal affect and cognition. Speech normal. No deficits to learning or comprehension. Euthymic. Skin warm, dry, pink to lips and nailbeds. Normal turgor. Respirations regular and unlabored. HEENT grossly normal Chest CTA. HRRR without murmur or gallop. Extrem: no clubbing, cyanosis, edema. Extremities are warm and pink with prompt capillary refill. ASSESSMENT/PLAN: 1. Type 2 diabetes mellitus without complication, without long-term current use of insulin (HCC) - ICD9: 250.00, ICD10: E11.9 (primary diagnosis) Controlled. - Continue current medications - CBC + DIFF - COMP METABOLIC PANEL 2. Essential hypertension - ICD9: 401.9, ICD10: I10 - good control - Recommended regular aerobic exercise. - Recommend home blood pressure monitoring, to bring results in on next visit - Goal of BP <130/80 - CBC + DIFF - COMP METABOLIC PANEL 3. Coronary artery disease involving lime coronary artery of lime heart without angina pectoris - ICD9: 414.01, ICD10: I25.10 Asymptomatic. Follow 4. Biventricular ICD (implantable cardioverter-defibrillator) in place - ICD9: V45.02, ICD10: Z95.810 Stable. Quarterly checkes 5. Postablative hypothyroidism - ICD9: 244.1, ICD10: E89.0 Followed by endo 6. Secondary adrenal insufficiency (HCC) - ICD9: 255.41, ICD10: E27.49 Stable prednisone dose. Follows with endo - CBC + DIFF Leticia Garcia PA-C x CNOV Observed: 09/26/2017 Status: COMPLETED Source: [place] 2:00 PM [facility] REPOSITORY Office Visit (FAMPWS) DANA MATOS ([id number]) 1960 F Date Time Provider Department 09/26/17 2:00 PM Leticia GARCIA) FAMPWS During your visit today, we recorded the following information about you: Pulse Respiration Blood pressure Weight 72/minute 16/minute 128/62 83 kg Leticia Garcia PA-C 09/26/2017 7:28 PM Signed 57 year old female with c/o 1. Pain issues have improved with discontinuation of Latuda. She is much better. Feels mood is stable. No big highs or lows. Follows with Ros Crum. Had dizziness going off Latuda but has improved. 2. RA: doing well on Orencia. Notes aches increase just prior to injection. 3. Cardiac: doing well. EF 62% on echo in April. Pacemaker interrogated 08/19/17. 4. DM2: a1c 08/16/17 6.1%. Diet controlled. No unusual weight loss, polyuria, new paresthesia. 5. HTN: controlled. Taking med as directed. HISTORIES FAMILY HISTORY Problem Relation Age of Onset - Arthritis Mother CREST syndrome - Diabetes Mother - Stroke Father - Heart Father - Emphysema Father - Stroke Paternal Grandmother - Stroke Paternal Grandfather - DM [OTHER] Brother - CM [OTHER] Brother possibly ETOH related. 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 - Diabetes mellitus, type II ([facility]) - Diabetes type 2, controlled ([facility]) chronic steroid therapy - Dual implantable cardioverter-defibrillator in situ 12/14/2013 Defibrillator Pacemaker Model [id number], serial # [id number] - Essential hypertension - H/O right heart catheterization 11/27/2013 coronaries clear - Heart attack ([facility]) 09/28/2000 - Heart attack ([facility]) 11/27/2013 first FL 09/28/2000,second [place]. 20% EF, took 3L of fluid off - Hemiparesis affecting right side as late effect of stroke ([facility]) 02/06/2000 - Hyperthyroidism s/p radiation, currently on Synthroid, Seeing endo-Dr. Billings - Hypothyroidism (acquired) 1665 - Left bundle branch block - LUMBOSACRAL NEURITIS NOS 06/27/2007 - Lupus erythematosus 2005 Dr. Foreman - Other and unspecified hyperlipidemia - Other primary cardiomyopathies 09/28/2000 Cardiomyopathy-Seeing Dr. Rosenberg - Raynaud's syndrome 1999 - Rheumatoid arthritis(714.0) [address] 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 Demond Tejeda - RHINOPLASTY 1989 nasal reconstruction after injury - TUBAL LIGATION HX 01/17/2010 removal of tumors, BTL Social History Marital status: Spouse name: Years of education: Number of children: Social History Main Topics Smoking status: Never Smoker Smokeless tobacco: Never Used Alcohol use: No Drug use: No Sexual activity: Yes Partners with: Male ACTIVE PROBLEM LIST Degeneration of Cervical Intervertebral Disc Rheumatoid Arthritis (Hcc) Cad (Coronary Artery Disease) Lbbb (Left Bundle Branch Block) Biventricular Icd (Implantable Cardioverter-Defibrillator) in Place Postablative Hypothyroidism Secondary Adrenal Insufficiency (Hcc) Hearing Loss of Both Ears Nonischemic Cardiomyopathy (Hcc) Chronic Systolic Heart Failure (Hcc) Sensorineural Hearing Loss, Bilateral Tinnitus Dizziness and Giddiness Transverse Myelitis (Hcc) Diabetes Mellitus, Type II (Hcc) Compression Fracture of L1 Lumbar Vertebra (Hcc) Wedge Compression Fracture of Twelfth Thoracic Vertebra With Delayed Healing Sjogren's Syndrome (Hcc) Obstructive Sleep Apnea Syndrome Other and Unspecified Hyperlipidemia Lupus Erythematosus Chf (Congestive Heart Failure) (Hcc) Essential Hypertension Cervicalgia Type 2 Diabetes Mellitus Without Complication, With Long-Term Current Use of Insulin (Hcc) Transition of Care Performed With Sharing of Clinical Summary Current Outpatient Prescriptions: esomeprazole (NEXIUM) 40 mg capsule Take 1 capsule by mouth once daily. Disp: 90 capsule Rfl: 1 liothyronine (CYTOMEL) 5 mcg tablet Take 5 mcg by mouth once daily. Disp: Rfl: Cholecalciferol, Vitamin D3, 2,000 unit cap Take by mouth. Disp: Rfl: COMPOUNDED PRESCRIPTION Probiotic Disp: Rfl: ramelteon (ROZEREM) 8 mg tablet Take 8 mg by mouth daily at bedtime. Disp: Rfl: loratadine (CLARITIN) 10 mg tablet Take 1 tablet by mouth once daily. Disp: 90 tablet Rfl: 3 colestipol (COLESTID) 1 gram tablet Take 1 tablet by mouth twice daily. Disp: 60 tablet Rfl: 5 citalopram hydrobromide (CELEXA) 10 mg tablet Take 1 tablet by mouth once daily. Disp: Rfl: 0 busPIRone (BUSPAR) 10 mg tablet Take 1 tablet by mouth once daily. Disp: Rfl: potassium chloride ER (KLOR-CON M20) 20 mEq tablet Take 1 tablet by mouth once daily. Disp: 90 tablet Rfl: 3 carvedilol (COREG) 6.25 mg tablet Take 1 tablet by mouth twice daily with meals. Disp: 180 tablet Rfl: 3 predniSONE (DELTASONE) 5 mg tablet Take 5 mg by mouth once daily. Disp: Rfl: TETRAHYDROZOLINE HCL/ZN SULF (EYE DROPS OPHTHALMIC) Use in eyes. [employer] 1 drop both eyes evening Disp: Rfl: traMADol (ULTRAM) 50 mg tablet Take 50 mg by mouth every 8 hours as needed. Disp: Rfl: FOLIC ACID ORAL Take 1,600 mg by mouth once daily. Disp: Rfl: estradiol (ESTRACE) 0.01 % (0.1 mg/gram) vaginal cream Use 0.1 g vaginally once each week. Disp: Rfl: fluticasone (FLONASE) 50 mcg/actuation nasal spray Use 1 [place] in each nostril twice daily. Disp: Rfl: levothyroxine (SYNTHROID) 125 mcg tablet Take 1 tablet by mouth once daily. Disp: Rfl: 0 ABATACEPT (ORENCIA SUBCUTANEOUS) Inject subcutaneously. Once a week Disp: Rfl: ALPRAZolam (XANAX) 1 mg tablet Take 1 mg by mouth daily at bedtime. Disp: Rfl: BIOTIN ORAL Take 1,000 mg by mouth once daily. Disp: Rfl: calcium carbonate/vitamin d3(CALCIUM 600 + D 600 MG-400 UNIT TAB) 2 daily Disp: Rfl: 0 ASPIRIN 81 MG TAB Take one(1) tablet daily. Disp: Rfl: 0 COL-RITE 100 MG CAP daily Disp: Rfl: 0 predniSONE (DELTASONE) 5 mg tablet Take 5 mg by mouth. Disp: Rfl: lurasidone (LATUDA) 60 mg tab tablet Take 1 tablet by mouth daily with dinner. (Patient not taking: Reported on 09/26/2017 ) Disp: Rfl: 0 No current facility-administered medications for this visit. DIABETIC FOOT EXAM due on 1977 ONE PNEUMOVAX PRIOR TO AGE 66 due on 1977 DTAP,TDAP,TD(1 - Tdap) due on 1980 COLORECTAL CANCER SCREENING,SEE MODIFIER due on 11/16/2016 DILATED RETINAL EXAM due on 10/04/2017 EXAM: BP 128/62 Pulse 72 Resp 16 Wt 83 kg (183 lb) LMP (LMP Unknown) BMI 29.54 kg/m? Pleasant pleasant overweight adult woman in no acute distress. Alert and oriented all spheres. Normal affect and cognition. Speech normal. No deficits to learning or comprehension. Euthymic. Skin warm, dry, pink to lips and nailbeds. Normal turgor. Respirations regular and unlabored. HEENT grossly normal Chest CTA. HRRR without murmur or gallop. Extrem: no clubbing, cyanosis, edema. Extremities are warm and pink with prompt capillary refill. ASSESSMENT/PLAN: 1. Type 2 diabetes mellitus without complication, without long-term current use of insulin (HCC) - ICD9: 250.00, ICD10: E11.9 (primary diagnosis) Controlled. - Continue current medications - CBC + DIFF - COMP METABOLIC PANEL 2. Essential hypertension - ICD9: 401.9, ICD10: I10 - good control - Recommended regular aerobic exercise. - Recommend home blood pressure monitoring, to bring results in on next visit - Goal of BP <130/80 - CBC + DIFF - COMP METABOLIC PANEL 3. Coronary artery disease involving lime coronary artery of lime heart without angina pectoris - ICD9: 414.01, ICD10: I25.10 Asymptomatic. Follow 4. Biventricular ICD (implantable cardioverter-defibrillator) in place - ICD9: V45.02, ICD10: Z95.810 Stable. Quarterly checkes 5. Postablative hypothyroidism - ICD9: 244.1, ICD10: E89.0 Followed by endo 6. Secondary adrenal insufficiency (HCC) - ICD9: 255.41, ICD10: E27.49 Stable prednisone dose. Follows with endo - CBC + DIFF Leticia Garcia PA-C x Referring Provider: Leticia GARCIA ([place]) [[id number]] Allergies As of Date: 09/26/2017 Noted Allergy Reaction CIPROFLOXACIN 12/06/2013 14 - Other: See Comments Comments: Tendon Rupture. CITRIC ACID 03/18/2016 12 - Shortness of Breath Comments: Shortness of breath,swelling of throat LEVAQUIN (LEVOFLOXACIN) 07/02/2015 16 - Unknown LISINOPRIL 05/12/2006 4 - Hives TRADJENTA (LINAGLIPTIN) 07/26/2016 5 - Intolerance Comments: Nausea TRILEPTAL (OXCARBAZEPINE) 09/22/2016 1 - Mental Status Change TYLOX (OXYCODONE-ACETAMINOPHEN) 05/12/2006 Comments: low blood pressure ZETIA (EZETIMIBE) 02/04/2016 14 - Other: See Comments Comments: Muscle pain ZOCOR (SIMVASTATIN) 05/12/2006 7 - Swelling Comments: severe muscle cramping, liver enzyme abnormalities Date Reviewed: 09/26/2017 Reviewed by: Camille Keating Ma - Fully Assessed Reason for Visit: 6 Month Exam [189] Primary Visit Diagnosis:Type 2 diabetes mellitus without complication, without long-term current use of insulin (HCC) [E11.9] Other Visit Diagnoses:Essential hypertension [I10] Coronary artery disease involving lime coronary artery of lime heart without angina pectoris [I25.10] Biventricular ICD (implantable cardioverter-defibrillator) in place [Z95.810] Postablative hypothyroidism [E89.0] Secondary adrenal insufficiency (HCC) [E27.49] Order(s):CBC + DIFF [SQCBCDIF] Order #: [id number] FUTURE COMP METABOLIC PANEL [SQCMP] Order #: [id number] FUTURE Prescriptions as of 09/26/2017 Sig: ESOMEPRAZOLE MAGNESIUM 40 MG * Take 1 capsule by mouth once * LIOTHYRONINE 5 MCG TABLET Take 5 mcg by mouth once andree* CHOLECALCIFEROL (VITAMIN D3) * Take by mouth. COMPOUNDED PRESCRIPTION Probiotic RAMELTEON 8 MG TABLET Take 8 mg by mouth daily at b* LORATADINE 10 MG TABLET Take 1 tablet by mouth once d* COLESTIPOL 1 GRAM TABLET Take 1 tablet by mouth twice * CITALOPRAM 10 MG TABLET Take 1 tablet by mouth once d* BUSPIRONE 10 MG TABLET Take 1 tablet by mouth once d* POTASSIUM CHLORIDE ER 20 MEQ * Take 1 tablet by mouth once d* CARVEDILOL 6.25 MG TABLET Take 1 tablet by mouth twice * EYE DROPS OPHTHALMIC Use in eyes. [employer] * TRAMADOL 50 MG TABLET Take 50 mg by mouth every 8 h* FOLIC ACID ORAL Take 1,600 mg by mouth once d* ESTRADIOL 0.01% (0.1 MG/GRAM)* Use 0.1 g vaginally once each* FLUTICASONE 50 MCG/ACTUATION * Use 1 [place] in each nostril t* LEVOTHYROXINE 125 MCG TABLET Take 1 tablet by mouth once d* ORENCIA SUBCUTANEOUS Inject subcutaneously. Once * ALPRAZOLAM 1 MG TABLET Take 1 mg by mouth daily at b* * BIOTIN ORAL Take 1,000 mg by mouth once d* * CALCIUM 600 + D(3) 600 MG (1,* 2 daily * ASPIRIN 81 MG TABLET Take one(1) tablet daily. 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 LBBB (left bundle branch block) [I44.7] INVALID FOR* Biventricular ICD (implantable cardioverter-def*INVALID FOR* Postablative hypothyroidism [E89.0] INVALID FOR* More... 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 Hearing loss of both ears [H91.93] INVALID FOR* More... Nonischemic cardiomyopathy (HCC) [I42.8] INVALID FOR* Chronic systolic heart failure (HCC) [I50.22] INVALID FOR* More... Sensorineural hearing loss, bilateral [H90.3] INVALID FOR* Tinnitus [H93.19] INVALID FOR* Dizziness and giddiness [R42] INVALID FOR* More... More... 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] Diabetes mellitus, type II (HCC) [E11.9] Compression fracture of L1 lumbar vertebra (HCC*INVALID FOR* Wedge compression fracture of twelfth thoracic *INVALID FOR* Rheumatoid arthritis involving multiple sites (*INVALID FOR*09/01/2016 Heart attack (HCC) [I21.9] INVALID FOR*09/01/2016 More... Sjogren's syndrome (HCC) [M35.00] INVALID FOR* Obstructive sleep apnea syndrome [G47.33] INVALID FOR* More... Other and unspecified hyperlipidemia [E78.5] INVALID FOR* More... Lupus erythematosus [L93.0] INVALID FOR* More... CHF (congestive heart failure) (HCC) [I50.9] INVALID FOR* More... Essential hypertension [I10] Cervicalgia [M54.2] INVALID FOR* More... Type 2 diabetes mellitus without complication, *INVALID FOR* Transition of care performed with sharing of cl*INVALID FOR* More... Medications Discontinued During This Encounter colestipol (COLESTID) 1 gram tablet 09/26/2017 Class: Historical Med Route: ORAL Sig: Take 1 g by mouth. Disc: Duplicate Entry lurasidone (LATUDA) 60 mg tab tablet 0 12/14/2016 09/26/2017 Class: Med Update Route: ORAL Sig: Take 1 tablet by mouth daily with dinner. Patient not taking: Reported on 09/26/2017 Disc: Side Effects Cosign accepted by Leticia GARCIA PA-C[[id number]] on 12/14/2016 5:58 PM predniSONE (DELTASONE) 5 mg tablet 09/26/2017 Class: Historical Med Route: ORAL Sig: Take 5 mg by mouth once daily. Disc: Reason for discontinue is not on file. predniSONE (DELTASONE) 5 mg tablet 12/06/2013 09/26/2017 Class: Historical Med Route: ORAL Sig: Take 5 mg by mouth. Disc: Duplicate Entry Disposition: Return in about 6 months (around 03/28/2018). Follow-up and Disposition History Recorded Encounter Status:Closed by Leticia GARCIA PA-C on 09/26/17 CBC W/DIFF, AUTOMATED Collected: 08/15/2017 Status: F Source: [place] 2:38 PM [facility] REPOSITORY Order Comment: DR BILLINGS ORDERED: TSH, CMP, T4F, A1C , T3F, LIPID ORDERED: CBCD, CMP PATIENT WAS NOT FASTING, INSISTED ON HAVING LABS COMPLETED TYPE CODE TESTS RESULT OUT OF RANGE REFERENCE UNITS LAB L100.1000 4.4-11.0 K/mm3 Normal WBC 7.3 LAB L100.1200 4.2-5.4 M/mm3 Normal RBC 4.46 LAB L100.1300 12.0-15.0 g/dl Normal HGB 13.7 LAB L100.1400 37-47 % Normal HCT 43.5 LAB L100.1500 81-99 fL Normal MCV 97.5 LAB L100.1600 27.0-32.0 pg Normal MCH 30.7 LAB L100.1700 32-36 g/gl Low MCHC 31.5 LAB L100.1810 11.6-14.6 % Normal RDW CV 14.1 LAB L100.1820 35.1-43.9 fl High RDW SD 50.7 LAB L100.1900 150-450 K/mm3 Normal PLT 219 LAB L100.2000 6.2-12.0 fl Normal MPV 10.8 LAB L100.2100 47-70 % High NEUT% 80.7 LAB L100.2200 19-41 % Low LY% 15.0 LAB L100.2300 0-10 % Normal MONO% 3.7 LAB L100.2400 0-5 % Normal EO% 0.4 LAB L100.2500 0-1 % Normal BASO% 0.1 LAB L100.2550 0.0-0.9 % Normal IM GRAN % 0.100 Result Comment: IG% - Immature Granulocytes (promyelocytes, myelocytes and metamyelocytes) > 1% indicates that a LEFT SHIFT is Present. LAB L100.2620 2.0-7.7 X10 3/uL Normal Absolute Neut 5.9 LAB L100.2720 0.83-4.51 X10 3/ul Normal Absolute Lymph 1.09 Performed By: #### L100.0100 #### [facility] [address] [facility] [place], [address] COMPREHENSIVE METABOLIC Collected: 08/15/2017 Status: F Source: [facility] 2:38 PM [facility] REPOSITORY Order Comment: DR BILLINGS ORDERED: TSH, CMP, T4F, A1C , T3F, LIPID ORDERED: CBCD, CMP PATIENT WAS NOT FASTING, INSISTED ON HAVING LABS COMPLETED TYPE CODE TESTS RESULT OUT OF RANGE REFERENCE UNITS LAB L501.0100 74-106 mg/dL High GLU 115 Result Comment: Fasting Glucose result from 100 to 125 mg/dL suggests IMPAIRED HOMEOSTASIS per A.D.A. criteria. Please note revised GLUCOSE reference range effective 2017. LAB L501.1000 7-18 mg/dL High BUN 26 LAB L501.1100 0.55-1.02 mg/dL High CREAT,SERUM 1.22 Result Comment: The validity of the calculated GFR AND GFRAA in patients over 70 years has not been determined. Clinical correlation is essential. LAB L501.1110 >60 mL/min Low EST GFR 48 Result Comment: Non- GFR Calc LAB L501.1115 >60 mL/min Low EST GFR - AA 59 Result Comment: GFR Calc LAB L501.1300 10-20 RATIO High BUN/CRE 21.3 LAB L501.1500 6.4-8.2 g/dL T Normal PROT 7.3 LAB L501.1800 3.2-5.0 g/dL Normal ALB 3.8 LAB L501.1950 2.2-4.2 g/dL Normal GLOB 3.5 LAB L501.2000 0.9-2.4 RATIO Normal A/G 1.1 LAB L501.2200 8.5-10.1 mg/dL CA Normal 9.3 LAB L501.4100 15-37 U/L Low AST 8 LAB L501.4305 45-117 U/L Low ALK P 37 LAB L501.4405 13-56 U/L Normal ALT 17 LAB L501.4600 0.20-1.00 mg/dL T Normal BILI 0.40 LAB L501.5300 136-145 mmol/L NA Normal 140 LAB L501.5600 3.5-5.1 mmol/L K Normal 3.5 LAB L501.5900 98-107 mmol/L CL Normal 105 LAB L501.6100 21.0-32.0 mmol/L Normal CO2 28.0 LAB L501.6200 5-15 Normal GAP 7 Performed By: #### L500.4050, L500.4100, L501.78718, L501.9520, L506.0400 #### [facility] [address] [place], [address] LIPID PROFILE Collected: 08/15/2017 Status: F Source: [place] 2:38 PM [facility] REPOSITORY Order Comment: DR BILLINGS ORDERED: TSH, CMP, T4F, A1C , T3F, LIPID ORDERED: CBCD, CMP PATIENT WAS NOT FASTING, INSISTED ON HAVING LABS COMPLETED TYPE CODE TESTS RESULT OUT OF RANGE REFERENCE UNITS LAB L501.4900 200 mg/dL High CHOL 265 Result Comment: <200 mg/dL Desirable 200-240 mg/dL Borderline >240 mg/dL High Risk LAB L501.5000 mg/dL Normal TRIG 82 Result Comment: The drugs N-Acetylcysteine and Metamizole may falsely depress this assay. Serum Triglycerides Reference Interval Normal <150 mg/dL Borderline high 150 - 199 mg/dL High 200 - 499 mg/dL Very High > or = 500 mg/dL LAB L501.6400 mg/dL Normal HDL 70 Result Comment: The drugs N-Acetylcysteine and Metamizole may falsely depress this assay. Reference Range HDL <40 mg/dL Low HDL Cholesterol HDL >or= 60 mg/dL High HDL Cholesterol LAB L501.6500 0-130 mg/dL High LDL 179 LAB L501.6600 5-40 mg/dL Normal VLDL 16 Performed By: #### L500.4050, L500.4100, L501.93054, L501.9520, L506.0400 #### [facility] [address] [place], [place], [id number] FREE T3 Collected: 08/15/2017 Status: F Source: [place] 2:38 PM [facility] REPOSITORY Order Comment: DR BILLINGS ORDERED: TSH, CMP, T4F, A1C , T3F, LIPID ORDERED: CBCD, CMP PATIENT WAS NOT FASTING, INSISTED ON HAVING LABS COMPLETED TYPE CODE TESTS RESULT OUT OF RANGE REFERENCE UNITS LAB L501.87567 2.18-3.98 pg/mL Normal FREE T3 3.1 Performed By: #### L500.4050, L500.4100, L501.46402, L501.9520, L506.0400 #### [facility] [address] [place], [place], [address] THYROID STIM HORMONE Collected: 08/15/2017 Status: F Source: [place] (TSH) 2:38 PM [facility] REPOSITORY Order Comment: DR BILLINGS ORDERED: TSH, CMP, T4F, A1C , T3F, LIPID ORDERED: CBCD, CMP PATIENT WAS NOT FASTING, INSISTED ON HAVING LABS COMPLETED TYPE CODE TESTS RESULT OUT OF RANGE REFERENCE UNITS LAB L501.9520 0.358-3.74 uIU/mL Low TSH 0.11 Performed By: #### L500.4050, L500.4100, L501.56153, L501.9520, L506.0400 #### [facility] [address] [place], [address] T4 FREE DIRECT Collected: 08/15/2017 Status: F Source: [place] 2:38 PM [facility] REPOSITORY Order Comment: DR BILLINGS ORDERED: TSH, CMP, T4F, A1C , T3F, LIPID ORDERED: CBCD, CMP PATIENT WAS NOT FASTING, INSISTED ON HAVING LABS COMPLETED TYPE CODE TESTS RESULT OUT OF RANGE REFERENCE UNITS LAB L506.0400 0.76-1.46 ng/dL Normal T4 FREE 1.26 DIRECT Performed By: #### L500.4050, L500.4100, L501.51589, L501.9520, L506.0400 #### [facility] [address] [place], [address] HEMOGLOBIN A1C Collected: 08/15/2017 Status: F Source: [place] 2:38 PM [facility] REPOSITORY Order Comment: DR BILLINGS ORDERED: TSH, CMP, T4F, A1C , T3F, LIPID ORDERED: CBCD, CMP PATIENT WAS NOT FASTING, INSISTED ON HAVING LABS COMPLETED TYPE CODE TESTS RESULT OUT OF RANGE REFERENCE UNITS LAB L501.9985 4.2-6.3 % Normal HGB A1C 6.1 Performed By: #### L501.9985 #### [facility] [address] [facility] [place], [address] CNCO Observed: 07/14/2017 Status: COMPLETED Source: [place] 5:05 PM [facility] REPOSITORY HNO ID: [id number] Author: Mammography Coordinator Service: (none) Author Type: Physician Type: Letter Filed: 07/18/2017 11:33 PM Note Text: July 14, 2017 PID: [id number] Dana Matos [address] [place] [address] Dear Ms. Matos, We are pleased to inform you that the results of your recent breast imaging exam on 07/14/2017 are normal. Your mammogram demonstrates that you have dense breast tissue, which could hide abnormalities. Dense breast tissue, in and of itself, is a relatively common condition. Therefore, this information is not provided to cause undue concern; rather, it is to raise your awareness and promote discussion with your health care provider regarding the presence of dense breast tissue in addition to other risk factors. Early detection of cancer is very important. We also understand recommendations regarding breast cancer screening are controversial. Please discuss with your primary care provider which strategy is best for you and whether a mammogram is right for you. Your imaging studies and report will be kept on file at [facility] as part of your permanent medical record and are available for your continuing care. Thank you for allowing us to help in meeting your health care needs. Sincerely, Dr. Lares Interpreting Radiologist [facility] (Normal over 40) CBC-COMPLETE BLOOD CNT Collected: 07/14/2017 Status: F Source: [place] NO DIFF 12:35 PM [facility] REPOSITORY TYPE CODE TESTS RESULT OUT OF RANGE REFERENCE UNITS LAB L100.1000 4.4-11.0 K/mm3 Normal WBC 5.8 LAB L100.1200 4.2-5.4 M/mm3 Low RBC 3.96 LAB L100.1300 12.0-15.0 g/dl Normal HGB 12.7 LAB L100.1400 37-47 % Normal HCT 39.2 LAB L100.1500 81-99 fL Normal MCV 99.0 LAB L100.1600 27.0-32.0 pg High MCH 32.1 LAB L100.1700 32-36 g/gl Normal MCHC 32.4 LAB L100.1810 11.6-14.6 % Normal RDW CV 14.3 LAB L100.1820 35.1-43.9 fl High RDW SD 51.1 LAB L100.1900 150-450 K/mm3 Normal PLT 202 LAB L100.2000 6.2-12.0 fl Normal MPV 10.0 Performed By: #### L100.0500 #### [facility] [address] [place], [place], [id number] COMPREHENSIVE METABOLIC Collected: 07/14/2017 Status: F Source: [place] 12:35 PM [facility] REPOSITORY Order Comment: Is Patient Taking Vitamins or Folic Acid Supplements? N TYPE CODE TESTS RESULT OUT OF RANGE REFERENCE UNITS LAB L501.0100 74-106 mg/dL Normal GLU 90 Result Comment: Please note revised GLUCOSE reference range effective 2017. LAB L501.1000 7-18 mg/dL High BUN 20 LAB L501.1100 0.55-1.02 mg/dL Normal CREAT,SERUM 1.01 Result Comment: The validity of the calculated GFR AND GFRAA in patients over 70 years has not been determined. Clinical correlation is essential. LAB L501.1110 >60 mL/min Normal EST GFR 60 Result Comment: Non- GFR Calc LAB L501.1115 >60 mL/min Normal EST GFR - AA 73 Result Comment: GFR Calc LAB L501.1300 10-20 RATIO Normal BUN/CRE 19.8 LAB L501.1500 6.4-8.2 g/dL T Normal PROT 6.5 LAB L501.1800 3.2-5.0 g/dL Normal ALB 3.2 LAB L501.1950 2.2-4.2 g/dL Normal GLOB 3.3 LAB L501.2000 0.9-2.4 RATIO Normal A/G 1.0 LAB L501.2200 8.5-10.1 mg/dL CA Normal 8.5 LAB L501.4100 15-37 U/L Low AST 7 LAB L501.4305 45-117 U/L Low ALK P 36 LAB L501.4405 13-56 U/L Normal ALT 15 Result Comment: Please note revised ALT reference range effective 2017. LAB L501.4600 0.20-1.00 mg/dL Normal T BILI 0.40 LAB L501.5300 136-145 mmol/L Normal NA 141 LAB L501.5600 3.5-5.1 mmol/L Normal K 3.9 LAB L501.5900 98-107 mmol/L Normal CL 104 LAB L501.6100 21.0-32.0 mmol/L High CO2 33.0 LAB L501.6200 5-15 Low GAP 4 Performed By: #### L500.4050, L506.0250 #### [facility] [address] [place], [address] FOLATES, (FOLIC ACID) Collected: 07/14/2017 Status: F Source: [place] 12:35 PM [facility] REPOSITORY Order Comment: Is Patient Taking Vitamins or Folic Acid Supplements? N TYPE CODE TESTS RESULT OUT OF REFERENCE UNITS RANGE LAB L506.0250 3.1-55.4 ng/mL High FOLATES > 100.00 Performed By: #### L500.4050, L506.0250 #### [facility] [address] [place], [address] VITAMIN B12 Collected: 07/14/2017 Status: F Source: [place] 12:35 PM [facility] REPOSITORY TYPE CODE TESTS RESULT OUT OF RANGE REFERENCE UNITS LAB L503.0105 211-911 pg/mL Normal Vitamin B12 381 Performed By: #### L503.0105 #### [facility] [address] [place], [address] ANDRZEJ SCREENING Observed: 07/14/2017 Status: F Source: [place] 11:31 AM [facility] REPOSITORY * * *Final Report* * * DATE OF EXAM: Jul 14 2017 11:31AM MODE 0581 - [facility] SCREENING / PROCEDURE REASON: Encounter for screening mammogram for malignant neoplasm of breast * * * * Physician Interpretation * * * * RESULT: #[id number] - ANDRZEJ SCREENING BILATERAL DIGITAL SCREENING MAMMOGRAM WITH CAD: 07/14/2017 HISTORY: Screening Mammogram - patient reports NO breast symptoms /priors available for comparison. RESULT: TECHNIQUE: The study was acquired using full field digital technology and interpreted from soft copy. Current study was also evaluated with a Computer Aided Detection (CAD). Comparison is made to exams dated: 05/18/2016 mammogram - [facility], 08/19/2014 mammogram, and 03/21/2013 mammogram. The tissue of both breasts is heterogeneously dense. This may lower the sensitivity of mammography. The study is limited in positioning due to the patient's immobility. Cardiac device partially obscures visualization of the left axilla and left upper breast on the MLO view. The parenchymal pattern and appearance of the breasts is unchanged from the prior exams given differences in positioning and technique. No significant masses, calcifications, or other findings are seen in either breast. IMPRESSION: NEGATIVE There is no mammographic evidence of malignancy. A 1 year screening mammogram is recommended. The exam was reviewed by a staff physician. david Finney M.D., M.D./nabil:07/14/2017 17:05:31 Radio Dispatcher: Nanci GARCIA (R)(Leticia), [facility] letter sent: Normal over 40 Mammogram BI-RADS: 1 Negative Gasateria Attendant: Nabil Transcribe Date/Time: Jul 14 2017 11:04A Dictated by: ROXY LEON MD This examination was interpreted and the report reviewed and electronically signed by: MARTIN LARES MD on Jul 14 2017 5:05PM EST [id number] Observed: 07/14/2017 Status: COMPLETED Source: [place] 11:[address] [facility] REPOSITORY HNO ID: [id number] Author: Anabela Garcia Service: (none) Author Type: (none) Type: Progress Notes Filed: 07/14/2017 11:06 AM Note Text: Radiology Service Progress Note PATIENT NAME: Dana Matos DATE OF SERVICE: July 14, 2017 TIME: 11:06 AM PATIENT IDENTITY VERIFICATION COMPLETED USING TWO (2) METHODS: Patient confirmed name verbally and Date of . PATIENT GENDER DATA: Female. status: : No status: NO. PATIENT RELEVANT IMPLANT DATA REVIEWED: Not Applicable RADIOLOGY DEPARTMENT: [facility] DATA: Not applicable SIGNED BY: Anabela Garcia July 14, 2017 11:06 AM CNCO Observed: 07/05/2017 Status: COMPLETED Source: [place] 12:00 AM [facility] REPOSITORY Letter Text Juan Manuel Garcia DO [facility] [address] [place] [address] Dana Matos July 05, 2017 Dana Matos [address] [address] Dear Dnaa Matos: Your appointment with Dr. Juan Manuel Garcia on 08/22/2017 will need to be rescheduled because Dr. Garcia will be leaving [facility]. Your care is very important to us and as a valued [facility] patient, we do not want your care to be overlooked. Please call us to establish with another physician. We apologize for any inconvenience to you. Please call us at [phone] to reschedule your appointment. Sincerely, Appointment Staff PROGRESS Observed: 06/14/2017 Status: COMPLETED Source: [place] 4:51 PM [facility] REPOSITORY HNO ID: [id number] Author: Yoana Villarreal (Pharmacist) Service: (none) Author Type: Pharmacist Type: Progress Notes Filed: 06/14/2017 4:57 PM Note Text: PharmD consulted for med list review for potential serious complications and risk for serotonin syndrome. Current Outpatient Psychiatric Prescriptions: ramelteon (ROZEREM) 8 mg tablet Take 8 mg by mouth daily at bedtime. citalopram hydrobromide (CELEXA) 10 mg tablet Take 1 tablet by mouth once daily. lurasidone (LATUDA) 60 mg tab tablet Take 1 tablet by mouth daily with dinner. busPIRone (BUSPAR) 10 mg tablet Take 1 tablet by mouth once daily. traMADol (ULTRAM) 50 mg tablet Take 50 mg by mouth every 8 hours as needed. ALPRAZolam (XANAX) 1 mg tablet Take 1 mg by mouth daily at bedtime. Potential risk for serotonin syndrome with combination buspirone and citalopram, although low dose citalopram makes this interaction less likely. Per Lexicomp: Risk Rating D: Consider therapy modification Summary: BusPIRone may enhance the serotonergic effect of Selective Serotonin Reuptake Inhibitors. This may cause serotonin syndrome. Selective Serotonin Reuptake Inhibitors may decrease the metabolism of BusPIRone Severity: Major Reliability Rating: Good Patient Management: The combination of a selective serotonin reuptake inhibitor and buspirone should be undertaken with great caution. When combined treatment is clinically indicated, monitor closely for signs of serotonin toxicity/serotonin syndrome. Yoana Villarreal, PharmD, [facility] PROGRESS Observed: 06/14/2017 Status: COMPLETED Source: [place] 12:31 PM [facility] REPOSITORY HNO ID: [id number] Author: Leticia Garcia Service: (none) Author Type: Physician Sales Representative Printing Paper Type: Progress Notes Filed: 06/14/2017 4:35 PM Note Text: 57 year old female with c/o 1. Persistent sinus infection: 3 weeks duration. Went to 06/04/17 and was started on Augmentin x [address] [employer] making progress in a few days. Draining green and coughing green mucus. No hemoptysis. Chest was sore but better. No wheezing. Coughing has slowed down but not gone. Feels not well enough to feel over the hump. Off Orencia 10 days. 2. Psychiatrist (SPORTS TRAINER)told her to ask me for a neurology referral due to sensory. Feels jittery, anxious a lot. Meds are not helping. Feels need to move constantly. Sleep is managed with rozerem and Xanax but during the day restless. HISTORIES FAMILY HISTORY Problem Relation Age of Onset - Arthritis Mother CREST syndrome - Diabetes Mother - Stroke Father - Heart Father - Emphysema Father - Stroke Paternal Grandmother - Stroke Paternal Grandfather - DM [OTHER] Brother - CM [OTHER] Brother possibly ETOH related. PAST MEDICAL HISTORY Diagnosis Date - Adrenal insufficiency ([facility]) 1986 oral cortisone daily - Calculus of kidney - CHF (congestive heart failure) ([facility]) - Congenital anomalies of adrenal gland intermediate prednisone use - CVA (cerebral infarction) 1999 short term memory loss. - Diabetes mellitus, type II ([facility]) - Diabetes type 2, controlled ([facility]) chronic steroid therapy - Dual implantable cardioverter-defibrillator in situ 12/14/2013 Defibrillator Pacemaker Model [id number], serial # [id number] - Essential hypertension - H/O right heart catheterization 11/27/2013 coronaries clear - Heart attack ([facility]) 09/28/2000 - Heart attack ([facility]) 11/27/2013 first FL 09/28/2000,second FL. 20% EF, took 3L of fluid off - Hemiparesis affecting right side as late effect of stroke ([facility]) 02/06/2000 - Hyperthyroidism s/p radiation, currently on Synthroid, Seeing endo-Dr. Billings - Hypothyroidism (acquired) 1665 - Left bundle branch block - LUMBOSACRAL NEURITIS NOS 06/27/2007 - Lupus erythematosus 2005 Dr. Foreman - Other and unspecified hyperlipidemia - Other primary cardiomyopathies 09/28/2000 Cardiomyopathy-Seeing Dr. Rosenberg - Raynaud's syndrome 1999 - Rheumatoid arthritis(714.0) [address] Faulkner - Sjogren's syndrome (HCC) 1997 - Transverse myelitis (HCC) 05/31/2006 from flu shot PAST SURGICAL HISTORY Procedure Laterality Date - DEFIBRILLATOR SURGERY 2013 - EXCIS FINGER TENDON FLEXOR - HYSTERECTOMY HX 2012 - INCISION EXTEN FOOT/TOE TENDON - OTOPLASTY - PAST SURGICAL HISTORY OF five foot surgeries [id number], Jarred Donato - PAST SURGICAL HISTORY OF four hand surgeries [phone], Dr. Demond Tejeda - RHINOPLASTY 1989 nasal reconstruction after injury - TUBAL LIGATION HX 01/17/2010 removal of tumors, BTL Social History Marital status: Spouse name: Years of education: Number of children: Social History Main Topics Smoking status: Never Smoker Smokeless status: Never Used Alcohol use: No Drug use: No Sexual activity: Yes Partners with: Male ACTIVE PROBLEM LIST Degeneration of Cervical Intervertebral Disc Rheumatoid Arthritis (Hcc) Cad (Coronary Artery Disease) Lbbb (Left Bundle Branch Block) Biventricular Icd (Implantable Cardioverter-Defibrillator) in Place Postablative Hypothyroidism Secondary Adrenal Insufficiency (Hcc) Hearing Loss of Both Ears Nonischemic Cardiomyopathy (Hcc) Chronic Systolic Heart Failure (Hcc) Sensorineural Hearing Loss, Bilateral Tinnitus Dizziness and Giddiness Transverse Myelitis (Hcc) Diabetes Mellitus, Type II (Hcc) Compression Fracture of L1 Lumbar Vertebra (Hcc) Wedge Compression Fracture of Twelfth Thoracic Vertebra With Delayed Healing Sjogren's Syndrome (Hcc) Obstructive Sleep Apnea Syndrome Other and Unspecified Hyperlipidemia Lupus Erythematosus Chf (Congestive Heart Failure) (Hcc) Essential Hypertension Cervicalgia Type 2 Diabetes Mellitus Without Complication, With Long-Term Current Use of Insulin ([facility]) Transition of Care Performed With Sharing of Clinical Summary Current Outpatient Prescriptions: liothyronine (CYTOMEL) 5 mcg tablet Take 5 mcg by mouth once daily. Disp: Rfl: Cholecalciferol, Vitamin D3, 2,000 unit cap Take by mouth. Disp: Rfl: predniSONE (DELTASONE) 5 mg tablet Take 5 mg by mouth. Disp: Rfl: COMPOUNDED PRESCRIPTION Probiotic Disp: Rfl: ramelteon (ROZEREM) 8 mg tablet Take 8 mg by mouth daily at bedtime. Disp: Rfl: loratadine (CLARITIN) 10 mg tablet Take 1 tablet by mouth once daily. Disp: 90 tablet Rfl: 3 colestipol (COLESTID) 1 gram tablet Take 1 tablet by mouth twice daily. Disp: 60 tablet Rfl: 5 citalopram hydrobromide (CELEXA) 10 mg tablet Take 1 tablet by mouth once daily. Disp: Rfl: 0 lurasidone (LATUDA) 60 mg tab tablet Take 1 tablet by mouth daily with dinner. Disp: Rfl: 0 esomeprazole (NEXIUM) 40 mg capsule Take 1 capsule by mouth once daily. Disp: 90 capsule Rfl: 3 busPIRone (BUSPAR) 10 mg tablet Take 1 tablet by mouth once daily. Disp: Rfl: potassium chloride ER (KLOR-CON M20) 20 mEq tablet Take 1 tablet by mouth once daily. Disp: 90 tablet Rfl: 3 carvedilol (COREG) 6.25 mg tablet Take 1 tablet by mouth twice daily with meals. Disp: 180 tablet Rfl: 3 predniSONE (DELTASONE) 5 mg tablet Take 5 mg by mouth once daily. Disp: Rfl: TETRAHYDROZOLINE HCL/ZN SULF (EYE DROPS OPHTHALMIC) Use in eyes. Baush and Lomb 1 drop both eyes evening Disp: Rfl: traMADol (ULTRAM) 50 mg tablet Take 50 mg by mouth every 8 hours as needed. Disp: Rfl: FOLIC ACID ORAL Take 1,600 mg by mouth once daily. Disp: Rfl: estradiol (ESTRACE) 0.01 % (0.1 mg/gram) vaginal cream Use 0.1 g vaginally once each week. Disp: Rfl: fluticasone (FLONASE) 50 mcg/actuation nasal spray Use 1 [place] in each nostril twice daily. Disp: Rfl: levothyroxine (SYNTHROID) 125 mcg tablet Take 1 tablet by mouth once daily. Disp: Rfl: 0 ABATACEPT (ORENCIA SUBCUTANEOUS) Inject subcutaneously. Once a week Disp: Rfl: ALPRAZolam (XANAX) 1 mg tablet Take 1 mg by mouth daily at bedtime. Disp: Rfl: BIOTIN ORAL Take 1,000 mg by mouth once daily. Disp: Rfl: calcium carbonate/vitamin d3(CALCIUM 600 + D 600 MG-400 UNIT TAB) 2 daily Disp: Rfl: 0 ASPIRIN 81 MG TAB Take one(1) tablet daily. Disp: Rfl: 0 COL-RITE 100 MG CAP daily Disp: Rfl: 0 No current facility-administered medications for this visit. DILATED RETINAL EXAM due on 1961 TETANUS due on 1972 DIABETIC FOOT EXAM due on 1977 ONE PNEUMOVAX PRIOR TO AGE 66 due on 1977 PAP EVERY 5 YEARS due on 1991 HPV EVERY 5 YEARS due on 1991 COLORECTAL CANCER SCREENING,SEE MODIFIER due on 11/16/2016 MAMMOGRAM due on 05/18/2017 EXAM: BP 112/70 Pulse 80 Temp 36.1 ?C (97 ?F) (Tympanic) Resp 16 Wt 79.4 kg (175 lb) LMP (LMP Unknown) BMI 28.25 kg/m2 Pleasant adult woman in no acute distress. Alert and oriented all spheres. Flat affect and normal cognition. Speech normal. No deficits to learning or comprehension. Respirations: regular, unlabored Color: pink to lips and nailbeds, normal turgor Skin: warm, dry, no unusual rashes or lesions Head: Normocephalic Eyes: sclerae and conjunctivae without injection or exudate, PERRLA, EOMI, corneal light reflex symmetric bilaterally Ears: TM's are clear/ bacon bilaterally with normal landmarks, no swelling or deformity ear canal or external ear Nose/Sinuses: Nose patent. No turbinate swelling. Active exudate: none. Maxillary and frontal sinuses nontender to percussion. Oropharynx: oral membranes are moist. Lips, mucosa, and tongue free from lesions. Gums without inflammation. Posterior pharynx no injection, no exudate, no tonsillar hypertrophy. Neck: Neck supple, mild anterior lymphadenopathy; thyroid without mass or tenderness. Chest: normally shaped, equal expansion with breaths. Lungs: Lungs clear to auscultation and percussion. No crackles or wheezes. Heart: RRR without murmur, gallop, or rubs. S1 and S2 normal. ASSESSMENT/PLAN: 1. Acute non-recurrent sinusitis of other sinus - ICD9: 461.8, ICD10: J01.80 (primary diagnosis) Extend Augmentin 2. Jittery feeling - ICD9: 799.21, ICD10: R45.0 Not sure neurology would be an appropriate referral. Will have clinical pharmacist review med list as I am concerned may be r/t serotonin syndrome. 3. Polypharmacy - ICD9: V58.69, ICD10: Z79.899 Leticia Garcia PA-C PROGRESS Observed: 06/04/2017 Status: COMPLETED Source: [place] 3:[address] [facility] REPOSITORY HNO ID: [id number] Author: Sarah (Barbara) Older Service: (none) Author Type: Nurse Practitioner Type: Progress Notes Filed: 06/04/2017 3:31 PM Note Text: CC: Patient presents with: head and chest congestion, ear pressure, and cough: x 2 weeks HPI: Dana Matos is a 57 year old female who presents to the office with complaint of respiratory symptoms for two weeks. Symptoms are staying the same. Associated symptoms includes sore throat, rhinorrhea, facial pain/pressure, ear pain and cough. Denies fever, wheezing and dyspnea. Treatments tried include Cepacol with no relief of symptoms. Sick contacts: yes. History of asthma, frequent episodes of bronchitis, chronic bronchitis, bronchiectasis or COPD: No History of RA, taking medications that lower her immune system Smoker: No Seasonal/environmental allergies: No The ROS is otherwise negative. The patient's pmh, medications, allergies, and past visits are reviewed. PHYSICAL EXAM: BP 110/80 Pulse 70 Temp 36.6 ?C (97.8 ?F) (Tympanic) Resp 18 Wt 82.6 kg (182 lb) LMP (LMP Unknown) SpO2 97% BMI 29.38 kg/m2 General appearance: tired/ill appearing, in no acute distress Head: Normocephalic Eyes: conjunctiva pink and moist, no icterus, sclera white, non-injected Ears: Right ear: Normal, TM - clear with good landmarks. Left ear: Normal, TM - clear with good landmarks Nose: purulent rhinorrhea, mucosa erythematous and swollen, sinus tenderness over maxillary sinuses bilateral. Oropharynx:No erythema, exudates or tonsillar hypertrophy. Neck:supple and no adenopathy Heart: Negative. RRR without obvious murmur, gallop, or rubs. No ectopy. Lungs: clear to auscultation, without rales or wheeze, good air exchange ASSESSMENT/PLAN: 1. Acute non-recurrent sinusitis, unspecified location - ICD9: 461.9, ICD10: J01.90 - Will begin treatment with Augmentin 875 mg PO BID for 7 days - The patient should also be given warm salt water gargles, throat lozenges and/or OTC throat spray as needed for the first 5- 7 days of treatment. - Supportive care with plenty of fluids, rest, and analgesia prn. - Follow up in 3-5 days if symptoms persist or worsen. Sarah Older, [employer]ATOR Prescription instructions reviewed with patient as applicable. Potential red flag symptoms discussed with the patient. Reviewed appropriate action plan to take if red flag symptoms occur. Patient agreeable to treatment plan. PROGRESS Observed: 05/18/2017 Status: COMPLETED Source: [place] 12:[address] [facility] REPOSITORY HNO ID: [id number] Author: Winnie Moreno Service: (none) Author Type: Physician Type: Progress Notes Filed: 05/19/2017 8:28 AM Note Text: [facility] SECTION OF HEART FAILURE and CARDIAC TRANSPLANT MEDICINE OUTPATIENT VISIT DATE May 18, 2017 OUTPATIENT VISIT TYPE Established Patient PRIMARY CARE PHYSICIAN: Leticia Garcia PA-C [address] [place] [address] CHIEF COMPLAINT: Follow-up NURSING INTAKE (Patient?s concerns and/or recent hospitalizations/ER visits): Last seen on 02/14/17 at that time Appears to need K+ supplementation for now: but should have K+ checked 3 monthly or sooner if any issues/changes to meds that might lower or elevate K+ HF Nursing Assessment: Interim Hospitalizations and/or ER visits: Dyspnea: yes Cough: no Orthopnea Or PND: yes Chest pain: no Palpations: no Lightheadedness Or Dizziness: yes while on the losartan Syncope: near syncope Fatigue: yes more than normal Unintentional weight loss or gain: no Edema: no Appetite:good HISTORY OF PRESENT ILLNESS: Low BPs in the setting of having the flu and likely associated dehydration BPs 80s while in local PCP and in throes of flu Stopped losartan - and BP has come up since stopped it Continued coreg throughout No acute HF symptoms Otherwise getting strength back since flu PAST MEDICAL HISTORY Diagnosis Date - Adrenal insufficiency ([facility]) 1986 oral cortisone daily - Calculus of kidney - CHF (congestive heart failure) ([facility]) - Congenital anomalies of adrenal gland intermediate prednisone use - CVA (cerebral infarction) 1999 short term memory loss. - Diabetes mellitus, type II ([facility]) - Diabetes type 2, controlled ([facility]) chronic steroid therapy - Dual implantable cardioverter-defibrillator in situ 12/14/2013 Defibrillator Pacemaker Model [id number], serial # [id number] - Essential hypertension - H/O right heart catheterization 11/27/2013 coronaries clear - Heart attack 09/28/2000 - Heart attack 11/27/2013 first [place] 09/28/2000,second [place]. 20% EF, took 3L of fluid off - Hemiparesis affecting right side as late effect of stroke ([facility]) 02/06/2000 - Hyperthyroidism s/p radiation, currently on Synthroid, Seeing endo-Dr. Billings - Hypothyroidism (acquired) 1664 - Left bundle branch block - LUMBOSACRAL NEURITIS NOS 06/27/2007 - Lupus erythematosus 2005 Dr. Foreman - Other and unspecified hyperlipidemia - Other primary cardiomyopathies 09/28/2000 Cardiomyopathy-Seeing Dr. Rosenberg - Raynaud's syndrome 1999 - Rheumatoid arthritis(714.0) [address] Faulkner - Sjogren's syndrome ([facility]) 1997 - Transverse myelitis ([facility]) 05/31/2006 from flu shot PAST SURGICAL HISTORY Procedure Laterality Date - DEFIBRILLATOR SURGERY 2013 - EXCIS FINGER TENDON FLEXOR - HYSTERECTOMY HX 2011 - INCISION EXTEN FOOT/TOE TENDON - OTOPLASTY - PAST SURGICAL HISTORY OF five foot surgeries [id number], Jarred Donato - PAST SURGICAL HISTORY OF four hand surgeries [phone], Dr. Demond Tejeda - RHINOPLASTY 1989 nasal reconstruction after injury - TUBAL LIGATION HX 01/17/2010 removal of tumors, BTL SOCIAL HISTORY Social History Substance Use Topics - Smoking status: Never Smoker - Smokeless tobacco: Never Used - Alcohol use No FAMILY HISTORY Problem Relation Age of Onset - Arthritis Mother CREST syndrome - Diabetes Mother - Stroke Father - Heart Father - Emphysema Father - Stroke Paternal Grandmother - Stroke Paternal Grandfather - DM [OTHER] Brother - CM [OTHER] Brother possibly ETOH related. ALLERGIES: ALLERGIES Allergen Reactions - Ciprofloxacin Other: See Comments Tendon Rupture. - Citric Acid Shortness of Breath Shortness of breath,swelling of throat - Levaquin [Levofloxa* Unknown - Lisinopril Hives - Tradjenta [Linaglip* Intolerance Nausea - Trileptal [Oxcarbaz* Mental Status Change - Tylox [Oxycodone-Ac* low blood pressure - Zetia [Ezetimibe] Other: See Comments Muscle pain - Zocor [Simvastatin] Swelling severe muscle cramping, liver enzyme abnormalities CURRENT MEDICATIONS: predniSONE (DELTASONE) 5 mg tablet Take 5 mg by mouth. ramelteon (ROZEREM) 8 mg tablet Take 8 mg by mouth daily at bedtime. loratadine (CLARITIN) 10 mg tablet Take 1 tablet by mouth once daily. colestipol (COLESTID) 1 gram tablet Take 1 tablet by mouth twice daily. citalopram hydrobromide (CELEXA) 10 mg tablet Take 1 tablet by mouth once daily. lurasidone (LATUDA) 60 mg tab tablet Take 1 tablet by mouth daily with dinner. esomeprazole (NEXIUM) 40 mg capsule Take 1 capsule by mouth once daily. busPIRone (BUSPAR) 10 mg tablet Take 1 tablet by mouth once daily. potassium chloride ER (KLOR-CON M20) 20 mEq tablet Take 1 tablet by mouth once daily. carvedilol (COREG) 6.25 mg tablet Take 1 tablet by mouth twice daily with meals. predniSONE (DELTASONE) 5 mg tablet Take 5 mg by mouth once daily. TETRAHYDROZOLINE HCL/ZN SULF (EYE DROPS OPHTHALMIC) Use in eyes. Baush and Lomb 1 drop both eyes evening traMADol (ULTRAM) 50 mg tablet Take 50 mg by mouth every 8 hours as needed. FOLIC ACID ORAL Take 1,600 mg by mouth once daily. estradiol (ESTRACE) 0.01 % (0.1 mg/gram) vaginal cream Use 0.1 g vaginally once each week. fluticasone (FLONASE) 50 mcg/actuation nasal spray Use 1 [place] in each nostril twice daily. levothyroxine (SYNTHROID) 125 mcg tablet Take 1 tablet by mouth once daily. ABATACEPT (ORENCIA SUBCUTANEOUS) Inject subcutaneously. Once a week ALPRAZolam (XANAX) 1 mg tablet Take 1 mg by mouth daily at bedtime. BIOTIN ORAL Take 1,000 mg by mouth once daily. calcium carbonate/vitamin d3(CALCIUM 600 + D 600 MG-400 UNIT TAB) 2 daily ASPIRIN 81 MG TAB Take one(1) tablet daily. COL-RITE 100 MG CAP daily Cholecalciferol, Vitamin D3, 2,000 unit cap Take by mouth. COMPOUNDED PRESCRIPTION Probiotic REVIEW OF SYSTEMS: See HPI. PHYSICAL EXAMINATION: BP 114/67 Pulse 63 Ht 167.6 cm (5' 6) Wt 80.7 kg (178 lb) LMP (LMP Unknown) SpO2 96% BMI 28.73 kg/m2 General appearance: no acute distress, conversant, looks well Psych: Appropriate affect and insight; alert and oriented to person, place and time HENT: Normal appearing ears and nose; normal hearing Neck: No JVD at sitting;no carotid bruits;Trachea midline; FROM Lungs: Normal respiratory effort; CTAB CV: RRR, no MRGs Abdomen: Soft, non-tender; no HSM Extremities: No lower extremity edema; Normal pulses, no clubbing or cyanosis Skin: No rash or ulcers; Normal temperature, turgor and texture Musculoskeletal: Normal gait CARDIOVASCULAR MEDICINE TESTING: Labs 05/13/2017 15:59 Sodium 140 Potassium 4.5 Chloride 101 CO2 25 BUN 22 (H) Creatinine 1.28 (H) Glucose 125 (H) Calcium 8.8 Anion Gap 14 NT Pro BNP 65 eGFR- 52 eGFR-All Other Races 43 TTE Max aortic dimension ? ? 3.8 cm ?1.98 cm/m? Left atrium diameter ? ? 4.0 cm (M-Mode) Left atrial volume ? ? ? 52 ml (biplane A-L) 27 ml/m? ? Lena <= 34 LV ID (diastole) ? 5.1 cm (2D) LV ID (systole) ?3.4 cm (2D) IVS, leaflet tips ?1.0 cm (2D) Posterior wall thickness 0.9 cm (2D) Left ventricular mass ? ?176 g (2D) ?92 g/m? LV stroke volume ? 43 ml (2D 4-ch.) LV end diastolic volume ?68 ml (2D 4-ch.) ? ?35.5 ml/m? 29<=EDVi<62 LV end systolic volume ? 26 ml (2D 4-ch.) ? ?13.4 ml/m? Ejection Fraction ?62 % (2D 4-ch.) ?EF > 54 CONCLUSIONS: - Exam indication: Evaluation of known heart failure to guide therapy - The left ventricle is normal in size. Left ventricular systolic function is normal. EF = 62 ? 5% (2D 4-ch.) Indeterminate left ventricular diastolic dysfunction due to inconsistent or technically suboptimal data. - The right ventricle is normal in size. Right ventricular systolic function is normal. - There are no significant valvular abnormalities. - Exam was compared with the prior CC echocardiographic exam performed on 09/23/2016. There is no significant change. * I have personally reviewed the Laboratory Testing and Echocardiogram. IMPRESSION: 57?yr old causasian female Pt of Dr Johan FREEMAN - undertermined etiology (note RA + SS background, history of heart attacks, ? some inflammatory DCM or arteritis related injury from the connective tissue disease) Chronic systolic and diastolic HF HFrecoveredEF - EF 43%/LVIDd 5.6cm 11/2014 -> 50%/LVIDd 4.5cm 01/2016 -> EF 61%/LVIDd 4.6cm 09/2016 S/p ANIMAL BEHAVIORIST-D (underlying LBBB) CVA 1999 Hypothyroidism Sjogrens syndrome, RA GERD Dyslipiedemia ?? NYHA Functional Class: I Stage: B/C heart failure Euvolemic Seen as an unscheduled follow-up due to symptomatic low BPs in 80s while having flu Losartan stopped and doing better Continued coreg thoroughout No HF or other cardiac symptoms Feeling better now, BP 114 SR 100% BivP on device check 3 months ago No VA therapies No AF Anxiety/bipolar disorder much better since started on currnet multi-drug regimen above Note, she takes K-Dur 20meq despite not being on diuretic - last K+ on system 4.5. She knows to keep a regular check on it but do usually need the supplement PLAN AND RECOMMENDATIONS: 1. Stay off losartan for now given continued preserved EF and events above 2. C/t coreg 3. See in 6 months I personally interviewed, confirmed and edited the above information as obtained by others The majority of the visit was spent counseling and/or coordinating care for the patient. [id number] time was 30 minutes. We discussed natural history of disease, current treatment options, future potential treatment options including transplant, mechanical support, etc. We discussed diet, exercise, other non-medical management as above. Winnie Moreno MD, PhD [facility] Section Of Heart Failure and Cardiac Transplant Medicine [facility] Desk [id number] [place] [address] CNOV Observed: 05/18/2017 Status: COMPLETED Source: [place] 12:15 PM [facility] REPOSITORY Office Visit (CARD CHF CORTES) IRISDANA ([id number]) 1960 F Date Time Provider Department 05/18/17 12:15 PM WINNIE MORENO CHF CORTES During your visit today, we recorded the following information about you: Pulse Blood pressure Weight Height 63/minute 114/67 80.7 kg 1.676 m Winnie Moreno MD 05/19/2017 8:28 AM Signed [facility] SECTION OF HEART FAILURE and CARDIAC TRANSPLANT MEDICINE OUTPATIENT VISIT DATE May 18, 2017 OUTPATIENT VISIT TYPE Established Patient PRIMARY CARE PHYSICIAN: Leticia Garcia PA-C [address] [place] [address] CHIEF COMPLAINT: Follow-up NURSING INTAKE (Patient?s concerns and/or recent hospitalizations/ER visits): Last seen on 02/14/17 at that time Appears to need K+ supplementation for now: but should have K+ checked 3 monthly or sooner if any issues/changes to meds that might lower or elevate K+ HF Nursing Assessment: Interim Hospitalizations and/or ER visits: Dyspnea: yes Cough: no Orthopnea Or PND: yes Chest pain: no Palpations: no Lightheadedness Or Dizziness: yes while on the losartan Syncope: near syncope Fatigue: yes more than normal Unintentional weight loss or gain: no Edema: no Appetite:good HISTORY OF PRESENT ILLNESS: Low BPs in the setting of having the flu and likely associated dehydration BPs 80s while in local PCP and in throes of flu Stopped losartan - and BP has come up since stopped it Continued coreg throughout No acute HF symptoms Otherwise getting strength back since flu PAST MEDICAL HISTORY Diagnosis Date - Adrenal insufficiency (HCC) 1986 oral cortisone daily - Calculus of kidney - CHF (congestive heart failure) ([facility]) - Congenital anomalies of adrenal gland intermediate prednisone use - CVA (cerebral infarction) 1999 short term memory loss. - Diabetes mellitus, type II ([facility]) - Diabetes type 2, controlled ([facility]) chronic steroid therapy - Dual implantable cardioverter-defibrillator in situ 12/14/2013 Defibrillator Pacemaker Model [id number], serial # [id number] - Essential hypertension - H/O right heart catheterization 11/27/2013 coronaries clear - Heart attack 09/28/2000 - Heart attack 11/27/2013 first FL 09/28/2000,second [place]. 20% EF, ANDquot;took 3L of fluid offANDquot; - Hemiparesis affecting right side as late effect of stroke (HCC) 02/06/2000 - Hyperthyroidism s/p radiation, currently on Synthroid, Seeing endo-Dr. Billings - Hypothyroidism (acquired) 166 - Left bundle branch block - LUMBOSACRAL NEURITIS NOS 06/27/2007 - Lupus erythematosus 2005 Dr. Foreman - Other and unspecified hyperlipidemia - Other primary cardiomyopathies 09/28/2000 Cardiomyopathy-Seeing Dr. Rosenberg - Raynaud's syndrome 1999 - Rheumatoid arthritis(714.0) [address] Faulkner - Sjogren's syndrome (HCC) 1997 - Transverse myelitis (HCC) 05/31/2006 from flu shot PAST SURGICAL HISTORY Procedure Laterality Date - DEFIBRILLATOR SURGERY 2013 - EXCIS FINGER TENDON FLEXOR - HYSTERECTOMY HX 2011 - INCISION EXTEN FOOT/TOE TENDON - OTOPLASTY - PAST SURGICAL HISTORY OF five foot surgeries [id number], Jarred Donato - PAST SURGICAL HISTORY OF four hand surgeries [id number], Dr. Demond Tejeda - RHINOPLASTY 1989 nasal reconstruction after injury - TUBAL LIGATION HX 01/17/2010 removal of ANDquot;tumorsANDquot;, BTL SOCIAL HISTORY Social History Substance Use Topics - Smoking status: Never Smoker - Smokeless tobacco: Never Used - Alcohol use No FAMILY HISTORY Problem Relation Age of Onset - Arthritis Mother CREST syndrome - Diabetes Mother - Stroke Father - Heart Father - Emphysema Father - Stroke Paternal Grandmother - Stroke Paternal Grandfather - DM [OTHER] Brother - CM [OTHER] Brother possibly ETOH related. ALLERGIES: ALLERGIES Allergen Reactions - Ciprofloxacin Other: See Comments Tendon Rupture. - Citric Acid Shortness of Breath Shortness of breath,swelling of throat - Levaquin [Levofloxa* Unknown - Lisinopril Hives - Tradjenta [Linaglip* Intolerance Nausea - Trileptal [Oxcarbaz* Mental Status Change - Tylox [Oxycodone-Ac* low blood pressure - Zetia [Ezetimibe] Other: See Comments Muscle pain - Zocor [Simvastatin] Swelling severe muscle cramping, liver enzyme abnormalities CURRENT MEDICATIONS: predniSONE (DELTASONE) 5 mg tablet Take 5 mg by mouth. ramelteon (ROZEREM) 8 mg tablet Take 8 mg by mouth daily at bedtime. loratadine (CLARITIN) 10 mg tablet Take 1 tablet by mouth once daily. colestipol (COLESTID) 1 gram tablet Take 1 tablet by mouth twice daily. citalopram hydrobromide (CELEXA) 10 mg tablet Take 1 tablet by mouth once daily. lurasidone (LATUDA) 60 mg tab tablet Take 1 tablet by mouth daily with dinner. esomeprazole (NEXIUM) 40 mg capsule Take 1 capsule by mouth once daily. busPIRone (BUSPAR) 10 mg tablet Take 1 tablet by mouth once daily. potassium chloride ER (KLOR-CON M20) 20 mEq tablet Take 1 tablet by mouth once daily. carvedilol (COREG) 6.25 mg tablet Take 1 tablet by mouth twice daily with meals. predniSONE (DELTASONE) 5 mg tablet Take 5 mg by mouth once daily. TETRAHYDROZOLINE HCL/ZN SULF (EYE DROPS OPHTHALMIC) Use in eyes. Baush and Lomb 1 drop both eyes evening traMADol (ULTRAM) 50 mg tablet Take 50 mg by mouth every 8 hours as needed. FOLIC ACID ORAL Take 1,600 mg by mouth once daily. estradiol (ESTRACE) 0.01 % (0.1 mg/gram) vaginal cream Use 0.1 g vaginally once each week. fluticasone (FLONASE) 50 mcg/actuation nasal spray Use 1 [place] in each nostril twice daily. levothyroxine (SYNTHROID) 125 mcg tablet Take 1 tablet by mouth once daily. ABATACEPT (ORENCIA SUBCUTANEOUS) Inject subcutaneously. Once a week ALPRAZolam (XANAX) 1 mg tablet Take 1 mg by mouth daily at bedtime. BIOTIN ORAL Take 1,000 mg by mouth once daily. calcium carbonate/vitamin d3(CALCIUM 600 + D 600 MG-400 UNIT TAB) 2 daily ASPIRIN 81 MG TAB Take one(1) tablet daily. COL-RITE 100 MG CAP daily Cholecalciferol, Vitamin D3, 2,000 unit cap Take by mouth. COMPOUNDED PRESCRIPTION Probiotic REVIEW OF SYSTEMS: See HPI. PHYSICAL EXAMINATION: BP 114/67 Pulse 63 Ht 167.6 cm (5' 6ANDquot;) Wt 80.7 kg (178 lb) LMP (LMP Unknown) SpO2 96% BMI 28.73 kg/m2 General appearance: no acute distress, conversant, looks well Psych: Appropriate affect and insight; alert and oriented to person, place and time HENT: Normal appearing ears and nose; normal hearing Neck: No JVD at sitting;no carotid bruits;Trachea midline; FROM Lungs: Normal respiratory effort; CTAB CV: RRR, no MRGs Abdomen: Soft, non-tender; no HSM Extremities: No lower extremity edema; Normal pulses, no clubbing or cyanosis Skin: No rash or ulcers; Normal temperature, turgor and texture Musculoskeletal: Normal gait CARDIOVASCULAR MEDICINE TESTING: Labs 05/13/2017 15:59 Sodium 140 Potassium 4.5 Chloride 101 CO2 25 BUN 22 (H) Creatinine 1.28 (H) Glucose 125 (H) Calcium 8.8 Anion Gap 14 NT Pro BNP 65 eGFR- 52 eGFR-All Other Races 43 TTE Max aortic dimension ? ? 3.8 cm ?1.98 cm/m? Left atrium diameter ? ? 4.0 cm (M-Mode) Left atrial volume ? ? ? 52 ml (biplane A-L) 27 ml/m? ? Lena ANDlt;= 34 LV ID (diastole) ? 5.1 cm (2D) LV ID (systole) ?3.4 cm (2D) IVS, leaflet tips ?1.0 cm (2D) Posterior wall thickness 0.9 cm (2D) Left ventricular mass ? ?176 g (2D) ?92 g/m? LV stroke volume ? 43 ml (2D 4-ch.) LV end diastolic volume ?68 ml (2D 4-ch.) ? ?35.5 ml/m? 29ANDlt;=EDViANDlt;62 LV end systolic volume ? 26 ml (2D 4-ch.) ? ?13.4 ml/m? Ejection Fraction ?62 % (2D 4-ch.) ?EF ANDgt; 54 CONCLUSIONS: - Exam indication: Evaluation of known heart failure to guide therapy - The left ventricle is normal in size. Left ventricular systolic function is normal. EF = 62 ? 5% (2D 4-ch.) Indeterminate left ventricular diastolic dysfunction due to inconsistent or technically suboptimal data. - The right ventricle is normal in size. Right ventricular systolic function is normal. - There are no significant valvular abnormalities. - Exam was compared with the prior CC echocardiographic exam performed on 09/23/2016. There is no significant change. * I have personally reviewed the Laboratory Testing and Echocardiogram. IMPRESSION: 57?yr old causasian female Pt of Dr Johan FREEMAN - undertermined etiology (note RA + SS background, history of ANDquot;heart attacksANDquot;, ? some inflammatory DCM or arteritis related injury from the connective tissue disease) Chronic systolic and diastolic HF HFrecoveredEF - EF 43%/LVIDd 5.6cm 11/2014 -ANDgt; 50%/LVIDd 4.5cm 01/2016 -ANDgt; EF 61%/LVIDd 4.6cm 09/2016 S/p ANIMAL BEHAVIORIST-D (underlying LBBB) CVA 1999 Hypothyroidism Sjogrens syndrome, RA GERD Dyslipiedemia ?? NYHA Functional Class: I Stage: B/C heart failure Euvolemic Seen as an unscheduled follow-up due to symptomatic low BPs in 80s while having flu Losartan stopped and doing better Continued coreg thoroughout No HF or other cardiac symptoms Feeling better now, BP 114 SR 100% BivP on device check 3 months ago No VA therapies No AF Anxiety/bipolar disorder much better since started on currnet multi-drug regimen above Note, she takes K-Dur 20meq despite not being on diuretic - last K+ on system 4.5. She knows to keep a regular check on it ANDquot;but do usually need the supplementANDquot; PLAN AND RECOMMENDATIONS: 1. Stay off losartan for now given continued preserved EF and events above 2. C/t coreg 3. See in 6 months I personally interviewed, confirmed and edited the above information as obtained by others The majority of the visit was spent counseling and/or coordinating care for the patient. [id number] time was 30 minutes. We discussed natural history of disease, current treatment options, future potential treatment options including transplant, mechanical support, etc. We discussed diet, exercise, other non-medical management as above. Winnie Moreno MD, PhD [facility] Section Of Heart Failure and Cardiac Transplant Medicine Heart and Vascular [facility] Desk [id number] [place] [address] Referring Provider: DEMOND LITTLE [[id number]] Allergies As of Date: 05/18/2017 Noted Allergy Reaction CIPROFLOXACIN 12/06/2013 14 - Other: See Comments Comments: Tendon Rupture. CITRIC ACID 03/18/2016 12 - Shortness of Breath Comments: Shortness of breath,swelling of throat LEVAQUIN (LEVOFLOXACIN) 07/02/2015 16 - Unknown LISINOPRIL 05/12/2006 4 - Hives TRADJENTA (LINAGLIPTIN) 07/26/2016 5 - Intolerance Comments: Nausea TRILEPTAL (OXCARBAZEPINE) 09/22/2016 1 - Mental Status Change TYLOX (OXYCODONE-ACETAMINOPHEN) 05/12/2006 Comments: low blood pressure ZETIA (EZETIMIBE) 02/04/2016 14 - Other: See Comments Comments: Muscle pain ZOCOR (SIMVASTATIN) 05/12/2006 7 - Swelling Comments: severe muscle cramping, liver enzyme abnormalities Date Reviewed: 05/18/2017 Reviewed by: Winnie Morneo - Fully Assessed Reason for Visit: Follow Up [171] Primary Visit Diagnosis:Non-ischemic cardiomyopathy (HCC) [I42.8] Other Visit Diagnosis:Chronic systolic heart failure (HCC) [I50.22] Prescriptions as of 05/18/2017 Sig: PREDNISONE 5 MG TABLET Take 5 mg by mouth. RAMELTEON 8 MG TABLET Take 8 mg by mouth daily at b* LORATADINE 10 MG TABLET Take 1 tablet by mouth once d* COLESTIPOL 1 GRAM TABLET Take 1 tablet by mouth twice * CITALOPRAM 10 MG TABLET Take 1 tablet by mouth once d* LURASIDONE 60 MG TABLET Take 1 tablet by mouth daily * ESOMEPRAZOLE MAGNESIUM 40 MG * Take 1 capsule by mouth once * BUSPIRONE 10 MG TABLET Take 1 tablet by mouth once d* POTASSIUM CHLORIDE ER 20 MEQ * Take 1 tablet by mouth once d* CARVEDILOL 6.25 MG TABLET Take 1 tablet by mouth twice * PREDNISONE 5 MG TABLET Take 5 mg by mouth once daily. EYE DROPS OPHTHALMIC Use in eyes. [employer] * TRAMADOL 50 MG TABLET Take 50 mg by mouth every 8 h* FOLIC ACID ORAL Take 1,600 mg by mouth once d* ESTRADIOL 0.01% (0.1 MG/GRAM)* Use 0.1 g vaginally once each* FLUTICASONE 50 MCG/ACTUATION * Use 1 Gridley in each nostril t* LEVOTHYROXINE 125 MCG TABLET Take 1 tablet by mouth once d* ORENCIA SUBCUTANEOUS Inject subcutaneously. Once * ALPRAZOLAM 1 MG TABLET Take 1 mg by mouth daily at b* * BIOTIN ORAL Take 1,000 mg by mouth once d* * CALCIUM 600 + D(3) 600 MG (1,* 2 daily * ASPIRIN 81 MG TABLET Take one(1) tablet daily. * COL-RITE 100 MG CAPSULE daily CHOLECALCIFEROL (VITAMIN D3) * Take by mouth. 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 LBBB (left bundle branch block) [I44.7] INVALID FOR* Biventricular ICD (implantable cardioverter-def*INVALID FOR* Postablative hypothyroidism [E89.0] INVALID FOR* More... 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 Hearing loss of both ears [H91.93] INVALID FOR* More... Nonischemic cardiomyopathy (HCC) [I42.8] INVALID FOR* Chronic systolic heart failure (HCC) [I50.22] INVALID FOR* More... Sensorineural hearing loss, bilateral [H90.3] INVALID FOR* Tinnitus [H93.19] INVALID FOR* Dizziness and giddiness [R42] INVALID FOR* More... More... 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] Diabetes mellitus, type II (HCC) [E11.9] Compression fracture of L1 lumbar vertebra (HCC*INVALID FOR* Wedge compression fracture of twelfth thoracic *INVALID FOR* Rheumatoid arthritis involving multiple sites (*INVALID FOR*09/01/2016 Heart attack (HCC) [I21.9] INVALID FOR*09/01/2016 More... Sjogren's syndrome (HCC) [M35.00] INVALID FOR* Obstructive sleep apnea syndrome [G47.33] INVALID FOR* More... Other and unspecified hyperlipidemia [E78.5] INVALID FOR* More... Lupus erythematosus [L93.0] INVALID FOR* More... CHF (congestive heart failure) (HCC) [I50.9] INVALID FOR* More... Essential hypertension [I10] Cervicalgia [M54.2] INVALID FOR* More... Type 2 diabetes mellitus without complication, *INVALID FOR* Transition of care performed with sharing of cl*INVALID FOR* More... Encounter Status:Closed by WINNIE MORENO MD on 05/19/17 CBC AND DIFFERENTIAL Collected: 05/13/2017 Status: F Source: [place] 3:59 PM [facility] REPOS[facility]ORY TYPE CODE TESTS RESULT OUT OF REFERENCE UNITS RANGE LAB WBC 3.70-11.00 k/uL WBC 7.12 LAB RBC 3.90-5.20 m/uL RBC 4.31 LAB HGB 11.5-15.5 g/dL Hemoglobin 14.0 LAB HCT 36.0-46.0 % Hematocrit 42.1 LAB MCV 80.0-100.0 fL MCV 97.7 LAB MCH 26.0-34.0 pG MCH 32.5 LAB MCHC 30.5-36.0 g/dL MCHC 33.3 LAB RDWCV 11.5-15.0 % RDW-CV 14.5 LAB PLTCT 150-400 k/uL Platelet Count 295 LAB MPV 9.0-12.7 fL MPV 9.8 LAB ANEUT % Neut% 69.5 LAB AANEUT 1.45-7.50 k/uL Abs Neut 4.95 LAB ALYMP % Lymph% 22.6 LAB AALYMP 1.00-4.00 k/uL Abs Lymph 1.61 LAB AMONO % Hale% 6.7 LAB AAMONO <0.87 k/uL Abs Hale 0.48 LAB AEOS % Eosin% 0.6 LAB AAEOS <0.46 k/uL Abs Eosin 0.04 LAB ABASO % Baso% 0.6 LAB AABASO <0.11 k/uL Abs Baso 0.04 LAB AUNRBC 0 /100 WBC NRBCs 0.0 LAB ABNRBC <0.01 k/uL Absolute nRBC <0.01 LAB DTYP DTYPE Auto Diff Performed By: #### CBCDIF, BMP, NTBNP, COR #### [facility] [address] [place], [place] [address] BASIC METABOLIC PANL Collected: 05/13/2017 Status: F Source: [place] 3:[address] [facility] REPOSITORY TYPE CODE TESTS RESULT OUT OF REFERENCE UNITS RANGE LAB GLU 74-99 mg/dL High Glucose 125 Result Comment: The [place] Diabetes Association (ADA) provides guidance for cutoff values for fasting glucose and random glucose. The ADA defines fasting as no caloric intake for at least 8 hours. Fas ting plasma glucose results between 100 to 125 mg/dL indicate increased risk for diabetes (prediabetes). Fasting plasma glucose results greater than or equal to 126 mg/dL meet the criteria for diagnosis of diabetes. In the absence of unequivocal hyperglycemia, results should be confirmed by repeat testing. In a patient with classic symptoms of hyperglycemia or hyperglycemic crisis, random plasma glucose results greater than or equal to 200 mg/dL meet the criteria for diagnosis of diabetes. Reference: Standards of Medical Care in Diabetes 2016, [place] [employer] Association. Diabetes Care. 2016.39(Suppl 1). LAB BUN 7-21 mg/dL BUN High 22 LAB CRET 0.58-0.96 mg/dL Creatinine High 1.28 LAB NA 136-144 mmol/L Sodium 140 LAB K 3.7-5.1 mmol/L Potassium 4.5 LAB CL 97-105 mmol/L Chloride 101 LAB CO2 22-30 mmol/L CO2 25 LAB AGAP 9-18 mmol/L Anion Gap 14 LAB CA 8.5-10.2 mg/dL Calcium, Total 8.8 LAB GFRAA eGFR- Amer. 52 LAB GFRNAA . eGFR-All Other Races 43 Result Comment: eGFR (Estimated GFR) Units of measure: mL/min/1.73 meters squared eGFR is derived from the reexpressed MDRD Study equation using the following parameters: serum creatinine, age, gender and race. The creatinine assay has been calibrated to be traceable to IDCT. An eGFR <60 mL/min/1.73m2 for >3 months is consistent with chronic kidney disease. Refer to KDOQI guidelines for clinical interpretation. In patients with unstable renal function, e.g. those with acute kidney injury, the eGFR may not accurately reflect actual GFR. Performed By: #### CBCDIF, BMP, NTBNP, COR #### [facility] [address] [place], [place] [address] NT PRO BNP Collected: 05/13/2017 Status: F Source: [place] 3:59 PM [facility] REPOSITORY TYPE CODE TESTS RESULT OUT OF REFERENCE UNITS RANGE LAB PBNP <125 pg/mL PRO B Natr 65 Peptide Performed By: #### CBCDIF, BMP, NTBNP, COR #### [facility] [address] [place], [place] [address] CORTISOL Collected: 05/13/2017 Status: F Source: [place] 3:59 PM [facility] REPOSITORY TYPE CODE TESTS RESULT OUT OF REFERENCE UNITS RANGE LAB COR ug/dL Cortisol 6.3 Result Comment: Cortisol Reference Range: AM = 5.3-22.5, PM = 3.4-16.8 Performed By: #### CBCDIF, BMP, NTBNP, COR #### [facility] [address] [place], [place] [address] XR CHEST 2V FRONTAL/LAT Observed: 05/13/2017 Status: F Source: [place] 3:41 PM [facility] REPOSITORY * * *Final Report* * * DATE OF EXAM: May 13 2017 3:41PM WOX [id number] - XR CHEST 2V FRONTAL/LAT / PROCEDURE REASON: Shortness of breath * * * * Physician Interpretation * * * * EXAMINATION: CHEST RADIOGRAPH (2 VIEW FRONTAL and LATERAL) Clinical History: Shortness of breath M: XC2_3 Comparison: 09/01/2016 RESULT: Lines, tubes, and devices: Stable multichamber cardiac conduction leads Lungs and pleura: No consolidation. No lung mass. No pleural effusion. Cardiomediastinal silhouette: Normal cardiomediastinal silhouette. Other: Vertebral augmentation in an upper lumbar vertebra. IMPRESSION: No acute radiographic abnormality. Gasateria Attendant: JUANI Transcribe Date/Time: May 13 2017 4:01P Dictated by : JOHAN LOPEZ MD This examination was interpreted and the report reviewed and electronically signed by: JOHAN LOPEZ MD on May 13 2017 4:02PM EST [id number] PROGRESS Observed: 05/13/2017 Status: COMPLETED Source: [place] 3:34 PM [facility] REPOSITORY HNO ID: [id number] Author: Dinorah Amezquita (Rt) Mera Spears Service: (none) Author Type: Property Assistant Type: Progress Notes Filed: 05/13/2017 3:39 PM Note Text: Radiology Service Progress Note PATIENT NAME: Dana Matos DATE OF SERVICE: May 13, 2017 TIME: 3:34 PM PATIENT IDENTITY VERIFICATION COMPLETED USING TWO (2) METHODS: Patient confirmed name verbally and Date of . PATIENT GENDER DATA: Female. status: : No status: NO. PATIENT RELEVANT IMPLANT DATA REVIEWED: Not Applicable RADIOLOGY DEPARTMENT: General X-ray: Exam(s) Completed: Chest X-Ray PERIPHERAL IV DATA: Not applicable SIGNED BY: RT Manuel May 13, 2017 3:34 PM PROGRESS Observed: 05/13/2017 Status: COMPLETED Source: [place] 2:17 PM [facility] REPOSITORY HNO ID: [id number] Author: Demond Little Service: (none) Author Type: Physician Type: Progress Notes Filed: 05/13/2017 3:17 PM Note Text: Patient presents with: Blood Pressure: running low HPI: Patient presents today for office visit for follow up. Recently saw Braulio Garcia who diagnosed her with dehydration and orthostasis. She refused to go to the ER as he recommended. She has been off of the losartan since she had a bout of gastroenteritis. She pushed oral fluids. She has had no further diarrhea or vomiting. No stomach pain. No bloody or bloody or blacks stools. She feels better when she is off of the losartan. Dizzy when she takes it. No edema. No chest pain. Occasionally is short of breath on exertion. Had an ekg when here last-read as unspecified pacer failure, however rhythm was paced. No syncope. Her icd has not fired. She did boost her prednisone while ill. No fever or chills. Cough, congestion, dysuria. Component Latest Ref Rng AND Units 05/05/2017 Cholesterol, Total <200 mg/dL 176 Triglyceride <150 mg/dL 97 HDL Cholesterol >39 mg/dL 46 LDL Cholesterol <100 mg/dL 111 (H) Non HDL Cholesterol <130 mg/dL 130 (H) Fasting Time hrs Unknown VLDL Cholesterol <30 mg/dL 19 TC:HDL Ratio <5.10 3.83 LDL:HDL Ratio <2.54 2.41 Hemoglobin A1C 4.3 - 5.6 % 6.2 (H) Estimated Average Glucose mg/dL 131 Free T3 2.3 - 4.1 pg/mL 2.4 Free T4 0.9 - 1.7 ng/dL 1.6 TSH 0.400 - 5.500 uU/mL 2.420 Vitamin D 25 Hydroxy 31.0 - 80.0 ng/mL 54.6 MEDICATIONS: Current Outpatient Prescriptions: ramelteon (ROZEREM) 8 mg tablet Take 8 mg by mouth daily at bedtime. loratadine (CLARITIN) 10 mg tablet Take 1 tablet by mouth once daily. colestipol (COLESTID) 1 gram tablet Take 1 tablet by mouth twice daily. citalopram hydrobromide (CELEXA) 10 mg tablet Take 1 tablet by mouth once daily. lurasidone (LATUDA) 60 mg tab tablet Take 1 tablet by mouth daily with dinner. esomeprazole (NEXIUM) 40 mg capsule Take 1 capsule by mouth once daily. busPIRone (BUSPAR) 10 mg tablet Take 1 tablet by mouth once daily. potassium chloride ER (KLOR-CON M20) 20 mEq tablet Take 1 tablet by mouth once daily. carvedilol (COREG) 6.25 mg tablet Take 1 tablet by mouth twice daily with meals. predniSONE (DELTASONE) 5 mg tablet Take 5 mg by mouth once daily. TETRAHYDROZOLINE HCL/ZN SULF (EYE DROPS OPHTHALMIC) Use in eyes. [employer] 1 drop both eyes evening traMADol (ULTRAM) 50 mg tablet Take 50 mg by mouth every 8 hours as needed. FOLIC ACID ORAL Take 1,600 mg by mouth once daily. estradiol (ESTRACE) 0.01 % (0.1 mg/gram) vaginal cream Use 0.1 g vaginally once each week. fluticasone (FLONASE) 50 mcg/actuation nasal spray Use 1 Gridley in each nostril twice daily. levothyroxine (SYNTHROID) 125 mcg tablet Take 1 tablet by mouth once daily. ABATACEPT (ORENCIA SUBCUTANEOUS) Inject subcutaneously. Once a week ALPRAZolam (XANAX) 1 mg tablet Take 1 mg by mouth daily at bedtime. BIOTIN ORAL Take 1,000 mg by mouth once daily. calcium carbonate/vitamin d3(CALCIUM 600 + D 600 MG-400 UNIT TAB) 2 daily ASPIRIN 81 MG TAB Take one(1) tablet daily. COL-RITE 100 MG CAP daily losartan (COZAAR) 25 mg tablet Take 0.5 tablets by mouth once daily. No current facility-administered medications for this visit. ALLERGIES: ALLERGIES Allergen Reactions - Ciprofloxacin Other: See Comments Tendon Rupture. - Citric Acid Shortness of Breath Shortness of breath,swelling of throat - Levaquin [Levofloxa* Unknown - Lisinopril Hives - Tradjenta [Linaglip* Intolerance Nausea - Trileptal [Oxcarbaz* Mental Status Change - Tylox [Oxycodone-Ac* low blood pressure - Zetia [Ezetimibe] Other: See Comments Muscle pain - Zocor [Simvastatin] Swelling severe muscle cramping, liver enzyme abnormalities PAST MEDICAL HISTORY Diagnosis Date - Adrenal insufficiency (HCC) 1986 oral cortisone daily - Calculus of kidney - CHF (congestive heart failure) ([facility]) - 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 - Diabetes mellitus, type II ([facility]) - Diabetes type 2, controlled ([facility]) chronic steroid therapy - Dual implantable cardioverter-defibrillator in situ 12/14/2013 Defibrillator Pacemaker Model [id number], serial # [id number] - Essential hypertension - H/O right heart catheterization 11/27/2013 coronaries clear - Heart attack 09/28/2000 - Heart attack 11/27/2013 first FL 09/28/2000,second FL. 20% EF, took 3L of fluid off - Hemiparesis affecting right side as late effect of stroke (HCC) 02/06/2000 - Hyperthyroidism s/p radiation, currently on Synthroid, Seeing endo-Dr. Billings - Hypothyroidism (acquired) 6695 - Left bundle branch block - LUMBOSACRAL NEURITIS NOS 06/27/2007 - Lupus erythematosus 2005 Dr. Foreman - Other and unspecified hyperlipidemia - Other primary cardiomyopathies 09/28/2000 Cardiomyopathy-Seeing Dr. Rosenberg - Raynaud's syndrome 1999 - Rheumatoid arthritis(714.0) [address] Faulkner - Sjogren's syndrome (HCC) 1997 - Transverse myelitis (HCC) 05/31/2006 from flu shot PAST SURGICAL HISTORY Procedure Laterality Date - DEFIBRILLATOR SURGERY 2013 - EXCIS FINGER TENDON FLEXOR - HYSTERECTOMY HX 2011 - INCISION EXTEN FOOT/TOE TENDON - OTOPLASTY - PAST SURGICAL HISTORY OF five foot surgeries [id number], Jarred Donato - PAST SURGICAL HISTORY OF four hand surgeries [id number], Dr. Demond Tejeda - RHINOPLASTY 1989 nasal reconstruction after injury - TUBAL LIGATION HX 01/17/2010 removal of tumors, BTL FAMILY HISTORY Problem Relation Age of Onset - Arthritis Mother CREST syndrome - Diabetes Mother - Stroke Father - Heart Father - Emphysema Father - Stroke Paternal Grandmother - Stroke Paternal Grandfather - DM [OTHER] Brother - CM [OTHER] Brother possibly ETOH related. Social History Marital status: Spouse name: Years of education: Number of children: Social History Main Topics Smoking status: Never Smoker Smokeless status: Never Used Alcohol use: No Drug use: No Sexual activity: Yes Partners with: Male Reviewed current medications, allergies, past medical history, surgical history, family history and social history today. REVIEW OF SYSTEMS All other reviewed and negative other than HPI. VITALS: BP 94/52 Pulse 72 Resp 16 LMP (LMP Unknown) SpO2 94% Orthostatic Vitals BP Pulse Position Site Cuff Size Time Date 60 Standing Right Arm Regular 02:51 PM 05/13/2017 85/60 70 Sitting Right Arm Regular 02:49 PM 05/13/2017 96/68 66 Supine Right Arm Regular 02:49 PM 05/13/2017 Last 4 Encounter Wt Readings: Date: Wt: 03/28/2017 80.3 kg (177 lb) 02/14/2017 79.8 kg (176 lb) 12/14/2016 80.3 kg (177 lb) 11/01/2016 79.4 kg (175 lb) PHYSICAL EXAMINATION: General appearance: Well appearing, alert, in no acute distress, well-hydrated, well nourished. Skin: Skin color, texture, turgor normal, no suspicious rashes or lesions Head: Normocephalic, no masses, lesions, tenderness or abnormalities Oropharynx: Lips, mucosa, and tongue normal, teeth and gums normal, oropharynx normal Neck: Supple, no adenopathy; thyroid symmetric, normal size, no bruits Lungs: Lungs clear to auscultation. No wheezing, rhonchi, rales Heart: RRR, gallop, or rubs. No ectopy Abdomen: Normal abdominal exam, Abdomen soft, non-tender. Bowel sounds normal. No masses, organomegaly Extremities: No deformities, edema, skin discoloration, clubbing or cyanosis. Good capillary refill. Musculoskeletal: No joint swelling, deformity, or tenderness ASSESSMENT/PLAN: 1. Near syncope - ICD9: 780.2, ICD10: R55 (primary diagnosis) - she is feeling better but has had some persistant low bp's since starting losartan. She is not orthostatic today. - Red flags for re-assessment reviewed with patient in detail. - ECG COMPLETE W INTERPRETATION- shows paced rhythm. No malfunction of pacer noted. -prelim 2. Essential hypertension - ICD9: 401.9, ICD10: I10 - stop losartan until she sees cardiology 3. Postablative hypothyroidism - ICD9: 244.1, ICD10: E89.0 Fax labs to her endo 4. Type 2 diabetes mellitus without complication, with long- term current use of insulin (HCC) - ICD9: 250.00, V58.67, ICD10: E11.9, Z79.4 Controlled. 5. Systolic congestive heart failure, unspecified congestive heart failure chronicity (HCC) - ICD9: 428.20, 428.0, ICD10: I50.20 - check xray and bnp along with other labs. Call if any worsening edema, chest pain or shortness of breath. - CONSULT TO CARDIOLOGY 6. Nonischemic cardiomyopathy (HCC) - ICD9: 425.4, ICD10: I42.8 - CONSULT TO CARDIOLOGY 7. Chronic systolic heart failure (HCC) - ICD9: 428.22, ICD10: I50.2 - CONSULT TO CARDIOLOGY 8. Secondary adrenal insufficiency (HCC) - ICD9: 255.41, ICD10: E27.49 - check labs. She did supplement her steroids while she previously had a gastro - CORTISOL BLD 9. Sjogren's syndrome, with unspecified organ involvement (HCC) - ICD9: 710.2, ICD10: M35.00 - per rheum. 10. Hypotension, unspecified hypotension type - ICD9: 458.9, ICD10: I95.9 - stop meds and see if feeling better. - CBC + DIFF - BASIC METABOLIC PNL - CONSULT TO CARDIOLOGY 11. Shortness of breath - ICD9: 786.05, ICD10: R06.02 - check xray and labs. See cardio. To ER if worsens. - NT PRO BNP - XR CHEST 2V FRONTAL/LAT Demond Little MD RTO in one month and prn. CNOV Observed: 05/13/2017 Status: COMPLETED Source: [place] 2:00 PM [facility] REPOSITORY [facility] DANA MATOS ([id number]) 1960 F Date Time Provider Department 05/13/17 2:00 PM [facility] During your visit today, we recorded the following information about you: Pulse Respiration Blood pressure 72/minute 16/minute 94/52 Camille Keating Ma 05/13/2017 2:10 PM Signed HTN: Patient got over the flu. Ever since she has been trying to get back on all of her medications. She can take everything, except the Losartan. When she takes that, her blood pressure drops to around 90/60. She saw Braulio last week for near syncope. 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 Demond Little MD 05/13/2017 3:17 PM Signed Patient presents with: Blood Pressure: running low HPI: Patient presents today for office visit for follow up. Recently saw Braulio aGrcia who diagnosed her with dehydration and orthostasis. She refused to go to the ER as he recommended. She has been off of the losartan since she had a bout of gastroenteritis. She pushed oral fluids. She has had no further diarrhea or vomiting. No stomach pain. No bloody or bloody or blacks stools. She feels better when she is off of the losartan. Dizzy when she takes it. No edema. No chest pain. Occasionally is short of breath on exertion. Had an ekg when here last-read as unspecified pacer failure, however rhythm was paced. No syncope. Her icd has not fired. She did boost her prednisone while ill. No fever or chills. Cough, congestion, dysuria. Component Latest Ref Rng ANDamp; Units 05/05/2017 Cholesterol, Total ANDlt;200 mg/dL 176 Triglyceride ANDlt;150 mg/dL 97 HDL Cholesterol ANDgt;39 mg/dL 46 LDL Cholesterol ANDlt;100 mg/dL 111 (H) Non HDL Cholesterol ANDlt;130 mg/dL 130 (H) Fasting Time hrs Unknown VLDL Cholesterol ANDlt;30 mg/dL 19 TC:HDL Ratio ANDlt;5.10 3.83 LDL:HDL Ratio ANDlt;2.54 2.41 Hemoglobin A1C 4.3 - 5.6 % 6.2 (H) Estimated Average Glucose mg/dL 131 Free T3 2.3 - 4.1 pg/mL 2.4 Free T4 0.9 - 1.7 ng/dL 1.6 TSH 0.400 - 5.500 uU/mL 2.420 Vitamin D 25 Hydroxy 31.0 - 80.0 ng/mL 54.6 MEDICATIONS: Current Outpatient Prescriptions: ramelteon (ROZEREM) 8 mg tablet Take 8 mg by mouth daily at bedtime. loratadine (CLARITIN) 10 mg tablet Take 1 tablet by mouth once daily. colestipol (COLESTID) 1 gram tablet Take 1 tablet by mouth twice daily. citalopram hydrobromide (CELEXA) 10 mg tablet Take 1 tablet by mouth once daily. lurasidone (LATUDA) 60 mg tab tablet Take 1 tablet by mouth daily with dinner. esomeprazole (NEXIUM) 40 mg capsule Take 1 capsule by mouth once daily. busPIRone (BUSPAR) 10 mg tablet Take 1 tablet by mouth once daily. potassium chloride ER (KLOR-CON M20) 20 mEq tablet Take 1 tablet by mouth once daily. carvedilol (COREG) 6.25 mg tablet Take 1 tablet by mouth twice daily with meals. predniSONE (DELTASONE) 5 mg tablet Take 5 mg by mouth once daily. TETRAHYDROZOLINE HCL/ZN SULF (EYE DROPS OPHTHALMIC) Use in eyes. [employer]aush and Lomb 1 drop both eyes evening traMADol (ULTRAM) 50 mg tablet Take 50 mg by mouth every 8 hours as needed. FOLIC ACID ORAL Take 1,600 mg by mouth once daily. estradiol (ESTRACE) 0.01 % (0.1 mg/gram) vaginal cream Use 0.1 g vaginally once each week. fluticasone (FLONASE) 50 mcg/actuation nasal spray Use 1 Gridley in each nostril twice daily. levothyroxine (SYNTHROID) 125 mcg tablet Take 1 tablet by mouth once daily. ABATACEPT (ORENCIA SUBCUTANEOUS) Inject subcutaneously. Once a week ALPRAZolam (XANAX) 1 mg tablet Take 1 mg by mouth daily at bedtime. BIOTIN ORAL Take 1,000 mg by mouth once daily. calcium carbonate/vitamin d3(CALCIUM 600 + D 600 MG-400 UNIT TAB) 2 daily ASPIRIN 81 MG TAB Take one(1) tablet daily. COL-RITE 100 MG CAP daily losartan (COZAAR) 25 mg tablet Take 0.5 tablets by mouth once daily. No current facility-administered medications for this visit. ALLERGIES: ALLERGIES Allergen Reactions - Ciprofloxacin Other: See Comments Tendon Rupture. - Citric Acid Shortness of Breath Shortness of breath,swelling of throat - Levaquin [Levofloxa* Unknown - Lisinopril Hives - Tradjenta [Linaglip* Intolerance Nausea - Trileptal [Oxcarbaz* Mental Status Change - Tylox [Oxycodone-Ac* low blood pressure - Zetia [Ezetimibe] Other: See Comments Muscle pain - Zocor [Simvastatin] Swelling severe muscle cramping, liver enzyme abnormalities PAST MEDICAL HISTORY Diagnosis Date - Adrenal insufficiency (HCC) 1986 oral cortisone daily - Calculus of kidney - CHF (congestive heart failure) ([facility]) - Congenital anomalies of adrenal gland intermediate prednisone use - CVA (cerebral infarction) 1999 short term memory loss. - Diabetes mellitus, type II ([facility]) - Diabetes type 2, controlled ([facility]) chronic steroid therapy - Dual implantable cardioverter-defibrillator in situ 12/14/2013 Defibrillator Pacemaker Model [id number], serial # [id number] - Essential hypertension - H/O right heart catheterization 11/27/2013 coronaries clear - Heart attack 09/28/2000 - Heart attack 11/27/2013 first FL 09/28/2000,second FL. 20% EF, ANDquot;took 3L of fluid offANDquot; - Hemiparesis affecting right side as late effect of stroke (HCC) 02/06/2000 - Hyperthyroidism s/p radiation, currently on Synthroid, Seeing endo-Dr. Billings - Hypothyroidism (acquired) 1665 - Left bundle branch block - LUMBOSACRAL NEURITIS NOS 06/27/2007 - Lupus erythematosus 2005 Dr. Foreman - Other and unspecified hyperlipidemia - Other primary cardiomyopathies 09/28/2000 Cardiomyopathy-Seeing Dr. Rosenberg - Raynaud's syndrome 1999 - Rheumatoid arthritis(714.0) [address] Faulkner - Sjogren's syndrome (HCC) 1997 - Transverse myelitis (HCC) 05/31/2006 from flu shot PAST SURGICAL HISTORY Procedure Laterality Date - DEFIBRILLATOR SURGERY 2013 - EXCIS FINGER TENDON FLEXOR - HYSTERECTOMY HX 2011 - INCISION EXTEN FOOT/TOE TENDON - OTOPLASTY - PAST SURGICAL HISTORY OF five foot surgeries [id number], Jarred Donato - PAST SURGICAL HISTORY OF four hand surgeries [id number], Dr. Demond Tejeda - RHINOPLASTY 1989 nasal reconstruction after injury - TUBAL LIGATION HX 01/17/2010 removal of ANDquot;tumorsANDquot;, BTL FAMILY HISTORY Problem Relation Age of Onset - Arthritis Mother CREST syndrome - Diabetes Mother - Stroke Father - Heart Father - Emphysema Father - Stroke Paternal Grandmother - Stroke Paternal Grandfather - DM [OTHER] Brother - CM [OTHER] Brother possibly ETOH related. Social History Marital status: Spouse name: Years of education: Number of children: Social History Main Topics Smoking status: Never Smoker Smokeless status: Never Used Alcohol use: No Drug use: No Sexual activity: Yes Partners with: Male Reviewed current medications, allergies, past medical history, surgical history, family history and social history today. REVIEW OF SYSTEMS All other reviewed and negative other than HPI. VITALS: BP 94/52 Pulse 72 Resp 16 LMP (LMP Unknown) SpO2 94% Orthostatic Vitals BP Pulse Position Site Cuff Size Time Date 60 Standing Right Arm Regular 02:51 PM 05/13/2017 85/60 70 Sitting Right Arm Regular 02:49 PM 05/13/2017 96/68 66 Supine Right Arm Regular 02:49 PM 05/13/2017 Last 4 Encounter Wt Readings: Date: Wt: 03/28/2017 80.3 kg (177 lb) 02/14/2017 79.8 kg (176 lb) 12/14/2016 80.3 kg (177 lb) 11/01/2016 79.4 kg (175 lb) PHYSICAL EXAMINATION: General appearance: Well appearing, alert, in no acute distress, well-hydrated, well nourished. Skin: Skin color, texture, turgor normal, no suspicious rashes or lesions Head: Normocephalic, no masses, lesions, tenderness or abnormalities Oropharynx: Lips, mucosa, and tongue normal, teeth and gums normal, oropharynx normal Neck: Supple, no adenopathy; thyroid symmetric, normal size, no bruits Lungs: Lungs clear to auscultation. No wheezing, rhonchi, rales Heart: RRR, gallop, or rubs. No ectopy Abdomen: Normal abdominal exam, Abdomen soft, non-tender. Bowel sounds normal. No masses, organomegaly Extremities: No deformities, edema, skin discoloration, clubbing or cyanosis. Good capillary refill. Musculoskeletal: No joint swelling, deformity, or tenderness ASSESSMENT/PLAN: 1. Near syncope - ICD9: 780.2, ICD10: R55 (primary diagnosis) - she is feeling better but has had some persistant low bp's since starting losartan. She is not orthostatic today. - Red flags for re-assessment reviewed with patient in detail. - ECG COMPLETE W INTERPRETATION- shows paced rhythm. No malfunction of pacer noted. -prelim 2. Essential hypertension - ICD9: 401.9, ICD10: I10 - stop losartan until she sees cardiology 3. Postablative hypothyroidism - ICD9: 244.1, ICD10: E89.0 Fax labs to her endo 4. Type 2 diabetes mellitus without complication, with long- term current use of insulin (HCC) - ICD9: 250.00, V58.67, ICD10: E11.9, Z79.4 Controlled. 5. Systolic congestive heart failure, unspecified congestive heart failure chronicity (HCC) - ICD9: 428.20, 428.0, ICD10: I50.20 - check xray and bnp along with other labs. Call if any worsening edema, chest pain or shortness of breath. - CONSULT TO CARDIOLOGY 6. Nonischemic cardiomyopathy (HCC) - ICD9: 425.4, ICD10: I42.8 - CONSULT TO CARDIOLOGY 7. Chronic systolic heart failure (HCC) - ICD9: 428.22, ICD10: I50.2 - CONSULT TO CARDIOLOGY 8. Secondary adrenal insufficiency (HCC) - ICD9: 255.41, ICD10: E27.49 - check labs. She did supplement her steroids while she previously had a gastro - CORTISOL BLD 9. Sjogren's syndrome, with unspecified organ involvement (HCC) - ICD9: 710.2, ICD10: M35.00 - per rheum. 10. Hypotension, unspecified hypotension type - ICD9: 458.9, ICD10: I95.9 - stop meds and see if feeling better. - CBC + DIFF - BASIC METABOLIC PNL - CONSULT TO CARDIOLOGY 11. Shortness of breath - ICD9: 786.05, ICD10: R06.02 - check xray and labs. See cardio. To ER if worsens. - NT PRO BNP - XR CHEST 2V FRONTAL/LAT Demond Little MD RTO in one month and prn. Referring Provider: SELF [200] Allergies As of Date: 05/13/2017 Noted Allergy Reaction CIPROFLOXACIN 12/06/2013 14 - Other: See Comments Comments: Tendon Rupture. CITRIC ACID 03/18/2016 12 - Shortness of Breath Comments: Shortness of breath,swelling of throat LEVAQUIN (LEVOFLOXACIN) 07/02/2015 16 - Unknown LISINOPRIL 05/12/2006 4 - Hives TRADJENTA (LINAGLIPTIN) 07/26/2016 5 - Intolerance Comments: Nausea TRILEPTAL (OXCARBAZEPINE) 09/22/2016 1 - Mental Status Change TYLOX (OXYCODONE-ACETAMINOPHEN) 05/12/2006 Comments: low blood pressure ZETIA (EZETIMIBE) 02/04/2016 14 - Other: See Comments Comments: Muscle pain ZOCOR (SIMVASTATIN) 05/12/2006 7 - Swelling Comments: severe muscle cramping, liver enzyme abnormalities Date Reviewed: 05/05/2017 Reviewed by: Camille Keating Ma - Fully Assessed Reason for Visit: Blood Pressure [15] Cmt: running low Primary Visit Diagnosis:Near syncope [R55] Other Visit Diagnoses:Essential hypertension [I10] Postablative hypothyroidism [E89.0] Type 2 diabetes mellitus without complication, with long-term current use of insulin ([facility]) [E11.9, Z79.4] Systolic congestive heart failure, unspecified congestive heart failure chronicity (HCC) [I50.20] Nonischemic cardiomyopathy (HCC) [I42.8] Chronic systolic heart failure (HCC) [I50.22] Secondary adrenal insufficiency (HCC) [E27.49] Sjogren's syndrome, with unspecified organ involvement ([facility]) [M35.00] Hypotension, unspecified hypotension type [I95.9] Shortness of breath [R06.02] Order(s):ECG COMPLETE W INTERPRETATION [ECG01] Order #: [id number] FUTURE CBC + DIFF [SQCBCDIF] Order #: [id number] FUTURE BASIC METABOLIC PNL [SQBMP] Order #: [id number] FUTURE CORTISOL BLD [SQCOR] Order #: [id number] FUTURE CONSULT TO CARDIOLOGY [9004] Order #: [id number]: 1 NT PRO BNP [SQNTBNP] Order #: [id number] FUTURE XR CHEST 2V FRONTAL/LAT [0632517] Order #: [id number] FUTURE COMPLETE ECG [] Order #: [id number]. #:[id number]--PEWKdllHia: 1 Prescriptions as of 05/13/2017 Sig: RAMELTEON 8 MG TABLET Take 8 mg by mouth daily at b* LORATADINE 10 MG TABLET Take 1 tablet by mouth once d* COLESTIPOL 1 GRAM TABLET Take 1 tablet by mouth twice * CITALOPRAM 10 MG TABLET Take 1 tablet by mouth once d* LURASIDONE 60 MG TABLET Take 1 tablet by mouth daily * ESOMEPRAZOLE MAGNESIUM 40 MG * Take 1 capsule by mouth once * BUSPIRONE 10 MG TABLET Take 1 tablet by mouth once d* POTASSIUM CHLORIDE ER 20 MEQ * Take 1 tablet by mouth once d* CARVEDILOL 6.25 MG TABLET Take 1 tablet by mouth twice * PREDNISONE 5 MG TABLET Take 5 mg by mouth once daily. EYE DROPS OPHTHALMIC Use in eyes. Baush and Lomb * TRAMADOL 50 MG TABLET Take 50 mg by mouth every 8 h* FOLIC ACID ORAL Take 1,600 mg by mouth once d* ESTRADIOL 0.01% (0.1 MG/GRAM)* Use 0.1 g vaginally once each* FLUTICASONE 50 MCG/ACTUATION * Use 1 Gridley in each nostril t* LEVOTHYROXINE 125 MCG TABLET Take 1 tablet by mouth once d* ORENCIA SUBCUTANEOUS Inject subcutaneously. Once * ALPRAZOLAM 1 MG TABLET Take 1 mg by mouth daily at b* * BIOTIN ORAL Take 1,000 mg by mouth once d* * CALCIUM 600 + D(3) 600 MG (1,* 2 daily * ASPIRIN 81 MG TABLET Take one(1) tablet daily. 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 LBBB (left bundle branch block) [I44.7] INVALID FOR* Biventricular ICD (implantable cardioverter-def*INVALID FOR* Postablative hypothyroidism [E89.0] INVALID FOR* More... 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 Hearing loss of both ears [H91.93] INVALID FOR* More... Nonischemic cardiomyopathy (HCC) [I42.8] INVALID FOR* Chronic systolic heart failure (HCC) [I50.22] INVALID FOR* More... Sensorineural hearing loss, bilateral [H90.3] INVALID FOR* Tinnitus [H93.19] INVALID FOR* Dizziness and giddiness [R42] INVALID FOR* More... More... 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] Diabetes mellitus, type II (HCC) [E11.9] Compression fracture of L1 lumbar vertebra (HCC*INVALID FOR* Wedge compression fracture of twelfth thoracic *INVALID FOR* Rheumatoid arthritis involving multiple sites (*INVALID FOR*09/01/2016 Heart attack (HCC) [I21.9] INVALID FOR*09/01/2016 More... Sjogren's syndrome (HCC) [M35.00] INVALID FOR* Obstructive sleep apnea syndrome [G47.33] INVALID FOR* More... Other and unspecified hyperlipidemia [E78.5] INVALID FOR* More... Lupus erythematosus [L93.0] INVALID FOR* More... CHF (congestive heart failure) (HCC) [I50.9] INVALID FOR* More... Essential hypertension [I10] Cervicalgia [M54.2] INVALID FOR* More... Type 2 diabetes mellitus without complication, *INVALID FOR* Transition of care performed with sharing of cl*INVALID FOR* More... Visit Notes: >> Camille Keating Ma TueMay 13, 2017 2:05 PM Status: Signed HTN: Patient got over the flu. Ever since she has been trying to get back on all of her medications. She can take everything, except the Losartan. When she takes that, her blood pressure drops to around 90/60. She saw Braulio last week for near syncope. 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 Medications Discontinued During This Encounter losartan (COZAAR) 25 mg tablet 90 t* 3 09/22/2016 05/13/2017 Route: ORAL Sig: Take 0.5 tablets by mouth once daily. Disc: Reason for discontinue is not on file. Disposition: Return in about 4 weeks (around 06/10/2017). Follow-up and Disposition History Recorded Classic SmartForms filed during this visit: [employer] Encounter Status:Closed by DEMOND LITTLE MD on 05/13/17 ALLERGIES ALLERGIES DATE TYPE / CODE NAME / CODE REACTION SEVERITY SOURCE Drug ciprofloxacin Other Unknown [facility] Allergy/378295895( HCl/U342317664(RX [facility] SNOM[facility]) NORM) Hospital Repository Drug lisinopril/K35693 Hives Unknown [facility] Allergy/040541699( 0658(RXNORM) [facility] SNOM[facility]) Hospital Repository Drug citric Angioedema Unknown [facility] [facility] Allergy/963290605( acid/X839189151(R [facility] SNOM[facility]) XNORM) Hospital Repository Drug ciprofloxacin/F00 Other Unknown [facility] 8 Allergy/799331489( 9911710(RXNORM) Community SNOM[facility]) Hospital Repository Drug simvastatin/F0060 MUSCLE WEAKNESS Unknown [facility] 8 Allergy/826520918( 71318(RXNORM) Community SNOM[facility]) Hospital Repository Drug oxcarbazepine/F00 Other Unknown [facility] 8 Allergy/049719477( 3637132(RXNORM) Community SNOM[facility]) Hospital Repository Drug levofloxacin/F006 Unknown Unknown [facility] 8 Allergy/783803445( 083777(RXNORM) Community SNOM[facility]) Hospital Repository Drug ezetimibe/S799289 Other Unknown [facility] 8 Allergy/914872524( 817(RXNORM) Community SNOM[facility]) Hospital Repository Drug linagliptin/F0060 Upset Stomach Unknown [facility] 8 Allergy/255137309( 76235(RXNORM) Community SNOM[facility]) Hospital Repository DRUG OXCARBAZEPINE [facility] [place] [facility] INGREDI/875046613( Clinic Other SNOMED CT) [place] Rep[facility] DRUG LINAGLIPTIN INTOLERANCE [place] [facility] INGREDI/870312682( Clinic Other SNOMED CT) [place] Rep[facility] DRUG CITRIC ACID SHORTNESS OF [place] INGREDI/806910773( Clinic Other SNOMED CT) [place] Rep[facility] DRUG EZETIMIBE OTHER: SEE C [place] INGREDI/303651299( Clinic Other SNOMED CT) [place] Rep[facility] DRUG LEVOFLOXACIN UNKNOWN [place] [facility] INGREDI/890060950( Clinic Other SNOMED CT) [place] [facility] Miscellaneous TILOX HYPOTENSION Unknown [facility] Allergy/925295755( Community SNOM[facility]) Hospital Repository DRUG CIPROFLOXACIN OTHER: SEE [place] INGREDI/669946911( Clinic Other SNOMED CT) [place] Rep[facility] DRUG LISINOPRIL HIVES [place] [facility] INGREDI/631040571( Clinic Other SNOMED CT) [place] Rep[facility] DRUG/042197459(SNO OXYCODONE-ACETAMI [place] [address]) NOPHEN [facility] Other [place] Repository DRUG SIMVASTATIN SWELLING [place] [facility] INGREDI/092675221( Clinic Other SNOMED CT) [place] Rep[facility] NG/732481726(SNOME CIPROFLOXACIN [facility] D [facility]) [facility] Repository NG/210837155(SNOME CITRIC ACID [facility] D [facility]) Health System Repository NG/061838227(SNOME LEVOFLOXACIN [facility]) [facility] System Repository NG/052562372(SNOME LISINOPRIL [facility] D [facility]) Health System Repository NG/081736082(SNOME LINAGLIPTIN [facility] D [facility]) Health System Repository NG/237260353(SNOME OXCARBAZEPINE [facility] D [facility]) Health System Repository NG/936312026(SNOME OXYCODONE-ACETAMI [facility] D [facility]) [facility] Repository NG/253043481(SNOME EZETIMIBE [facility] D [facility]) Health System Repository NG/646316424(SNOME SIMVASTATIN [facility] D [facility]) Health System Repository ENCOUNTERS ENCOUNTERS ADMIT/DISCHARGE ACCOUNT NUMBER ADMITTING ENCOUNTER LOCATION SOURCE CLASS 04/27/2018/04/28/19 [id number] Ambulatory [address] Main [place] Repository 04/26/2018 [id number] Ambulatory [facility] ding:MTLAB Repository 04/25/2018/04/26/19 [id number] Ambulatory [address] Main [place] Repository 04/07/2018/04/07/20 [id number] Ambulatory [address] Main [place] Repository 04/03/2018/04/03/20 [id number] Ambulatory [address] Main [place] Repository 04/03/2018/04/04/20 [id number] Ambulatory [address] Main [place] Repository 03/20/[id number] [facility] ding:MTLAB Repository 03/14/2018/03/14/20 [id number] [facility], Ambulatory [address] Other [facility] [place] Repository 03/14/2018/03/14/20 [id number] [facility], Inpatient [facility] [address] [place] [address] MEDICAL Repository CENTERBuildi ng:ENDORoom: POOLBed: 07 02/17/2018/02/21/20 [id number] Ambulatory [address] Main [place] Repository 02/15/2018/02/17/20 [id number] Ambulatory [address] Main [place] Repository 02/15/2018/02/16/20 [id number] Ambulatory [address] Main [place] Repository 02/15/2018/02/16/20 [id number] Ambulatory [address] Main [place] Repository 02/13/2018/02/14/20 [id number] Ambulatory [address] Main [place] Repository 02/13/2018/02/15/20 [id number] Ambulatory [address] [place] Repository 02/10/2018 [id number] Ambulatory [facility] ding:MTLAB Repository 02/09/2018 [id number] [facility] 02/09/2018/02/10/20 [id number] [facility] ding:PCURoom Repository : [id number]: 1 02/09/2018 [id number] [facility] BMSBuilding: [facility] Repository 12/16/2017/12/21/19 [id number] Ambulatory [address] Repository 11/09/2017 [id number] Ambulatory [facility] ding:MTLAB Repository 09/30/2017/10/01/19 [id number] Ambulatory [address] [place] Repository 09/30/2017/10/05/19 [id number] Ambulatory [address] [place] Repository 09/26/2017/09/28/19 [id number] Ambulatory [address] [place] Repository 08/15/2017 [id number] Ambulatory [facility] ding:MTLAB Repository 07/14/2017 [id number] Ambulatory [facility] ding:MTLAB Repository 07/14/2017/07/15/19 [id number] Ambulatory [address] Main [place] Repository 06/14/2017/06/17/19 [id number] Ambulatory [address] [place] Repository 06/04/2017/06/07/19 [id number] Ambulatory [address] [place] Repository 05/18/2017/05/18/19 [id number] Ambulatory [address] [place] Repository 05/18/2017/05/18/19 [id number] Ambulatory [address] [place] Repository 05/13/2017 [id number] Ambulatory [facility] Main [place] Repository 05/13/2017/05/13/19 [id number] Ambulatory [address] [place] Repository 05/13/2017/05/13/19 [id number] Ambulatory [address] Repository 05/13/2017/05/13/19 [id number] Ambulatory [address] Repository PAYERS PAYERS ENCOUNTER GUARANTOR PAYER SUBSCRIBER SOURCE 04/26/2018 DANA K Primary Insurance:Carmel TURCIOSB: [place] [id number] APPLE INDIGO [id number] Community SH[place]MAREF IRA Number: [facility] [place], [place] [id number] Repository 72[address]Phv: (330) Date:7636-20-94[phone] (HP) [address] [place] [phone]: 04/26/2018 Secondary NOT GIVENUNK [place] Insurance:SELF PAY [facility] Effective Repository Date:2018-04-26 03/20/2018 DANA K Primary Insurance:Carmel TURCIOSB: [facility] [id number] APPLE INDIGO [id number] Community [place] IRA Number: [facility] [place] [id number] Repository [address]Muq: (330) Date:3703-82-63ZY [phone] () [address] [place] [phone]: 03/20/2018 Secondary NOT GIVENUNK [place] Insurance:SELF PAY [facility]: Effective Repository Date:2018-03-20 03/14/2018 DANA K Primary Insurance:[facility] CANTOR: Yulissa CANTOR: Carmel LOONEY [facility] [id number] [facility] [id number] Number: Repository [employer] [id number] [place], [place] Date: [address]Ong: (HP) 02/10/2018 DANA K Primary Insurance:UMCarmel TURCIOSB: [place] [id number] APPLE INDIGO [id number] Community [place] IRA Number: [facility] [place] [id number] Repository [address]Bht: (330) Date:0288-91-82IE [phone] (HP) [address] [place] [phone]: 02/10/2018 Secondary NOT GIVENUNK [place] Insurance:SELF PAY [facility] Number: Effective Repository Date:2018-02-10 02/09/2018 DANA K Primary Insurance:MAX TURCIOSB: [place] [id number] APPLE INDIGO [id number] Community [place] IRA Number: [place], [place] [id number] Repository [address]Wdo: (330) Date:8711-74-48AN [phone] () [address] [place] [phone]: 02/09/2018 Secondary NOT GIVENUNK [place] Insurance:SELF PAY [facility]: Effective Repository Date:2018-02-09 02/09/2018 DANA K Primary Insurance:MAX TURCIOSB: [place] [id number] APPLE INDIGO [id number] Community [place] IRA Number: [place], [place] [id number] Repository [address]Qrh: (330) Date:0403-15-40TS [phone] () [address] [place] [phone]: 02/09/2018 Secondary NOT GIVENUNK [place] Insurance:SELF PAY [facility] Number: Effective Repository Date:2018-02-09 02/09/2018 Dana K Primary Insurance:MAX TURCIOSB: [place] [id number] Apple INDIGO [id number] Community [place] Number: [place], [place] [id number] Repository [address]Kmg: (330) Date:2241-29-80UJ [address] () [address] [place] [phone]: 02/09/2018 Secondary NOT GIVENUNK [place] Insurance:SELF PAY [facility] Number: Effective Repository Date:2018-02-09 11/09/2017 Dana K Primary Insurance:MAX TURCIOSB: [place] [id number] Apple INDIGO [id number] Community [place] Number: [facility] [place] [id number] Repository [address]Zpw: (330) Date:7648-54-28QY [phone] (HP) [address] [place] [phone]: 11/09/2017 Secondary NOT GIVENUNK [place] Insurance:SELF PAY Community [facility] Number: Effective Repository Date:2017-11-09 08/15/2017 Dana K Primary Insurance:UMR DON R FRALEYDOB: [place] [id number] Lona INDIGO [id number] Community [place] Number: [facility] [place] [id number] Repository [address]Pdg: (330) Date:3107-52-12LY [phone] (HP) [address] [place] [phone]: 08/15/2017 Secondary NOT GIVENUNK [place] Insurance:SELF PAY [facility] Number: Effective Repository Date:2017-08-15 07/14/2017 Dana K Primary Insurance:[facility] WILLIAM MATOSDOB: Kady [id number] [facility] INDIGO [id number] [id number] [place] Number: [facility] [place] [id number] Repository [id number]: [phone] Date:[id number] [phone] () [address] [place] [id number]: 07/14/2017 Secondary NOT GIVENUNK [place] Insurance:SELF PAY [facility] Number: Effective Repository Date:2017-07-14
== END ==
PROVIDERS: Family Provider Family Medicine; PCP Family Medicine; Referring Provider Internal Medicine Pulmonary Disease; Visit Provider Internal Medicine Pulmonary Disease
DX: R06.00 Dyspnea, unspecified (principal)
CPT/HCPCS: 36415; 82164; 85652

== ENCOUNTER → 2018-04-26 11:17 | Outpatient (CLI) | payer OTHER, SELFPAY ==
[2018-04-26 15:05] LABS: Amphetamine Urine VISTA NEGATIVE (<1000 ng/mL); Barbiturate Urine VISTA NEGATIVE (< 200 ng/mL); Benzodiazepine Urine VISTA POSITIVE (< 200 ng/mL); Cocaine Urine VISTA NEGATIVE (< 300 ng/mL); Ecstacy Urine VISTA POSITIVE (< 500 ng/mL); Methadone Urine VISTA NEGATIVE (< 300 ng/mL); PCP Urine VISTA NEGATIVE (< 25 ng/mL); THC Urine VISTA NEGATIVE (< 50 ng/mL); Vista UDS pH Range 5
== END ==
PROVIDERS: Family Provider Family Medicine; PCP Family Medicine
DX: Z79.899 Other long term (current) drug therapy (principal)
CPT/HCPCS: 80307

== ENCOUNTER → 2018-05-26 13:19 | Outpatient (CLI) | payer OTHER, SELFPAY | PROVIDERS: Family Provider Family Medicine; PCP Family Medicine | DX: H02.409 Unspecified ptosis of unspecified eyelid (principal) | CPT/HCPCS: 36415 ==

== ENCOUNTER → 2018-06-02 13:06 | Outpatient (CLI) | payer OTHER, SELFPAY ==
[2018-02-09 07:09] VITALS: BMI 28.5
[2018-06-02 14:06] LABS: Absolute Neutrophil Count 3.4 X10^3/uL (2.0-7.7); Basophil# 0.02 X10^3/uL; Basophil% 0.3 % (0-1); Eosinophils% 1.5 % (0-5); Hematocrit 41.5 % (37-47); Lymphocyte % 39.6 % (19-41); Mean Corp Hgb Conc 31.3 g/gl (32-36); Mean Corpuscular Hgb 31.3 pg (27.0-32.0); Mean Corpuscular Volume 99.8 fL (81-99); Mean Platelet Vol. 9.9 fl (6.2-12.0); Monocyte# 0.41 X10^3/uL; Monocyte% 6.2 % (0-10); Neutrophil # 3.42 X10^3/uL (2.7-7.7); Neutrophil % 52.1 % (47-70); Platelet Count 217 K/mm3 (150-450); RBC Distribution Width CV 14.3 % (11.6-14.6); RBC Distribution Width SD 51.8 fl (35.1-43.9); Red Blood Count 4.16 M/mm3 (4.2-5.4); White Blood Count 6.6 K/mm3 (4.4-11.0)
[2018-06-02 14:10] LABS: POSITIVE COUNT NO; POSITIVE DIFFERENTIAL NO; POSITIVE MORPHOLOGY NO
[2018-06-02 14:35] LABS: Hemoglobin A1c 6.9 % (4.2-6.3)
[2018-06-02 14:41] LABS: BUN 19 mg/dL (7-18); Creatinine, Serum 1.04 mg/dL (0.55-1.02); EST Glomerular Filtration Rate 58 mL/min (>60); Glucose 105 mg/dL (74-106)
[2018-06-02 14:42] LABS: AST(SGOT) 13 U/L (15-37); Alanine Aminotransfer ALT/SGPT 25 U/L (13-56); Albumin, Serum 3.3 g/dL (3.2-5.0); Alkaline Phosphatase 40 U/L (45-117); Anion Gap 7 (5-15); BUN/Creat Ratio 18.3 RATIO (10-20); Calcium,Total 8.7 mg/dL (8.5-10.1); Chloride 108 mmol/L (98-107); Est Glom Filt Rate - Afr Amer 70 mL/min (>60); Globulin 3.3 g/dL (2.2-4.2); Potassium 3.4 mmol/L (3.5-5.1); Protein, Total 6.6 g/dL (6.4-8.2); Sodium Level 146 mmol/L (136-145); T4 Free Direct 1.26 ng/dL (0.76-1.46)
== END ==
PROVIDERS: Family Provider Family Medicine; PCP Family Medicine; Referring Provider Internal Medicine Endocrinology, Diabetes & Metabolism; Visit Provider Internal Medicine Endocrinology, Diabetes & Metabolism
DX: E11.9 Type 2 diabetes mellitus without complications (principal); E89.0 Postprocedural hypothyroidism; M06.4 Inflammatory polyarthropathy; M79.7 Fibromyalgia; K76.0 Fatty (change of) liver, not elsewhere classified; I42.9 Cardiomyopathy, unspecified; M81.8 Other osteoporosis without current pathological fracture; E78.5 Hyperlipidemia, unspecified; E03.2 Hypothyroidism due to medicaments and other exogenous substances; N20.0 Calculus of kidney; G47.33 Obstructive sleep apnea (adult) (pediatric); Z79.899 Other long term (current) drug therapy
CPT/HCPCS: 36415; 80053; 83036; 84439; 84443; 85025

== ENCOUNTER → 2018-10-09 | Outpatient (CLI) | payer OTHER, SELFPAY ==
[2018-10-09 15:33] LABS: Lyme Ab Screen Interpretation REF LAB
[2018-10-09 15:42] LABS: Absolute Lymphocyte Count 1.52 X10^3/ul (0.83-4.51); Absolute Neutrophil Count 4.4 X10^3/uL (2.0-7.7); Basophil# 0.01 X10^3/uL; Basophil% 0.2 % (0-1); Eosinophil# 0.07 X10^3/uL; Eosinophils% 1.1 % (0-5); Hematocrit 41.7 % (37-47); Hemoglobin 13.4 g/dl (12.0-15.0); Lymphocyte # 1.52 X10^3/ul (4.0); Mean Corp Hgb Conc 32.1 g/gl (32-36); Mean Corpuscular Hgb 31.6 pg (27.0-32.0); Mean Corpuscular Volume 98.3 fL (81-99); Mean Platelet Vol. 9.9 fl (6.2-12.0); Monocyte# 0.33 X10^3/uL; Monocyte% 5.2 % (0-10); Neutrophil # 4.39 X10^3/uL (2.7-7.7); Neutrophil % 69.3 % (47-70); Platelet Count 211 K/mm3 (150-450); RBC Distribution Width CV 15.3 % (11.6-14.6); RBC Distribution Width SD 54.7 fl (35.1-43.9); Red Blood Count 4.24 M/mm3 (4.2-5.4); White Blood Count 6.3 K/mm3 (4.4-11.0)
[2018-10-09 15:49] LABS: POSITIVE COUNT NO; POSITIVE DIFFERENTIAL NO; POSITIVE MORPHOLOGY NO
[2018-10-09 16:00] LABS: AST(SGOT) 15 U/L (15-37); Alanine Aminotransfer ALT/SGPT 24 U/L (13-56); Albumin, Serum 3.5 g/dL (3.2-5.0); Alkaline Phosphatase 46 U/L (45-117); Anion Gap 5 (5-15); BUN 20 mg/dL (7-18); BUN/Creat Ratio 17.4 RATIO (10-20); Calcium,Total 9.1 mg/dL (8.5-10.1); Chloride 103 mmol/L (98-107); Creatinine, Serum 1.15 mg/dL (0.55-1.02); EST Glomerular Filtration Rate 52 mL/min (>60); Est Glom Filt Rate - Afr Amer 62 mL/min (>60); Globulin 3.4 g/dL (2.2-4.2); Glucose 116 mg/dL (74-106); Potassium 3.8 mmol/L (3.5-5.1); Protein, Total 6.9 g/dL (6.4-8.2); Sodium Level 137 mmol/L (136-145)
[2018-10-13 12:56] LABS: Lyme Scn Total Ab w/Rflx <0.91 ISR (0.00-0.90)
== END | disposition home or self-care (01) ==
LOC: MTLAB 13:27
PROVIDERS: Family Provider Family Medicine; PCP Family Medicine; Referring Provider Internal Medicine Rheumatology; Visit Provider Internal Medicine Rheumatology
DX: M06.09 Rheumatoid arthritis without rheumatoid factor, multiple sites (principal); M79.7 Fibromyalgia; K76.0 Fatty (change of) liver, not elsewhere classified; I42.9 Cardiomyopathy, unspecified; M81.8 Other osteoporosis without current pathological fracture; E78.5 Hyperlipidemia, unspecified; E03.2 Hypothyroidism due to medicaments and other exogenous substances; N20.0 Calculus of kidney; G47.33 Obstructive sleep apnea (adult) (pediatric); Z79.899 Other long term (current) drug therapy
CPT/HCPCS: 36415; 80053; 85025; 86618

== ENCOUNTER → 2018-11-27 13:12 | Outpatient (CLI) | payer OTHER, SELFPAY ==
[2018-02-09 07:09] VITALS: BMI 28.5
[2018-11-27 13:56] LABS: Absolute Neutrophil Count 3.3 X10^3/uL (2.0-7.7); Basophil# 0.03 X10^3/uL; Basophil% 0.4 % (0-1); Eosinophil# 0.07 X10^3/uL; Hematocrit 42.3 % (37-47); Hemoglobin 13.4 g/dL (12.0-15.0); Lymphocyte % 41.9 % (19-41); Mean Corp Hgb Conc 31.7 g/dL (32-36); Mean Platelet Vol. 9.3 fl (6.2-12.0); Monocyte# 0.46 X10^3/uL; Monocyte% 6.9 % (0-10); NRBC Flagged by Analyzer 0 % (0-5); Neutrophil # 3.29 X10^3/uL (2.7-7.7); Neutrophil % 49.2 % (47-70); Platelet Count 224 K/mm3 (150-450); RBC Distribution Width CV 14.6 % (11.6-14.6); RBC Distribution Width SD 54.5 fl (35.1-43.9); Red Blood Count 4.19 M/mm3 (4.2-5.4); White Blood Count 6.7 K/mm3 (4.4-11.0)
[2018-11-27 14:27] LABS: AST(SGOT) 11 U/L (15-37); Alanine Aminotransfer ALT/SGPT 21 U/L (13-56); Albumin, Serum 3.5 g/dL (3.2-5.0); Alkaline Phosphatase 50 U/L (45-117); Anion Gap 3 (5-15); BUN 21 mg/dL (7-18); BUN/Creat Ratio 18.9 RATIO (10-20); Calcium,Total 9.8 mg/dL (8.5-10.1); Chloride 101 mmol/L (98-107); Creatinine, Serum 1.11 mg/dL (0.55-1.02); EST Glomerular Filtration Rate 54 mL/min (>60); Est Glom Filt Rate - Afr Amer 65 mL/min (>60); Globulin 3.5 g/dL (2.2-4.2); Glucose 107 mg/dL (74-106); Potassium 3.3 mmol/L (3.5-5.1); Sodium Level 139 mmol/L (136-145)
[2018-11-30 14:08] LABS: Lyme IgG P18 Ab Present (.); Lyme IgG P23 Ab Absent (.); Lyme IgG P28 Ab Absent (.); Lyme IgG P30 Ab Absent (.); Lyme IgG P39 Ab Absent (.); Lyme IgG P41 Ab Present (.); Lyme IgG P45 Ab Absent (.); Lyme IgG P58 Ab Absent (.); Lyme IgG P66 Ab Absent (.); Lyme IgG P93 Ab Absent (.); Lyme IgM P23 Ab Absent (.); Lyme IgM P39 Ab Absent (.); Lyme IgM P41 Ab Absent (.)
[2018-12-01 12:34] LABS: Lyme IgG WB Interpretation Negative (.); Lyme IgM WB Interpretation Negative (.)
== END ==
PROVIDERS: Family Provider Family Medicine; PCP Family Medicine; Referring Provider Internal Medicine Rheumatology; Visit Provider Internal Medicine Rheumatology
DX: M06.09 Rheumatoid arthritis without rheumatoid factor, multiple sites (principal); M79.7 Fibromyalgia; K76.0 Fatty (change of) liver, not elsewhere classified; I42.9 Cardiomyopathy, unspecified; M81.8 Other osteoporosis without current pathological fracture; E78.5 Hyperlipidemia, unspecified; E03.2 Hypothyroidism due to medicaments and other exogenous substances; N20.0 Calculus of kidney; G47.33 Obstructive sleep apnea (adult) (pediatric); Z79.899 Other long term (current) drug therapy
CPT/HCPCS: 36415; 80053; 85025; 86617

== ENCOUNTER → 2019-03-05 | Outpatient (CLI) | payer OTHER, SELFPAY ==
[2018-02-09 07:09] VITALS: BMI 28.5
[2019-03-05 17:45] LABS: Absolute Lymphocyte Count 1.37 X10^3/uL (0.83-4.51); Absolute Neutrophil Count 5.7 X10^3/uL (2.0-7.7); Basophil# 0.05 X10^3/uL; Basophil% 0.7 % (0-1); Eosinophil# 0.07 X10^3/uL; Eosinophils% 0.9 % (0-5); Hematocrit 44.2 % (37-47); Hemoglobin 13.8 g/dL (12.0-15.0); Lymphocyte # 1.37 X10^3/ul (4.0); Lymphocyte % 18.1 % (19-41); Mean Corp Hgb Conc 31.2 g/dL (32-36); Mean Corpuscular Hgb 31.9 pg (27.0-32.0); Mean Corpuscular Volume 102.3 fL (81-99); Mean Platelet Vol. 9.7 fl (6.2-12.0); Monocyte# 0.39 X10^3/uL; Monocyte% 5.2 % (0-10); NRBC Flagged by Analyzer 0 % (0-5); Neutrophil # 5.65 X10^3/uL (2.7-7.7); Neutrophil % 74.6 % (47-70); Platelet Count 225 K/mm3 (150-450); RBC Distribution Width SD 53.1 fl (35.1-43.9); Red Blood Count 4.32 M/mm3 (4.2-5.4); White Blood Count 7.6 K/mm3 (4.4-11.0)
[2019-03-05 18:27] LABS: AST(SGOT) 14 U/L (15-37); Alanine Aminotransfer ALT/SGPT 22 U/L (13-56); Albumin, Serum 3.5 g/dL (3.2-5.0); Alkaline Phosphatase 39 U/L (45-117); Anion Gap 8 (5-15); BUN 25 mg/dL (7-18); BUN/Creat Ratio 21.7 RATIO (10-20); Chloride 102 mmol/L (98-107); Creatinine, Serum 1.15 mg/dL (0.55-1.02); EST Glomerular Filtration Rate 52 mL/min (>60); Est Glom Filt Rate - Afr Amer 62 mL/min (>60); Globulin 3.5 g/dL (2.2-4.2); Glucose 129 mg/dL (74-106); Potassium 3.9 mmol/L (3.5-5.1); Sodium Level 139 mmol/L (136-145)
== END | disposition home or self-care (01) ==
LOC: MTLAB 16:18
PROVIDERS: Family Provider Family Medicine; PCP Family Medicine; Referring Provider Internal Medicine Rheumatology; Visit Provider Internal Medicine Rheumatology
DX: M06.00 Rheumatoid arthritis without rheumatoid factor, unspecified site (principal); M79.7 Fibromyalgia; K76.0 Fatty (change of) liver, not elsewhere classified; I42.9 Cardiomyopathy, unspecified; M81.8 Other osteoporosis without current pathological fracture; E78.5 Hyperlipidemia, unspecified; E03.2 Hypothyroidism due to medicaments and other exogenous substances; N20.0 Calculus of kidney; G47.33 Obstructive sleep apnea (adult) (pediatric); Z79.899 Other long term (current) drug therapy
CPT/HCPCS: 36415; 80053; 85025

== ENCOUNTER → 2019-05-25 | Outpatient (CLI) | payer OTHER, SELFPAY ==
[2018-02-09 07:09] VITALS: BMI 28.5
[2019-05-25 17:39] LABS: Absolute Neutrophil Count 2.9 X10^3/uL (2.0-7.7); Basophil# 0.04 X10^3/uL; Basophil% 0.6 % (0-1); Eosinophil# 0.12 X10^3/uL; Eosinophils% 1.8 % (0-5); Hematocrit 41.3 % (37-47); Hemoglobin 13.2 g/dL (12.0-15.0); Lymphocyte % 44.3 % (19-41); Mean Corpuscular Hgb 31.9 pg (27.0-32.0); Mean Corpuscular Volume 99.8 fL (81-99); Mean Platelet Vol. 9.4 fl (6.2-12.0); Monocyte# 0.58 X10^3/uL; Monocyte% 8.9 % (0-10); NRBC Flagged by Analyzer 0 % (0-5); Neutrophil # 2.87 X10^3/uL (2.7-7.7); Neutrophil % 43.9 % (47-70); Platelet Count 209 K/mm3 (150-450); RBC Distribution Width CV 14.2 % (11.6-14.6); RBC Distribution Width SD 52.1 fl (35.1-43.9); Red Blood Count 4.14 M/mm3 (4.2-5.4); White Blood Count 6.5 K/mm3 (4.4-11.0)
[2019-05-25 17:42] LABS: ALB/GLOB Ratio 1.1 RATIO (0.9-2.4); AST(SGOT) 11 U/L (15-37); Alanine Aminotransfer ALT/SGPT 24 U/L (13-56); Albumin, Serum 3.5 g/dL (3.2-5.0); Alkaline Phosphatase 33 U/L (45-117); Anion Gap 3 (5-15); BUN 30 mg/dL (7-18); BUN/Creat Ratio 24.8 RATIO (10-20); Calcium,Total 8.8 mg/dL (8.5-10.1); Chloride 104 mmol/L (98-107); Creatinine, Serum 1.21 mg/dL (0.55-1.02); EST Glomerular Filtration Rate 49 mL/min (>60); Est Glom Filt Rate - Afr Amer 59 mL/min (>60); Globulin 3.3 g/dL (2.2-4.2); Glucose 102 mg/dL (74-106); Potassium 3.8 mmol/L (3.5-5.1); Protein, Total 6.8 g/dL (6.4-8.2); Sodium Level 140 mmol/L (136-145)
== END | disposition home or self-care (01) ==
LOC: MTLAB 16:42
PROVIDERS: PCP Family Medicine; Referring Provider Internal Medicine Rheumatology; Visit Provider Internal Medicine Rheumatology
DX: M06.00 Rheumatoid arthritis without rheumatoid factor, unspecified site (principal); M79.7 Fibromyalgia; K76.0 Fatty (change of) liver, not elsewhere classified; I42.9 Cardiomyopathy, unspecified; M81.8 Other osteoporosis without current pathological fracture; E78.5 Hyperlipidemia, unspecified; E03.2 Hypothyroidism due to medicaments and other exogenous substances; N20.0 Calculus of kidney; G47.33 Obstructive sleep apnea (adult) (pediatric); Z79.899 Other long term (current) drug therapy
CPT/HCPCS: 36415; 80053; 85025

== ENCOUNTER → 2019-08-03 | Outpatient (CLI) | payer OTHER, SELFPAY ==
[2019-08-03 17:27] LABS: Absolute Lymphocyte Count 1.76 X10^3/uL (0.83-4.51); Absolute Neutrophil Count 4.1 X10^3/uL (2.0-7.7); Basophil# 0.03 X10^3/uL; Basophil% 0.5 % (0-1); Hematocrit 43.3 % (37-47); Hemoglobin 13.6 g/dL (12.0-15.0); Lymphocyte # 1.76 X10^3/ul (4.0); Lymphocyte % 26.5 % (19-41); Mean Corp Hgb Conc 31.4 g/dL (32-36); Mean Corpuscular Hgb 31.3 pg (27.0-32.0); Mean Corpuscular Volume 99.5 fL (81-99); Mean Platelet Vol. 10.2 fl (6.2-12.0); Monocyte# 0.51 X10^3/uL; Monocyte% 7.7 % (0-10); NRBC Flagged by Analyzer 0 % (0-5); Neutrophil # 4.11 X10^3/uL (2.7-7.7); Platelet Count 207 K/mm3 (150-450); RBC Distribution Width CV 14.5 % (11.6-14.6); RBC Distribution Width SD 53.1 fl (35.1-43.9); Red Blood Count 4.35 M/mm3 (4.2-5.4); White Blood Count 6.6 K/mm3 (4.4-11.0)
[2019-08-03 17:44] LABS: ALB/GLOB Ratio 1.1 RATIO (0.9-2.4); AST(SGOT) 16 U/L (15-37); Alanine Aminotransfer ALT/SGPT 25 U/L (13-56); Albumin, Serum 3.4 g/dL (3.2-5.0); Alkaline Phosphatase 38 U/L (45-117); Anion Gap 6 (5-15); BUN 16 mg/dL (7-18); BUN/Creat Ratio 12.8 RATIO (10-20); Chloride 103 mmol/L (98-107); Creatinine, Serum 1.25 mg/dL (0.55-1.02); EST Glomerular Filtration Rate 47 mL/min (>60); Est Glom Filt Rate - Afr Amer 57 mL/min (>60); Globulin 3.2 g/dL (2.2-4.2); Glucose 122 mg/dL (74-106); Potassium 3.5 mmol/L (3.5-5.1); Protein, Total 6.6 g/dL (6.4-8.2); Sodium Level 140 mmol/L (136-145)
== END | disposition home or self-care (01) ==
LOC: MTLAB 15:06
PROVIDERS: PCP Family Medicine; Referring Provider Internal Medicine Rheumatology; Visit Provider Internal Medicine Rheumatology
DX: M06.00 Rheumatoid arthritis without rheumatoid factor, unspecified site (principal); M79.7 Fibromyalgia; K76.0 Fatty (change of) liver, not elsewhere classified; I42.9 Cardiomyopathy, unspecified; M81.8 Other osteoporosis without current pathological fracture; E78.5 Hyperlipidemia, unspecified; E03.2 Hypothyroidism due to medicaments and other exogenous substances; N20.0 Calculus of kidney; G47.33 Obstructive sleep apnea (adult) (pediatric); Z79.899 Other long term (current) drug therapy
CPT/HCPCS: 36415; 80053; 85025

== ENCOUNTER 2019-08-17 02:31 | Emergency (ER) | payer OTHER, SELFPAY ==
[2019-08-17 02:32] VITALS: BP 171/82; PULSE 70; RESP 17; TEMP 36.6; O2SAT 96; BMI 28.9
[2019-08-17 02:56] LABS: Absolute Lymphocyte Count 2.85 X10^3/uL (0.83-4.51); Absolute Neutrophil Count 6.1 X10^3/uL (2.0-7.7); Basophil# 0.04 X10^3/uL; Basophil% 0.4 % (0-1); Eosinophil# 0.18 X10^3/uL; Eosinophils% 1.8 % (0-5); Hematocrit 41.1 % (37-47); Hemoglobin 13.4 g/dL (12.0-15.0); Lymphocyte # 2.85 X10^3/ul (4.0); Lymphocyte % 28.9 % (19-41); Mean Corp Hgb Conc 32.6 g/dL (32-36); Mean Corpuscular Volume 98.1 fL (81-99); Mean Platelet Vol. 9.9 fl (6.2-12.0); Monocyte% 7.1 % (0-10); NRBC Flagged by Analyzer 0 % (0-5); Neutrophil # 6.07 X10^3/uL (2.7-7.7); Neutrophil % 61.5 % (47-70); Platelet Count 196 K/mm3 (150-450); RBC Distribution Width CV 14.1 % (11.6-14.6); RBC Distribution Width SD 50.5 fl (35.1-43.9); Red Blood Count 4.19 M/mm3 (4.2-5.4); White Blood Count 9.9 K/mm3 (4.4-11.0)
[2019-08-17 03:00] LABS: Mucous, Urine 0 SEEN /hpf (<or=2+)
[2019-08-17 03:01] LABS: Color, Urine Red (Yellow); Glucose, Dipstick Normal (Normal); Ketone-Dipstick 5 mg/dl (Negative); Leukocyte Esterase-Dipstick 500 /ul (Negative); Nitrite-Dipstick Negative (Negative); Occult Blood-Urine 250 /ul (Negative); Protein-Dipstick 500 mg/dl (Negative); Urine Bilirubin Dipstick Negative (Negative); Urine Clarity Cloudy (Clear); Urine Urobilinogen Normal (Normal)
[2019-08-17 03:18] LABS: Red Blood Cells-Urine > 100 SEEN /hpf (0-5); White Blood Cells >100 SEEN /hpf (0-5)
[2019-08-17 03:19] LABS: Bacteria 3+ /hpf (None Seen); Squamous Epithelial Cells - UA 0-5 SEEN /hpf (5-10)
[2019-08-17 03:22] LABS: Anion Gap 7 (5-15); BUN 19 mg/dL (7-18); BUN/Creat Ratio 16.2 RATIO (10-20); Calcium,Total 8.7 mg/dL (8.5-10.1); Chloride 107 mmol/L (98-107); Creatinine, Serum 1.17 mg/dL (0.55-1.02); EST Glomerular Filtration Rate 50 mL/min (>60); Est Glom Filt Rate - Afr Amer 61 mL/min (>60); Estimated Creatinine Clearance 49.06 ml/min; Glucose 124 mg/dL (74-106); Potassium 4.4 mmol/L (3.5-5.1); Sodium Level 140 mmol/L (136-145)
--- NOTE | 2019-08-17 03:26 | ED.DCSUM_ITS ---
- ER Visit Summary Date of Service: 08/17/19 Chief Complaint: [Hematuria and urinary frequency] History of Present Illness: The patient is a 59 F [ presents to the emergency department with symptoms that started last evening. Patient describes lower abdominal pressure. She has been urinating frequently. She denies dysuria. Patient then noticed bloody urine and became concerned. She did take some Azo prior to coming to the ER. She denies any fever. She denies any back pain. She has not had hematuria in the past. Patient has had prior hysterectomy. Patient has history of diabetes, high cholesterol, prior stroke, prior OK, Sjogren's, and lupus.] Physical Examination: [HEENT-PERRLA, EOMI. Cranial nerves II through XII grossly intact. TMs clear. Mucous membranes moist. No adenopathy. Cardiovascular-regular rate and rhythm without murmur or ectopy Lungs-clear to auscultation, chest wall stable without crepitus or subcu emphysema Abdomen-normoactive bowel sounds, soft. Patient has some mild suprapubic tenderness on palpation. There is no rebound, rigidity, or peritoneal signs. No CVA tenderness. Extremities-intact ?4, normal range of motion, normal pulses, atraumatic] Test Results: [CBC with differential obtained showed a white count 9.9, hemoglobin 13, hematocrit 41, plates 196. Chemistries unremarkable. Urinalysis was positive for 500 cassette esterase as well as greater than 100 WBCs and greater than 100 RBCs as well as +3 bacteria.] Emergency Department Course and Treatment: [Patient was started on Rocephin 1 g IV. Patient had a urine culture sent.] Treatment Plan: Patient will be treated with Bactrim. She is to continue with her Azo at home.] Disposition: [Discharged home in stable condition] Impression: [Hemorrhagic cystitis] This note was generated with Soundwaveation software. It may contain incorrect words, spelling, and punctuation that were not noted in review of the chart prior to signing ED Disposition - Plan for ED Patient: Referrals: Demond Hadley MD [Primary Care Provider] -
--- NOTE | 2019-08-17 03:28 | ED.DEP ---
ED Disposition - Plan for ED Patient: Instructions: ED CYSTITIS Female Adult Prescriptions: Smz/Tmp Ds [Bactrim Ds] 1 tab PO BID #14 tab Prescription Printed Referrals: Demond Hadley MD [Primary Care Provider] - 3-5 Days
[2019-08-17] MEDS: Ceftriaxone 1 GM/50 ML BAG IV (03:32)
[2019-08-17 04:26] VITALS: BP 137/78; PULSE 68; RESP 17; O2SAT 97
== END 2019-08-17 04:56 | disposition home or self-care (01) ==
LOC: ED 03:08
PROVIDERS: Emergency Provider Emergency Medicine; PCP Family Medicine
DX: N30.91 Cystitis, unspecified with hematuria (principal); I25.2 Old myocardial infarction; M35.00 Sjogren syndrome, unspecified; E78.00 Pure hypercholesterolemia, unspecified; E11.9 Type 2 diabetes mellitus without complications; Z86.73 Personal history of transient ischemic attack (TIA), and cerebral infarction without residual deficits; Z79.82 Long term (current) use of aspirin; Z79.899 Other long term (current) drug therapy
CPT/HCPCS: 80048; 81001; 85025; 96365; 96366; 99283; J7050; A4216

== ENCOUNTER 2019-09-25 17:20 | Emergency (ER) | payer OTHER, SELFPAY ==
[2019-09-25 17:21] VITALS: BP 135/93; PULSE 67; RESP 16; TEMP 37.2; BMI 28.8
[2019-09-25 17:24] VITALS: BP 135/93; PULSE 67; RESP 16; TEMP 37.2
--- NOTE | 2019-09-25 17:31 | CT_ITS ---
STUDY: CT BRAIN WITHOUT CONTRAST REASON FOR EXAM: Female, 59 years old. FALL HIT HEAD ON CONCRETE, HX-CARDIOMYOPATHY/PACER/DEFIBRILLATOR, HTN, BIPOLAR, TRANSVERSE MYELITIS RADIATION DOSAGE (If Supplied By Facility): CTDIvol = ( 44.99 ) mGy, DLP = ( 782.05 ) mGycm TECHNIQUE: Transaxial CT imaging of the brain was performed without administration of intravenous contrast material. Individualized dose optimization techniques were used for this CT. COMPARISON: June 11, 2010 FINDINGS: Left frontal soft tissue swelling Normal calvarium. Normal size ventricles and extra-axial spaces for the patient''s age. There are mild areas of decreased attenuation within the white matter tracts of the supratentorial brain, consistent with microvascular disease changes. Normal basal ganglia and thalami. Normal brainstem. Normal cerebellum. There is no intracranial hemorrhage. There are no findings of an acute ischemic infarction. There is opacification of the right sphenoid sinus. CT/Brain/Head without Contrast IMPRESSION: No acute intracranial abnormality. Soft tissue swelling. No hemorrhage. Electronically Signed: Ty Toure MD at 18:28 EDT , Service support ,
--- NOTE | 2019-09-25 17:31 | CT_ITS ---
STUDY: CT CERVICAL SPINE WITHOUT CONTRAST REASON FOR EXAM: Female, 59 years old. FALL HIT HEAD ON CONCRETE, HX-CARDIOMYOPATHY/PACER/DEFIBRILLATOR, BIPOLAR, TRANSVERSE MYELITIS,HTN RADIATION DOSAGE (If Supplied By Facility): CTDIvol = ( 22.39 ) mGy, DLP = ( 584.19 ) mGycm TECHNIQUE: High resolution transaxial imaging was performed without contrast material. Sagittal and coronal images were reconstructed. Individualized dose optimization techniques were used for this CT. COMPARISON: None FINDINGS: Normal craniovertebral junction. Normal anterior atlantoaxial articulation. Normal odontoid process. There is straightening of the normal cervical lordosis. There is no acute fracture. Normal vertebral bodies and posterior osseous elements. C2-3: Normal endplates. Normal disc height and morphology. Normal central canal and intervertebral neuroforamina. Mild facet spurring. C3-4: Normal endplates. Normal disc height and morphology. Normal central canal and intervertebral neuroforamina. Mild facet spurring. C4-5: Normal endplates. Normal disc height and morphology. Normal central canal and intervertebral neuroforamina. Mild facet spurring. C5-6: Normal endplates. Normal disc height and morphology. Normal central canal and intervertebral neuroforamina. Mild facet spurring. C6-7: Normal endplates. Normal disc height and morphology. Normal central canal and intervertebral neuroforamina. Mild facet spurring. C7-T1: Normal endplates. Normal disc height and morphology. Normal central canal and intervertebral neuroforamina. Normal visualized soft tissue structures. CT/Spine Cervical without Contras IMPRESSION: Mild degenerative change. Straightening of the cervical lordosis. No acute fracture. Electronically Signed: Ty Toure MD at 18:38 EDT , Service support ,
--- NOTE | 2019-09-25 17:31 | CT_ITS ---
STUDY: CT FACIAL BONES WITHOUT CONTRAST REASON FOR EXAM: Female, 59 years old. FALL HIT HEAD ON CONCRETE, HX-CARDIOMYOPATHY/PACER/DEFIBRILLATOR, BIPOLAR, TRANSVERSE MYELITIS,HTN RADIATION DOSAGE (If Supplied By Facility): CTDIvol = ( 29.38 ) mGy, DLP = ( 584.19 ) mGycm TECHNIQUE: The patient was scanned in a multi detector CT scanner. Sagittal and coronal images were reconstructed. Individualized dose optimization techniques were used for this CT. COMPARISON: None. FINDINGS: There is left frontal soft tissue swelling. Normal orbital salas and orbital contents. Normal nasal bones and anterior nasal spine. Normal zygomatic arches. Normal mandible. Normal facial bones. There is no demonstrated fracture. There is mucosal retention cyst or polyp in the right maxillary sinus. There is opacification of the right sphenoid sinus. Nasal septum deviates to the right. There is postoperative change of the nasal cavity. CT/Sinus/Facial Bone IMPRESSION: No acute fracture. Soft tissue swelling. Electronically Signed: Ty Toure MD at 18:33 EDT , Service support ,
[2019-09-25] MEDS: Acetaminophen 500 MG Tablet 1000 MG PO (17:37)
--- NOTE | 2019-09-25 17:38 | ED.VIS.GEN ---
History of Present Illness Chief Complaint: Head Injury Informant: Patient Onset: Today Context: Sudden Onset Timing: Continuous Current Severity: Mild Maximum Severity: Moderate Narrative: Patient is a 59-year-old female who takes baby aspirin that presents to the emergency department with head injury. Patient states that she was trying to install a cord into her pond outdoors. She states that she tripped over and fell. She struck her face against a rock in the concrete. She does not think she lost consciousness, but states that she is had a mild frontal headache since. She denies nausea or vomiting. She does take baby aspirin but no other anticoagulants. She is otherwise been in her normal state of health. She denies any weakness, numbness, other systemic symptoms. She presented here immediately. Prior similar symptoms: No Recent Illness/Hospitalization: No Past Medical History - Allergies and Home Meds Allergies/Adverse Reactions: Allergies ciprofloxacin [From Cipro] Allergy (Verified 08/17/19 02:37) Other ciprofloxacin HCl [From Cipro] Allergy (Verified 08/17/19 02:37) Other citric acid Allergy (Verified 08/17/19 02:37) Angioedema ezetimibe [From Zetia] Allergy (Verified 08/17/19 02:37) Other levofloxacin [From Levaquin] Allergy (Verified 08/17/19 02:37) Unknown linagliptin [From Tradjenta] Allergy (Verified 08/17/19 02:37) Upset Stomach lisinopril Allergy (Verified 08/17/19 02:37) Hives oxcarbazepine [From Trileptal] Allergy (Verified 08/17/19 02:37) Other simvastatin [From Zocor] Allergy (Verified 08/17/19 02:37) MUSCLE WEAKNESS TILOX Allergy (Uncoded 08/17/19 02:37) HYPOTENSION Primary Care Physician: Demond Hadley MD [Primary Care Provider] - Prior records reviewed: Yes Past Medical History: - - Arthritis, hypertension Surgical History: - - 5 foot surgeries, 5 hand surgeries, hysterectomy, tubal ligation, ICD/pacer. Smoking Status: Never smoker - Family History Maternal Family History: Reports: Diabetes, Heart Disease, Hypertension Paternal Family History: Reports: Diabetes, Heart Disease, Hypertension, Stroke Review of Systems General: Denies: Chills, Fever, Sweats Eyes: Denies: Visual changes - bilaterally, Diplopia ENT: Denies: Rhinorrhea, Sore throat Cardiovascular: Denies: Chest pain, Palpitations Respiratory: Denies: Dyspnea, Cough, Dyspnea on exertion Gastrointestinal: Denies: Abdominal pain, Nausea, Vomiting, Diarrhea, Melena, Hematochezia Genitourinary: Denies: Dysuria, Hematuria, Frequency Musculoskeletal: Denies: Back pain, Extremity Pain Skin: Denies: Rash, Wounds Neurological: Denies: Headache, Weakness, Numbness Physical Exam Vital Signs/Narrative: Vital Signs Temp Pulse Resp BP 09/25/19 17:24 99.0 F 67 16 135/93 H 09/25/19 17:21 99.0 F 67 16 135/93 H Inital Vital Signs reviewed: Yes General: Well nourished, Well developed, No Acute Distress Head: Normocephalic, Trauma - There is ecchymosis with small abrasion above the left eye. There is also superficial abrasion at the crease of the lateral border of the left eye. Midface is stable. No nasal septal hematoma. No malocclusion. Eyes: Perrl, EOMI ENT: Moist mucous membranes, No rhinorrhea Neck: Supple, Nontender Cardiovascular: Regular rate, Regular rhythm, No murmurs Respiratory: No distress, CTA bilaterally, Chest nontender Abdomen: Soft, Nontender, Nondistended, Normal bowel sounds Back: Nontender, Normal Inspection Extremities: Nontender, No edema Skin: Normal color, No rash Neurological: Alert, Oriented x3, Cranial nerves II-XII grossly intact, Normal Strength, Normal Sensation Psychological: Normal affect, Normal Mood Diagnostic/Tx/Re-eval Clinical Impression(s) from Imaging Studies Brain CT 09/25/19 17:31 IMPRESSION: No acute intracranial abnormality. Soft tissue swelling. No hemorrhage. Electronically Signed: Ty Toure MD at 18:28 EDT , Service support , Cervical Spine CT 09/25/19 17:31 IMPRESSION: Mild degenerative change. Straightening of the cervical lordosis. No acute fracture. Electronically Signed: Ty Toure MD at 18:38 EDT , Service support , Facial/Sinus 09/25/19 17:31 IMPRESSION: No acute fracture. Soft tissue swelling. Electronically Signed: Ty Toure MD at 18:33 EDT , Service support , - Medical Decision Making Patient presents with head and facial injury after fall. She is on aspirin. She does have significant evidence of external abrasions, but no laceration that would benefit from repair. CT was obtained of the face, head, neck. There is no evidence of acute abnormality. The patient was resting comfortably after Tylenol and ice. She was counseled on concerning symptoms and reasons to return. She will be discharged home. Impression 1. Mechanical fall 2. Concussion without loss of consciousness 3. Facial abrasions ED Disposition - Plan for ED Patient: Instructions: ED CONTUSION Face No Wake Up] Referrals: Demond Hadley MD [Primary Care Provider] -
[2019-09-25 19:08] VITALS: BP 163/84; PULSE 68; RESP 17
== END 2019-09-25 19:09 | disposition home or self-care (01) ==
LOC: ED 18:58
PROVIDERS: Emergency Provider Emergency Medicine; PCP Family Medicine
DX: S06.0X0A Concussion without loss of consciousness, initial encounter (principal); S00.81XA Abrasion of other part of head, initial encounter; S00.212A Abrasion of left eyelid and periocular area, initial encounter; I10 Essential (primary) hypertension; M19.90 Unspecified osteoarthritis, unspecified site; W01.198A Fall on same level from slipping, tripping and stumbling with subsequent striking against other object, initial encounter; Y93.89 Activity, other specified; Y92.008 Other place in unspecified non-institutional (private) residence as the place of occurrence of the external cause; Y99.8 Other external cause status
CPT/HCPCS: 70450; 70486; 72125; 99282

== ENCOUNTER → 2019-10-10 | Outpatient (CLI) | payer OTHER, SELFPAY ==
[2018-02-09 07:09] VITALS: BMI 28.5
[2019-09-25 17:21] VITALS: BMI 28.8
[2019-10-10 15:44] LABS: Absolute Lymphocyte Count 2.43 X10^3/uL (0.83-4.51); Absolute Neutrophil Count 2.2 X10^3/uL (2.0-7.7); Basophil# 0.04 X10^3/uL; Basophil% 0.8 % (0-1); Eosinophil# 0.15 X10^3/uL; Eosinophils% 2.9 % (0-5); Hematocrit 40.7 % (37-47); Hemoglobin 12.3 g/dL (12.0-15.0); Lymphocyte # 2.43 X10^3/ul (4.0); Lymphocyte % 46.4 % (19-41); Mean Corp Hgb Conc 30.2 g/dL (32-36); Mean Corpuscular Hgb 31.5 pg (27.0-32.0); Mean Corpuscular Volume 104.4 fL (81-99); Mean Platelet Vol. 10.1 fl (6.2-12.0); Monocyte# 0.46 X10^3/uL; Monocyte% 8.8 % (0-10); NRBC Flagged by Analyzer 0 % (0-5); Neutrophil # 2.15 X10^3/uL (2.7-7.7); Neutrophil % 40.9 % (47-70); Platelet Count 200 K/mm3 (150-450); RBC Distribution Width CV 15.1 % (11.6-14.6); RBC Distribution Width SD 57.8 fl (35.1-43.9); White Blood Count 5.2 K/mm3 (4.4-11.0)
[2019-10-10 16:32] LABS: AST(SGOT) 12 U/L (15-37); Alanine Aminotransfer ALT/SGPT 23 U/L (13-56); Albumin, Serum 3.4 g/dL (3.2-5.0); Alkaline Phosphatase 47 U/L (45-117); Anion Gap 4 (5-15); BUN 20 mg/dL (7-18); BUN/Creat Ratio 17.2 RATIO (10-20); Calcium,Total 9.3 mg/dL (8.5-10.1); Chloride 102 mmol/L (98-107); Cholesterol 241 mg/dL (200); Creatinine, Serum 1.16 mg/dL (0.55-1.02); EST Glomerular Filtration Rate 51 mL/min (>60); Est Glom Filt Rate - Afr Amer 62 mL/min (>60); Globulin 3.4 g/dL (2.2-4.2); Glucose 106 mg/dL (74-106); High Density Lipoprotein 76 mg/dL; Potassium 3.7 mmol/L (3.5-5.1); Protein, Total 6.8 g/dL (6.4-8.2); Sodium Level 139 mmol/L (136-145); T4 Free Direct 1.04 ng/dL (0.76-1.46); Thyroid Stim Hormone (TSH) 5.79 uIU/mL (0.358-3.74); Triglycerides 95 mg/dL; Very Low Density Lipoprotein 19 mg/dL (5-40)
[2019-10-10 16:39] LABS: Hemoglobin A1c 6.1 % (3.8-5.6)
== END | disposition home or self-care (01) ==
LOC: MTLAB 13:00
PROVIDERS: PCP Family Medicine; Referring Provider Internal Medicine Rheumatology; Visit Provider Internal Medicine Rheumatology
DX: E27.3 Drug-induced adrenocortical insufficiency (principal); M06.00 Rheumatoid arthritis without rheumatoid factor, unspecified site; M79.7 Fibromyalgia; K76.0 Fatty (change of) liver, not elsewhere classified; I42.9 Cardiomyopathy, unspecified; M81.8 Other osteoporosis without current pathological fracture; E78.5 Hyperlipidemia, unspecified; E55.9 Vitamin D deficiency, unspecified; Z79.899 Other long term (current) drug therapy
CPT/HCPCS: 36415; 80053; 80061; 83036; 84439; 84443; 85025

== ENCOUNTER → 2020-01-25 | Outpatient (CLI) | payer OTHER, SELFPAY ==
[2020-01-25 17:59] LABS: Absolute Lymphocyte Count 0.98 X10^3/uL (0.83-4.51); Basophil# 0.03 X10^3/uL; Basophil% 0.5 % (0-1); Eosinophil# 0.06 X10^3/uL; Eosinophils% 0.9 % (0-5); Hemoglobin 12.9 g/dL (12.0-15.0); Lymphocyte # 0.98 X10^3/ul (4.0); Lymphocyte % 15.4 % (19-41); Mean Corp Hgb Conc 31.5 g/dL (32-36); Mean Corpuscular Hgb 31.8 pg (27.0-32.0); Mean Platelet Vol. 10.3 fl (6.2-12.0); Monocyte# 0.27 X10^3/uL; Monocyte% 4.2 % (0-10); NRBC Flagged by Analyzer 0 % (0-5); Neutrophil # 5.01 X10^3/uL (2.7-7.7); Neutrophil % 78.7 % (47-70); Platelet Count 224 K/mm3 (150-450); RBC Distribution Width SD 52.8 fl (35.1-43.9); Red Blood Count 4.06 M/mm3 (4.2-5.4); White Blood Count 6.4 K/mm3 (4.4-11.0)
[2020-01-25 18:26] LABS: Hemoglobin A1c 6.3 % (3.8-5.6)
[2020-01-25 18:48] LABS: Vitamin D,25 Hydroxy 85.4 ng/mL
[2020-01-25 18:52] LABS: AST(SGOT) 14 U/L (15-37); Alanine Aminotransfer ALT/SGPT 23 U/L (13-56); Albumin, Serum 3.6 g/dL (3.2-5.0); Alkaline Phosphatase 49 U/L (45-117); Anion Gap 8 (5-15); BUN 24 mg/dL (7-18); BUN/Creat Ratio 18.2 RATIO (10-20); Calcium,Total 9.6 mg/dL (8.5-10.1); Chloride 104 mmol/L (98-107); Cholesterol 252 mg/dL (200); Creatinine, Serum 1.32 mg/dL (0.55-1.02); EST Glomerular Filtration Rate 44 mL/min (>60); Est Glom Filt Rate - Afr Amer 53 mL/min (>60); Free T3 2.7 pg/mL (2.18-3.98); Globulin 3.5 g/dL (2.2-4.2); Glucose 125 mg/dL (74-106); High Density Lipoprotein 90 mg/dL; Potassium 3.6 mmol/L (3.5-5.1); Protein, Total 7.1 g/dL (6.4-8.2); Sodium Level 140 mmol/L (136-145); T4 Free Direct 1.32 ng/dL (0.76-1.46); Triglycerides 95 mg/dL; Very Low Density Lipoprotein 19 mg/dL (5-40)
== END | disposition home or self-care (01) ==
LOC: MTLAB 16:09
PROVIDERS: PCP Family Medicine; Referring Provider Internal Medicine Endocrinology, Diabetes & Metabolism; Visit Provider Internal Medicine Endocrinology, Diabetes & Metabolism
DX: M06.00 Rheumatoid arthritis without rheumatoid factor, unspecified site (principal); M79.7 Fibromyalgia; K76.0 Fatty (change of) liver, not elsewhere classified; I42.9 Cardiomyopathy, unspecified; M81.8 Other osteoporosis without current pathological fracture; E78.5 Hyperlipidemia, unspecified; E11.65 Type 2 diabetes mellitus with hyperglycemia; E27.40 Unspecified adrenocortical insufficiency; E03.9 Hypothyroidism, unspecified; E55.9 Vitamin D deficiency, unspecified; M81.0 Age-related osteoporosis without current pathological fracture; Z79.899 Other long term (current) drug therapy
CPT/HCPCS: 36415; 80053; 80061; 82306; 83036; 84439; 84443; 84481; 85025

== ENCOUNTER → 2020-05-16 11:57 | Outpatient (CLI) | payer OTHER, SELFPAY ==
[2020-05-16 15:34] LABS: Vitamin D,25 Hydroxy 85.8 ng/mL
[2020-05-16 15:37] LABS: Hemoglobin A1c 6.5 % (3.8-5.6)
[2020-05-16 15:50] LABS: AST(SGOT) 14 U/L (15-37); Alanine Aminotransfer ALT/SGPT 19 U/L (13-56); Albumin, Serum 3.2 g/dL (3.2-5.0); Alkaline Phosphatase 37 U/L (45-117); Anion Gap 5 (5-15); BUN 20 mg/dL (7-18); BUN/Creat Ratio 16.3 RATIO (10-20); Calcium,Total 9.4 mg/dL (8.5-10.1); Chloride 105 mmol/L (98-107); Cholesterol 209 mg/dL (200); Creatinine, Serum 1.23 mg/dL (0.55-1.02); EST Glomerular Filtration Rate 48 mL/min (>60); Est Glom Filt Rate - Afr Amer 58 mL/min (>60); Free T3 2.7 pg/mL (2.18-3.98); Globulin 3.2 g/dL (2.2-4.2); Glucose 90 mg/dL (74-106); High Density Lipoprotein 75 mg/dL; Potassium 3.9 mmol/L (3.5-5.1); Protein, Total 6.4 g/dL (6.4-8.2); Sodium Level 141 mmol/L (136-145); T4 Free Direct 1.07 ng/dL (0.76-1.46); Thyroid Stim Hormone (TSH) 1.01 uIU/mL (0.358-3.74); Triglycerides 65 mg/dL; Very Low Density Lipoprotein 13 mg/dL (5-40)
== END ==
PROVIDERS: PCP Family Medicine; Referring Provider Internal Medicine Endocrinology, Diabetes & Metabolism; Visit Provider Internal Medicine Endocrinology, Diabetes & Metabolism
DX: E11.65 Type 2 diabetes mellitus with hyperglycemia (principal); E27.40 Unspecified adrenocortical insufficiency; E03.9 Hypothyroidism, unspecified; E55.9 Vitamin D deficiency, unspecified; M81.0 Age-related osteoporosis without current pathological fracture
CPT/HCPCS: 36415; 80053; 80061; 82306; 83036; 84439; 84443; 84481

== ENCOUNTER → 2020-07-11 15:22 | Outpatient (CLI) | payer OTHER, SELFPAY ==
[2020-07-11 17:24] LABS: Absolute Lymphocyte Count 1.97 X10^3/uL (0.83-4.51); Absolute Neutrophil Count 3.3 X10^3/uL (2.0-7.7); Basophil# 0.04 X10^3/uL; Basophil% 0.7 % (0-1); Eosinophil# 0.18 X10^3/uL; Hematocrit 40.2 % (37-47); Hemoglobin 12.8 g/dL (12.0-15.0); Lymphocyte # 1.97 X10^3/ul (4.0); Lymphocyte % 32.8 % (19-41); Mean Corp Hgb Conc 31.8 g/dL (32-36); Mean Corpuscular Hgb 31.6 pg (27.0-32.0); Mean Corpuscular Volume 99.3 fL (81-99); Mean Platelet Vol. 9.7 fl (6.2-12.0); Monocyte# 0.45 X10^3/uL; Monocyte% 7.5 % (0-10); NRBC Flagged by Analyzer 0 % (0-5); Neutrophil # 3.34 X10^3/uL (2.7-7.7); Neutrophil % 55.7 % (47-70); Platelet Count 208 K/mm3 (150-450); RBC Distribution Width CV 14.5 % (11.6-14.6); RBC Distribution Width SD 53.8 fl (35.1-43.9); Red Blood Count 4.05 M/mm3 (4.2-5.4)
[2020-07-11 17:52] LABS: AST(SGOT) 15 U/L (15-37); Alanine Aminotransfer ALT/SGPT 22 U/L (13-56); Albumin, Serum 3.2 g/dL (3.2-5.0); Alkaline Phosphatase 45 U/L (45-117); Anion Gap 5 (5-15); BUN 17 mg/dL (7-18); BUN/Creat Ratio 14.4 RATIO (10-20); Calcium,Total 8.9 mg/dL (8.5-10.1); Chloride 105 mmol/L (98-107); Creatinine, Serum 1.18 mg/dL (0.55-1.02); EST Glomerular Filtration Rate 50 mL/min (>60); Est Glom Filt Rate - Afr Amer 60 mL/min (>60); Globulin 3.2 g/dL (2.2-4.2); Glucose 126 mg/dL (74-106); Potassium 3.4 mmol/L (3.5-5.1); Protein, Total 6.4 g/dL (6.4-8.2); Sodium Level 141 mmol/L (136-145)
== END ==
PROVIDERS: PCP Family Medicine; Referring Provider Internal Medicine Rheumatology; Visit Provider Internal Medicine Rheumatology
DX: M06.00 Rheumatoid arthritis without rheumatoid factor, unspecified site (principal); M79.7 Fibromyalgia; K76.0 Fatty (change of) liver, not elsewhere classified; I42.9 Cardiomyopathy, unspecified; M81.8 Other osteoporosis without current pathological fracture; E78.5 Hyperlipidemia, unspecified; E03.2 Hypothyroidism due to medicaments and other exogenous substances; N20.0 Calculus of kidney; G47.33 Obstructive sleep apnea (adult) (pediatric); Z79.899 Other long term (current) drug therapy
CPT/HCPCS: 36415; 80053; 85025

== ENCOUNTER → 2020-11-10 12:54 | Outpatient (CLI) | payer OTHER, SELFPAY ==
[2020-11-10 15:28] LABS: Vitamin D,25 Hydroxy 91.9 ng/mL
[2020-11-10 15:34] LABS: Hemoglobin A1c 6.4 % (3.8-5.6)
[2020-11-10 15:43] LABS: AST(SGOT) 18 U/L (15-37); Alanine Aminotransfer ALT/SGPT 23 U/L (13-56); Albumin, Serum 3.4 g/dL (3.2-5.0); Alkaline Phosphatase 36 U/L (45-117); Anion Gap 4 (5-15); BUN 22 mg/dL (7-18); BUN/Creat Ratio 19.6 RATIO (10-20); Calcium,Total 9.2 mg/dL (8.5-10.1); Chloride 106 mmol/L (98-107); Cholesterol 232 mg/dL (200); Creatinine, Serum 1.12 mg/dL (0.55-1.02); EST Glomerular Filtration Rate 53 mL/min (>60); Est Glom Filt Rate - Afr Amer 64 mL/min (>60); Free T3 2.6 pg/mL (2.18-3.98); Globulin 3.5 g/dL (2.2-4.2); Glucose 133 mg/dL (74-106); High Density Lipoprotein 70 mg/dL; Potassium 3.9 mmol/L (3.5-5.1); Protein, Total 6.9 g/dL (6.4-8.2); Sodium Level 140 mmol/L (136-145); T4 Free Direct 0.91 ng/dL (0.76-1.46); Thyroid Stim Hormone (TSH) 0.87 uIU/mL (0.358-3.74); Triglycerides 69 mg/dL; Very Low Density Lipoprotein 14 mg/dL (5-40)
== END ==
PROVIDERS: PCP Family Medicine; Referring Provider Internal Medicine Endocrinology, Diabetes & Metabolism; Visit Provider Internal Medicine Endocrinology, Diabetes & Metabolism
DX: E11.9 Type 2 diabetes mellitus without complications (principal); E27.40 Unspecified adrenocortical insufficiency; E03.9 Hypothyroidism, unspecified; E55.9 Vitamin D deficiency, unspecified; M81.0 Age-related osteoporosis without current pathological fracture
CPT/HCPCS: 36415; 80053; 80061; 82306; 83036; 84439; 84443; 84481

== ENCOUNTER → 2020-11-11 12:42 | Outpatient (CLI) | payer OTHER, SELFPAY ==
[2020-11-11 15:40] LABS: CPK Total, Creatine Kinase 42 U/L (26-192); Magnesium 2.1 mg/dL (1.6-2.6)
== END ==
PROVIDERS: PCP Family Medicine; Referring Provider Internal Medicine Endocrinology, Diabetes & Metabolism; Visit Provider Internal Medicine Endocrinology, Diabetes & Metabolism
DX: E03.9 Hypothyroidism, unspecified (principal); E11.9 Type 2 diabetes mellitus without complications
CPT/HCPCS: 36415; 82550; 83735; 84132

== ENCOUNTER → 2020-12-29 14:58 | Outpatient (CLI) | payer OTHER, SELFPAY ==
[2020-12-29 17:53] LABS: Absolute Lymphocyte Count 1.49 X10^3/uL (0.83-4.51); Absolute Neutrophil Count 4.1 X10^3/uL (2.0-7.7); Basophil# 0.04 X10^3/uL; Basophil% 0.6 % (0-1); Eosinophil# 0.12 X10^3/uL; Eosinophils% 1.9 % (0-5); Hematocrit 41.2 % (37-47); Hemoglobin 12.8 g/dL (12.0-15.0); Lymphocyte # 1.49 X10^3/ul (0.83-4.51); Mean Corp Hgb Conc 31.1 g/dL (32-36); Mean Corpuscular Hgb 31.2 pg (27.0-32.0); Mean Corpuscular Volume 100.5 fL (81-99); Mean Platelet Vol. 9.8 fl (6.2-12.0); Monocyte# 0.41 X10^3/uL; Monocyte% 6.6 % (0-10); NRBC Flagged by Analyzer 0 % (0-5); Neutrophil # 4.13 X10^3/uL (2.7-7.7); Neutrophil % 66.4 % (47-70); Platelet Count 220 K/mm3 (150-450); RBC Distribution Width CV 14.3 % (11.6-14.6); RBC Distribution Width SD 53.5 fl (35.1-43.9); White Blood Count 6.2 K/mm3 (4.4-11.0)
[2020-12-29 18:18] LABS: ALB/GLOB Ratio 0.9 RATIO (0.9-2.4); AST(SGOT) 11 U/L (15-37); Alanine Aminotransfer ALT/SGPT 23 U/L (13-56); Albumin, Serum 3.3 g/dL (3.2-5.0); Alkaline Phosphatase 40 U/L (45-117); Anion Gap 4 (5-15); BUN 23 mg/dL (7-18); BUN/Creat Ratio 21.1 RATIO (10-20); Calcium,Total 9.3 mg/dL (8.5-10.1); Chloride 105 mmol/L (98-107); Creatinine, Serum 1.09 mg/dL (0.55-1.02); EST Glomerular Filtration Rate 55 mL/min (>60); Est Glom Filt Rate - Afr Amer 66 mL/min (>60); Globulin 3.6 g/dL (2.2-4.2); Glucose 117 mg/dL (74-106); Potassium 4.5 mmol/L (3.5-5.1); Protein, Total 6.9 g/dL (6.4-8.2); Sodium Level 139 mmol/L (136-145)
== END ==
PROVIDERS: PCP Family Medicine; Referring Provider Internal Medicine Rheumatology; Visit Provider Internal Medicine Rheumatology
DX: M06.00 Rheumatoid arthritis without rheumatoid factor, unspecified site (principal); M79.7 Fibromyalgia; K76.0 Fatty (change of) liver, not elsewhere classified; I42.9 Cardiomyopathy, unspecified; M81.8 Other osteoporosis without current pathological fracture; E78.5 Hyperlipidemia, unspecified; E03.2 Hypothyroidism due to medicaments and other exogenous substances; N20.0 Calculus of kidney; G47.33 Obstructive sleep apnea (adult) (pediatric); Z79.899 Other long term (current) drug therapy
CPT/HCPCS: 36415; 80053; 85025

== ENCOUNTER 2021-03-17 14:20 | Emergency (ER) | payer OTHER, SELFPAY ==
[2021-03-17 14:20] VITALS: BP 118/81; PULSE 84; RESP 18; TEMP 36.3; O2SAT 98; BMI 28.7
--- NOTE | 2021-03-17 16:12 | EKG12_ITS ---
Test Reason : CP Blood Pressure : / mmHG Vent. Rate : 069 BPM Atrial Rate : 069 BPM P-R Int : 132 ms QRS Dur : 106 ms QT Int : 472 ms P-R-T Axes : 042 242 086 degrees QTc Int : 505 ms Atrial-sensed ventricular-paced rhythm Biventricular pacemaker detected Abnormal ECG Confirmed by SHAINA GAMBLE, RICK ([id number]), offline editor JENNA CARRASQUILLO ([id number]) on 03/19/2021 11:00:05 A M Referred By: ADDY Confirmed By:ATIF MERRITT MD
[2021-03-17 16:33] VITALS: O2SAT 97
[2021-03-17 16:34] LABS: Absolute Lymphocyte Count 1.07 X10^3/uL (0.83-4.51); Absolute Neutrophil Count 7.6 X10^3/uL (2.0-7.7); Basophil# 0.03 X10^3/uL; Basophil% 0.3 % (0-1); Eosinophil# 0.08 X10^3/uL; Eosinophils% 0.9 % (0-5); Hematocrit 45.8 % (37-47); Hemoglobin 15.3 g/dL (12.0-15.0); Lymphocyte # 1.07 X10^3/ul (0.83-4.51); Lymphocyte % 11.8 % (19-41); Mean Corp Hgb Conc 33.4 g/dL (32-36); Mean Corpuscular Hgb 32.5 pg (27.0-32.0); Mean Corpuscular Volume 97.2 fL (81-99); Mean Platelet Vol. 9.2 fl (6.2-12.0); Monocyte# 0.29 X10^3/uL; Monocyte% 3.2 % (0-10); NRBC Flagged by Analyzer 0 % (0-5); Neutrophil # 7.55 X10^3/uL (2.7-7.7); Neutrophil % 83.5 % (47-70); Platelet Count 251 K/mm3 (150-450); RBC Distribution Width CV 13.8 % (11.6-14.6); RBC Distribution Width SD 50.1 fl (35.1-43.9); Red Blood Count 4.71 M/mm3 (4.2-5.4); White Blood Count 9.1 K/mm3 (4.4-11.0)
[2021-03-17 16:44] VITALS: BP 112/79; PULSE 76; RESP 12; O2SAT 97
--- NOTE | 2021-03-17 16:45 | RAD_ITS ---
STUDY: X-RAY CHEST REASON FOR EXAM: Female, 60 years old. CHEST PAIN chest pain TECHNIQUE: XR Chest 1 View COMPARISON: 02/09/2018 FINDINGS: There is no demonstrated pleural abnormality. There is a left sided pacemaker batterypack. Normal size heart. Normal mediastinum and francie. Normal visualized pulmonary arteries. There is atherosclerotic calcification of the aortic arch with tortuosity. There are diffuse degenerative changes of the visualized thoracic spine. There is degenerative osteoarthritis of the bilateral shoulders. There is no demonstrated abnormality of the visualized soft tissue structures of the upper abdomen. RAD/Chest 1 View (Portable) IMPRESSION: There are no acute findings. Electronically Signed: Dylon Handy MD at 17:05 EST , Service support ,
[2021-03-17 16:51] LABS: D-Dimer Quantitative (DVT/PE) 0.58 FEU/ug/m (0.27-0.49)
--- NOTE | 2021-03-17 16:52 | ED.RN ---
lab called with d-dimer 0.58, Franklyn Capellan RN informed of same.
[2021-03-17 17:00] LABS: Anion Gap 7 (5-15); BUN 23 mg/dL (7-18); BUN/Creat Ratio 19.3 RATIO (10-20); Chloride 102 mmol/L (98-107); Creatinine, Serum 1.19 mg/dL (0.55-1.02); EST Glomerular Filtration Rate 49 mL/min (>60); Est Glom Filt Rate - Afr Amer 60 mL/min (>60); Estimated Creatinine Clearance 47.65 ml/min; Glucose 188 mg/dL (74-106); Potassium 3.8 mmol/L (3.5-5.1); Sodium Level 137 mmol/L (136-145); Troponin-I HS 6 pg/mL (3.0-54.0)
[2021-03-17 17:05] VITALS: BP 112/77; PULSE 78; RESP 15; O2SAT 96
[2021-03-17 17:17] LABS: Bacteria 0 SEEN /hpf (None Seen); Mucous, Urine 0 SEEN /hpf (<or=2+); Red Blood Cells-Urine 0 SEEN /hpf (0-5)
[2021-03-17 17:34] LABS: Color, Urine Yellow (Yellow); Glucose, Dipstick Normal (Normal); Ketone-Dipstick Negative (Negative); Leukocyte Esterase-Dipstick 100 /ul (Negative); Nitrite-Dipstick Negative (Negative); Occult Blood-Urine 10 /ul (Negative); Protein-Dipstick Negative (Negative); Specific Gravity, Urine 1.015 (1.002-1.030); Urine Bilirubin Dipstick Negative (Negative); Urine Clarity Clear (Clear); Urine Urobilinogen Normal (Normal); Urine pH 6.5 (5.0 - 8.0)
[2021-03-17 18:01] LABS: Squamous Epithelial Cells - UA 0-5 SEEN /hpf (5-10); White Blood Cells 0-5 SEEN /hpf (0-5)
[2021-03-17 19:06] VITALS: BP 117/79; PULSE 71; RESP 15; O2SAT 96
[2021-03-17 19:25] LABS: Troponin-I HS 4 pg/mL (3.0-54.0)
--- NOTE | 2021-03-17 19:34 | ED.VIS.CHEST ---
HPI History of Present Illness Chief Complaint: Weakness Narrative Narrative: Patient presenting with dyspepsia is concerned it is cardiac related because this is how it felt when she had her [place] previously. Patient states this started yesterday and had resolved. She now feels a little bit weak but is able to ambulate. Patient has not had a fever or cough. Denies nausea or vomiting. She has a history of adrenal insufficiency and takes 5 mg of prednisone daily but took a 50 mg dose today. She said that actually made her feel better. No nausea or vomiting currently. No constipation or diarrhea. No urinary complaints but does state that she gets UTIs occasionally. [facility] Medical History Anxiety Bundle branch block CPAP (continuous positive airway pressure) dependence Depression Diabetes History of cardiac pacemaker History of Graves' disease History of left heart catheterization (LHC) Hyperlipidemia Hypothyroidism Kidney stones Non-smoker Rheumatoid arthritis Sleep apnea Stroke/cerebrovascular accident Home Medications aspirin 81 mg PO DAILY@0800 10/13/14 [History Last Taken 02/08/18] biotin 1,000 mg PO DAILY 10/13/14 [History Last Taken 02/08/18] calcium carbonate 600 mg PO DAILY 10/13/14 [History Last Taken 02/08/18] levothyroxine [Levoxyl] 125 mcg PO MOTUWETHFRSA 10/13/14 [History Last Taken 02/08/18] tramadol 50 mg PO TID 10/13/14 [History Last Taken 02/08/18] Orencia 125 mg SQ QWEEK 01/21/15 [History Last Taken 02/02/18] cholecalciferol (vitamin D3) [Vitamin D3] 50,000 mg PO QWEEK 05/23/15 [History Last Taken 02/08/18] carvedilol 6.25 mg PO BID 06/10/15 [History Last Taken 02/08/18] estradiol [Estrace] 0.1 mg VAGINAL DAILY 06/12/15 [History Last Taken 02/08/18] buspirone 15 mg PO 4X/DAY 02/09/18 [History Last Taken 02/08/18] duloxetine 30 mg PO TID 02/09/18 [History Last Taken 02/08/18] liothyronine 5 mcg PO DAILY 02/09/18 [History Last Taken 02/08/18] loratadine [Allergy Relief (loratadine)] 10 mg PO DAILY 02/09/18 [History Last Taken 02/08/18] prednisone 5 mg PO DAILY 02/09/18 [History Last Taken 02/08/18] pantoprazole 40 mg PO DAILY 08/17/19 [History Last Taken Unknown] trazodone 200 mg PO QHS 08/17/19 [History Last Taken Unknown] alendronate 70 mg PO QWEEK 03/17/21 [History Last Taken Unknown] calcium carbonate-vitamin D3 [Calcium 600 + D(3)] 2 tab PO DAILY 03/17/21 [History Last Taken Unknown] cyanocobalamin (vitamin B-12) 250 mcg PO DAILY 03/17/21 [History Last Taken Unknown] dulaglutide [Trulicity] 0.75 mg SUBCUT QWEEK 03/17/21 [History Last Taken Unknown] ergocalciferol (vitamin D2) 50,000 unit PO QWEEK 03/17/21 [History Last Taken Unknown] famotidine 20 mg PO QHS 03/17/21 [History Last Taken Unknown] glucosamine sulfate [Glucosamine] 1,500 mg PO DAILY 03/17/21 [History Last Taken Unknown] pyridoxine (vitamin B6) 250 mg PO DAILY 03/17/21 [History Last Taken Unknown] spironolactone 12.5 mg PO DAILY 03/17/21 [History Last Taken Unknown] zinc 50 mg PO DAILY 03/17/21 [History Last Taken Unknown] Allergy/AdvReac Type Severity Reaction Status Date / Time ciprofloxacin [From Cipro] Allergy Other Verified 03/17/21 14:23 ciprofloxacin HCl Allergy Other Verified 03/17/21 14:23 [From Cipro] citric acid Allergy Angioedema Verified 03/17/21 14:23 ezetimibe [From Zetia] Allergy Other Verified 03/17/21 14:23 levofloxacin [From Levaquin] Allergy Unknown Verified 03/17/21 14:23 linagliptin [From Tradjenta] Allergy Upset Verified 03/17/21 14:23 Stomach lisinopril Allergy Hives Verified 03/17/21 14:23 oxcarbazepine Allergy Other Verified 03/17/21 14:23 [From Trileptal] simvastatin [From Zocor] Allergy MUSCLE Verified 03/17/21 14:23 WEAKNESS TILOX Allergy HYPOTENSION Uncoded 03/17/21 14:23 Surgical History History of hysterectomy Social History Smoking Status: Never smoker ROS ROS ED Constitutional Constitutional ED: Denies chills or fever(s) Eyes Eyes: Denies blurry vision or change in vision ENT ENT ED: Denies rhinorrhea or sore throat Cardiovascular Cardiovascular: Reports chest pain Respiratory/Chest Respiratory/Chest: Denies cough or dyspnea Gastrointestinal Gastrointestinal: Denies abdominal pain, nausea or vomiting Genitourinary Genitourinary ED: Denies dysuria, hematuria or urinary frequency Musculoskeletal Musculoskeletal: Denies arthralgias or myalgias Integumentary Denies Abrasions or rash Neurologic Neurologic: Denies headache(s) or paresthesias EXAM Physical Exam Const Vital Signs: 03/17/21 14:20 03/17/21 16:33 03/17/21 16:44 Temperature 97.4 F L Temperature Source Temporal Pulse Rate 84 76 Respiratory Rate 18 12 Respiratory Effort Normal Respiratory Pattern Normal Blood Pressure 118/81 H 112/79 Blood Pressure Mean 93 90 Pulse Ox 98 97 97 Oxygen Delivery Method Room Air Room Air Room Air 03/17/21 17:05 03/17/21 19:06 Temperature Temperature Source Pulse Rate 78 71 Respiratory Rate 15 15 Respiratory Effort Respiratory Pattern Blood Pressure 112/77 117/79 Blood Pressure Mean 88 91 Pulse Ox 96 96 Oxygen Delivery Method Room Air Room Air Positive obese General Appearance ED: NAD; Negative for pallor Nutritional Appearance: obese HEENT Reports moist mucous membranes normocephalic and atraumatic Eyes PERRL and EOMs intact bilaterally Neck no lymphadenopathy and supple Resp normal respiratory effort Effort and Inspection: respiratory distress Cardio regular rate and regular rhythm GI normal to inspection, nondistended, normoactive bowel sounds Neuro oriented x3 and CN's II-XII intact bilaterally Sensorium / Orientation: awake and alert Motor Exam: strength 5/5 throughout Psych mental status grossly normal Skin General Skin Exam: Negative for jaundice or pallor Heart Score History: Slightly/Non-Suspicious ECG: Normal Age: >45 - <65 years Risk Factors: >/= 3 Risk Factors or History of CAD Troponin: </= Normal Limit Score: 3 MDM MDM MDM Narrative Medical decision making narrative: Patient presenting with dyspepsia which he is concerned is cardiac related. She states that the problem is actually resolved itself. EKG on my interpretation shows a paced rhythm at 69 bpm without sign of ischemic change. Chest x-ray my interpretation shows no acute cardiopulmonary process. Patient CBC is within normal limits. Patient's BMP does show a slight elevation of creatinine at 1.19 otherwise is normal. Initial high-sensitivity troponin is 6. Delta troponin is 4. No significant interval change. Patient's D-dimer is 0.58 and age-adjusted is negative. I feel this point patient is stable for discharge home. She is counseled to follow-up with her PCP to ensure resolution. She is given return precautions. Impression: 1. Generalized weakness 2. Chest pain Lab Data Labs: Laboratory Results - last 24 hr 03/17/21 03/17/21 03/17/21 16:26 16:26 16:26 WBC 9.1 RBC 4.71 Hgb 15.3 H Hct 45.8 MCV 97.2 MCH 32.5 H MCHC 33.4 RDW Std Deviation 50.1 H RDW Coeff of Goyo 13.8 Plt Count 251 MPV 9.2 Immature Gran % (Auto) 0.300 Neut % (Auto) 83.5 H Lymph % (Auto) 11.8 L Dolores % (Auto) 3.2 Eos % (Auto) 0.9 Baso % (Auto) 0.3 Absolute Neuts (auto) 7.6 Absolute Lymphs (auto) 1.07 Nucleated RBC % 0 D-Dimer Quant (PE/DVT) 0.58 H* Sodium 137 Potassium 3.8 Chloride 102 Carbon Dioxide 28.0 Anion Gap 7 BUN 23 H Creatinine 1.19 H Estim Creat Clear Calc 47.65 Est GFR (MDRD) Af Amer 60 Est GFR (MDRD) Non-Af 49 L BUN/Creatinine Ratio 19.3 Glucose 188 H Calcium 10.0 Troponin I High Sens 6 Urine Color Urine Clarity Urine pH Ur Specific [place] Urine Protein Urine Glucose (UA) Urine Ketones Urine Occult Blood Urine Nitrite Urine Bilirubin Urine Urobilinogen Ur Leukocyte Esterase Urine RBC Urine WBC Ur Squamous Epith Cells Urine Bacteria Urine Mucus 03/17/21 03/17/21 17:10 19:02 WBC RBC Hgb Hct MCV MCH MCHC RDW Std Deviation RDW Coeff of Goyo Plt Count MPV Immature Gran % (Auto) Neut % (Auto) Lymph % (Auto) Dolores % (Auto) Eos % (Auto) Baso % (Auto) Absolute Neuts (auto) Absolute Lymphs (auto) Nucleated RBC % D-Dimer Quant (PE/DVT) Sodium Potassium Chloride Carbon Dioxide Anion Gap BUN Creatinine Estim Creat Clear Calc Est GFR (MDRD) Af Amer Est GFR (MDRD) Non-Af BUN/Creatinine Ratio Glucose Calcium Troponin I High Sens 4 Urine Color Yellow Urine Clarity Clear Urine pH 6.5 Ur Specific [place] 1.015 Urine Protein Negative Urine Glucose (UA) Normal Urine Ketones Negative Urine Occult Blood 10 H Urine Nitrite Negative Urine Bilirubin Negative Urine Urobilinogen Normal Ur Leukocyte Esterase 100 H Urine RBC 0 SEEN Urine WBC 0-5 SEEN Ur Squamous Epith Cells 0-5 SEEN Urine Bacteria 0 SEEN Urine Mucus 0 SEEN Radiography Diagnostic Testing: Clinical Impression(s) from Imaging Studies Chest X-Ray 03/17/21 16:45 IMPRESSION: There are no acute findings. Electronically Signed: Dylon Handy MD at 17:05 EST , Service support , Discharge Plan Triage Chief Complaint: Weakness ED Provider: Sg Elam Dx/Rx/DC Orders Instructions: ED Chest Pain, Noncardiac, ED Weakness (Uncertain Cause) Prescriptions: No Action calcium carbonate 600 MG tablet 600 mg PO DAILY RF: 0 aspirin 81 MG tablet,chewable 81 mg PO DAILY@0800 RF: 0 tramadol 50 MG tablet 50 mg PO TID RF: 0 levothyroxine [Levoxyl] 125 MCG tablet 125 mcg PO MOTUWETHFRSA RF: 0 biotin 1 MG capsule 1,000 mg PO DAILY RF: 0 Orencia 125 MG/ML syringe 125 mg SQ QWEEK RF: 0 cholecalciferol (vitamin D3) [Vitamin D3] 1,000 UNIT tablet 50,000 mg PO QWEEK RF: 0 carvedilol 6.25 MG tablet 6.25 mg PO BID RF: 0 estradiol [Estrace] 42.5 GM cream 0.1 mg vaginal DAILY RF: 0 liothyronine 5 MCG tablet 5 mcg PO DAILY RF: 0 loratadine [Allergy Relief (loratadine)] 10 MG tablet 10 mg PO DAILY RF: 0 buspirone 15 MG tablet 15 mg PO 4X/DAY RF: 0 prednisone 10 MG tablet 5 mg PO DAILY RF: 0 duloxetine 30 MG capsule 30 mg PO TID RF: 0 trazodone 100 MG tablet 200 mg PO QHS RF: 0 pantoprazole 40 MG tablet 40 mg PO DAILY RF: 0 alendronate 70 mg Tablet 70 mg PO QWEEK RF: 0 cyanocobalamin (vitamin B-12) 250 mcg Tablet 250 mcg PO DAILY RF: 0 spironolactone 25 mg Tablet 12.5 mg PO DAILY RF: 0 famotidine 20 mg Tablet 20 mg PO QHS RF: 0 pyridoxine (vitamin B6) 250 mg Tablet 250 mg PO DAILY RF: 0 glucosamine sulfate [Glucosamine] 750 mg Tablet 1,500 mg PO DAILY RF: 0 calcium carbonate-vitamin D3 [Calcium 600 + D(3)] 600 mg(1,500mg) -400 unit Tablet 2 tab PO DAILY RF: 0 Trulicity 0.75 mg/0.5 mL Pen Injector 0.75 mg SUBCUT QWEEK RF: 0 ergocalciferol (vitamin D2) 50,000 unit Tablet 50,000 unit PO QWEEK RF: 0 zinc 50 mg Capsule 50 mg PO DAILY RF: 0 Primary Care Provider: Demond Hadley Referrals: Demond Hadley MD [Primary Care Provider] - Disposition Disposition: Home, Self Care
[2021-03-17 19:35] VITALS: BP 112/80; PULSE 73; RESP 18; O2SAT 96
== END 2021-03-17 19:41 | disposition home or self-care (01) ==
PROVIDERS: Emergency Provider Student in an Organized Health Care Education/Training Program; PCP Family Medicine
DX: R53.1 Weakness (principal); R07.9 Chest pain, unspecified; F41.9 Anxiety disorder, unspecified; F32.A Depression, unspecified; E11.9 Type 2 diabetes mellitus without complications; E78.5 Hyperlipidemia, unspecified; E03.9 Hypothyroidism, unspecified; M06.9 Rheumatoid arthritis, unspecified; E66.9 Obesity, unspecified; Z95.0 Presence of cardiac pacemaker; Z86.73 Personal history of transient ischemic attack (TIA), and cerebral infarction without residual deficits; Z79.52 Long term (current) use of systemic steroids; Z79.899 Other long term (current) drug therapy
CPT/HCPCS: 71045; 80048; 81001; 84484; 85025; 85379; 87426; 93005; 99284; A4216

== ENCOUNTER → 2021-03-23 11:32 | Outpatient (CLI) | payer OTHER, SELFPAY ==
--- NOTE | 2021-03-23 11:34 | RAD_ITS ---
STUDY: X-RAY - LEFT KNEE REASON FOR EXAM: Female, 60 years old. ARTHRITIS TECHNIQUE: 4 view(s) of the knee. COMPARISON: None. FINDINGS: Normal visualized distal femur. Normal visualized proximal tibia and fibula. Normal proximal tibiofibular articulation. Normal medial femorotibial compartment. Normal lateral femorotibial compartment. Normal patellofemoral articulation. The soft tissue structures are unremarkable. RAD/Knee 4 or More Views IMPRESSION: Normal x-ray examination of the knee. Electronically Signed: Joshua Mccullough MD at 8:21 EST Tel , Service support ,
[2021-03-23 15:00] LABS: Absolute Lymphocyte Count 2.48 X10^3/uL (0.83-4.51); Basophil# 0.04 X10^3/uL; Basophil% 0.6 % (0-1); Eosinophil# 0.27 X10^3/uL; Eosinophils% 4.3 % (0-5); Hematocrit 39.3 % (37-47); Hemoglobin 12.4 g/dL (12.0-15.0); Lymphocyte # 2.48 X10^3/ul (0.83-4.51); Lymphocyte % 39.2 % (19-41); Mean Corp Hgb Conc 31.6 g/dL (32-36); Mean Corpuscular Hgb 32.2 pg (27.0-32.0); Mean Corpuscular Volume 102.1 fL (81-99); Mean Platelet Vol. 9.7 fl (6.2-12.0); Monocyte# 0.53 X10^3/uL; Monocyte% 8.4 % (0-10); NRBC Flagged by Analyzer 0 % (0-5); Neutrophil # 2.98 X10^3/uL (2.7-7.7); Platelet Count 239 K/mm3 (150-450); RBC Distribution Width CV 13.9 % (11.6-14.6); RBC Distribution Width SD 52.1 fl (35.1-43.9); Red Blood Count 3.85 M/mm3 (4.2-5.4); White Blood Count 6.3 K/mm3 (4.4-11.0)
[2021-03-23 15:30] LABS: ALB/GLOB Ratio 0.9 RATIO (0.9-2.4); AST(SGOT) 15 U/L (15-37); Alanine Aminotransfer ALT/SGPT 22 U/L (13-56); Albumin, Serum 3.1 g/dL (3.2-5.0); Alkaline Phosphatase 36 U/L (45-117); Anion Gap 8 (5-15); BUN 16 mg/dL (7-18); BUN/Creat Ratio 14.7 RATIO (10-20); Calcium,Total 8.8 mg/dL (8.5-10.1); Chloride 103 mmol/L (98-107); Creatinine, Serum 1.09 mg/dL (0.55-1.02); EST Glomerular Filtration Rate 54 mL/min (>60); Est Glom Filt Rate - Afr Amer 66 mL/min (>60); Globulin 3.3 g/dL (2.2-4.2); Glucose 114 mg/dL (74-106); Potassium 3.4 mmol/L (3.5-5.1); Protein, Total 6.4 g/dL (6.4-8.2); Sodium Level 141 mmol/L (136-145)
== END ==
PROVIDERS: PCP Family Medicine; Referring Provider Internal Medicine Rheumatology; Visit Provider Internal Medicine Rheumatology
DX: M06.00 Rheumatoid arthritis without rheumatoid factor, unspecified site (principal); M79.7 Fibromyalgia; K76.0 Fatty (change of) liver, not elsewhere classified; I42.9 Cardiomyopathy, unspecified; M81.8 Other osteoporosis without current pathological fracture; E78.5 Hyperlipidemia, unspecified; E03.2 Hypothyroidism due to medicaments and other exogenous substances; N20.0 Calculus of kidney; G47.33 Obstructive sleep apnea (adult) (pediatric); Z79.899 Other long term (current) drug therapy
CPT/HCPCS: 36415; 73564; 80053; 85025

== ENCOUNTER 2021-04-06 13:40 | Outpatient (CLI) | payer OTHER, SELFPAY ==
[2021-04-06 14:02] VITALS: BP 126/74; PULSE 71; RESP 16; TEMP 36.2; O2SAT 97; BMI 29.0
[2021-04-06] MEDS: 0.9% Saline Lock 10 ML Syringe IV (15:15)
[2021-04-06 15:45] VITALS: BP 134/87; PULSE 63; RESP 16; TEMP 36.4; O2SAT 96
[2021-04-06 16:30] VITALS: BP 140/86; PULSE 64; RESP 16; TEMP 36.4; O2SAT 98
== END 2021-04-06 16:45 | disposition home or self-care (01) ==
LOC: MS3OUT 13:40 → MS3 13:41
PROVIDERS: PCP Family Medicine; Referring Provider Internal Medicine Pulmonary Disease; Visit Provider Internal Medicine Pulmonary Disease
DX: Z23 Encounter for immunization (principal); U07.1 COVID-19
CPT/HCPCS: J7050; M0245; Q0245; A4216

== ENCOUNTER 2021-05-11 12:03 | Outpatient (CLI) | payer OTHER, SELFPAY ==
[2021-05-11 15:40] LABS: ALB/GLOB Ratio 0.9 RATIO (0.9-2.4); AST(SGOT) 12 U/L (15-37); Alanine Aminotransfer ALT/SGPT 22 U/L (13-56); Albumin, Serum 3.2 g/dL (3.2-5.0); Alkaline Phosphatase 42 U/L (45-117); Anion Gap 4 (5-15); BUN 19 mg/dL (7-18); BUN/Creat Ratio 17.4 RATIO (10-20); Calcium,Total 8.9 mg/dL (8.5-10.1); Chloride 105 mmol/L (98-107); Creatinine, Serum 1.09 mg/dL (0.55-1.02); EST Glomerular Filtration Rate 54 mL/min (>60); Est Glom Filt Rate - Afr Amer 66 mL/min (>60); Free T3 4.4 pg/mL (2.18-3.98); Globulin 3.6 g/dL (2.2-4.2); Glucose 97 mg/dL (74-106); Protein, Total 6.8 g/dL (6.4-8.2); Sodium Level 139 mmol/L (136-145); T4 Free Direct 1.11 ng/dL (0.76-1.46); Thyroid Stim Hormone (TSH) 2.68 uIU/mL (0.358-3.74)
[2021-05-11 15:51] LABS: Microalbumin,Random Urine 6.1 mg/L (NO RANGE EST.)
[2021-05-11 22:22] LABS: Hemoglobin A1c 6.5 % (3.8-5.6)
== END 2021-05-11 23:59 | disposition short-term general hospital (02) ==
LOC: MTLAB 12:04
PROVIDERS: PCP Family Medicine; Referring Provider Internal Medicine Endocrinology, Diabetes & Metabolism; Visit Provider Internal Medicine Endocrinology, Diabetes & Metabolism
DX: E11.65 Type 2 diabetes mellitus with hyperglycemia (principal); E27.40 Unspecified adrenocortical insufficiency; E03.9 Hypothyroidism, unspecified; M81.0 Age-related osteoporosis without current pathological fracture; E55.9 Vitamin D deficiency, unspecified
CPT/HCPCS: 36415; 80053; 82043; 83036; 84439; 84443; 84481

== ENCOUNTER → 2021-09-23 | Outpatient (CLI) | payer OTHER, SELFPAY ==
[2021-09-23 15:18] LABS: Absolute Neutrophil Count 3.2 X10^3/uL (2.0-7.7); Basophil# 0.05 X10^3/uL; Eosinophil# 0.16 X10^3/uL; Eosinophils% 3.2 % (0-5); Hematocrit 38.8 % (37-47); Hemoglobin 12.4 g/dL (12.0-15.0); Mean Platelet Vol. 9.9 fl (6.2-12.0); Monocyte# 0.38 X10^3/uL; Monocyte% 7.6 % (0-10); NRBC Flagged by Analyzer 0 % (0-5); Neutrophil # 3.19 X10^3/uL (2.7-7.7); Platelet Count 218 K/mm3 (150-450); RBC Distribution Width CV 14.1 % (11.6-14.6); RBC Distribution Width SD 52.1 fl (35.1-43.9); Red Blood Count 3.88 M/mm3 (4.2-5.4)
[2021-09-23 15:36] LABS: Hemoglobin A1c 6.7 % (3.8-5.6)
[2021-09-23 15:37] LABS: Vitamin D,25 Hydroxy 105.9 ng/mL
[2021-09-23 15:40] LABS: AST(SGOT) 13 U/L (15-37); Alanine Aminotransfer ALT/SGPT 22 U/L (13-56); Albumin, Serum 3.4 g/dL (3.2-5.0); Alkaline Phosphatase 35 U/L (45-117); Anion Gap 6 (5-15); BUN 25 mg/dL (7-18); Chloride 103 mmol/L (98-107); Cholesterol 239 mg/dL (200); Creatinine, Serum 1.19 mg/dL (0.55-1.02); EST Glomerular Filtration Rate 49 mL/min (>60); Est Glom Filt Rate - Afr Amer 59 mL/min (>60); Free T3 4.4 pg/mL (2.18-3.98); Globulin 3.3 g/dL (2.2-4.2); Glucose 174 mg/dL (74-106); High Density Lipoprotein 73 mg/dL; Potassium 3.9 mmol/L (3.5-5.1); Protein, Total 6.7 g/dL (6.4-8.2); Sodium Level 138 mmol/L (136-145); T4 Free Direct 1.47 ng/dL (0.76-1.46); Thyroid Stim Hormone (TSH) 0.22 uIU/mL (0.358-3.74); Triglycerides 80 mg/dL; Very Low Density Lipoprotein 16 mg/dL (5-40)
[2021-09-23 19:29] LABS: Microalbumin,Random Urine < 5.0 mg/L (NO RANGE EST.)
== END | disposition home or self-care (01) ==
LOC: MTLAB 13:35
PROVIDERS: PCP Family Medicine; Referring Provider Internal Medicine Rheumatology; Visit Provider Internal Medicine Rheumatology
DX: E27.40 Unspecified adrenocortical insufficiency (principal); M06.00 Rheumatoid arthritis without rheumatoid factor, unspecified site; I42.9 Cardiomyopathy, unspecified; E11.65 Type 2 diabetes mellitus with hyperglycemia; M81.0 Age-related osteoporosis without current pathological fracture; E55.9 Vitamin D deficiency, unspecified; M79.7 Fibromyalgia; K76.0 Fatty (change of) liver, not elsewhere classified; M81.8 Other osteoporosis without current pathological fracture; E78.5 Hyperlipidemia, unspecified; E03.2 Hypothyroidism due to medicaments and other exogenous substances; N20.0 Calculus of kidney; G47.33 Obstructive sleep apnea (adult) (pediatric)
CPT/HCPCS: 36415; 80053; 80061; 82043; 82306; 83036; 84439; 84443; 84481; 85025

== ENCOUNTER 2022-02-06 23:41 | Emergency (ER) | payer OTHER, SELFPAY ==
[2022-02-06 23:42] VITALS: BP 121/74; PULSE 72; RESP 16; TEMP 36.4; O2SAT 96; BMI 29.8
--- NOTE | 2022-02-07 00:10 | EX.ED.DYSGE1 ---
HPI History of Present Illness Chief Complaint: General Illness Narrative Narrative: Patient is a 61-year-old female with past medical history of hypertension hyperlipidemia adrenal insufficiency and asthma. She states that she is immunosuppressed secondary to her adrenal insufficiency. She reports that she developed congestion cough headache and myalgias Jeffry evening and took a home COVID test which was positive. She states that her asthma is severe and she has concerned that the COVID will lead to worsening of the symptoms and she cannot get into see her lung specialist or her doctor for the next few days and is concerned she may miss the window for the antiviral treatment for COVID and secondary to this comes in for evaluation. [facility] Medical History Anxiety Bundle branch block CPAP (continuous positive airway pressure) dependence Depression Diabetes History of cardiac pacemaker History of Graves' disease History of left heart catheterization (LHC) Hyperlipidemia Hypothyroidism Kidney stones Non-smoker Rheumatoid arthritis Sleep apnea Stroke/cerebrovascular accident Home Medications aspirin 81 mg chewable tablet 81 mg PO DAILY@0800 10/13/14 [History Last Taken 02/08/18] biotin 1 mg capsule 1,000 mg PO DAILY 10/13/14 [History Last Taken 02/08/18] calcium carbonate 600 mg calcium (1,500 mg) tablet 600 mg PO DAILY 10/13/14 [History Last Taken 02/08/18] levothyroxine 125 mcg tablet (Levoxyl) 125 mcg PO MOTUWETHFRSA 10/13/14 [History Last Taken 02/08/18] tramadol 50 mg tablet 50 mg PO TID 10/13/14 [History Last Taken 02/08/18] abatacept 125 mg/mL subcutaneous syringe (Orencia) 125 mg SQ QWEEK 01/21/15 [History Last Taken 02/02/18] cholecalciferol (vitamin D3) 25 mcg (1,000 unit) tablet (Vitamin D3) 50,000 mg PO QWEEK 05/23/15 [History Last Taken 02/08/18] carvedilol 6.25 mg tablet 6.25 mg PO BID 06/10/15 [History Last Taken 02/08/18] estradiol 0.01% (0.1 mg/gram) vaginal cream (Estrace) 0.1 mg vaginal DAILY 06/12/15 [History Last Taken 02/08/18] buspirone 15 mg tablet 15 mg PO 4X/DAY 02/09/18 [History Last Taken 02/08/18] duloxetine 30 mg capsule,delayed release 30 mg PO TID 02/09/18 [History Last Taken 02/08/18] liothyronine 5 mcg tablet 5 mcg PO DAILY 02/09/18 [History Last Taken 02/08/18] loratadine 10 mg tablet (Allergy Relief (loratadine)) 10 mg PO DAILY 02/09/18 [History Last Taken 02/08/18] prednisone 10 mg tablet 5 mg PO DAILY 02/09/18 [History Last Taken 02/08/18] pantoprazole 40 mg tablet,delayed release 40 mg PO DAILY 08/17/19 [History Last Taken Unknown] trazodone 100 mg tablet 200 mg PO QHS 08/17/19 [History Last Taken Unknown] alendronate 70 mg tablet 70 mg PO QWEEK 03/17/21 [History Last Taken Unknown] calcium carbonate 600 mg-vitamin D3 10 mcg (400 unit) tablet (Calcium 600 + D(3)) 2 tab PO DAILY 03/17/21 [History Last Taken Unknown] cyanocobalamin (vitamin B-12) 250 mcg tablet 250 mcg PO DAILY 03/17/21 [History Last Taken Unknown] dulaglutide 0.75 mg/0.5 mL subcutaneous pen injector (Trulicity) 0.75 mg subcut QWEEK 03/17/21 [History Last Taken Unknown] famotidine 20 mg tablet 20 mg PO QHS 03/17/21 [History Last Taken Unknown] glucosamine sulfate 750 mg tablet 1,500 mg PO DAILY 03/17/21 [History Last Taken Unknown] pyridoxine (vitamin B6) 250 mg tablet 250 mg PO DAILY 03/17/21 [History Last Taken Unknown] spironolactone 25 mg tablet 12.5 mg PO DAILY 03/17/21 [History Last Taken Unknown] zinc 50 mg capsule 50 mg PO DAILY 03/17/21 [History Last Taken Unknown] nirmatrelvir 300 mg (150 mg x2)-ritonavir 100 mg tablet,dose pack(EUA) (Paxlovid) See Rx Instructions PO .COMPLEX #30 tabs 02/07/22 [Rx Last Taken Unknown] Allergy/AdvReac Type Severity Reaction Status Date / Time ciprofloxacin [From Cipro] Allergy Other Verified 02/06/22 23:46 ciprofloxacin HCl Allergy Other Verified 02/06/22 23:46 [From Cipro] citric acid Allergy Angioedema Verified 02/06/22 23:46 ezetimibe [From Zetia] Allergy Other Verified 02/06/22 23:46 levofloxacin [From Levaquin] Allergy Unknown Verified 02/06/22 23:46 linagliptin [From Tradjenta] Allergy Upset Verified 02/06/22 23:46 Stomach lisinopril Allergy Hives Verified 02/06/22 23:46 oxcarbazepine Allergy Other Verified 02/06/22 23:46 [From Trileptal] oxycodone Allergy Low blood Verified 02/06/22 23:46 pressure pregabalin [From Lyrica] Allergy shortness Verified 02/06/22 23:46 of breath; balance issues, dizziness simvastatin [From Zocor] Allergy MUSCLE Verified 03/17/21 14:23 WEAKNESS tyloxapol Allergy Low blood Verified 04/06/21 14:10 pressure TILOX Allergy HYPOTENSION Uncoded 02/06/22 23:47 Surgical History History of hysterectomy Social History Smoking Status: Never smoker ROS ROS ED Constitutional Constitutional ED: Reports chills, fever(s) and subjective ENT ENT ED: Reports rhinorrhea and sore throat Cardiovascular Cardiovascular: Denies chest pain Respiratory/Chest Respiratory/Chest: Reports cough and dyspnea Gastrointestinal Gastrointestinal: Denies abdominal pain, diarrhea, nausea or vomiting Genitourinary Genitourinary ED: Denies dysuria Musculoskeletal Musculoskeletal: Reports myalgias Integumentary Denies rash Neurologic Neurologic: Reports headache(s) Hematologic/Lymphatic Hematologic/Lymphatic: Denies easy bleeding or easy bruising EXAM Physical Exam Const Vital Signs: 02/06/22 23:42 Temperature 97.5 F L Temperature Source Temporal Pulse Rate 72 Respiratory Rate 16 Blood Pressure 121/74 H Blood Pressure Mean 89 Pulse Ox 96 Oxygen Delivery Method Room Air Positive well nourished and well developed General Appearance ED: well developed Eyes PERRL and EOMs intact bilaterally Neck supple and no JVD Chest Wall palpation of chest normal Resp normal respiratory effort Resp Narrative: Breath sounds are slight diminished throughout with faint expiratory wheeze in bilateral bases but no nasal flaring retractions tachypnea or accessory muscle use Cardio regular rate and regular rhythm Extremity normal to inspection Extremity Narrative: No asymmetric edema no pitting edema negative Homans' sign bilaterally Neuro oriented x3 and CN's II-XII intact bilaterally Sensorium / Orientation: alert Psych Psych Narrative: Patient has a nervous/anxious affect Skin no rashes or lesions noted MDM MDM MDM Narrative Medical decision making narrative: Present to the ER afebrile with stable vitals satting 96% on room air and no increased work of breathing. She reported testing positive for COVID yesterday at home and I felt no need to repeat this. The patient has no signs of respiratory distress but based on her immunosuppression history and asthma she is at high risk for progression of the disease and therefore I will start her on Paxlovid. However as she is not requiring supplemental oxygen having respiratory distress or hypoxia I do not feel there is need for further evaluation and patient is otherwise safe for discharge Discharge Plan Triage Chief Complaint: General Illness ED Provider: Haris Hernández Dx/Rx/DC Orders Clinical Impression: COVID-19, HTN (hypertension), Asthma Instructions: Coronavirus Disease 2019 (COVID-19): Caring for Yourself or Others Prescriptions: New Paxlovid (EUA) 300 mg (150 mg x 2)-100 mg tablets,dose pack See Rx Instructions .ROUTE .COMPLEX Qty: 30 0RF Rx Instructions: take TWO 150 mg tablets of nirmatrelvir with ONE 100 mg tablet of ritonavir twice daily for 5 days No Action calcium carbonate 600 MG tablet 600 mg PO DAILY Label Comments: SUPPLEMENT aspirin 81 MG tablet,chewable 81 mg PO DAILY@0800 Label Comments: [facility] tramadol 50 MG tablet 50 mg PO TID Label Comments: PAIN levothyroxine [Levoxyl] 125 MCG tablet 125 mcg PO MOTUWETHFRSA Label Comments: Thyroid replacement biotin 1 MG capsule 1,000 mg PO DAILY Label Comments: SUPPLEMENT Orencia 125 MG/ML syringe 125 mg SQ QWEEK Label Comments: on cholecalciferol (vitamin D3) [Vitamin D3] 1,000 UNIT tablet 50,000 mg PO QWEEK Label Comments: [facility] carvedilol 6.25 MG tablet 6.25 mg PO BID Label Comments: heart rate control estradiol [Estrace] 42.5 GM cream 0.1 mg vaginal DAILY Rx Instructions: 3 times per week liothyronine 5 MCG tablet 5 mcg PO DAILY loratadine [Allergy Relief (loratadine)] 10 MG tablet 10 mg PO DAILY buspirone 15 MG tablet 15 mg PO 4X/DAY prednisone 10 MG tablet 5 mg PO DAILY Taper: Prednisone Taper 40 mg DAILY@0800 for 3 Days 30 mg DAILY@0800 for 3 Days 20 mg DAILY@0800 for 3 Days 10 mg DAILY@0800 for 3 Days Label Comments: steroid Rx Instructions: duloxetine 30 MG capsule 30 mg PO TID trazodone 100 MG tablet 200 mg PO QHS pantoprazole 40 MG tablet 40 mg PO DAILY alendronate 70 mg Tablet 70 mg PO QWEEK cyanocobalamin (vitamin B-12) 250 mcg Tablet 250 mcg PO DAILY spironolactone 25 mg Tablet 12.5 mg PO DAILY famotidine 20 mg Tablet 20 mg PO QHS pyridoxine (vitamin B6) 250 mg Tablet 250 mg PO DAILY glucosamine sulfate [Glucosamine] 750 mg Tablet 1,500 mg PO DAILY calcium carbonate-vitamin D3 [Calcium 600 + D(3)] 600 mg(1,500mg) -400 unit Tablet 2 tab PO DAILY Trulicity 0.75 mg/0.5 mL Pen Injector 0.75 mg SUBCUT QWEEK zinc 50 mg Capsule 50 mg PO DAILY Primary Care Provider: Demond Hadley Referrals: Demond Hadley MD [Primary Care Provider] - Activity Restrictions/Additional Instructions: Please return to the ER for repeat evaluation if you have any further concerns or worsening of symptoms Disposition Disposition: Home, Self Care
[2022-02-07 00:28] VITALS: BP 155/85; PULSE 74; RESP 18; TEMP 23.3; O2SAT 99
== END 2022-02-07 00:30 | disposition home or self-care (01) ==
PROVIDERS: Emergency Provider Emergency Medicine; PCP Family Medicine; Visit Provider Emergency Medicine
DX: U07.1 COVID-19 (principal); E11.9 Type 2 diabetes mellitus without complications; E78.5 Hyperlipidemia, unspecified; I10 Essential (primary) hypertension; J45.909 Unspecified asthma, uncomplicated
CPT/HCPCS: 99282

== ENCOUNTER → 2022-05-28 | Outpatient (CLI) | payer OTHER, SELFPAY ==
--- NOTE | 2022-05-28 08:27 | RAD_ITS ---
STUDY: AIR CONTRAST UPPER GI SERIES and esophagram. REASON FOR EXAM: Female, 62 years old. K21.9 - Gastro-esophageal reflux disease without esophagitis FLUOROSCOPY TIME (if supplied): (1 minute and 2 seconds) minutes/seconds. 22 images were obtained. TECHNIQUE: SINGLE CONTRAST AND AIR CONTRAST FLUOROSCOPIC IMAGES. COMPARISON: None. FINDINGS: The cervical esophagus demonstrates normal motility without aspiration. There is no stricture or extrinsic mass effect. No intraluminal polypoid mass is identified. The thoracic esophagus distends well without stricture or mucosal fold thickening. No mucosal ulcerations are identified. There is no extrinsic mass effect. There are no diverticula. No hiatal hernia or gastroesophageal reflux was identified. The patient ingested a 12 mm tablet of barium without difficulty The stomach distends well without mucosal fold thickening or mucosal ulceration. There is no intraluminal mass. The duodenal bulb is freely distensible without deformity or ulceration. The duodenal sweep is normal in position and caliber. RAD/Upper GI w/BA Swallow IMPRESSION: Normal air-contrast esophagram and upper GI series. Electronically Signed: Zoltan Sherwood MD at 10:13 [facility] ,
== END | disposition home or self-care (01) ==
LOC: RAD 08:23
PROVIDERS: PCP Family Medicine; Visit Provider Surgery
DX: K21.9 Gastro-esophageal reflux disease without esophagitis (principal); R11.0 Nausea
CPT/HCPCS: 74246

== ENCOUNTER → 2022-06-07 | Outpatient (CLI) | payer OTHER, SELFPAY ==
[2022-06-07 15:35] LABS: Absolute Lymphocyte Count 2.13 X10^3/uL (0.83-4.51); Absolute Neutrophil Count 4.7 X10^3/uL (2.0-7.7); Basophil# 0.05 X10^3/uL; Basophil% 0.6 % (0-1); Eosinophils% 5.1 % (0-5); Hematocrit 40.7 % (37-47); Hemoglobin 12.5 g/dL (12.0-15.0); Lymphocyte # 2.13 X10^3/ul (0.83-4.51); Mean Corp Hgb Conc 30.7 g/dL (32-36); Mean Corpuscular Hgb 31.8 pg (27.0-32.0); Mean Corpuscular Volume 103.6 fL (81-99); Mean Platelet Vol. 9.8 fl (6.2-12.0); Monocyte# 0.63 X10^3/uL; NRBC Flagged by Analyzer 0 % (0-5); Neutrophil # 4.65 X10^3/uL (2.7-7.7); Platelet Count 248 K/mm3 (150-450); RBC Distribution Width CV 13.2 % (11.6-14.6); RBC Distribution Width SD 50.6 fl (35.1-43.9); Red Blood Count 3.93 M/mm3 (4.2-5.4); White Blood Count 7.9 K/mm3 (4.4-11.0)
[2022-06-07 15:50] LABS: Vitamin D,25 Hydroxy 86.3 ng/mL
[2022-06-07 15:54] LABS: ALB/GLOB Ratio 0.9 RATIO (0.9-2.4); AST(SGOT) 9 U/L (15-37); Alanine Aminotransfer ALT/SGPT 16 U/L (13-56); Albumin, Serum 3.2 g/dL (3.2-5.0); Alkaline Phosphatase 40 U/L (45-117); Anion Gap 4 (5-15); BUN 23 mg/dL (7-18); BUN/Creat Ratio 21.7 RATIO (10-20); Calcium,Total 9.7 mg/dL (8.5-10.1); Chloride 105 mmol/L (98-107); Cholesterol 217 mg/dL (200); Creatinine, Serum 1.06 mg/dL (0.55-1.02); EST Glomerular Filtration Rate 56 mL/min (>60); Est Glom Filt Rate - Afr Amer 68 mL/min (>60); Free T3 3.2 pg/mL (2.18-3.98); Globulin 3.5 g/dL (2.2-4.2); Glucose 151 mg/dL (74-106); High Density Lipoprotein 79 mg/dL; Potassium 4.1 mmol/L (3.5-5.1); Protein, Total 6.7 g/dL (6.4-8.2); Sodium Level 142 mmol/L (136-145); T4 Free Direct 1.28 ng/dL (0.76-1.46); Thyroid Stim Hormone (TSH) 0.23 uIU/mL (0.358-3.74); Triglycerides 61 mg/dL; Very Low Density Lipoprotein 12 mg/dL (5-40)
[2022-06-07 16:08] LABS: Hemoglobin A1c 6.7 % (3.8-5.6)
== END | disposition home or self-care (01) ==
LOC: MTLAB 14:08
PROVIDERS: PCP Family Medicine; Referring Provider Internal Medicine Rheumatology; Visit Provider Internal Medicine Rheumatology
DX: M06.00 Rheumatoid arthritis without rheumatoid factor, unspecified site (principal); I42.9 Cardiomyopathy, unspecified; E11.65 Type 2 diabetes mellitus with hyperglycemia; E27.40 Unspecified adrenocortical insufficiency; M79.7 Fibromyalgia; K76.0 Fatty (change of) liver, not elsewhere classified; M81.8 Other osteoporosis without current pathological fracture; E78.5 Hyperlipidemia, unspecified; E03.2 Hypothyroidism due to medicaments and other exogenous substances; N20.0 Calculus of kidney; G47.33 Obstructive sleep apnea (adult) (pediatric); M81.0 Age-related osteoporosis without current pathological fracture; E55.9 Vitamin D deficiency, unspecified; Z79.899 Other long term (current) drug therapy
CPT/HCPCS: 36415; 80053; 80061; 82306; 83036; 84439; 84443; 84481; 85025

== ENCOUNTER 2022-07-20 06:46 | Day surgery (SDC) | payer OTHER, SELFPAY ==
[2022-07-20] VITALS (7 sets, daily range): BP systolic 113–132; BP diastolic 72–82; PULSE 70–94; RESP 14–17; TEMP 36.3–36.8; O2SAT 92–95; BMI 30.3
[2022-07-20] MEDS: Lactated Ringers 1,000 ML 15 ML IV (07:21)
--- NOTE | 2022-07-20 07:44 | HP.PCM_ITS ---
History and Physical Date of Admission: 07/20/22 Visit Reasons:?REFLUX & STOMACH ISSUES Chief Complaint: Monoclonal Antibody Infusion Allergies ciprofloxacin [From Cipro] Allergy (Verified 05/18/22 15:28) Otherciprofloxacin HCl [From Cipro] Allergy (Verified 02/06/22 23:46) Othercitric acid Allergy (Verified 05/18/22 15:28) Angioedemaezetimibe [From Zetia] Allergy (Verified 02/06/22 23:46) Otherlevofloxacin [From Levaquin] Allergy (Verified 05/18/22 15:28) effects tendonslinagliptin [From Tradjenta] Allergy (Verified 02/06/22 23:46) Upset Stomachlisinopril Allergy (Verified 05/18/22 15:28) Throat swelling/Hivesoxcarbazepine [From Trileptal] Allergy (Verified 02/06/22 23:46) Otheroxycodone Allergy (Verified 02/06/22 23:46) Low blood pressurepregabalin [From Lyrica] Allergy (Verified 02/06/22 23:46) shortness of breath; balance issues, dizzinesssimvastatin [From Zocor] Allergy (Verified 03/17/21 14:23) MUSCLE WEAKNESStyloxapol Allergy (Verified 04/06/21 14:10) Low blood pressureTILOX Allergy (Uncoded 02/06/22 23:47) HYPOTENSIONTrajenta Adverse Reaction (Uncoded 05/18/22 15:28) Nauseatrileptal Adverse Reaction (Uncoded 05/18/22 15:30) effects muscleszetia Adverse Reaction (Uncoded 05/18/22 15:28) muscle weakness and pain Medications aspirin 81 mg chewable tablet 81 mg PO DAILY@0800 10/13/14 [History Confirmed 05/18/22] biotin 1 mg capsule 1,000 mg PO DAILY 10/13/14 [History Confirmed 05/18/22] calcium carbonate 600 mg calcium (1,500 mg) tablet 600 mg PO DAILY 10/13/14 [History Confirmed 05/18/22] levothyroxine 125 mcg tablet (Levoxyl) 125 mcg PO MOTUWETHFRSA 10/13/14 [History Confirmed 05/18/22] tramadol 50 mg tablet 50 mg PO TID 10/13/14 [History Confirmed 05/18/22] abatacept 125 mg/mL subcutaneous syringe (Orencia) 125 mg SQ QWEEK 01/21/15 [History Confirmed 05/18/22] cholecalciferol (vitamin D3) 25 mcg (1,000 unit) tablet (Vitamin D3) 50,000 mg PO QWEEK 05/23/15 [History Confirmed 05/18/22] carvedilol 6.25 mg tablet 6.25 mg PO BID 06/10/15 [History Confirmed 05/18/22] buspirone 15 mg tablet 15 mg PO 4X/DAY 02/09/18 [History Confirmed 05/18/22] duloxetine 30 mg capsule,delayed release 30 mg PO TID 02/09/18 [History Confirmed 05/18/22] liothyronine 5 mcg tablet 5 mcg PO DAILY 02/09/18 [History Confirmed 05/18/22] loratadine 10 mg tablet (Allergy Relief (loratadine)) 10 mg PO DAILY 02/09/18 [History Confirmed 05/18/22] pantoprazole 40 mg tablet,delayed release 40 mg PO DAILY 08/17/19 [History Confirmed 05/18/22] trazodone 100 mg tablet 200 mg PO QHS 08/17/19 [History Confirmed 05/18/22] alendronate 70 mg tablet 70 mg PO QWEEK 03/17/21 [History Confirmed 05/18/22] calcium carbonate 600 mg-vitamin D3 10 mcg (400 unit) tablet (Calcium 600 + D(3)) 2 tab PO DAILY 03/17/21 [History Confirmed 05/18/22] cyanocobalamin (vitamin B-12) 250 mcg tablet 250 mcg PO DAILY 03/17/21 [History Confirmed 05/18/22] famotidine 20 mg tablet 20 mg PO QHS 03/17/21 [History Confirmed 05/18/22] glucosamine sulfate 750 mg tablet 1,500 mg PO DAILY 03/17/21 [History Confirmed 05/18/22] albuterol sulfate 90 mcg/actuation aerosol inhaler 2 puff inhalation Q4H PRN 05/18/22 [History Confirmed 05/18/22] ergocalciferol (vitamin D2) 1,250 mcg (50,000 unit) capsule 1,250 mcg PO .QOWEEK 05/18/22 [History Confirmed 05/18/22] estradiol 2 mg (7.5 mcg/24 hour) vaginal ring (Estring) 1 vag ring vaginal [id number] 05/18/22 [History Confirmed 05/18/22] fluticasone propionate 110 mcg/actuation HFA aerosol inhaler (Flovent HFA) 1 puff inhalation BID 05/18/22 [History Confirmed 05/18/22] prednisone 10 mg tablet 5 mg PO DAILY 05/18/22 [History Confirmed 05/18/22] semaglutide 0.25 mg or 0.5 mg (2 mg/3 mL) subcutaneous pen injector (Ozempic) 0.25 mg subcut QWEEK 05/18/22 [History Confirmed 05/18/22] spironolactone 25 mg tablet 25 mg PO DAILY 05/18/22 [History Confirmed 05/18/22] PFSH Medical History?(Updated 05/18/22 @ 15:15 by Pattie Deutsch) Anxiety Bundle branch block CPAP (continuous positive airway pressure) dependence Depression Diabetes History of cardiac pacemaker History of Graves' disease History of left heart catheterization (LHC) Hyperlipidemia Hypothyroidism Kidney stones Non-smoker Rheumatoid arthritis Sleep apnea Strain of tendon of foot and ankle Stroke/cerebrovascular accident Surgical History?(Updated 05/18/22 @ 15:15 by Pattie Deutsch) History of hand surgery History of hysterectomy S/P brain surgery S/P cardiac pacemaker procedure S/P foot surgery S/P nasal surgery S/P right heart catheterization S/P spinal surgery Social History? Smoking Status:? Never smoker HPI HPI HPI: 62-year-old female.? She presents on her own volition to discuss a diagnosis of hiatal hernia and reflux disease.? Primary care physician Dr. Hadley now refer him on a copy of this discussion. The patient states that several years ago Dr. Carmel kendrick who is now retired had instructed her that she had a hiatal hernia and she consider having it repair ed.? The patient however goes on that a large component of her problem is nausea which is driven by anxiety.? She does see a psychiatrist who prescribes BuSpar and that actually remarkably helps with her reflux problems.? She does take medication.? Pepcid and pantoprazole. And another symptom that she gets very frequently and quite severely her episodes of nausea and these episodes are particularly driven by her anxiety.? The patient can retch uncontrollably apparently to the point where she has to seek emergency room assistance. She has expressed that previous investigation scared her because she was instructed that patients could no longer vomit after the procedure. ROS General General: Yes fatigue; No weight change, appetite, colon cancer, breast cancer or weakness HEENT HEENT: Yes difficulty swallowing; No eye injury, eye surgery, swollen glands or hoarseness Endo Endocrine: Yes thyroid disease and diabetes mellitus; No thyroid cancer, Hair loss, heat intolerance or cold intolerance Skin Skin: No rash or changing moles Breast Breast: No left breast lump, right breast lump, nipple discharge, breast pain, abnormal mammogram, abnormal US or breast enlargement Musc Musculoskeletal: Yes back problems, arthritis and rheumatoid arthritis; No gout or joint pain Cardio Cardiovascular: Yes pacemaker, heart disease, atrial fibrillation and heart attack; No murmur, high blood pressure, heart stent, palpitations, shortness of breat with exertion or chest pain Psych Psychiatric: Yes depression and anxiety; No hearing voices Resp Respiratory: Yes shortness of breath, Yes sleep apnea, No cough, No COPD, Yes asthma, No emphysema and No wheezing Gastro Gastrointestinal: No abdominal pain, No nausea or vomiting, No diarrhea, Yes constipation, No blood in stool, Yes acid reflux, Yes hemorrhoids, No ulcers, No gallbladder problem and No black,tarry stools Lupillo Hematologic: No blood thinners, No blood disorders, No bleeding, No anemia and No blood clots Neuro Neurologic: No system reviewed and no additional complaints, except as documented, No as per HPI, No abnormal gait, No abnormal hearing, No abnormal movements, No abnormal speech, No behavioral changes, No burning sensations, No confusion, No convulsions, No disequilibrium, No dizziness, No localized weakne ss, No frequent falls, No headache(s), No lack of coordination, No loss of vision, No memory loss, No numbness, No other visual disturbances, No radicular pain, No restless legs, No sensory deficit, No syncope, No tingling, No tremor(s), No weakness and No other Exam Const General: cooperative Eyes General: appearance normal, both eyes and all related structures Resp Effort & Inspection: normal respiratory effort Auscultation: clear to auscultation bilaterally Cardio Rate: regular rate Rhythm: regular rhythm GI Palpation: soft and no hepatosplenomegaly Auscultation: normal bowel sounds Other: Overweight. Musc Cervical Spine: normal cervical lordosis Neuro General: patient alert and patient awake Psych Mood: anxious mood Assessment and Plan Assessment and Plan (1) GERD (gastroesophageal reflux disease): ?Status:?Chronic ?Patient Instructions: Clearly this patient has symptoms that would correlate well with gastroesophageal reflux disease.? She does treat herself medically and it appears that anxiety greatly aggravates her symptoms.? Unfortunately she also has problems with significant mount of nausea also anxiety driven. I do not have her previous records.? Based upon some of her presenting illness it is not clear to me that she would be served well by a surgical reflux procedure.? I am very concerned that her anxiety driven reflux and nausea would lead to an early failure of repair.? All that being said however I do believe it is important for us to try to get records from her previous upper endoscopy as neither she nor her are completely clear as to how long ago that might of been.? I would like to get the operative note and pathology.? I do believe t hat with her ongoing symptoms of reflux it is pertinent to pursue a esophagogastroduodenoscopy with very careful inspection of the distal esophagus looking for evidence of inflammation or Soto's.? Think that with the degree of her nausea also be pertinent to obtain a biopsy for H. pylori. Finally I think getting a contrast upper GI study to get a hardcopy image of her stomach and the degree of hiatal hernia that she has would be very pertinent to facilitating her care. She has had an opportunity to ask and have questions answered.? She is aware of technique, benefit, risk of alternatives. I think at least evaluating her in the above manner would add knowledge to her condition.? However as stated at this point I think it is less likely that we would then additionally pursue additional testing or consider a surgical repair. Appreciate the opportunity of assisting with her surgical care. Copy: Dr. Demond Covarrubias M.D., F.A.C.S May 28, 2022 TUDY:? AIR CONTRAST UPPER GI SERIES? and esophagram. REASON FOR EXAM:? Female, 62 years old.? K21.9 - Gastro-esophageal reflux disease without esophagitis FLUOROSCOPY TIME (if supplied): (1 minute and 2 seconds) minutes/seconds. 22 images were obtained. TECHNIQUE:? SINGLE CONTRAST AND AIR CONTRAST FLUOROSCOPIC IMAGES. COMPARISON:? None. FINDINGS: The cervical esophagus demonstrates normal motility without aspiration. There is no stricture or extrinsic mass effect.? No intraluminal polypoid mass is identified. The thoracic esophagus distends well without stricture or mucosal fold thickening.? No mucosal ulcerations are identified.? There is no extrinsic mass effect.? There are no diverticula. No hiatal hernia or gastroesophageal reflux was identified.? The patient ingested a 12 mm tablet of barium without difficulty The stomach distends well without mucosal fold thickening or mucosal ulceration.? There is no intraluminal mass.? The duodenal bulb is freely distensible without deformity or ulceration.? The duodenal sweep is normal in position and caliber. RAD/Upper GI w/BA Swallow IMPRESSION: Normal air-contrast esophagram and upper GI series. ? Electronically Signed: Zoltan Sherwood MD at 10:[address] [facility] , The patient's upper GI contrast study was interpreted as normal. I have personally reviewed those images and concur. She presents today for a esophagogastroduodenoscopy with biopsy if indicated. She is aware of technique, benefit, risk, alternatives. History and physical is otherwise unchanged and reviewed. Chilo Covarrubias M.D., F.A.C.S.
--- NOTE | 2022-07-20 08:00 | EGD_PTH ---
PATIENT: LINA SIMMONS LOC: EN U#:[id number] AGE/SX: 62/F ROOM: RE07/20/[address]: Dr. Chilo Covarrubias MD : 1960 BED: DIS: 07/20/2022 SPEC #: [id number] RECD: 07/20/22 11:57 STATUS: PANKAJ LORE #: [id number] DOE: 07/20/22 08:[address]: Chilo Covarrubias DEPT: SURGICAL PATHOLOGY RECD BY: Cynthia Adams ENTERED: 07/20/22 12:46 SP TYPE: EGD BIOPSY OTHR DR: Dr. Demond Hadley MD Tissues: A - Duodenum, NOS B - Gastric mucous membrane C - Stomach, NOS D - Esophagus, NOS E - Esophagus, NOS F - Esophagus, NOS Procedures: Surgery Specimen Level IV HEADER OPERATION: EGD ([facility] [place]), biopsy PRE-OP DIAGNOSIS: GERD TISSUE SUBMITTED: A ? Biopsy duodenum, B ? Biopsy antrum, C ? Biopsy greater curvature, D ? Biopsy distal esophagus, E ? Biopsy mid esophagus, F - Biopsy mid esophagus polyp MICROSCOPIC DIAGNOSIS A. Duodenum, biopsy: A fragment of duodenal mucosa, no pathologic diagnosis. B. Antrum, biopsy: Mild gastritis. See microscopic description and comment. C. Greater curvature polyp, biopsy: Fundic gland polyp. D. Distal esophagus, biopsy: Fragments of benign squamous epithelium with acute and chronic inflammation. A few fragments of benign gastric epithelium. Intestinal metaplasia (goblet cell metaplasia) not identified. See comment. E. Mid esophagus, biopsy: Fragments of benign squamous epithelium with changes consistent with eosinophilic esophagitis. A few fragments of gastric epithelium. Intestinal metaplasia (goblet cell metaplasia) not identified. See comment. F. Mid esophagus polyp, biopsy: A fragment of squamous epithelium with changes consistent with eosinophilic esophagitis. See comment. SJ:rg 07/21/2022 COMMENT B. The results of immunohistochemistry for Helicobacter pylori will be reported separately ([id number]). D. Alcian blue/PAS stain with matched control is used in the evaluation of the specimen. E. Increased number of eosinophils (>20 per high power field) are noted, consistent with eosinophilic esophagitis. Alcian blue/PAS stain with matched control is used in the evaluation of the specimen. F. Increased number of eosinophils (~15 per high power field) are noted, consistent with eosinophilic esophagitis. MICROSCOPIC DESCRIPTION Slides are reviewed. B. The specimen shows fragments of gastric mucosa with chronic inflammatory cell infiltrates in the lamina propria consisting of lymphocytes and plasma cells, consistent with mild chronic gastritis. GROSS DESCRIPTION A - Received in fixative is one container labeled with the patient's name and designated biopsy duodenum. The specimen consists of one irregular fragment of light [place] soft tissue that measures 0.3 x 0.3 x 0.1 cm. The specimen is totally submitted in one cassette. B - Received in fixative is one container labeled with the patient's name and designated biopsy gastric antrum. The specimen consists of one irregular fragment of light [place] soft tissue that measures 0.3 x 0.3 x 0.1 cm. The specimen is totally submitted in one cassette. C - Received in fixative is one container labeled with the patient's name and designated greater curvature polyp. The specimen consists of one irregular fragment of light [place] soft tissue that measures 0.3 x 0.3 x 0.1 cm. The specimen is totally submitted in one cassette. D - Received in fixative is one container labeled with the patient's name and designated biopsy distal esophagus. The specimen consists of multiple irregular fragments of light [place] soft tissue that in aggregate measure 0.6 x 0.3 x 0.1 cm. The specimen is totally submitted in one cassette. E - Received in fixative is one container labeled with the patient's name and designated biopsy mid esophagus. The specimen consists of multiple irregular fragments of light [place] soft tissue that in aggregate measure 0.6 x 0.3 x 0.1 cm. The specimen is totally submitted in one cassette. F - Received in fixative is one container labeled with the patient's name and designated biopsy mid esophagus polyp. The specimen consists of one irregular fragment of light [place] soft tissue that measures 0.3 x 0.2 x 0.1 cm. The specimen is totally submitted in one cassette. / SJ:rg 07/20/2022 TC:3 CPT: 89087 x6, 72252 x2
--- NOTE | 2022-07-20 08:00 | IMM_PTH ---
PATIENT: LINA SIMMONS LOC: EN U#:[id number] AGE/SX: 62/F ROOM: RE07/20/[address]: Dr. Chilo Covarrubias MD : 1960 BED: DIS: 07/20/2022 SPEC #: [id number] RECD: 07/20/22 13:41 STATUS: PANKAJ REHoward #: [id number] DOE: 07/20/22 08:[address]: Chilo Covarrubias DEPT: IMMUNOHISTOCHEMISTRY RECD BY: Rosio York ENTERED: 07/20/22 13:42 SP TYPE: IMMUNO OTHR DR: Dr. Demond Hadley MD Tissues: B - Stomach, NOS Procedures: H Pylori (initial) PHYSICIAN & INSTITUTION [place] [id number] SPECIMEN INFORMATION: Tissue Source: B ? Antrum biopsy Clinical Info: GERD Specimen Number: [id number] CPT code: 42037 METHODOLOGY: Deparaffinized sections of prefer/formalin-fixed tissue or PAP/DQ stained slides are incubated with monoclonal/polyclonal antibodies/oligonucleotide probes. Localization is made via biotin free immunoperoxidase method. Appropriate controls are performed and reacted as expected. Results on target cell population are indicated in the following table: RESULTS: ANTIBODY / CLONE RESULT Block B H Pylori (polyclonal) negative These tests were developed and their performance characteristics determined by [facility]. They may not have been cleared or approved by the U.S. Food and Drug Administration. The FDA has determined that such clearance or approval is not necessary. The above immunohistochemical/dualISH markers are ordered and reviewed by the Pathologist. INTERPRETATION: B. Antrum, biopsy: Negative for Helicobacter pylori organisms. SJ:maria isabel 07/21/2022
--- NOTE | 2022-07-20 08:17 | OP.EGD_ITS ---
Patient Name: Dana Matos Procedure Date: 07/20/2022 7:34 AM Date of : 1960 Age: 62 Procedure: Upper GI endoscopy Indications: Suspected esophageal reflux Providers: Chilo Covarrubias MD Medicines: See the Anesthesia note for documentation of the administered medications Complications: No immediate complications. Procedure: Pre-Anesthesia Assessment: - Prior to the procedure, a History and Physical was performed, and patient medications and allergies were reviewed. The patient's tolerance of previous anesthesia was also reviewed. The risks and benefits of the procedure and the sedation options and risks were discussed with the patient. All questions were answered, and informed consent was obtained. Prior Anticoagulants: The patient has taken aspirin, last dose was day of procedure. ASA Grade Assessment: II - A patient with mild systemic disease. After reviewing the risks and benefits, the patient was deemed in satisfactory condition to undergo the procedure. After obtaining informed consent, the endoscope was passed under direct vision. Throughout the procedure, the patient's blood pressure, pulse, and oxygen saturations were monitored continuously. The gastroscope was introduced through the mouth, and advanced to the second part of duodenum. The upper GI endoscopy was accomplished without difficulty. The patient tolerated the procedure well. Scope In: 7:58:11 AM Scope Out: 8:07:46 AM Total Procedure Duration Time 0 hours 9 minutes 35 seconds Findings: A few polyps with no bleeding were found 20 cm from the incisors. The polyp was removed with a cold biopsy forceps. Resection and retrieval were complete. Diffuse mild mucosal variance characterized by scalloping was found in the middle third of the esophagus. Biopsies were taken with a cold forceps for histology. LA Grade A (one or more mucosal breaks less than 5 mm, not extending between tops of 2 mucosal folds) esophagitis with no bleeding was found 38 cm from the incisors. Biopsies were taken with a cold forceps for histology. The Z-line was variable and was found 38 cm from the incisors. A small hiatal hernia was present. Diffuse mildly erythematous mucosa without bleeding was found in the gastric antrum. Biopsies were taken with a cold forceps for histology. The examined duodenum was normal. Biopsies were taken with a cold forceps for histology. A few sessile polyps with no bleeding and no stigmata of recent bleeding were found on the greater curvature of the stomach. The polyp was removed with a cold biopsy forceps. Resection and retrieval were complete. Impression: - Esophageal polyp(s) were found. Resected and retrieved. - Esophageal mucosal variant. Biopsied. Possible eosinophyllic esophagitis - LA Grade A reflux esophagitis. Biopsied. - Z-line variable, 38 cm from the incisors. - Small hiatal hernia. - Erythematous mucosa in the antrum. Biopsied. - Normal examined duodenum. Biopsied. - A few gastric polyps. Resected and retrieved. Recommendation: - Telephone my office for pathology results in 1 week. - Continue present medications. Procedure Code(s): --- Professional --- 04253, Esophagogastroduodenoscopy, flexible, transoral; with biopsy, single or multiple Diagnosis Code(s): --- Professional --- K22.8, Other specified diseases of esophagus K21.0, Gastro-esophageal reflux disease with esophagitis K44.9, Diaphragmatic hernia without obstruction or gangrene K31.89, Other diseases of stomach and duodenum K31.7, Polyp of stomach and duodenum CPT copyright 2017 [employer]. All rights reserved. The codes documented in this report are preliminary and upon wire winding machine tender review may be revised to meet current compliance requirements. Chilo Covarrubias MD 07/20/2022 8:16:39 AM This report has been signed electronically. Number of Addenda: 0 Note Initiated On: 07/20/2022 7:34 AM
--- NOTE | 2022-07-20 08:17 | OP.CCLET_ITS ---
07/20/2022 Demond Hadley Re : Upper GI endoscopy procedure for Dana Phamjose Hadley This procedure was performed on Wednesday, July 20, 2022. My impressions and recommendations are as follows: Impressions : - Esophageal polyp(s) were found. Resected and retrieved. - Esophageal mucosal variant. Biopsied. Possible eosinophyllic esophagitis - LA Grade A reflux esophagitis. Biopsied. - Z-line variable, 38 cm from the incisors. - Small hiatal hernia. - Erythematous mucosa in the antrum. Biopsied. - Normal examined duodenum. Biopsied. - A few gastric polyps. Resected and retrieved. Recommendations : - Telephone my office for pathology results in 1 week. - Continue present medications. My findings are described in the full procedure note, which is enclosed. If I can be of further assistance, please feel free to contact me at Doctor phone number(s): Work: . Sincerely, Chilo Covarrubias MD 07/20/2022 8:16:39 AM This report has been signed electronically.
== END 2022-07-20 08:49 | disposition home or self-care (01) ==
LOC: EN 06:46 → AC 06:48
PROVIDERS: PCP Family Medicine; Referring Provider Family Medicine; Visit Provider Surgery
PROC: 0DJ08ZZ Inspection of Upper Intestinal Tract, Via Natural or Artificial Opening Endoscopic (ICD-10-PCS; CPT 43235; principal; 2022-07-20 07:55)
DX: K44.9 Diaphragmatic hernia without obstruction or gangrene (principal); E11.9 Type 2 diabetes mellitus without complications; K31.7 Polyp of stomach and duodenum; K21.00 Gastro-esophageal reflux disease with esophagitis, without bleeding; K22.81 Esophageal polyp; E78.5 Hyperlipidemia, unspecified; E03.9 Hypothyroidism, unspecified; Z79.899 Other long term (current) drug therapy; K29.70 Gastritis, unspecified, without bleeding
CPT/HCPCS: 43239; 88305; 88342; J7120; J2405

== ENCOUNTER → 2022-08-17 | Outpatient (CLI) | payer OTHER, SELFPAY ==
[2022-08-17 16:03] LABS: Hemoglobin A1c 6.9 % (3.8-5.6)
[2022-08-17 16:13] LABS: ALB/GLOB Ratio 0.9 RATIO (0.9-2.4); AST(SGOT) 12 U/L (15-37); Alanine Aminotransfer ALT/SGPT 25 U/L (13-56); Albumin, Serum 3.4 g/dL (3.2-5.0); Alkaline Phosphatase 43 U/L (45-117); Anion Gap 7 (5-15); BUN 23 mg/dL (7-18); BUN/Creat Ratio 19.5 RATIO (10-20); Calcium,Total 9.8 mg/dL (8.5-10.1); Chloride 101 mmol/L (98-107); Cholesterol 235 mg/dL (200); Creatinine, Serum 1.18 mg/dL (0.55-1.02); EST Glomerular Filtration Rate 49 mL/min (>60); Est Glom Filt Rate - Afr Amer 60 mL/min (>60); Free T3 3.2 pg/mL (2.18-3.98); Globulin 3.8 g/dL (2.2-4.2); Glucose 129 mg/dL (74-106); High Density Lipoprotein 82 mg/dL; Potassium 3.9 mmol/L (3.5-5.1); Protein, Total 7.2 g/dL (6.4-8.2); Sodium Level 139 mmol/L (136-145); T4 Free Direct 1.25 ng/dL (0.76-1.46); Triglycerides 124 mg/dL; Very Low Density Lipoprotein 25 mg/dL (5-40)
[2022-08-17 16:23] LABS: Microalbumin,Random Urine 21.7 mg/L (NO RANGE EST.)
== END | disposition home or self-care (01) ==
LOC: MTLAB 12:34
PROVIDERS: PCP Family Medicine; Referring Provider Internal Medicine Endocrinology, Diabetes & Metabolism; Visit Provider Internal Medicine Endocrinology, Diabetes & Metabolism
DX: E27.40 Unspecified adrenocortical insufficiency (principal); E11.65 Type 2 diabetes mellitus with hyperglycemia; E03.9 Hypothyroidism, unspecified; M81.0 Age-related osteoporosis without current pathological fracture; E55.9 Vitamin D deficiency, unspecified
CPT/HCPCS: 36415; 80053; 80061; 82043; 83036; 84439; 84443; 84481

== ENCOUNTER 2022-11-29 03:38 | Emergency (ER) | payer OTHER, SELFPAY ==
[2022-11-29 03:40] VITALS: BP 131/82; PULSE 75; RESP 18; TEMP 36.2; O2SAT 98; BMI 31.4
--- NOTE | 2022-11-29 03:50 | EDS_ITS ---
HPI HPI - Female History of Present Illness Chief Complaint: Vag Bleeding Informant: patient Narrative Narrative: Presents concerns of prolapse. Patient reports having urine frequency. This evening she felt pressure in her vaginal area. She has an estrogen ring that she placed 2 weeks ago. She thought it was coming out however she states she is feeling extra tissue as my insides were coming out. No history of prolapse in the past. Mild vaginal bleeding. She is on baby aspirin. 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 Denies fevers. Prior similar symptoms: No PFSH PFSH Medical History Anxiety Asthma Back pain Bundle branch block Cancer Cardiology follow-up encounter CPAP (continuous positive airway pressure) dependence Depression Diabetes Dietary restriction Difficulty swallowing Gastric reflux History of CHF (congestive heart failure) History of echocardiogram History of edema History of Graves' disease History of heart attack History of left heart catheterization (LHC) History of renal disease History of stress test Hyperlipidemia Hypothyroidism Non-smoker Post-menopausal Rheumatoid arthritis Shortness of breath on exertion Strain of tendon of foot and ankle Stroke/cerebrovascular accident Tinnitus Wears glasses Home Medications aspirin 81 mg chewable tablet 81 mg PO DAILY@0800 10/13/14 [History Last Taken 07/19/22] biotin 1 mg capsule 1,000 mg PO DAILY 10/13/14 [History Last Taken 07/19/22] calcium carbonate 600 mg calcium (1,500 mg) tablet 600 mg PO DAILY 10/13/14 [History Last Taken 07/19/22] levothyroxine 125 mcg tablet (Levoxyl) 125 mcg PO MOTUWETHFRSA 10/13/14 [History Last Taken 07/19/22] tramadol 50 mg tablet 50 mg PO TID 10/13/14 [History Last Taken 07/19/22] abatacept 125 mg/mL subcutaneous syringe (Orencia) 125 mg SQ QWEEK 01/21/15 [History Last Taken 07/19/22] buspirone 15 mg tablet 15 mg PO 4X/DAY 02/09/18 [History Last Taken 07/20/22] duloxetine 30 mg capsule,delayed release 30 mg PO TID 02/09/18 [History Last Taken 07/19/22] liothyronine 5 mcg tablet 5 mcg PO DAILY 02/09/18 [History Last Taken 07/19/22] loratadine 10 mg tablet (Allergy Relief (loratadine)) 10 mg PO DAILY 02/09/18 [History Last Taken 07/19/22] pantoprazole 40 mg tablet,delayed release 40 mg PO DAILY 08/17/19 [History Last Taken 07/19/22] trazodone 100 mg tablet 200 mg PO QHS 08/17/19 [History Last Taken 07/19/22] alendronate 70 mg tablet 70 mg PO QWEEK 03/17/21 [History Last Taken 07/19/22] calcium carbonate 600 mg-vitamin D3 10 mcg (400 unit) tablet (Calcium 600 + D(3)) 2 tab PO DAILY 03/17/21 [History Last Taken 07/19/22] cyanocobalamin (vitamin B-12) 250 mcg tablet 250 mcg PO DAILY 03/17/21 [History Last Taken 07/19/22] famotidine 20 mg tablet 20 mg PO QHS 03/17/21 [History Last Taken 07/19/22] glucosamine sulfate 750 mg tablet 1,500 mg PO DAILY 03/17/21 [History Last Taken 07/19/22] albuterol sulfate 90 mcg/actuation aerosol inhaler 2 puff inhalation Q4H PRN SOB 05/18/22 [History Last Taken 07/19/22] estradiol 2 mg (7.5 mcg/24 hour) vaginal ring (Estring) 1 vag ring vaginal [id number] 05/18/22 [History Last Taken 07/19/22] prednisone 10 mg tablet 5 mg PO DAILY 05/18/22 [History Last Taken 07/19/22] semaglutide 0.25 mg or 0.5 mg (2 mg/3 mL) subcutaneous pen injector (Ozempic) 0.25 mg subcut QWEEK 05/18/22 [History Last Taken 07/19/22] spironolactone 25 mg tablet 25 mg PO DAILY 05/18/22 [History Last Taken 07/19/22] nitrofurantoin monohydrate/macrocrystals 100 mg capsule 100 mg PO Q12 #10 CAPSULES 11/29/22 [Rx Last Taken Unknown] phenazopyridine 200 mg tablet (Pyridium) 200 mg PO TID #10 tabs 11/29/22 [Rx Last Taken Unknown] Allergy/AdvReac Type Severity Reaction Status Date / Time ciprofloxacin [From Cipro] Allergy Other Verified 11/29/22 03:39 ciprofloxacin HCl Allergy Other Verified 11/29/22 03:39 [From Cipro] citric acid Allergy Angioedema Verified 11/29/22 03:39 ezetimibe [From Zetia] Allergy Other Verified 11/29/22 03:39 levofloxacin [From Levaquin] Allergy effects Verified 11/29/22 03:39 tendons linagliptin [From Tradjenta] Allergy Upset Verified 11/29/22 03:39 Stomach lisinopril Allergy Throat Verified 11/29/22 03:39 swelling/Hives oxcarbazepine Allergy Other Verified 11/29/22 03:39 [From Trileptal] oxycodone Allergy Low blood Verified 11/29/22 03:39 pressure pregabalin [From Lyrica] Allergy shortness Verified 11/29/22 03:39 of breath; balance issues, dizziness simvastatin [From Zocor] Allergy MUSCLE Verified 11/29/22 03:39 WEAKNESS tyloxapol Allergy Low blood Verified 11/29/22 03:39 pressure Family History Mother Diabetes Heart disease Father Diabetes Heart disease CVA (cerebral vascular accident) Surgical History History of hand surgery History of hysterectomy S/P brain surgery S/P cardiac pacemaker procedure S/P foot surgery S/P nasal surgery S/P right heart catheterization S/P spinal surgery Social History household members: spouse Smoking Status: Never smoker alcohol intake: never substance use type: does not use ROS ROS ED Constitutional Constitutional ED: Denies chills, fever(s) or sweats Eyes Eyes: Denies change in vision ENT ENT ED: Denies dysphagia or sore throat Cardiovascular Cardiovascular: Denies chest pain, leg edema, palpitations or racing heartbeat Respiratory/Chest Respiratory/Chest: Denies cough, dyspnea or dyspnea on exertion Gastrointestinal Gastrointestinal: Denies abdominal pain, diarrhea, nausea or vomiting Genitourinary Genitourinary ED: Reports urinary frequency and other Details: Vaginal pressure, mild vaginal bleeding ; Denies dysuria or hematuria Musculoskeletal Musculoskeletal: Denies back pain, extremity pain or neck pain Integumentary Denies rash or wounds Neurologic Neurologic: Denies headache(s), paresthesias or weakness EXAM Physical Exam Const Vital Signs: 11/29/22 03:40 Temperature 97.1 F L Temperature Source Temporal Pulse Rate 75 Respiratory Rate 18 Blood Pressure 131/82 H Blood Pressure Mean 98 Pulse Ox 98 Oxygen Delivery Method Room Air Positive well nourished and well developed General Appearance ED: well developed and NAD HEENT Reports moist mucous membranes normocephalic and atraumatic Eyes PERRL, EOMs intact bilaterally and conjunctivae normal General Eye ED: Yes normal appearance of both eyes Neck no lymphadenopathy and supple General: Negative for tenderness Chest Wall Chest: Negative for tenderness Resp normal respiratory effort and normal air movement Effort and Inspection: symmetric chest movement; Negative for respiratory distress Cardio regular rate, regular rhythm and no murmurs Peripheral Pulses: pulses 2+ throughout GI normal to inspection, nondistended, normoactive bowel sounds and non-tender Palpation: Negative for guarding or rebound tenderness present Narrative: Nursing present to assist. External exam, opening of the vaginal canal noted cervix structure, gentle pressure with speculum would reduce and pushed up, visualize estrogen ring. There is no active bleeding. Back/Spine no CVA tenderness and no thoracic nor lumbar tenderness Extremity normal to inspection General Extremety ED: Negative for edema or tenderness General Extremity: Negative for edema Neuro oriented x3 and no sensory deficits noted Sensorium / Orientation: awake and alert Skin no rashes or lesions noted and no wounds MDM MDM MDM Narrative Medical decision making narrative: Interventions / MDM: Differential diagnosis: Prolapsed uterus Diagnosis considered but do not suspect: N/A My EKG interpretation: N/A Imaging independently reviewed and interpreted by myself: N/A External documents reviewed: N/A Test considered but not ordered:N/A ED course: Re-evaluation: stable Disposition discussed with patient/family/significant other: Case discussed with consulting clinician: N/A This note was generated with [email or web address] dictation software. It may contain incorrect words, spelling, and punctuation that were not noted in checking the note before signing. Lab Data Labs: Laboratory Results - last 24 hr 11/29/22 03:59 Urine Color Yellow Urine Clarity Clear Urine pH 7.0 Ur Specific [place] 1.010 Urine Protein 15 H Urine Glucose (UA) Normal Urine Ketones Negative Urine Occult Blood 250 H Urine Nitrite Negative Urine Bilirubin Negative Urine Urobilinogen Normal Ur Leukocyte Esterase 25 H Urine RBC 10-25 SEEN Urine WBC 0-5 SEEN Ur Squamous Epith Cells 0-5 SEEN Urine Bacteria RARE Urine Mucus 0 SEEN Discharge Plan Triage Chief Complaint: Vag Bleeding ED Provider: Pool Schwartz Dx/Rx/DC Orders Clinical Impression: Prolapse of uterus, UTI (urinary tract infection) Instructions: Pelvic Organ Prolapse, Pelvic Organ Prolapse Nonsurg Tx, Pelvic Organ Prolapse Surgery ..., Urinary Tract Infections in Women Prescriptions: New phenazopyridine [Pyridium] 200 mg tablet 200 mg PO TID Qty: 10 0RF nitrofurantoin monohyd/m-cryst [nitrofurantoin monohyd/m-cryst] 100 mg capsule 100 mg PO Q12 Qty: 10 0RF No Action albuterol sulfate 90 mcg/actuation HFA aerosol inhaler 2 puff inhalation Q4H PRN (Reason: SOB) Estring 2 mg (7.5 mcg /24 hour) ring 1 vag ring vaginal [id number] Ozempic 0.25 mg or 0.5 mg (2 mg/3 mL) pen injector 0.25 mg subcut QWEEK Rx Instructions: for 4 weeks calcium carbonate 600 MG tablet 600 mg PO DAILY Patient Comments: SUPPLEMENT aspirin 81 MG tablet,chewable 81 mg PO DAILY@0800 Patient Comments: [facility] tramadol 50 MG tablet 50 mg PO TID Patient Comments: PAIN levothyroxine [Levoxyl] 125 MCG tablet 125 mcg PO MOTUWETHFRSA Patient Comments: Thyroid replacement biotin 1 MG capsule 1,000 mg PO DAILY Patient Comments: SUPPLEMENT Orencia 125 MG/ML syringe 125 mg SQ QWEEK Patient Comments: on liothyronine 5 MCG tablet 5 mcg PO DAILY loratadine [Allergy Relief (loratadine)] 10 MG tablet 10 mg PO DAILY buspirone 15 MG tablet 15 mg PO 4X/DAY duloxetine 30 MG capsule 30 mg PO TID prednisone 10 mg tablet 5 mg PO DAILY Taper: Prednisone Taper 40 mg DAILY@0800 for 3 Days 30 mg DAILY@0800 for 3 Days 20 mg DAILY@0800 for 3 Days 10 mg DAILY@0800 for 3 Days Patient Comments: steroid trazodone 100 MG tablet 200 mg PO QHS pantoprazole 40 MG tablet 40 mg PO DAILY alendronate 70 mg Tablet 70 mg PO QWEEK cyanocobalamin (vitamin B-12) 250 mcg Tablet 250 mcg PO DAILY famotidine 20 mg Tablet 20 mg PO QHS glucosamine sulfate [Glucosamine] 750 mg Tablet 1,500 mg PO DAILY calcium carbonate-vitamin D3 [Calcium 600 + D(3)] 600 mg(1,500mg) -400 unit Tablet 2 tab PO DAILY spironolactone 25 mg tablet 25 mg PO DAILY Primary Care Provider: Demond Hdaley Referrals: ROMAIN DE LA O MD [Non-Staff] - 1 Day Demond Hadley MD [Primary Care Provider] - Activity Restrictions/Additional Instructions: Urine with signs of infection. Take antibiotics as prescribed. Clinical exam consistent for uterine prolapse with examination visualize cervix at the vaginal opening. Call your photonics engineering technologist for outpatient evaluation and treatment options. Disposition Disposition: Home, Self Care Discharge Date/Time: 11/29/22 04:56
[2022-11-29 04:07] LABS: Mucous, Urine 0 SEEN /hpf (<or=2+)
[2022-11-29 04:23] LABS: Color, Urine Yellow (Yellow); Glucose, Dipstick Normal (Normal); Ketone-Dipstick Negative (Negative); Leukocyte Esterase-Dipstick 25 /ul (Negative); Nitrite-Dipstick Negative (Negative); Occult Blood-Urine 250 /ul (Negative); Protein-Dipstick 15 mg/dl (Negative); Urine Bilirubin Dipstick Negative (Negative); Urine Clarity Clear (Clear); Urine Urobilinogen Normal (Normal)
[2022-11-29 04:35] LABS: Bacteria RARE /hpf (None Seen); Red Blood Cells-Urine 10-25 SEEN /hpf (0-5); Squamous Epithelial Cells - UA 0-5 SEEN /hpf (5-10); White Blood Cells 0-5 SEEN /hpf (0-5)
[2022-11-29] MEDS: Nitrofurantoin Macrocrystals 100 MG Capsule PO (04:53)
[2022-11-29] MEDS: Phenazopyridine 95 MG Tablet 190 MG PO (04:54)
== END 2022-11-29 04:56 | disposition home or self-care (01) ==
PROVIDERS: Emergency Provider Emergency Medicine; PCP Family Medicine; Visit Provider Emergency Medicine
DX: N81.4 Uterovaginal prolapse, unspecified (principal); I50.9 Heart failure, unspecified; E11.9 Type 2 diabetes mellitus without complications; N39.0 Urinary tract infection, site not specified; E78.5 Hyperlipidemia, unspecified; R35.0 Frequency of micturition
CPT/HCPCS: 81001; 87086; 87088; 99283

== ENCOUNTER 2022-12-23 07:43 | Day surgery (SDC) | payer OTHER, SELFPAY ==
[2022-12-23] VITALS (7 sets, daily range): BP systolic 107–126; BP diastolic 52–84; PULSE 66–75; RESP 16–18; TEMP 36.2–36.6; O2SAT 92–98; BMI 30.7
[2022-12-23] MEDS: Lactated Ringers 1,000 ML 15 ML IV (08:28)
[2022-12-23 08:37] LABS: Bedside Glucose 211 mg/dL (74-106)
--- NOTE | 2022-12-23 09:15 | SOF_PTH ---
PATIENT: LINA SIMMONS LOC: [facility] [place] U#:[id number] AGE/SX: 62/F ROOM: RE12/23/[address]: Dr. Zayra Medina MD : 1960 BED: DIS: 12/23/2022 SPEC #: [id number] RECD: 12/23/22 10:38 STATUS: PANKAJ REHoward #: [id number] DOE: 12/23/22 09:[address]: Zayra Medina DEPT: SURGICAL PATHOLOGY RECD BY: Cynthia Adams ENTERED: 12/23/22 11:53 SP TYPE: SOFT TISS OTHR DR: Dr. Camille Zhang, DO Tissues: Urethra, NOS Procedures: Surgery Specimen Level IV HEADER OPERATION: Cysto, excision of urethral prolapse PRE-OP DIAGNOSIS: Urethral prolapse TISSUE SUBMITTED: Urethral mucosa MICROSCOPIC DIAGNOSIS Urethral mucosa, excision: A piece of urothelial-squamous mucosa with acute and chronic inflammation, congestion, organizing thrombus formation. SJ:maria isabel 12/24/2022 MICROSCOPIC DESCRIPTION Slides are reviewed. GROSS DESCRIPTION Received in fixative is one container labeled with the patient's name and designated urethra mucosa. The specimen consists of an irregular piece of [place] mucosal tissue measuring 2.7 x 1.2 x 1.0 cm. Sections reveal congested cut surfaces. The entire specimen is submitted in two cassettes. / TIFFANIE:maria isabel 12/23/2022 TC:5 CPT: 05038
--- NOTE | 2022-12-23 09:31 | DCINST_ITS ---
Discharge Instructions Diet Discharge Diet: No restrictions Activity Discharge Activity: May Shower May resume sexual activity in: 4 weeks Dressing / Incision Call your doctor if your incision/area has: Continuous Slow Oozing, Sudden Increased Bleeding, Increased Pain/ Swelling, Increased Redness, Foul Smelling Discharge and Swelling at the incision site Call your doctor if you observe: Fever of 101 or Higher, Inability to urinate and Inability to have a bowel movement Follow Up Care Please Follow Up With: Zayra Medina MD When: The office will call the patient for follow-up instructions Test Results: Test results from this visit will be discussed in further detail at your follow- up appointment, if applicable. Discharge Plan Admission Attending Provider: Zayra Medina Primary Care Provider: Camille Zhang Discharge Orders/Prescriptions Prescriptions: New hydrocodone-acetaminophen [hydrocodone-acetaminophen] 5-325 mg tablet 1 tab PO Q8H PRN (Reason: Pain) 2 Days Qty: 6 0RF cephalexin [cephalexin] 500 mg capsule 500 mg PO Q12 3 Days Qty: 6 0RF Continued albuterol sulfate 90 mcg/actuation HFA aerosol inhaler 2 puff inhalation Q4H PRN (Reason: SOB) Estring 2 mg (7.5 mcg /24 hour) ring 1 vag ring vaginal [id number] aspirin 81 MG tablet,chewable 40.5 mg PO DAILY@0800 Patient Comments: [facility]ART HEALTH tramadol 50 MG tablet 50 mg PO TID Patient Comments: PAIN levothyroxine [Levoxyl] 125 MCG tablet 125 mcg PO MOTUWETHFRSA Patient Comments: Thyroid replacement biotin 1 MG capsule 1,000 mg PO DAILY Patient Comments: SUPPLEMENT Orencia 125 MG/ML syringe 125 mg SQ QWEEK Patient Comments: on liothyronine 5 MCG tablet 5 mcg PO DAILY loratadine [Allergy Relief (loratadine)] 10 MG tablet 10 mg PO DAILY buspirone 15 MG tablet 15 mg PO 4X/DAY duloxetine 30 MG capsule 30 mg PO TID prednisone 10 mg tablet 5 mg PO DAILY Taper: Prednisone Taper 40 mg DAILY@0800 for 3 Days 30 mg DAILY@0800 for 3 Days 20 mg DAILY@0800 for 3 Days 10 mg DAILY@0800 for 3 Days Patient Comments: steroid; 30 mg on day of surgery trazodone 100 MG tablet 200 mg PO QHS pantoprazole 40 MG tablet 40 mg PO DAILY alendronate 70 mg Tablet 70 mg PO QWEEK Patient Comments: ON THURSDAYS cyanocobalamin (vitamin B-12) 250 mcg Tablet 250 mcg PO DAILY famotidine 20 mg Tablet 20 mg PO QHS glucosamine sulfate 750 mg Tablet 1,500 mg PO DAILY calcium carbonate-vitamin D3 [Calcium 600 + D(3)] 600 mg(1,500mg) -400 unit Tablet 2 tab PO DAILY spironolactone 25 mg tablet 25 mg PO DAILY Trulicity 1.5 mg/0.5 mL pen injector 1.5 mg subcut QWEEK Patient Comments: ON THURSDAYS metoprolol succinate 25 mg tablet extended release 24 hr 25 mg PO QHS fluticasone propionate [Flovent HFA] 110 mcg/actuation HFA aerosol inhaler 1 inh inhalation BID Referrals / Follow Up: Camille Zhang DO [Primary Care Provider] - Disposition Disposition (needs filled in before D/C Order can be placed): Home, Self Care
[2022-12-23] MEDS: Cefazolin 2 GM in 0.9% Normal Saline 100 ML IV (09:35)
--- NOTE | 2022-12-23 09:35 | PCM.OPRPT ---
Report of Operation Date of Procedure: 12/23/22 Pre-Operative Diagnosis: Urethral prolapse Post-Operative Diagnosis: Same Surgery/Procedure Performed:: Cystoscopy, excision of urethral prolapse Surgeon: Zayra Medina Type of Anesthesia: General Description of Procedure: The patient is a 62-year-old female with a significant urethral prolapse that has not been successfully managed with estrogen cream. She presents for surgical excision, informed consent has been obtained. The patient was taken to the operating room placed on the operating room table. Anesthesia monitored the head, neck, airway, IV access and vital signs throughout the case. Once anesthesia was appropriate administered, the patient was placed into dorsolithotomy and Trendelenburg position. She was prepped and draped in usual sterile fashion. The cystoscope was inserted through the urethra under direct visualization into the urinary bladder. The bladder mucosa was visualized in its entirety along with the urethral mucosa. There was no evidence of mass, lesion, erythema or foreign body. The cystoscope was then removed. A Peters catheter was then inserted. The prolapsed tissue was grasped with a [place] and full-thickness excised circumferentially around the urethra without difficulty. Using a 3-0 chromic suture, the urethral mucosa was sutured to the edge of the vaginal mucosa in running fashion. Areas that were oozing had extra interrupted sutures placed. Peters catheter easily was removed. At this time there was continued minimal oozing from the 12 o'clock position despite sutures. Decision was made to leave a Peters catheter to be removed prior to discharge home. She was awakened and taken to the recovery room in good condition. There were no complications during this procedure. Grafts/Implants Used: None Complications None Admit VTE Documentation VTE Present on Admission: Yes VTE Mechan Device Prophylaxis: SCD's VTE Pharm Prophylaxis ordered?: No Reason prophylaxis not ordered:: Treatment Not Indicated
[2022-12-23] MEDS: Lidocaine Jelly 2% 20 ML Syringe (URO-JET) 1 APPLIC (10:21)
[2022-12-23 11:08] LABS: Bedside Glucose 202 mg/dL (74-106)
[2022-12-23] MEDS: HYDROcodone Bitartrate/Apap 5/325 Tablet PO (12:25)
== END 2022-12-23 13:12 | disposition home or self-care (01) ==
LOC: SDC 07:45 → AC 08:01
PROVIDERS: PCP Family Medicine; Referring Provider Urology; Visit Provider Urology
PROC: 0TJB8ZZ Inspection of Bladder, Via Natural or Artificial Opening Endoscopic (ICD-10-PCS; CPT 57410; principal; 2022-12-23 09:05)
DX: N36.8 Other specified disorders of urethra (principal); M06.9 Rheumatoid arthritis, unspecified; I11.0 Hypertensive heart disease with heart failure; I50.9 Heart failure, unspecified; E11.9 Type 2 diabetes mellitus without complications; N76.0 Acute vaginitis; N39.0 Urinary tract infection, site not specified; N95.2 Postmenopausal atrophic vaginitis; J45.909 Unspecified asthma, uncomplicated; E03.9 Hypothyroidism, unspecified; E78.5 Hyperlipidemia, unspecified; Z79.82 Long term (current) use of aspirin; Z79.890 Hormone replacement therapy; Z79.899 Other long term (current) drug therapy; Z86.73 Personal history of transient ischemic attack (TIA), and cerebral infarction without residual deficits; Z95.0 Presence of cardiac pacemaker
CPT/HCPCS: 53275; 82962; 88305; J7120; J2405

== ENCOUNTER 2022-12-23 18:53 | Emergency (ER) | payer OTHER, SELFPAY ==
[2022-12-23 18:54] VITALS: BP 133/86; PULSE 83; RESP 17; TEMP 36.6; O2SAT 98; BMI 30.9
--- NOTE | 2022-12-23 20:38 | EX.ED.DYSGE1 ---
HPI History of Present Illness Chief Complaint: Complaint Detail of Chief Complaint: Unable to urinate since surgery Informant: patient, spouse/S.O. and other (Urologist) Onset/Context/Timing Onset: Today Context: Sudden Onset Timing: Continuous Quality: Bladder spasms Location: Bladder Current Severity: Moderate Maximum Severity: Moderate Worsened by: Palpation Relieved by: Nothing Associated Symptoms Associated Symptoms: No other symptoms other than blood Narrative Narrative: Patient is a 62-year-old female who was sent in by her urologist Dr. Zayra Medina to have a Peters placed per physician. Patient had excision of urethral prolapse with surgical repair. Patient has no other complaints. Prior similar symptoms: No Recent Illness/Hospitalization: Yes PFSH PFS Medical History Anxiety Arthritis Asthma Back pain Bladder disease Bundle branch block Cancer Cardiology follow-up encounter CPAP (continuous positive airway pressure) dependence Depression Diabetes Dietary restriction Difficulty swallowing Gastric reflux History of CHF (congestive heart failure) History of echocardiogram History of edema History of Graves' disease History of heart attack History of left heart catheterization (LHC) History of renal disease History of steroid therapy History of stress test Hyperlipidemia Hypothyroidism Non-smoker Post-menopausal Rheumatoid arthritis Shortness of breath on exertion Strain of tendon of foot and ankle Stroke/cerebrovascular accident Tinnitus Urethral prolapse Wears glasses Home Medications aspirin 81 mg chewable tablet 40.5 mg PO DAILY@0800 10/13/14 [History Last Taken 07/19/22] biotin 1 mg capsule 1,000 mg PO DAILY 10/13/14 [History Last Taken 07/19/22] levothyroxine 125 mcg tablet (Levoxyl) 125 mcg PO MOTUWETHFRSA 10/13/14 [History Last Taken 12/23/22] tramadol 50 mg tablet 50 mg PO TID 10/13/14 [History Last Taken 12/23/22] abatacept 125 mg/mL subcutaneous syringe (Orencia) 125 mg SQ QWEEK 01/21/15 [History Last Taken 07/19/22] buspirone 15 mg tablet 15 mg PO 4X/DAY 02/09/18 [History Last Taken 12/23/22] duloxetine 30 mg capsule,delayed release 30 mg PO TID 02/09/18 [History Last Taken 07/19/22] liothyronine 5 mcg tablet 5 mcg PO DAILY 02/09/18 [History Last Taken 12/23/22] loratadine 10 mg tablet (Allergy Relief (loratadine)) 10 mg PO DAILY 02/09/18 [History Last Taken 07/19/22] pantoprazole 40 mg tablet,delayed release 40 mg PO DAILY 08/17/19 [History Last Taken 12/23/22] trazodone 100 mg tablet 200 mg PO QHS 08/17/19 [History Last Taken 07/19/22] alendronate 70 mg tablet 70 mg PO QWEEK 03/17/21 [History Last Taken 07/19/22] calcium carbonate 600 mg-vitamin D3 10 mcg (400 unit) tablet (Calcium 600 + D(3)) 2 tab PO DAILY 03/17/21 [History Last Taken 07/19/22] cyanocobalamin (vitamin B-12) 250 mcg tablet 250 mcg PO DAILY 03/17/21 [History Last Taken 07/19/22] famotidine 20 mg tablet 20 mg PO QHS 03/17/21 [History Last Taken 07/19/22] glucosamine sulfate 750 mg tablet 1,500 mg PO DAILY 03/17/21 [History Last Taken 07/19/22] albuterol sulfate 90 mcg/actuation aerosol inhaler 2 puff inhalation Q4H PRN SOB 05/18/22 [History Last Taken 07/19/22] estradiol 2 mg (7.5 mcg/24 hour) vaginal ring (Estring) 1 vag ring vaginal [id number] 05/18/22 [History Last Taken 07/19/22] prednisone 10 mg tablet 5 mg PO DAILY 05/18/22 [History Last Taken 12/23/22] spironolactone 25 mg tablet 25 mg PO DAILY 05/18/22 [History Last Taken 07/19/22] dulaglutide 1.5 mg/0.5 mL subcutaneous pen injector (Trulicity) 1.5 mg subcut QWEEK 12/21/22 [History Last Taken Unknown] fluticasone propionate 110 mcg/actuation HFA aerosol inhaler (Flovent HFA) 1 inh inhalation BID 12/21/22 [History Last Taken Unknown] metoprolol succinate 25 mg tablet,extended release 24 hr 25 mg PO QHS 12/21/22 [History Last Taken Unknown] cephalexin 500 mg capsule 500 mg PO Q12 post-operative 3 days #6 CAPSULES 12/23/22 [Rx Last Taken Unknown] hydrocodone-acetaminophen 5-325mg 5mg-325mg 1 tab PO Q8H PRN Pain 2 days #6 TABLETS 12/23/22 [Rx Last Taken Unknown] Allergy/AdvReac Type Severity Reaction Status Date / Time ciprofloxacin [From Cipro] Allergy Other Verified 12/23/22 18:53 ciprofloxacin HCl Allergy Other Verified 12/23/22 18:53 [From Cipro] citric acid Allergy Angioedema Verified 12/23/22 18:53 ezetimibe [From Zetia] Allergy Other Verified 12/23/22 18:53 levofloxacin [From Levaquin] Allergy effects Verified 12/23/22 18:53 tendons linagliptin [From Tradjenta] Allergy Upset Verified 12/23/22 18:53 Stomach lisinopril Allergy Throat Verified 12/23/22 18:53 swelling/Hives oxcarbazepine Allergy Other Verified 12/23/22 18:53 [From Trileptal] oxycodone Allergy Low blood Verified 12/23/22 18:53 pressure pregabalin [From Lyrica] Allergy shortness Verified 12/23/22 18:53 of breath; balance issues, dizziness simvastatin [From Zocor] Allergy MUSCLE Verified 12/23/22 18:53 WEAKNESS tyloxapol Allergy Low blood Verified 12/23/22 18:53 pressure Family History Mother Diabetes Heart disease Father Diabetes Heart disease CVA (cerebral vascular accident) Surgical History History of hand surgery History of hysterectomy S/P brain surgery S/P cardiac pacemaker procedure S/P foot surgery S/P nasal surgery S/P right heart catheterization S/P spinal surgery Social History household members: spouse Smoking Status: Never smoker alcohol intake: never substance use type: does not use ROS ROS ED Constitutional Constitutional ED: Denies chills, fever(s), subjective, sweats or weight loss Gastrointestinal Gastrointestinal: Reports abdominal pain; Denies constipation, diarrhea, melena, nausea or vomiting Genitourinary Genitourinary ED: Reports hematuria and other Details: Unable to urinate since approximately 1500 ; Denies dysuria or urinary frequency Musculoskeletal Musculoskeletal: Denies back pain Hematologic/Lymphatic Hematologic/Lymphatic: Reports systems reviewed and no addt'l complaints, except as documented EXAM Physical Exam Const Vital Signs: 12/23/22 18:54 Temperature 97.9 F Temperature Source Temporal Pulse Rate 83 Respiratory Rate 17 Blood Pressure 133/86 H Blood Pressure Mean 101 Pulse Ox 98 Oxygen Delivery Method Room Air Positive well nourished, well developed and obese Constitutional Narrative: Patient appears uncomfortable. General Appearance ED: well developed; Negative for NAD or pallor Nutritional Appearance: obese HEENT Reports moist mucous membranes HEENT Narrative: Head is normocephalic and atraumatic. Eyes PERRL and EOMs intact bilaterally General Eye ED: Negative for pale conjunctiva or scleral icterus Neck supple Chest Wall inspection of chest normal Resp normal respiratory effort Cardio regular rate and regular rhythm GI normal to inspection, nondistended, normoactive bowel sounds, non-distended and no masses; Negative for non-tender or hepatosplenomegaly GI Narrative: Bladder is enlarged to percussion. There is tenderness to pubic area. Extremity normal to inspection General Extremety ED: Negative for edema or tenderness General Extremity: Negative for edema Neuro oriented x3, CN's II-XII intact bilaterally and no sensory deficits noted Sensorium / Orientation: alert Psych mental status grossly normal Skin no rashes or lesions noted, no wounds and skin turgor normal General Skin Exam: Negative for jaundice or pallor MDM MDM MDM Narrative Medical decision making narrative: Peters was placed per physician. Patient was prepped in a sterile manner. Uro-Jet was instilled into the urethra. A 16 English Peters was placed by me on first attempt without difficulty. Urine is slightly blood-tinged. There was no clots noted. History & Record Review Additional record(s) reviewed:: Prior outpatient record (Surgical record was reviewed.) and Prior labs Procedures Other Procedures Procedure(s): Urethral Peters placed per physician per urologist request without difficulty Discharge Plan Triage Chief Complaint: Complaint ED Provider: Brian Cárdenas Dx/Rx/DC Orders Clinical Impression: Postoperative urinary retention, ICD (implantable cardioverter-defibrillator), biventricular, in situ, Congestive heart failure, CVA (cerebral infarction), Hypothyroidism, HTN (hypertension) Instructions: ED Peters Catheter, Care Prescriptions: No Action albuterol sulfate 90 mcg/actuation HFA aerosol inhaler 2 puff inhalation Q4H PRN (Reason: SOB) Estring 2 mg (7.5 mcg /24 hour) ring 1 vag ring vaginal [id number] aspirin 81 MG tablet,chewable 40.5 mg PO DAILY@0800 Patient Comments: [facility] HE[facility] tramadol 50 MG tablet 50 mg PO TID Patient Comments: PAIN levothyroxine [Levoxyl] 125 MCG tablet 125 mcg PO MOTUWETHFRSA Patient Comments: Thyroid replacement biotin 1 MG capsule 1,000 mg PO DAILY Patient Comments: SUPPLEMENT Orencia 125 MG/ML syringe 125 mg SQ QWEEK Patient Comments: on liothyronine 5 MCG tablet 5 mcg PO DAILY loratadine [Allergy Relief (loratadine)] 10 MG tablet 10 mg PO DAILY buspirone 15 MG tablet 15 mg PO 4X/DAY duloxetine 30 MG capsule 30 mg PO TID prednisone 10 mg tablet 5 mg PO DAILY Taper: Prednisone Taper 40 mg DAILY@0800 for 3 Days 30 mg DAILY@0800 for 3 Days 20 mg DAILY@0800 for 3 Days 10 mg DAILY@0800 for 3 Days Patient Comments: steroid; 30 mg on day of surgery trazodone 100 MG tablet 200 mg PO QHS pantoprazole 40 MG tablet 40 mg PO DAILY alendronate 70 mg Tablet 70 mg PO QWEEK Patient Comments: ON THURSDAYS cyanocobalamin (vitamin B-12) 250 mcg Tablet 250 mcg PO DAILY famotidine 20 mg Tablet 20 mg PO QHS glucosamine sulfate 750 mg Tablet 1,500 mg PO DAILY calcium carbonate-vitamin D3 [Calcium 600 + D(3)] 600 mg(1,500mg) -400 unit Tablet 2 tab PO DAILY spironolactone 25 mg tablet 25 mg PO DAILY Trulicity 1.5 mg/0.5 mL pen injector 1.5 mg subcut QWEEK Patient Comments: ON THURSDAYS metoprolol succinate 25 mg tablet extended release 24 hr 25 mg PO QHS fluticasone propionate [Flovent HFA] 110 mcg/actuation HFA aerosol inhaler 1 inh inhalation BID hydrocodone-acetaminophen [hydrocodone-acetaminophen] 5-325 mg tablet 1 tab PO Q8H PRN (Reason: Pain) 2 Days Qty: 6 0RF cephalexin [cephalexin] 500 mg capsule 500 mg PO Q12 3 Days Qty: 6 0RF Primary Care Provider: Camille Zhang Referrals: Zayra Medina MD [Med Staff - Active Staff] - 3-5 Days Camille Zhang DO [Primary Care Provider] - Disposition Disposition: Home, Self Care
--- NOTE | 2022-12-23 20:39 | ED.RN ---
HALE CATHETER PLACED BY DR. EASTMAN.
--- NOTE | 2022-12-23 21:42 | ED.RN ---
PER DR. EASTMAN VERBAL ORDER, OKAY FOR PT TO BE DISCHARGED REGARDLESS OF HEMATURIA. LEG BAG GIVEN TO PT. PT EDUCATED ON HOW TO SWITCH BETWEEN HALE BAG AND LEG BAG. PT DISPLAYED UNDERSTANDING ON TEACHING. PT AND PT SPOUSE DENY ANY FURTHER QUESTIONS. DISCHARGE PAPERWORK PROVIDED AND EXPLAINED TO PT. PT AMBULATED OUT OF ER WITH SPOUSE.
[2022-12-23 21:43] VITALS: BP 160/139; PULSE 69; RESP 18; O2SAT 94
== END 2022-12-23 21:45 | disposition home or self-care (01) ==
PROVIDERS: Emergency Provider Emergency Medicine; PCP Family Medicine; Visit Provider Emergency Medicine
DX: R33.8 Other retention of urine (principal); I11.0 Hypertensive heart disease with heart failure; I50.9 Heart failure, unspecified; E11.9 Type 2 diabetes mellitus without complications; E03.9 Hypothyroidism, unspecified; Z95.810 Presence of automatic (implantable) cardiac defibrillator; E78.5 Hyperlipidemia, unspecified; E66.9 Obesity, unspecified; I25.2 Old myocardial infarction; Z68.30 Body mass index [BMI] 30.0-30.9, adult; Z79.82 Long term (current) use of aspirin; Z79.85 Long-term (current) use of injectable non-insulin antidiabetic drugs; Z79.899 Other long term (current) drug therapy; Z86.73 Personal history of transient ischemic attack (TIA), and cerebral infarction without residual deficits
CPT/HCPCS: 51702; 99283

== ENCOUNTER 2022-12-24 22:22 | Emergency (ER) | payer OTHER, SELFPAY ==
[2022-12-24 22:23] VITALS: BP 142/103; PULSE 83; RESP 22; TEMP 36; O2SAT 98
--- NOTE | 2022-12-24 23:51 | EDS_ITS ---
HPI History of Present Illness Chief Complaint: Peters C/O Informant: patient Narrative Narrative: Patient had a urethral prolapse surgery, complicated by postoperative urinary retention for which a Peters catheter was placed yesterday, and all day today she has been having intermittent severe spasms in her perineum/bladder area, that are associated with the leaking around the Peters catheter, and when she is not having spasms, there is flow through the catheter. She denies any hematuria. She is on Pyridium making the urine orange-colored. When she does not have any bladder spasms she feels fine, but it is so painful that she cannot eat or drink so she has not had as much fluid today. [facility] Medical History Anxiety Arthritis Asthma Back pain Bladder disease Bundle branch block Cancer Cardiology follow-up encounter CPAP (continuous positive airway pressure) dependence Depression Diabetes Dietary restriction Difficulty swallowing Gastric reflux History of CHF (congestive heart failure) History of echocardiogram History of edema History of Graves' disease History of heart attack History of left heart catheterization (LHC) History of renal disease History of steroid therapy History of stress test Hyperlipidemia Hypothyroidism Non-smoker Post-menopausal Rheumatoid arthritis Shortness of breath on exertion Strain of tendon of foot and ankle Stroke/cerebrovascular accident Tinnitus Urethral prolapse Wears glasses Home Medications aspirin 81 mg chewable tablet 40.5 mg PO DAILY@0800 10/13/14 [History Last Taken 07/19/22] biotin 1 mg capsule 1,000 mg PO DAILY 10/13/14 [History Last Taken 07/19/22] levothyroxine 125 mcg tablet (Levoxyl) 125 mcg PO MOTUWETHFRSA 10/13/14 [History Last Taken 12/23/22] tramadol 50 mg tablet 50 mg PO TID 10/13/14 [History Last Taken 12/23/22] abatacept 125 mg/mL subcutaneous syringe (Orencia) 125 mg SQ QWEEK 01/21/15 [History Last Taken 07/19/22] buspirone 15 mg tablet 15 mg PO 4X/DAY 02/09/18 [History Last Taken 12/23/22] duloxetine 30 mg capsule,delayed release 30 mg PO TID 02/09/18 [History Last Taken 07/19/22] liothyronine 5 mcg tablet 5 mcg PO DAILY 02/09/18 [History Last Taken 12/23/22] loratadine 10 mg tablet (Allergy Relief (loratadine)) 10 mg PO DAILY 02/09/18 [History Last Taken 07/19/22] pantoprazole 40 mg tablet,delayed release 40 mg PO DAILY 08/17/19 [History Last Taken 12/23/22] trazodone 100 mg tablet 200 mg PO QHS 08/17/19 [History Last Taken 07/19/22] alendronate 70 mg tablet 70 mg PO QWEEK 03/17/21 [History Last Taken 07/19/22] calcium carbonate 600 mg-vitamin D3 10 mcg (400 unit) tablet (Calcium 600 + D(3)) 2 tab PO DAILY 03/17/21 [History Last Taken 07/19/22] cyanocobalamin (vitamin B-12) 250 mcg tablet 250 mcg PO DAILY 03/17/21 [History Last Taken 07/19/22] famotidine 20 mg tablet 20 mg PO QHS 03/17/21 [History Last Taken 07/19/22] glucosamine sulfate 750 mg tablet 1,500 mg PO DAILY 03/17/21 [History Last Taken 07/19/22] albuterol sulfate 90 mcg/actuation aerosol inhaler 2 puff inhalation Q4H PRN SOB 05/18/22 [History Last Taken 07/19/22] estradiol 2 mg (7.5 mcg/24 hour) vaginal ring (Estring) 1 vag ring vaginal [id number] 05/18/22 [History Last Taken 07/19/22] prednisone 10 mg tablet 5 mg PO DAILY 05/18/22 [History Last Taken 12/23/22] spironolactone 25 mg tablet 25 mg PO DAILY 05/18/22 [History Last Taken 07/19/22] dulaglutide 1.5 mg/0.5 mL subcutaneous pen injector (Trulicity) 1.5 mg subcut QWEEK 12/21/22 [History Last Taken Unknown] fluticasone propionate 110 mcg/actuation HFA aerosol inhaler (Flovent HFA) 1 inh inhalation BID 12/21/22 [History Last Taken Unknown] metoprolol succinate 25 mg tablet,extended release 24 hr 25 mg PO QHS 12/21/22 [History Last Taken Unknown] cephalexin 500 mg capsule 500 mg PO Q12 post-operative 3 days #6 CAPSULES 12/23/22 [Rx Last Taken Unknown] hydrocodone-acetaminophen 5-325mg 5mg-325mg 1 tab PO Q8H PRN Pain 2 days #6 TABLETS 12/23/22 [Rx Last Taken Unknown] Allergy/AdvReac Type Severity Reaction Status Date / Time ciprofloxacin [From Cipro] Allergy Other Verified 12/24/22 22:24 ciprofloxacin HCl Allergy Other Verified 12/24/22 22:24 [From Cipro] citric acid Allergy Angioedema Verified 12/24/22 22:24 ezetimibe [From Zetia] Allergy Other Verified 12/24/22 22:24 levofloxacin [From Levaquin] Allergy effects Verified 12/24/22 22:24 tendons linagliptin [From Tradjenta] Allergy Upset Verified 12/24/22 22:24 Stomach lisinopril Allergy Throat Verified 12/24/22 22:24 swelling/Hives oxcarbazepine Allergy Other Verified 12/24/22 22:24 [From Trileptal] oxycodone Allergy Low blood Verified 12/24/22 22:24 pressure pregabalin [From Lyrica] Allergy shortness Verified 12/24/22 22:24 of breath; balance issues, dizziness simvastatin [From Zocor] Allergy MUSCLE Verified 12/24/22 22:24 WEAKNESS tyloxapol Allergy Low blood Verified 12/24/22 22:24 pressure Family History Mother Diabetes Heart disease Father Diabetes Heart disease CVA (cerebral vascular accident) Surgical History History of hand surgery History of hysterectomy S/P brain surgery S/P cardiac pacemaker procedure S/P foot surgery S/P nasal surgery S/P right heart catheterization S/P spinal surgery Social History household members: spouse Smoking Status: Never smoker alcohol intake: never substance use type: does not use ROS ROS ED Constitutional Constitutional ED: Denies chills or fever(s) Gastrointestinal Gastrointestinal: Reports other Details: Lower abdominal/perineal pain see HPI ; Denies vomiting Genitourinary Genitourinary ED: Reports as per HPI; Denies hematuria Musculoskeletal Musculoskeletal: Denies back pain or neck pain Integumentary Denies Abrasions or rash EXAM Physical Exam Const Vital Signs: 12/24/22 22:23 Temperature 96.8 F L Temperature Source Temporal Pulse Rate 83 Respiratory Rate 22 H Blood Pressure 142/103 H Blood Pressure Mean 116 Pulse Ox 98 Oxygen Delivery Method Room Air Positive well nourished and well developed General Appearance ED: well developed and NAD HEENT Reports moist mucous membranes Negative for trauma Eyes PERRL and EOMs intact bilaterally Neck supple Resp normal respiratory effort Effort and Inspection: able to speak in complete sentences GI normal to inspection, nondistended, normoactive bowel sounds and non-tender Palpation: soft Narrative: Peters catheter in place, benign external exam, orange-colored urine within the catheter Back/Spine no CVA tenderness Extremity normal to inspection Neuro oriented x3 and CN's II-XII intact bilaterally Psych mental status grossly normal MDM MDM MDM Narrative Medical decision making narrative: Nursing irrigated the catheter, removing multiple small clots. No gross hematuria. Patient was monitored for about 2 hours afterwards and had no further episodes. Discharged stable condition to follow-up with urology as previously scheduled/advised. Discharge Plan Triage Chief Complaint: Peters C/O ED Provider: Ty Becker Dx/Rx/DC Orders Clinical Impression: Complication, blocked Peters catheter Instructions: ED Peters Catheter, Care Prescriptions: No Action albuterol sulfate 90 mcg/actuation HFA aerosol inhaler 2 puff inhalation Q4H PRN (Reason: SOB) Estring 2 mg (7.5 mcg /24 hour) ring 1 vag ring vaginal [id number] aspirin 81 MG tablet,chewable 40.5 mg PO DAILY@0800 Patient Comments: [facility] tramadol 50 MG tablet 50 mg PO TID Patient Comments: PAIN levothyroxine [Levoxyl] 125 MCG tablet 125 mcg PO MOTUWETHFRSA Patient Comments: Thyroid replacement biotin 1 MG capsule 1,000 mg PO DAILY Patient Comments: SUPPLEMENT Orencia 125 MG/ML syringe 125 mg SQ QWEEK Patient Comments: on liothyronine 5 MCG tablet 5 mcg PO DAILY loratadine [Allergy Relief (loratadine)] 10 MG tablet 10 mg PO DAILY buspirone 15 MG tablet 15 mg PO 4X/DAY duloxetine 30 MG capsule 30 mg PO TID prednisone 10 mg tablet 5 mg PO DAILY Taper: Prednisone Taper 40 mg DAILY@0800 for 3 Days 30 mg DAILY@0800 for 3 Days 20 mg DAILY@0800 for 3 Days 10 mg DAILY@0800 for 3 Days Patient Comments: steroid; 30 mg on day of surgery trazodone 100 MG tablet 200 mg PO QHS pantoprazole 40 MG tablet 40 mg PO DAILY alendronate 70 mg Tablet 70 mg PO QWEEK Patient Comments: ON THURSDAYS cyanocobalamin (vitamin B-12) 250 mcg Tablet 250 mcg PO DAILY famotidine 20 mg Tablet 20 mg PO QHS glucosamine sulfate 750 mg Tablet 1,500 mg PO DAILY calcium carbonate-vitamin D3 [Calcium 600 + D(3)] 600 mg(1,500mg) -400 unit Tablet 2 tab PO DAILY spironolactone 25 mg tablet 25 mg PO DAILY Trulicity 1.5 mg/0.5 mL pen injector 1.5 mg subcut QWEEK Patient Comments: ON THURSDAYS metoprolol succinate 25 mg tablet extended release 24 hr 25 mg PO QHS fluticasone propionate [Flovent HFA] 110 mcg/actuation HFA aerosol inhaler 1 inh inhalation BID hydrocodone-acetaminophen [hydrocodone-acetaminophen] 5-325 mg tablet 1 tab PO Q8H PRN (Reason: Pain) 2 Days Qty: 6 0RF cephalexin [cephalexin] 500 mg capsule 500 mg PO Q12 3 Days Qty: 6 0RF Primary Care Provider: Camille Zhang Referrals: Zayra Medina MD [Med Staff - Active Staff] - (as previously directed for follow up) Camille Zhang DO [Primary Care Provider] - Disposition Disposition: Home, Self Care
[2022-12-24 23:59] VITALS: BP 133/76; PULSE 65; RESP 16; O2SAT 95
== END 2022-12-25 00:20 | disposition home or self-care (01) ==
PROVIDERS: Emergency Provider Emergency Medicine; PCP Family Medicine; Visit Provider Emergency Medicine
DX: I50.9 Heart failure, unspecified (principal); T83.091A Other mechanical complication of indwelling urethral catheter, initial encounter; M06.9 Rheumatoid arthritis, unspecified; E11.9 Type 2 diabetes mellitus without complications; E78.5 Hyperlipidemia, unspecified; Z99.89 Dependence on other enabling machines and devices; I25.2 Old myocardial infarction; Z86.73 Personal history of transient ischemic attack (TIA), and cerebral infarction without residual deficits; Z79.899 Other long term (current) drug therapy; Z79.82 Long term (current) use of aspirin; E03.9 Hypothyroidism, unspecified; F41.9 Anxiety disorder, unspecified; K21.9 Gastro-esophageal reflux disease without esophagitis; J45.909 Unspecified asthma, uncomplicated; Z79.85 Long-term (current) use of injectable non-insulin antidiabetic drugs; Z90.710 Acquired absence of both cervix and uterus
CPT/HCPCS: 99282

== ENCOUNTER → 2023-02-24 | Outpatient (CLI) | payer OTHER, SELFPAY ==
[2023-02-24 15:01] LABS: Absolute Lymphocyte Count 2.83 X10^3/uL (0.83-4.51); Absolute Neutrophil Count 2.6 X10^3/uL (2.0-7.7); Basophil# 0.05 X10^3/uL; Basophil% 0.8 % (0-1); Eosinophil# 0.11 X10^3/uL; Eosinophils% 1.8 % (0-5); Hematocrit 39.6 % (37-47); Lymphocyte # 2.83 X10^3/ul (0.83-4.51); Lymphocyte % 46.3 % (19-41); Mean Corp Hgb Conc 30.3 g/dL (32-36); Mean Corpuscular Hgb 30.2 pg (27.0-32.0); Mean Corpuscular Volume 99.7 fL (81-99); Mean Platelet Vol. 10.1 fl (6.2-12.0); Monocyte# 0.55 X10^3/uL; NRBC Flagged by Analyzer 0 % (0-5); Neutrophil # 2.56 X10^3/uL (2.7-7.7); Neutrophil % 41.9 % (47-70); Platelet Count 259 K/mm3 (150-450); RBC Distribution Width CV 14.8 % (11.6-14.6); RBC Distribution Width SD 54.4 fl (35.1-43.9); Red Blood Count 3.97 M/mm3 (4.2-5.4); White Blood Count 6.1 K/mm3 (4.4-11.0)
[2023-02-24 15:34] LABS: Microalbumin,Random Urine 8.2 mg/L (NO RANGE EST.); Microalbumin:Creatinine Ratio 4.1 mg/g CRE (<30 mg/g CRE)
[2023-02-24 15:40] LABS: AST(SGOT) 9 U/L (15-37); Alanine Aminotransfer ALT/SGPT 21 U/L (13-56); Albumin, Serum 3.3 g/dL (3.2-5.0); Alkaline Phosphatase 41 U/L (45-117); Anion Gap 5 (5-15); BUN 23 mg/dL (7-18); BUN/Creat Ratio 18.9 RATIO (10-20); Calcium,Total 8.9 mg/dL (8.5-10.1); Chloride 104 mmol/L (98-107); Cholesterol 190 mg/dL (200); Creatinine, Serum 1.22 mg/dL (0.55-1.02); EST Glomerular Filtration Rate 48 mL/min (>60); Est Glom Filt Rate - Afr Amer 58 mL/min (>60); Free T3 2.9 pg/mL (2.18-3.98); Globulin 3.4 g/dL (2.2-4.2); Glucose 126 mg/dL (74-106); High Density Lipoprotein 71 mg/dL; Protein, Total 6.7 g/dL (6.4-8.2); Sodium Level 139 mmol/L (136-145); T4 Free Direct 1.08 ng/dL (0.76-1.46); Thyroid Stim Hormone (TSH) 1.05 uIU/mL (0.358-3.74); Triglycerides 59 mg/dL; Very Low Density Lipoprotein 12 mg/dL (5-40)
[2023-02-24 16:19] LABS: Vitamin D,25 Hydroxy 121.3 ng/mL
== END | disposition home or self-care (01) ==
LOC: MTLAB 13:36
PROVIDERS: PCP Family Medicine; Referring Provider Internal Medicine Endocrinology, Diabetes & Metabolism; Visit Provider Internal Medicine Endocrinology, Diabetes & Metabolism
DX: M06.00 Rheumatoid arthritis without rheumatoid factor, unspecified site (principal); E11.65 Type 2 diabetes mellitus with hyperglycemia; E27.40 Unspecified adrenocortical insufficiency; Z79.899 Other long term (current) drug therapy; E03.9 Hypothyroidism, unspecified; M81.0 Age-related osteoporosis without current pathological fracture; E55.9 Vitamin D deficiency, unspecified
CPT/HCPCS: 36415; 80053; 80061; 82043; 82306; 82570; 83036; 84439; 84443; 84481; 85025

== ENCOUNTER → 2023-05-16 | Outpatient (CLI) | payer OTHER, SELFPAY ==
--- NOTE | 2023-05-16 16:11 | RAD_ITS ---
EXAM: XR LEFT RIBS, 2 VIEWS CLINICAL INDICATION: Fracture of one rib, left side, initial encounter for closed frac TECHNIQUE: Frontal and oblique views of the left ribs. COMPARISON: Chest radiograph on the same date. Chest radiograph, 03/17/2021. FINDINGS: LUNGS AND PLEURAL SPACES: No significant abnormality. No consolidation or edema. No pneumothorax. No effusion. BONES/JOINTS: L1 vertebral augmentation for treatment of a compression fracture. Degenerative changes in the shoulders. No sclerotic or destructive changes observed. No rib fracture is identified. SOFT TISSUES: No significant abnormality. No soft tissue swelling or gas. VASCULATURE: Atherosclerosis. TUBES, LINES AND DEVICES: Left-sided cardiac pacer/AICD. RAD/Ribs Unil 2V No CXR IMPRESSION: No discrete evidence of a rib fracture. Electronically Signed: Emiliano Buckley DO at 20:38 EST ,
--- NOTE | 2023-05-16 16:11 | RAD_ITS ---
STUDY: X-RAY CHEST REASON FOR EXAM: Female, 63 years old. CRACKLES LLL TECHNIQUE: Frontal and lateral views of the chest. COMPARISON: 03/17/2021. FINDINGS: There is hyperinflation of the lungs consistent with chronic obstructive lung disease (COPD). No infiltrates or effusions. There is no demonstrated pleural abnormality. Normal size heart. Pacemaker is seen with leads terminating in the right atrium and right ventricle. Normal mediastinum and francie. Normal visualized pulmonary arteries. Normal visualized aortic arch and descending thoracic aorta. There are diffuse degenerative changes of the visualized thoracic spine. Normal visualized ribs, clavicles, and shoulders. There is no demonstrated abnormality of the visualized soft tissue structures of the upper abdomen. RAD/Chest PA and Lateral IMPRESSION: No definite acute or significant abnormality seen. No change. Electronically Signed: Bucky Russell MD at 19:59 EST ,
== END | disposition home or self-care (01) ==
PROVIDERS: PCP Family Medicine; Referring Provider Family Medicine; Visit Provider Family Medicine
DX: S22.32XA Fracture of one rib, left side, initial encounter for closed fracture (principal); R05.9 Cough, unspecified; X58.XXXA Exposure to other specified factors, initial encounter
CPT/HCPCS: 71046; 71100

== ENCOUNTER → 2023-06-03 | Outpatient (CLI) | payer OTHER, SELFPAY ==
--- NOTE | 2023-06-03 13:58 | RAD_ITS ---
INDICATION: SOB EXAMINATION/TECHNIQUE: X-RAY - XR Chest 2 Views COMPARISON: May 16, 2023 FINDINGS: LINES/DEVICES: Stable left-sided pacemaker. LUNGS: No consolidation, edema or effusion. Bilateral apical pleural thickening. No pneumothorax. MEDIASTINUM AND CARDIOVASCULAR STRUCTURES: Cardiac silhouette not enlarged. Central airways and mediastinal contour are unremarkable. BONES AND SOFT TISSUES: Vertebroplasty of an upper lumbar segment. RAD/Chest PA and Lateral IMPRESSION: Bilateral apical pleural thickening. Electronically Signed: Jamar Boateng DO at 16:51 EST ,
[2023-06-03 15:47] LABS: Absolute Lymphocyte Count 1.83 X10^3/uL (0.83-4.51); Absolute Neutrophil Count 4.9 X10^3/uL (2.0-7.7); Basophil# 0.05 X10^3/uL; Basophil% 0.7 % (0-1); Eosinophil# 0.12 X10^3/uL; Eosinophils% 1.6 % (0-5); Hematocrit 39.5 % (37-47); Hemoglobin 12.2 g/dL (12.0-15.0); Lymphocyte # 1.83 X10^3/ul (0.83-4.51); Lymphocyte % 24.1 % (19-41); Mean Corp Hgb Conc 30.9 g/dL (32-36); Mean Corpuscular Volume 97.1 fL (81-99); Mean Platelet Vol. 10.1 fl (6.2-12.0); Monocyte# 0.65 X10^3/uL; Monocyte% 8.6 % (0-10); NRBC Flagged by Analyzer 0 % (0-5); Neutrophil # 4.91 X10^3/uL (2.7-7.7); Neutrophil % 64.5 % (47-70); Platelet Count 267 K/mm3 (150-450); RBC Distribution Width CV 15.5 % (11.6-14.6); RBC Distribution Width SD 55.9 fl (35.1-43.9); Red Blood Count 4.07 M/mm3 (4.2-5.4); White Blood Count 7.6 K/mm3 (4.4-11.0)
[2023-06-03 16:15] LABS: ALB/GLOB Ratio 0.9 RATIO (0.9-2.4); AST(SGOT) 12 U/L (15-37); Alanine Aminotransfer ALT/SGPT 25 U/L (13-56); Albumin, Serum 3.3 g/dL (3.2-5.0); Alkaline Phosphatase 47 U/L (45-117); Anion Gap 4 (5-15); BUN 23 mg/dL (7-18); BUN/Creat Ratio 17.8 RATIO (10-20); Calcium,Total 9.6 mg/dL (8.5-10.1); Chloride 107 mmol/L (98-107); Creatinine, Serum 1.29 mg/dL (0.55-1.02); EST Glomerular Filtration Rate 45 mL/min (>60); Est Glom Filt Rate - Afr Amer 54 mL/min (>60); Globulin 3.5 g/dL (2.2-4.2); Glucose 193 mg/dL (74-106); Potassium 3.9 mmol/L (3.5-5.1); Protein, Total 6.8 g/dL (6.4-8.2); Sodium Level 141 mmol/L (136-145)
== END | disposition home or self-care (01) ==
LOC: MTLAB 13:52
PROVIDERS: PCP Family Medicine; Referring Provider Internal Medicine Pulmonary Disease; Visit Provider Internal Medicine Pulmonary Disease
DX: R06.02 Shortness of breath (principal); M06.00 Rheumatoid arthritis without rheumatoid factor, unspecified site; M79.7 Fibromyalgia; Z79.899 Other long term (current) drug therapy
CPT/HCPCS: 36415; 71046; 80053; 85025

== ENCOUNTER → 2023-07-07 | Outpatient (CLI) | payer OTHER, SELFPAY ==
[2023-07-07 15:28] LABS: Vitamin D,25 Hydroxy 123.5 ng/mL
[2023-07-07 15:33] LABS: Hemoglobin A1c 7.5 % (3.8-5.6)
[2023-07-07 22:11] LABS: ALB/GLOB Ratio 1.1 RATIO (0.9-2.4); AST(SGOT) 15 U/L (15-37); Alanine Aminotransfer ALT/SGPT 27 U/L (13-56); Albumin, Serum 3.5 g/dL (3.2-5.0); Alkaline Phosphatase 40 U/L (45-117); Anion Gap 5 (5-15); BUN 21 mg/dL (7-18); BUN/Creat Ratio 18.1 RATIO (10-20); Calcium,Total 9.7 mg/dL (8.5-10.1); Chloride 105 mmol/L (98-107); Creatinine, Serum 1.16 mg/dL (0.55-1.02); EST Glomerular Filtration Rate 50 mL/min (>60); Est Glom Filt Rate - Afr Amer 61 mL/min (>60); Free T3 3.2 pg/mL (2.18-3.98); Globulin 3.3 g/dL (2.2-4.2); Glucose 116 mg/dL (74-106); Potassium 4.2 mmol/L (3.5-5.1); Protein, Total 6.8 g/dL (6.4-8.2); Sodium Level 139 mmol/L (136-145); Thyroid Stim Hormone (TSH) 0.58 uIU/mL (0.358-3.74)
== END | disposition home or self-care (01) ==
LOC: MTLAB 11:40
PROVIDERS: PCP Family Medicine; Referring Provider Internal Medicine Endocrinology, Diabetes & Metabolism; Visit Provider Internal Medicine Endocrinology, Diabetes & Metabolism
DX: E27.40 Unspecified adrenocortical insufficiency (principal); E11.65 Type 2 diabetes mellitus with hyperglycemia; E03.9 Hypothyroidism, unspecified; E55.9 Vitamin D deficiency, unspecified; M81.0 Age-related osteoporosis without current pathological fracture
CPT/HCPCS: 36415; 80053; 82306; 83036; 84439; 84443; 84481

== ENCOUNTER → 2023-07-11 | Outpatient (CLI) | payer OTHER, SELFPAY ==
--- NOTE | 2023-07-11 16:47 | CT_ITS ---
STUDY: CT CHEST WITHOUT CONTRAST REASON FOR EXAM: Female, 63 years old. Shortness of breath worse on exertion for 2 months. Nonsmoker. RADIATION DOSAGE (If Supplied By Facility): CTDIvol = ( 10.64 ) mGy, DLP = ( 350.89 ) mGycm TECHNIQUE: Transaxial imaging was performed without the administration of intravenous contrast material. Individualized dose optimization techniques were used for this CT. COMPARISON: Comparison is made with prior chest radiograph dated June 03, 2023. FINDINGS: CHEST Increased markings in the lung apices suggestive of scarring. Hyperinflation. There is no demonstrated pleural abnormality. A left-sided dual-chamber pacemaker is seen. There are calcifications of the coronary arteries. Normal mediastinum. Normal hilar regions. Normal unenhanced pulmonary arteries. There is atherosclerotic calcification of the aortic arch. Minimal loss of height of the superior endplate of the T12 vertebrae. The patient is status post vertebroplasty of the L1 vertebrae. There is no demonstrated abnormality of the visualized upper abdomen. CT/Chest without Contrast IMPRESSION: Hyperinflation. No acute abnormality is seen. Electronically Signed: Zoltan Sherwood MD at 9:29 EDT ,
== END | disposition home or self-care (01) ==
PROVIDERS: PCP Family Medicine; Referring Provider Internal Medicine Pulmonary Disease; Visit Provider Internal Medicine Pulmonary Disease
DX: R91.8 Other nonspecific abnormal finding of lung field (principal); R06.02 Shortness of breath; R07.89 Other chest pain
CPT/HCPCS: 71250

== ENCOUNTER → 2023-09-14 | Outpatient (CLI) | payer OTHER, SELFPAY ==
[2023-09-14 12:43] LABS: Color, Urine Yellow (Yellow); Glucose, Dipstick Normal (Normal); Ketone-Dipstick 5 mg/dl (Negative); Leukocyte Esterase-Dipstick 25 /ul (Negative); Nitrite-Dipstick Negative (Negative); Occult Blood-Urine 10 /ul (Negative); Protein-Dipstick 30 mg/dl (Negative); Urine Clarity Clear (Clear); Urine Urobilinogen 4 mg/dl (Normal)
[2023-09-14 12:45] LABS: Absolute Lymphocyte Count 2.37 X10^3/uL (0.83-4.51); Absolute Neutrophil Count 3.9 X10^3/uL (2.0-7.7); Basophil# 0.05 X10^3/uL; Basophil% 0.7 % (0-1); Eosinophil# 0.11 X10^3/uL; Eosinophils% 1.5 % (0-5); Hematocrit 38.3 % (37-47); Hemoglobin 11.8 g/dL (12.0-15.0); Lymphocyte # 2.37 X10^3/ul (0.83-4.51); Lymphocyte % 33.3 % (19-41); Mean Corp Hgb Conc 30.8 g/dL (32-36); Mean Corpuscular Hgb 29.9 pg (27.0-32.0); Mean Corpuscular Volume 97.2 fL (81-99); Mean Platelet Vol. 9.9 fl (6.2-12.0); Monocyte# 0.66 X10^3/uL; Monocyte% 9.3 % (0-10); NRBC Flagged by Analyzer 0 % (0-5); Neutrophil % 54.8 % (47-70); Platelet Count 277 K/mm3 (150-450); RBC Distribution Width CV 15.1 % (11.6-14.6); RBC Distribution Width SD 54.1 fl (35.1-43.9); Red Blood Count 3.94 M/mm3 (4.2-5.4); White Blood Count 7.1 K/mm3 (4.4-11.0)
[2023-09-14 12:47] LABS: Urine Bilirubin Dipstick 1 mg/dL (Negative)
[2023-09-14 13:28] LABS: ALB/GLOB Ratio 0.9 RATIO (0.9-2.4); AST(SGOT) 18 U/L (15-37); Alanine Aminotransfer ALT/SGPT 27 U/L (13-56); Albumin, Serum 3.2 g/dL (3.2-5.0); Alkaline Phosphatase 44 U/L (45-117); Anion Gap 7 (5-15); BUN 26 mg/dL (7-18); BUN/Creat Ratio 19.8 RATIO (10-20); Calcium,Total 9.1 mg/dL (8.5-10.1); Chloride 104 mmol/L (98-107); Creatinine, Serum 1.31 mg/dL (0.55-1.02); EST Glomerular Filtration Rate 44 mL/min (>60); Est Glom Filt Rate - Afr Amer 53 mL/min (>60); Globulin 3.5 g/dL (2.2-4.2); Glucose 126 mg/dL (74-106); Protein, Total 6.7 g/dL (6.4-8.2); Sodium Level 138 mmol/L (136-145)
== END | disposition home or self-care (01) ==
LOC: BFHLAB 10:03
PROVIDERS: PCP Family Medicine; Referring Provider Family Medicine; Visit Provider Family Medicine
DX: N39.0 Urinary tract infection, site not specified (principal); I95.9 Hypotension, unspecified; R53.83 Other fatigue; E27.40 Unspecified adrenocortical insufficiency
CPT/HCPCS: 36415; 80053; 81002; 82088; 82533; 85025; 87086; 87088

== ENCOUNTER → 2023-10-11 | Outpatient (CLI) | payer OTHER, SELFPAY ==
[2023-10-11 18:09] LABS: Absolute Lymphocyte Count 1.32 X10^3/uL (0.83-4.51); Absolute Neutrophil Count 6.5 X10^3/uL (2.0-7.7); Basophil# 0.04 X10^3/uL; Basophil% 0.5 % (0-1); Eosinophil# 0.06 X10^3/uL; Eosinophils% 0.7 % (0-5); Hematocrit 36.1 % (37-47); Hemoglobin 10.9 g/dL (12.0-15.0); Lymphocyte # 1.32 X10^3/ul (0.83-4.51); Lymphocyte % 15.4 % (19-41); Mean Corp Hgb Conc 30.2 g/dL (32-36); Mean Corpuscular Hgb 29.3 pg (27.0-32.0); Monocyte# 0.58 X10^3/uL; Monocyte% 6.8 % (0-10); NRBC Flagged by Analyzer 0 % (0-5); Neutrophil # 6.52 X10^3/uL (2.7-7.7); Neutrophil % 76.1 % (47-70); Platelet Count 283 K/mm3 (150-450); RBC Distribution Width CV 15.2 % (11.6-14.6); RBC Distribution Width SD 54.7 fl (35.1-43.9); Red Blood Count 3.72 M/mm3 (4.2-5.4); White Blood Count 8.6 K/mm3 (4.4-11.0)
[2023-10-11 18:44] LABS: AST(SGOT) 13 U/L (15-37); Alanine Aminotransfer ALT/SGPT 24 U/L (13-56); Albumin, Serum 3.3 g/dL (3.2-5.0); Alkaline Phosphatase 44 U/L (45-117); Anion Gap 6 (5-15); BUN 21 mg/dL (7-18); BUN/Creat Ratio 17.5 RATIO (10-20); Calcium,Total 9.2 mg/dL (8.5-10.1); Chloride 103 mmol/L (98-107); EST Glomerular Filtration Rate 48 mL/min (>60); Est Glom Filt Rate - Afr Amer 58 mL/min (>60); Globulin 3.2 g/dL (2.2-4.2); Glucose 221 mg/dL (74-106); Potassium 3.9 mmol/L (3.5-5.1); Protein, Total 6.5 g/dL (6.4-8.2); Sodium Level 138 mmol/L (136-145)
== END | disposition home or self-care (01) ==
LOC: MTLAB 15:40
PROVIDERS: PCP Family Medicine; Referring Provider Internal Medicine Rheumatology; Visit Provider Internal Medicine Rheumatology
DX: M06.00 Rheumatoid arthritis without rheumatoid factor, unspecified site (principal); M79.7 Fibromyalgia; Z79.899 Other long term (current) drug therapy
CPT/HCPCS: 36415; 80053; 85025

== ENCOUNTER → 2023-10-24 | Outpatient (CLI) | payer OTHER, SELFPAY ==
[2023-10-24 17:48] LABS: Platelet Count 299 K/mm3 (150-450); RET-HE 31.9 pg (30-35); Reticulocyte Count 2.02 % (0.5-1.5)
[2023-10-24 18:12] LABS: Erythrocyte Sedimentation Rate 8 mm/hr (0-30); Vitamin B12 1071 pg/mL (211-911)
[2023-10-24 18:29] LABS: CRP 4.67 mg/L (0.0-3.0); Ferritin 12 ng/mL (8-252); Iron 40 ug/dL (50-170); LDH 209 U/L (84-246); Magnesium 2.2 mg/dL (1.6-2.6)
== END | disposition home or self-care (01) ==
LOC: BFHLAB 16:02
PROVIDERS: PCP Family Medicine; Referring Provider Family Medicine; Visit Provider Family Medicine
DX: M25.50 Pain in unspecified joint (principal); M79.10 Myalgia, unspecified site; R53.1 Weakness; D64.9 Anemia, unspecified
CPT/HCPCS: 36415; 82607; 82728; 83540; 83615; 83735; 85045; 85652; 86140

== ENCOUNTER → 2023-11-10 | Outpatient (CLI) | payer OTHER, SELFPAY ==
[2023-11-10 18:16] LABS: PTHIN 51.3 pg/mL (18.4-80.1)
[2023-11-10 18:20] LABS: Vitamin D,25 Hydroxy 99.5 ng/mL
[2023-11-10 18:24] LABS: Hemoglobin A1c 8.1 % (3.8-5.6)
[2023-11-10 18:25] LABS: ALB/GLOB Ratio 0.9 RATIO (0.9-2.4); AST(SGOT) 17 U/L (15-37); Alanine Aminotransfer ALT/SGPT 34 U/L (13-56); Albumin, Serum 3.5 g/dL (3.2-5.0); Alkaline Phosphatase 48 U/L (45-117); Anion Gap 6 (5-15); BUN 23 mg/dL (7-18); BUN/Creat Ratio 20.7 RATIO (10-20); Calcium,Total 9.4 mg/dL (8.5-10.1); Chloride 104 mmol/L (98-107); Cholesterol 240 mg/dL (200); Creatinine, Serum 1.11 mg/dL (0.55-1.02); EST Glomerular Filtration Rate 53 mL/min (>60); Est Glom Filt Rate - Afr Amer 64 mL/min (>60); Free T3 2.7 pg/mL (2.18-3.98); Globulin 3.7 g/dL (2.2-4.2); Glucose 167 mg/dL (74-106); High Density Lipoprotein 89 mg/dL; Potassium 4.2 mmol/L (3.5-5.1); Protein, Total 7.2 g/dL (6.4-8.2); Sodium Level 138 mmol/L (136-145); T4 Free Direct 1.09 ng/dL (0.76-1.46); Thyroid Stim Hormone (TSH) 0.92 uIU/mL (0.358-3.74); Triglycerides 55 mg/dL; Very Low Density Lipoprotein 11 mg/dL (5-40)
== END | disposition home or self-care (01) ==
LOC: MTLAB 15:03
PROVIDERS: PCP Family Medicine; Referring Provider Internal Medicine Endocrinology, Diabetes & Metabolism; Visit Provider Internal Medicine Endocrinology, Diabetes & Metabolism
DX: E27.40 Unspecified adrenocortical insufficiency (principal); E11.65 Type 2 diabetes mellitus with hyperglycemia; E03.9 Hypothyroidism, unspecified; M81.0 Age-related osteoporosis without current pathological fracture; E55.9 Vitamin D deficiency, unspecified
CPT/HCPCS: 36415; 80053; 80061; 82306; 83036; 83970; 84439; 84443; 84481

== ENCOUNTER → 2023-12-12 | Outpatient (CLI) | payer OTHER, SELFPAY ==
[2023-12-12 18:02] LABS: Absolute Lymphocyte Count 1.15 X10^3/uL (0.83-4.51); Absolute Neutrophil Count 5.5 X10^3/uL (2.0-7.7); Basophil# 0.04 X10^3/uL; Basophil% 0.6 % (0-1); Eosinophil# 0.04 X10^3/uL; Eosinophils% 0.6 % (0-5); Hematocrit 36.3 % (37-47); Hemoglobin 11.3 g/dL (12.0-15.0); Lymphocyte # 1.15 X10^3/ul (0.83-4.51); Lymphocyte % 16.1 % (19-41); Mean Corp Hgb Conc 31.1 g/dL (32-36); Mean Corpuscular Hgb 28.9 pg (27.0-32.0); Mean Corpuscular Volume 92.8 fL (81-99); Mean Platelet Vol. 9.6 fl (6.2-12.0); Monocyte# 0.46 X10^3/uL; Monocyte% 6.4 % (0-10); NRBC Flagged by Analyzer 0 % (0-5); Neutrophil # 5.45 X10^3/uL (2.7-7.7); Neutrophil % 76.2 % (47-70); Platelet Count 280 K/mm3 (150-450); RBC Distribution Width CV 15.9 % (11.6-14.6); RBC Distribution Width SD 53.8 fl (35.1-43.9); Red Blood Count 3.91 M/mm3 (4.2-5.4); White Blood Count 7.2 K/mm3 (4.4-11.0)
[2023-12-12 19:06] LABS: Ferritin 14 ng/mL (8-252); Iron 51 ug/dL (50-170)
== END | disposition home or self-care (01) ==
LOC: MTLAB 14:33
PROVIDERS: PCP Family Medicine; Referring Provider Family Medicine; Visit Provider Family Medicine
DX: E61.1 Iron deficiency (principal)
CPT/HCPCS: 36415; 82728; 83540; 85025

== ENCOUNTER → 2024-01-10 | Outpatient (CLI) | payer OTHER, SELFPAY | END | disposition home or self-care (01) | LOC: BFHLAB 14:03 | PROVIDERS: PCP Nurse Practitioner Family; Referring Provider Nurse Practitioner Family; Visit Provider Nurse Practitioner Family | DX: N39.0 Urinary tract infection, site not specified (principal) | CPT/HCPCS: 87086; 87088 ==

== ENCOUNTER 2024-01-19 12:00 | Outpatient (RCR) | payer OTHER, SELFPAY | END 2024-01-19 19:00 | disposition home or self-care (01) | LOC: PT 12:00 | PROVIDERS: PCP Family Medicine; Referring Provider Family Medicine; Visit Provider Family Medicine | DX: R42 Dizziness and giddiness (principal); M06.9 Rheumatoid arthritis, unspecified | CPT/HCPCS: 97110; 97112; 97162; 97530 ==

== ENCOUNTER → 2024-02-07 | Outpatient (CLI) | payer OTHER, SELFPAY ==
[2024-02-07 17:57] LABS: Vitamin D,25 Hydroxy 96.5 ng/mL
[2024-02-07 18:07] LABS: AST(SGOT) 11 U/L (15-37); Alanine Aminotransfer ALT/SGPT 24 U/L (13-56); Albumin, Serum 3.4 g/dL (3.2-5.0); Alkaline Phosphatase 43 U/L (45-117); Anion Gap 4 (5-15); BUN 21 mg/dL (7-18); BUN/Creat Ratio 19.3 RATIO (10-20); Chloride 101 mmol/L (98-107); Cholesterol 227 mg/dL (200); Creatinine, Serum 1.09 mg/dL (0.55-1.02); EST Glomerular Filtration Rate 54 mL/min (>60); Est Glom Filt Rate - Afr Amer 65 mL/min (>60); Free T3 2.6 pg/mL (2.18-3.98); Globulin 3.5 g/dL (2.2-4.2); Glucose 140 mg/dL (74-106); High Density Lipoprotein 79 mg/dL; Potassium 4.2 mmol/L (3.5-5.1); Protein, Total 6.9 g/dL (6.4-8.2); Sodium Level 135 mmol/L (136-145); Thyroid Stim Hormone (TSH) 0.872 uIU/mL (0.358-3.740); Triglycerides 65 mg/dL; Very Low Density Lipoprotein 13 mg/dL (5-40)
[2024-02-07 18:32] LABS: Microalbumin,Random Urine 5.8 mg/L (NO RANGE EST.); Microalbumin:Creatinine Ratio 4.9 mg/g CRE (<30 mg/g CRE)
[2024-02-10 10:58] LABS: C-Peptide 2.7 ng/mL (1.1-4.4); Cotinine Screen Urine Negative ng/mL (Cutoff=300)
== END | disposition home or self-care (01) ==
LOC: MTLAB 14:23
PROVIDERS: PCP Family Medicine; Referring Provider Internal Medicine Endocrinology, Diabetes & Metabolism; Visit Provider Internal Medicine Endocrinology, Diabetes & Metabolism
DX: E11.65 Type 2 diabetes mellitus with hyperglycemia (principal); E03.9 Hypothyroidism, unspecified; E55.9 Vitamin D deficiency, unspecified; M81.0 Age-related osteoporosis without current pathological fracture; E27.40 Unspecified adrenocortical insufficiency
CPT/HCPCS: 36415; 80053; 80061; 80307; 82043; 82306; 82570; 83036; 84439; 84443; 84481; 84681

== ENCOUNTER → 2024-03-22 | Outpatient (CLI) | payer OTHER, SELFPAY ==
--- NOTE | 2024-03-22 11:53 | US_ITS ---
STUDY: THYROID ULTRASOUND REASON FOR EXAM: Female, 63 years old. ABNORMAL THYROID EXAM . Hypothyroidism. TECHNIQUE: Ultrasound evaluation of the thyroid was performed with real-time and static bacon-scale imaging. COMPARISON: None. FINDINGS: RIGHT LOBE: The right lobe of the thyroid gland measures 3.9 cm x 1.3 cm x 2.4 cm. There is a homogeneous echotexture. There is a 1.8 cm x 1.4 cm x 1.8 cm heterogeneous hypoechoic nodule in the lower pole of the right lobe. Biopsy recommended. LEFT LOBE: The left lobe of the thyroid gland measures 3.7 cm x 0.9 cm x 1.2 cm. There is a homogeneous echotexture. There are no demonstrated solid, cystic or complex lesions. ISTHMUS: The isthmus measures 2 mm. The regional lymph nodes are normal. US/Thyroid IMPRESSION: 1.8 cm x 1.4 cm x 1.8 cm heterogeneous hypoechoic solid nodule in the lower pole of the right lobe of the thyroid. Biopsy recommended. Electronically Signed: Zoltan Sherwood MD at 13:53 EST ,
== END | disposition home or self-care (01) ==
LOC: US 11:51
PROVIDERS: PCP Family Medicine; Referring Provider Internal Medicine Endocrinology, Diabetes & Metabolism; Visit Provider Internal Medicine Endocrinology, Diabetes & Metabolism
DX: E27.40 Unspecified adrenocortical insufficiency (principal); E11.65 Type 2 diabetes mellitus with hyperglycemia; E03.9 Hypothyroidism, unspecified; E55.9 Vitamin D deficiency, unspecified; M81.0 Age-related osteoporosis without current pathological fracture
CPT/HCPCS: 76536

== ENCOUNTER → 2024-03-30 | Outpatient (CLI) | payer OTHER, SELFPAY ==
[2024-03-30 15:13] LABS: Absolute Lymphocyte Count 1.69 X10^3/uL (0.83-4.51); Absolute Neutrophil Count 3.8 X10^3/uL (2.0-7.7); Basophil# 0.05 X10^3/uL; Basophil% 0.8 % (0-1); Eosinophil# 0.08 X10^3/uL; Eosinophils% 1.3 % (0-5); Hematocrit 35.8 % (37-47); Hemoglobin 10.9 g/dL (12.0-15.0); Lymphocyte # 1.69 X10^3/ul (0.83-4.51); Lymphocyte % 27.3 % (19-41); Mean Corp Hgb Conc 30.4 g/dL (32-36); Mean Corpuscular Hgb 29.3 pg (27.0-32.0); Mean Corpuscular Volume 96.2 fL (81-99); Mean Platelet Vol. 9.1 fl (6.2-12.0); Monocyte# 0.57 X10^3/uL; Monocyte% 9.2 % (0-10); NRBC Flagged by Analyzer 0 % (0-5); Neutrophil # 3.78 X10^3/uL (2.7-7.7); Neutrophil % 61.1 % (47-70); Platelet Count 306 K/mm3 (150-450); RBC Distribution Width CV 16.2 % (11.6-14.6); RBC Distribution Width SD 58.2 fl (35.1-43.9); Red Blood Count 3.72 M/mm3 (4.2-5.4); White Blood Count 6.2 K/mm3 (4.4-11.0)
[2024-03-30 15:31] LABS: AST(SGOT) 10 U/L (15-37); Alanine Aminotransfer ALT/SGPT 19 U/L (13-56); Albumin, Serum 3.2 g/dL (3.2-5.0); Alkaline Phosphatase 39 U/L (45-117); Anion Gap 4 (5-15); BUN 20 mg/dL (7-18); BUN/Creat Ratio 14.4 RATIO (10-20); Calcium,Total 9.3 mg/dL (8.5-10.1); Chloride 106 mmol/L (98-107); Creatinine, Serum 1.39 mg/dL (0.55-1.02); EST Glomerular Filtration Rate 41 mL/min (>60); Est Glom Filt Rate - Afr Amer 49 mL/min (>60); Globulin 3.3 g/dL (2.2-4.2); Glucose 165 mg/dL (74-106); Protein, Total 6.5 g/dL (6.4-8.2); Sodium Level 140 mmol/L (136-145)
== END | disposition home or self-care (01) ==
LOC: MTLAB 12:55
PROVIDERS: PCP Family Medicine; Referring Provider Internal Medicine Rheumatology; Visit Provider Internal Medicine Rheumatology
DX: M06.041 Rheumatoid arthritis without rheumatoid factor, right hand (principal); M79.7 Fibromyalgia; Z79.899 Other long term (current) drug therapy
CPT/HCPCS: 36415; 80053; 85025

== ENCOUNTER → 2024-06-25 | Outpatient (CLI) | payer OTHER, SELFPAY ==
[2024-06-25 19:53] LABS: Cholesterol 174 mg/dL (<=200); Free T3 2.4 pg/mL (2.18-3.98); High Density Lipoprotein 73 mg/dL; Low Density Lipoprotein Calc. 90 mg/dL; Triglycerides 56 mg/dL; Very Low Density Lipoprotein 11 mg/dL (5-40)
[2024-06-25 19:56] LABS: ALB/GLOB Ratio 1.4 RATIO (0.9-2.4); AST(SGOT) 19 U/L (<=31); Alanine Aminotransfer ALT/SGPT 23 U/L (<=34); Albumin, Serum 3.8 g/dL (3.4-4.8); Alkaline Phosphatase 44 U/L (35-104); Anion Gap 9 (5-15); BUN 23 mg/dL (4-19); BUN/Creat Ratio 22.3 RATIO (10-20); Carbon Dioxide 27.4 mmol/L (21.0-32.0); Chloride 102 mmol/L (98-108); Creatinine, Serum 1.02 mg/dL (0.70-1.20); EST Glomerular Filtration Rate 62 (>60); Globulin 2.7 g/dL (2.2-4.2); Glucose 118 mg/dL (70-99); Potassium 3.9 mmol/L (3.3-5.1); Protein, Total 6.5 g/dL (5.9-8.4); Sodium Level 139 mmol/L (133-145); Total Bilirubin 0.25 mg/dL (0.00-1.30)
== END | disposition home or self-care (01) ==
PROVIDERS: PCP Family Medicine; Referring Provider Internal Medicine Endocrinology, Diabetes & Metabolism; Visit Provider Internal Medicine Endocrinology, Diabetes & Metabolism
DX: E27.40 Unspecified adrenocortical insufficiency (principal); E11.65 Type 2 diabetes mellitus with hyperglycemia; E03.9 Hypothyroidism, unspecified; E55.9 Vitamin D deficiency, unspecified; M81.0 Age-related osteoporosis without current pathological fracture
CPT/HCPCS: 36415; 80053; 80061; 84439; 84443; 84481

== ENCOUNTER → 2024-12-03 | Outpatient (CLI) | payer OTHER, SELFPAY ==
[2024-12-03 17:49] LABS: Hematocrit 38.1 % (37-47); Hemoglobin 12.0 g/dL (12.0-15.0); Immature Granulocytes Count 0.040 X10^3/uL (0.0-0.0); Mean Corp Hgb Conc 31.5 g/dL (32-36); Mean Corpuscular Volume 96.2 fL (81-99); Mean Platelet Vol. 8.9 fl (6.2-12.0); NRBC Flagged by Analyzer 0 % (0-5); Platelet Count 290 K/mm3 (150-450); RBC Distribution Width CV 15.4 % (11.6-14.6); RBC Distribution Width SD 54.5 fl (35.1-43.9); Red Blood Count 3.96 M/mm3 (4.2-5.4); White Blood Count 8.9 K/mm3 (4.4-11.0)
[2024-12-03 18:12] LABS: Creatinine, Urine (random) 163.00 mg/dL (28.00-217.00); Microalbumin,Random Urine < 12.0 mg/L (<20 mg/L)
[2024-12-03 18:27] LABS: AST(SGOT) 15 U/L (<=31); Alanine Aminotransfer ALT/SGPT 20 U/L (<=34); Albumin, Serum 4.0 g/dL (3.4-4.8); Alkaline Phosphatase 40 U/L (35-104); Anion Gap 10 (5-15); BUN 19 mg/dL (4-19); BUN/Creat Ratio 15.3 RATIO (10-20); Calcium,Total 9.7 mg/dL (7.6-11.0); Carbon Dioxide 28.2 mmol/L (21.0-32.0); Chloride 100 mmol/L (98-108); Cholesterol 188 mg/dL (<=200); Free T3 2.9 pg/mL (2.18-3.98); Globulin 2.7 g/dL (2.2-4.2); Glucose 145 mg/dL (70-99); Low Density Lipoprotein Calc. 100 mg/dL; Potassium 4.4 mmol/L (3.3-5.1); Triglycerides 64 mg/dL; Very Low Density Lipoprotein 13 mg/dL (5-40); Vitamin D,25 Hydroxy 84.0 ng/mL (30-100); cholesterol:hdl ratio screen 2.51
== END | disposition home or self-care (01) ==
LOC: MTLAB 14:21
PROVIDERS: PCP Family Medicine; Referring Provider Internal Medicine Endocrinology, Diabetes & Metabolism; Visit Provider Internal Medicine Endocrinology, Diabetes & Metabolism
DX: M06.00 Rheumatoid arthritis without rheumatoid factor, unspecified site (principal); E11.65 Type 2 diabetes mellitus with hyperglycemia; K76.0 Fatty (change of) liver, not elsewhere classified; Z79.899 Other long term (current) drug therapy; E27.40 Unspecified adrenocortical insufficiency; E03.9 Hypothyroidism, unspecified; E55.9 Vitamin D deficiency, unspecified; M81.0 Age-related osteoporosis without current pathological fracture
CPT/HCPCS: 36415; 80053; 80061; 82043; 82306; 82570; 83036; 84439; 84443; 84481; 85025